=== PATIENT | female | born 1950 | race Caucasian/White ===

== ENCOUNTER 2023-04-30 23:26 | Inpatient (IN) | payer OTHER, SELFPAY ==
[2023-04-30 20:51] VITALS: BP 175/92
[2023-04-30 20:55] VITALS: BP 175/92
--- NOTE | 2023-04-30 20:57 | ED.GENMED ---
History of Present Illness
General
Chief Complaint: Musculo-Skeletal Complaint
Source: patient
Exam Limitations: none
Time Seen by Provider: 04/30/23 20:55
History of Present Illness
History of Present Illness:
72-year-old female presents via EMS from home with right hip pain after fall. No anticoagulants. Patient is confused at baseline. She points to her right hip however as location of pain. She denies headache. No other complaints at this time
Past History
Past History
ED Past Medical History: HTN, Hypercholesterolemia and Other (Intracerebral bleed); Negative Asthma or NIDDM
ED Past Surgical History: Orthopedic
Social History
Tobacco: Former smoker
Alcohol: Daily
Personal:
Living: with family
Phy Exam
Physical Exam
Physical Exam:
General: Slightly cachectic appearing female no acute distress
HEENT: Normocephalic atraumatic heart: Regular rate and rhythm no murmurs
Lungs: Clear to auscultation bilaterally no wheezing
Musculoskeletal exam: Right hip tender anteriorly patient is flexed and an attempt to straighten the leg reproduces her pain. The spine is nontender vascular: 2+ dorsalis pedis pulse bilateral feet
Course
Orders/Labs/Results
Orders:
Orders
04/30/23 20:55
CR Hip - RT w/wo Pel 2-3 Vw* Urgent
Comment: fall
Reason For Exam: fall
Include a pelvis x-ray?: Yes
04/30/23 21:00
Complete Blood Count/With Diff Urgent
Comprehensive Metabolic Panel Urgent
04/30/23 22:45
Add On- LAB Urgent
Tests Added?: serum osmolality
Urine Sodium Urgent
Morphine Sulfate 2 mg IV NOW STA
Ondansetron Injectable [Zofran] 4 mg IV NOW STA
04/30/23 22:46
Osmolality, Random Urine Urgent
Abnormal Lab Results
04/30/23
21:00
Hct 36.1 L %
(37.0-47.0)
MCV 80.2 L fL
(81.0-99.0)
Lymphocytes % 18.2 L %
(20.5-51.1)
Sodium 126 L mmol/L
(135-145)
Chloride 93 L mmol/L
(98-107)
Creatinine 0.4 L mg/dL
(0.6-1.0)
Glucose 141 H mg/dl
(70-99)
Alkaline Phosphatase 128 H U/L
(38-126)
04/30/23 21:00
04/30/23 21:00
Vital Signs
Initial and Last Documented VS:
Initial Vital Signs
Temp Pulse Resp BP Pulse Ox
97.8 F 91 16 175/92 100
04/30/23 20:51 04/30/23 20:51 04/30/23 20:51 04/30/23 20:51 04/30/23 20:51
Last Documented Vital Signs
Temp Pulse Resp BP Pulse Ox
97.8 F 91 16 175/92 99
04/30/23 20:51 04/30/23 20:51 04/30/23 20:51 04/30/23 20:51 04/30/23 21:05
MDM/Problems Addressed
Differential Diagnosis Includes:
Right hip pain after fall. Consider fracture versus dislocation versus strain. X-rays pending. Will check labs.
*Critical Care Note
Total Time (30-74mins, 75-104mins- exclusive of procedures): Not Applicable
Update Note
Update Note:
Labs reviewed. Patient noted to have sodium of 126. I personally visualized x-rays of the right hip which demonstrate intertrochanteric hip fracture of the right femur. Patient treated for pain with 2 mg of morphine and 4 mg Zofran for nausea.
Will admit for further evaluation
ED Attending Note
-
Portions of this chart may have been created with voice recognition software.� Occasional wrong word or��sound alike� substitutions may have occurred due to the inherent limitations of voice recognition software.
Discharge Plan
Departure
Patient Disposition: Admit
Date of Disposition: 04/30/23
Time of Disposition: 22:48
Admit to: Med/Surg
Presentation/result/management discussed w/ accepting MD/DO: Hospitalist
Discharge Problem:
Closed fracture of right hip, Acute hyponatremia
Prescriptions:
No Action
losartan 50 mg tablet
50 mg PO BID
atorvastatin 80 mg tablet
80 mg PO DAILY
labetalol 200 mg tablet
400 mg PO BID
risperidone 0.5 MG tablet
0.5 mg PO HS
furosemide 20 MG tablet
20 mg PO DAILY Qty: 30 0RF
Interventions
Interventions:
*Risk Screen - Suicide Last Done: 04/30/23 20:51
*General Assessment Last Done: 04/30/23 20:51
*Neglect/Abuse Screening Last Done: 04/30/23 20:51
ED- Fall Risk Assessment Last Done: 04/30/23 21:05
*ED COVID-19 Vaccine History Last Done: 04/30/23 20:51
ED-Musculoskeletal Assessment Last Done: 04/30/23 21:05
[2023-04-30 21:09] LABS: % Basophils 0.6 % (0-2); % Eosinophils 0.8 % (0-6); % Immature Granulocytes 0.3 % (0-0.5); % Lymphocytes 18.2 % (20.5-51.1); % Monocytes 5.4 % (1.7-9.3); % Neutrophils 74.7 % (42.2-75.2); Absolute Eosinophils 0.1 10^3/uL (0-0.7); Absolute Lymphocytes 1.3 10^3/uL (1.2-3.4); Absolute Monocytes 0.4 10^3/uL (0.1-0.6); Absolute Neutrophils 5.3 10^3/uL (1.4-6.5); Hematocrit 36.1 % (37.0-47.0); Hemoglobin 13.1 g/dL (12.0-16.0); Mean Corp Hgb Conc. 36.3 g/dL (33.0-37.0); Mean Corpuscular Hgb 29.1 pg (27.0-31.0); Mean Corpuscular Volume 80.2 fL (81.0-99.0); Mean Platelet Volume 8.2 fL (7.4-10.4); Nucleated Red Blood Cells % 0 %; Platelet Count 339 10^3/uL (130-400); Red Cell Dist. Width 13.2 % (11.5-14.5); White Blood Cell Count 7.1 10^3/uL (4.8-10.8)
[2023-04-30 21:34] LABS: ALT (SGPT) < 10 U/L (0-35); AST (SGOT) 32 U/L (14-36); Albumin 4.2 g/dl (3.5-5.0); Alkaline Phosphatase 128 U/L (38-126); Blood Urea Nitrogen 15 mg/dl (7-17); Calcium 9.1 mg/dl (8.4-10.2); Carbon Dioxide 28 mmol/L (22-30); Chloride 93 mmol/L (98-107); Glucose 141 mg/dl (70-99); Sodium 126 mmol/L (135-145); Total Bilirubin 0.7 mg/dl (0.2-1.3); Total Protein 6.5 g/dl (6.3-8.2); eGFR > 60.00
[2023-04-30 22:00] VITALS: BP 174/103
[2023-04-30] MEDS: ZOFRAN 4 MG IV (22:49)
[2023-04-30] MEDS: MORPHINE SULFATE 2 MG IV (22:49)
[2023-04-30 23:00] VITALS: BP 149/97
--- NOTE | 2023-04-30 23:02 | HPS.HSE ---
Family Physician
-
Family Physician: Milad Zaragoza
Chief Complaint
-
S/P Fall with Right hip pain
History of Present Illness
72yo F with PMH PMH Parkinsons/Vascular Dementia, CVA (2012), HTN/HLD, Hyponatremia presents to ER s/p Fall with Right Hip Fx.� at bedside aiding in HPI. At baseline pt is AAOx1-2 (knows name, , ambulates without any walking aids, 'more
because she is stubborn'). was cooking food. Pt got up from chair and tried to walk over to him but had an unwitnessed fall landing on right hip. Pt denies headstrike or LOC. +right hip pain 10/10, now improved to 7/10. Denies frequent falls
or previous orthopedic surgeries. She is incidentally to see an orthopedic surgeon at [place] in near future for scoliosis. Denies fever, chills, dizziness/LH, CP, Palps, SOB, Cough, abd pain, n/v/d/c, dysuria, calf or leg pain.
Medical History
Past Medical History
Past Medical History: Reports Other ( Parkinsons/Vascular Dementia, CVA, HTN/HLD presents to ER s/p Fall with Right Hip Fx)
Past Surgical History: Reports Other (Right Ankle Sx)
Social History
Unable to obtain full social history at this time due to: Dementia
Tobacco: Former Smoker
Alcohol: Daily (1g wine daily)
Drug: None
Personal:
Living: With Family
Family History
Family History: Other (unknown)
Allergies / Home Medications
Allergies reflects when Allergies were last updated in [id number].
Home Medications with original date entered in [id number]
Allergy/Medication List:
Allergies
Allergy/AdvReac Type Severity Reaction Status Date / Time
No Known Allergies Allergy Verified 04/30/23 20:58
Home Medications
furosemide 20 mg tablet 20 mg PO DAILY #30 tabs 11/12/12
atorvastatin 80 mg tablet 80 mg PO DAILY High Cholesterol 10/08/22
losartan 50 mg tablet 50 mg PO BID Blood Pressure 10/08/22
carbidopa 25 mg-levodopa 100 mg tablet 1 tab PO TID@1000,1400,1800 04/30/23
Review of Systems
-
A 12 point ROS was completed and negative except as noted: Yes
Physical Exam
Vital Signs
Vital Signs
Temp Pulse Resp BP Pulse Ox
97.8 F 94 18 174/103 100
04/30/23 20:51 04/30/23 22:50 04/30/23 22:00 04/30/23 22:00 04/30/23 22:00
Physical Exam
General: Well Developed, Well Nourished, No Apparent Distress and Appears Chronically Ill
HEENT: NormoCephalic, Moist mucous membranes and Atraumatic
Respiratory: Clear; No Wheezes, Rales or Rhonchi
Cardiac: S1/S2 and Regular Rhythm; No Murmur or Rub
GI: Soft, Non Tender, Non Distended and Normal Bowel Sounds; No Organomegaly
Rectal: Deferred by Provider
Genito-urinary: No costovertebral tender; No Stanton
Musculoskeletal: No Clubbing, No Cyanosis and No Edema
Skin: No Rash
Neuro: No Sensory Deficits (Awake and alert. AAOx1-2 (baseline). UE MSK 5/5. RLE abducted, externally rotated, shortened. +TTP right hip. )
Hematologic/Lymphatic: No Lymphadenopathy
Laboratory Results
-
04/30/23 21:00
04/30/23 21:00
Laboratory Results
Total Bilirubin 0.7 mg/dl (0.2-1.3) 04/30/23 21:00
AST 32 U/L (14-36) 04/30/23 21:00
ALT < 10 U/L (0-35) 04/30/23 21:00
Alkaline Phosphatase 128 U/L (38-126) H 04/30/23 21:00
Data Reviewed
-
Diagnostic Radiology: Image Personally Visualized and interpreted
Lab Data: Labs Reviewed by me
Impression/Plan
-
Right Hip Fracture s/p Fall / Chronic Ambulatory Dysfunction
- XR reviewed. No evidence of pre-syncope
- NPO. IVF. Prn Tylenol/Morphine for analgesia.
- Orthopedics / PT consult consult.
- Pt should likely have Na improved to ~128 prior to being deemed appropriate for surgical intervention. Will ultimately defer to nephrology
- RCRI 1. 6% 30day risk of morbidity mortality. Pt is acceptable risk to proceed with surgery after sodium improved.
Hyponatremia
- Na 126 on admission. Considerations include dehydration in setting of poor po intake reported by and lasix use vs beerpotomania effect
- Check osm, urine sodium/osm. Consult nephrology
- Will start 80cc/hr NS x 1L. Trend serial BMPs. Pt NPO without fluids at this time, Consider for fluid restriction once diet advanced.
Alcohol Use
- reports her drinking 1g of wine daily, occasionally 2-3 but more infrequently
- Monitor for s/s withdrawal. Consider CIWA monitoring/Thiamine/Folate as needed
HTN/HLD
- BP 174/103 on admission. Likely exacerbated by pain. Trend wtih appropriate analgesia. Resume home losartan. Home lasix on hold 2/2 hyponatremia. Consider prn antihypertensives
- Continue home statin
Vascular Dementia / Hx CVA (2013) - Hx noted. Continue home statin. Not on aspirin therapy.
Parkinsons Disease - Chronic/stable on home sinemet
Code Status - Full Code. Would not want prolonged ventilator support.
Diet - NPO
PPx - Lovenox
[2023-04-30 23:52] LABS: Osmolality Serum 272 mOsm/kg (275-300)
[2023-05-01] VITALS (17 sets, daily range): BP systolic 99–178; BP diastolic 56–92; BMI 16.4
[2023-05-01] MEDS: NSS 1000 IV ×2 (01:46→15:19)
[2023-05-01] MEDS: TYLENOL 650 MG PO ×2 (01:51→09:25)
[2023-05-01 06:31] LABS: Hematocrit 32.1 % (37.0-47.0); Hemoglobin 11.5 g/dL (12.0-16.0); Mean Corp Hgb Conc. 35.8 g/dL (33.0-37.0); Mean Corpuscular Hgb 29.1 pg (27.0-31.0); Mean Corpuscular Volume 81.3 fL (81.0-99.0); Mean Platelet Volume 8.6 fL (7.4-10.4); Platelet Count 326 10^3/uL (130-400); Red Blood Cell Count 3.95 10^6/uL (4.20-5.40); Red Cell Dist. Width 13.1 % (11.5-14.5); White Blood Cell Count 9.3 10^3/uL (4.8-10.8)
[2023-05-01 07:02] LABS: Blood Urea Nitrogen 14 mg/dl (7-17); Calcium 8.9 mg/dl (8.4-10.2); Carbon Dioxide 24 mmol/L (22-30); Chloride 93 mmol/L (98-107); Estimated Creatinine Clearance 58 ml/min; Glucose 142 mg/dl (70-99); Potassium 3.6 mmol/L (3.5-5.1); Sodium 127 mmol/L (135-145); eGFR > 60.00
[2023-05-01 07:28] LABS: TSH 1.41 uIU/ml (0.47-4.68)
[2023-05-01 07:45] LABS: Hepatitis C Antibody Negative (Negative)
--- NOTE | 2023-05-01 08:45 | W.PN.HOSP.TC ---
Today's Communication/Plan
-
NPO
OR today
post OP order/care per orthopedic
Assessment / Plan
Assessment / Plan
General: Well Developed, Well Nourished, No Apparent Distress and Appears Chronically Ill
HEENT: NormoCephalic, Moist mucous membranes and Atraumatic
Respiratory: Clear; No Wheezes, Rales or Rhonchi
Cardiac: S1/S2 and Regular Rhythm; No Murmur or Rub
GI: Soft, Non Tender, Non Distended and Normal Bowel Sounds; No Organomegaly
Rectal: Deferred by Provider
Genito-urinary: No costovertebral tender; No Stanton
Musculoskeletal: No Clubbing, No Cyanosis and No Edema
Skin: No Rash
Neuro: No Sensory Deficits (Awake and alert. AAOx1-2 (baseline). UE MSK 5/5. RLE abducted, externally rotated, shortened. +TTP right hip. )
Hematologic/Lymphatic: No Lymphadenopathy
Right Hip Fracture s/p Fall / Chronic Ambulatory Dysfunction
- XR reviewed. No evidence of pre-syncope
- NPO. IVF. Prn Tylenol/Morphine for analgesia.
- Orthopedics [facility] consulted.
- RCRI 1. 6% 30day risk of morbidity mortality. Pt is acceptable risk to proceed with surgery. This is a medically necessary surgery and risk outweighs benefit.
Hyponatremia
- Na 126 on admission. Considerations include dehydration in setting of poor po intake reported by and lasix use vs beerpotomania effect
- Check osm, urine sodium/osm.
- Na improving.
Alcohol Use
- reports her drinking 1g of wine daily, occasionally 2-3 but more infrequently
- Monitor for s/s withdrawal. Consider CIWA monitoring/Thiamine/Folate as needed
HTN Primary
- BP 174/103 on admission. Likely exacerbated by pain. Trend wtih appropriate analgesia. Resume home losartan. Home lasix on hold 2/2 hyponatremia. Consider prn antihypertensives
-Cont losartan 50mg BID. If BP elevated post OP will adjust meds and add prn.
HLD
- Continue home statin
Vascular Dementia / Hx CVA (2012) - Hx noted. Continue home statin. Not on aspirin therapy.
Parkinsons Disease - Chronic/stable on home sinemet
Code Status - Full Code. Would not want prolonged ventilator support.
Diet - NPO
d/w with orthopedic
d/w with spouse and son over the phone.
Anticipated Discharge: > 48 hours
Subjective/Interval History
-
Date of Service: May 01, 2023
Currently denies any pain
resting in bed comfortably
Objective Data
-
Labs:
Laboratory Results
04/30/23 05/01/23 05/01/23
21:00 04:44 12:00
WBC 7.1 9.3
Hgb 13.1 11.5 L
Hct 36.1 L 32.1 L
Plt Count 339 326
Sodium 126 L 127 L Pending
Potassium 4.0 3.6 Pending
Chloride 93 L 93 L Pending
Carbon Dioxide 28 24 Pending
BUN 15 14 Pending
Creatinine 0.4 L 0.5 L Pending
Glucose 141 H 142 H Pending
Calcium 9.1 8.9 Pending
Total Bilirubin 0.7
AST 32
ALT < 10
Alkaline Phosphatase 128 H
05/01/23
18:00
WBC
Hgb
Hct
Plt Count
Sodium Pending
Potassium Pending
Chloride Pending
Carbon Dioxide Pending
BUN Pending
Creatinine Pending
Glucose Pending
Calcium Pending
Total Bilirubin
AST
ALT
Alkaline Phosphatase
Vital Signs:
Vital Signs
Temp Pulse Resp BP Pulse Ox
97.5 F 78 18 148/73 98
05/01/23 07:55 05/01/23 07:55 05/01/23 07:55 05/01/23 07:55 05/01/23 07:55
I&O
04/30/23 05/01/23 05/02/23
06:59 06:59 06:59
Intake Total 400 / 400
Balance 400 / 400
Data Reviewed
-
Total Time Spent with Patient (in minutes): 55
[2023-05-01] MEDS: LIPITOR 80 MG PO (09:23)
[2023-05-01] MEDS: COZAAR 50 MG PO (09:23)
[2023-05-01] MEDS: SINEMET 25-100 1 TABLET PO ×2 (09:25→18:05)
--- NOTE | 2023-05-01 10:34 | CON.ORTHO ---
Consultation
-
Date/Time Consultation Requested: 730 AM
Date/Time Consultation Performed: 930 AM
Requesting Provider: Primary
Performing Provider: Facundo
Reason for Consultation: Right hip fracture
Consultation - Orthopedics
History
HPI: 72-year-old female history of Parkinson's, vascular dementia CVA presented to the [facility] emergency department status post witnessed mechanical fall with complaints of right hip pain. She was subsequently diagnosed with a right intertrochanteric
femur fracture admitted to the hospital service for amatory function. He is consulted for further evaluation treatment. Patient's is at bedside this morning reports that patient attempted to get out of her chair medication to help him with
dinner and sustained a fall. He reports that she very occasionally uses a walker for ambulatory assistance but typically does not use any aids. Denies any anticoagulation. Does note history of degenerative scoliosis with recent falls. Does state
that she is complaining of some right hip pain leading up to the fall.
Allergies / Home Medications
Past medical history: Parkinson's, vascular dementia, CVA, hypertension
Past surgical history: Ankle surgery
Family history: Not pertinent
Social history: Lives at home with , occasional wine, former smoker
Allergy/AdvReac Type Severity Reaction Status Date / Time
No Known Allergies Allergy Verified 04/30/23 20:58
Medication Instructions Recorded
furosemide 20 mg tablet 20 mg PO DAILY #30 tabs 11/12/12
atorvastatin 80 mg tablet 80 mg PO DAILY High Cholesterol 10/08/22
losartan 50 mg tablet 50 mg PO BID Blood Pressure 10/08/22
carbidopa 25 mg-levodopa 100 mg 1 tab PO TID@1000,1400,1800 04/30/23
tablet
Vital Signs / Lab Results
Temp Pulse Resp BP Pulse Ox
97.5 F 78 18 148/73 98
05/01/23 07:55 05/01/23 07:55 05/01/23 07:55 05/01/23 07:55 05/01/23 07:55
05/01/23 04:44
10 point review systems reviewed and negative unless otherwise stated
General: No acute distress, interactive
Musculoskeletal right lower extremity
Extremity short externally rotated
Skin intact, no erythema, no ecchymotic staining
Tenderness palpation over groin
No ipsilateral palpable knee effusion
Positive EHL, FHL, ankle dorsiflexion, plantarflexion
Brisk cap refill distally
No other areas of bony tenderness palpation crepitation of long bones and joints on tertiary examination
Diagnostic studies
X-rays right hip reviewed that do show minimally displaced right intertrochanteric femur fracture
Assessment / Plan
72-year-old female history of Parkinson's vascular dementia CVA with right intertrochanteric femur fracture. They have a long discussion the patient and her regarding diagnosis and treatment options. Discussed both surgical and nonsurgical
options. Was my recommendation proceed with surgical intervention in the form of cephalomedullary nail fixation right intertrochanteric femur fracture. We discussed risks benefits and alternatives to surgery. We discussed the usual expected
perioperative postoperative course to include postoperative anticoagulation. Patient's is her medical POA and I did obtain written informed consent after discussion. Patient does have evidence of hyponatremia on admission. She has been
evaluated by nephrology. I discussed this both with the weapons electrical engineering officer as well as primary care physician stated that she was cleared for the OR from their standpoint.
Nonweightbearing right lower extremity
N.p.o.
DVT prophylaxis: Hold in preparation for OR
PT/OT: Hold until postoperative setting
Medical management per primary team
Plan: 2 OR today for operative fixation right intertrochanteric femur fracture pending medical clearance and OR availability
[2023-05-01] MEDS: ANCEF 10 IV (13:00)
--- NOTE | 2023-05-01 13:50 | W.CON.NEPH ---
Consultation
-
Date/Time Consultation Requested: 04/30 23:53
Date/Time Consultation Performed: 13:51
Requesting Provider: Aarti Maher
Performing Provider: Nicole Booker
Reason for Consultation: hyponatremia
Medical History
Past Medical History
Ms. Walton is a 72 YOF with PMH of Parkinson's/ Vascular dementia, stroke 2012, HTN/DLD, chronic hyponatremia (baseline around 130) who presents to the hospital after a fall with R hip fracture. Patient's is at bedside who provides history.
States that patient has significant dementia, usually AOx1-2. The patient fell because she got up from her chair and tried to walk over to her and had an unwitnessed fall landing on the right hip. The patient is planned for an orthopedic
procedure today.
Nephrology is consulted regarding her hyponatremia.Reviewing her sodium trends, her sodium has typically arranged in the low 130s. When she initially presented her sodium was 126. It did improve to 127 this morning. states that she eats very
little at home. Typically she has a yogurt in the morning and then about 5 to 8 ounces of food in the evening. She has a normal water intake. She is also noted to be on Lasix at home.
Past Medical History: HTN, Hypercholesterolemia and Other
Past Surgical History: Orthopedic
Social History
Tobacco: Former Smoker
Alcohol: Daily
Drug: None
Personal:
Living: With Family
Employment: Not Employed
Family History
Family History: Not Pertinent
Allergies / Home Medications
Allergy/AdvReac Type Severity Reaction Status Date / Time
No Known Allergies Allergy Verified 04/30/23 20:58
Medication Instructions Recorded Confirmed Type
furosemide 20 mg tablet 20 mg PO DAILY #30 tabs 11/12/12 04/30/23 Rx
atorvastatin 80 mg tablet 80 mg PO DAILY High Cholesterol 10/08/22 04/30/23 History
losartan 50 mg tablet 50 mg PO BID Blood Pressure 10/08/22 04/30/23 History
carbidopa 25 mg-levodopa 100 mg 1 tab PO TID@1000,1400,1800 04/30/23 04/30/23 History
tablet
Review of Systems
-
Unable to obtain full review of systems at this time due to: Dementia
History Source: Family
All other systems: Negative unless noted
Constitutional: Weight Loss
EENT: No Symptoms
Respiratory: No Symptoms
Cardiac: No Symptoms
Abdomen/GI: No Symptoms
: No Symptoms
Musculoskeletal: Joint Pain
Skin: No Symptoms
Neurological: No Symptoms
Endocrine: No Symptoms
Hematologic/Lymphatic: No Symptoms
Physical Exam
Vital Signs
Vital Signs
Temp Pulse Resp BP Pulse Ox
97.7 F 75 18 141/71 96
05/01/23 11:30 05/01/23 11:30 05/01/23 11:30 05/01/23 11:30 05/01/23 11:30
Lab Results
WBC 9.3 10^3/uL (4.8-10.8) 05/01/23 04:44
RBC 3.95 10^6/uL (4.20-5.40) L 05/01/23 04:44
Hgb 11.5 g/dL (12.0-16.0) L 05/01/23 04:44
Hct 32.1 % (37.0-47.0) L 05/01/23 04:44
Plt Count 326 10^3/uL (130-400) 05/01/23 04:44
eGFR > 60.00 05/01/23 04:44
Albumin 4.2 g/dl (3.5-5.0) 04/30/23 21:00
Physical Exam
General: Awake and Alert
HEENT: PERRL and EOMI
Respiratory: Clear
Cardiac: S1/S2 and Regular Rate/Rhythm
Breast: Deferred by me
Abdomen: Soft, Nontender and Nondistended
Rectal: Deferred by Provider
Genito-urinary: Other (no fley)
Musculoskeletal: No Edema
Skin: No Rash, Warm and Dry
Neuro: Other (dementia)
Hematologic/Lymphatic: Other
Psych: Mood/afflect pleasant
Assessment/Plan
-
Assessment:
hyponatremia
R hip fracture 2/2 to fall
Alcohol usage (wine)
HTN
DLD
Vascular dementia
Parkinson's disease
Plan:
- obtain urine osm, urine Na to better assist us in management of her hyponatremia
- likely with some component of tea/toast diet and SIADH from pain
- Na improving organically, CTM for now
- blood pressures elevated on initial presentation, likely 2/2 to pain
- hold losartan prior to surgery
- if patient needs antihypertensive in the immediate post op period, would prefer hydralazine PO for fast on/off mechanism of action
--- NOTE | 2023-05-01 14:00 | CM ---
Reviewed the chart notes. Patient to OR for hip fracture repair. The patient resides with her spouse in a two story home. The patient has a rolling walker. The patient's discharge plans will most likely be SNF/rehab prior to transitioning home.
CM continues to be available to patient/family and is monitoring medical plan for needs at discharge.
Plan: Discharge to SNF/rehab when medically stable and bed found. Precert will be required.
--- NOTE | 2023-05-01 14:17 | OR.RPT ---
Operative Report
Operative Report
Anesthesia Type:
Spinal
Operative Indications:
Right intertrochanteric femur fracture
Operative Findings :
Same with some subtrochanteric extension
Complications:
None
Implants:
Sharon gamma nail 360 mm x 10 mm x 125 degrees, 80 mm cephalomedullary screw, 42.5 mm and 47.5 mm distal interlocking bolts
Procedure and Technique:
Insertion right cephalomedullary nail for intertrochanteric femur fracture
INDICATIONS FOR PROCEDURE:
72-year-old female history of vascular dementia, Parkinson's CVA presented status post fall. She admitted to the hospital service. She was found to have a right intertrochanteric femur fracture. Discussed treatment options with patient as well as
her 's medical POA. Was my recommendation to proceed with cephalomedullary nail fixation. Discussed risks benefits alternatives of surgery. Discussed usual expected perioperative postoperative course after discussion, written informed
consent was obtained.
OPERATIVE PROCEDURE:
Patient was seen identified the preoperative holding area. Operative extremity was marked. All questions were addressed. She was taken to the operating room where spinal anesthesia was administered. He was placed supine on fracture table.
Contralateral leg was placed well-padded and secured to the central post. Operative extremity was then placed in a well-padded fracture boot. Provisional reduction was performed utilizing axial traction, adduction and slight internal rotation.
Orthogonal fluoroscopic images revealed appropriate reduction of right intertrochanteric femur fracture. There was noted to be some subtrochanteric extension however on these intraoperative fluoroscopic views. Operative extremity was prepped and
draped in a normal sterile fashion. Timeout was performed again identifying the correct operative extremity. Preoperative antibiotics were addressed. Proximally 5 cm incision was made just proximal to the tip of the greater trochanter. Sharp
dissection was carried through skin subcutaneous tissues deep fascial layer. Guidewire was then advanced the tip of the greater trochanteric according to technique guide to the level of the lesser trochanter. Opening reamer was utilized.
Ball-tipped guidewire was then advanced to the level of the proximal pole of the patella. This was measured to be 360 mm. Stepwise reaming was performed to 11.5 mm. Decision was made to insert a 10 mm x 360 mm long gamma nail. This was inserted
to appropriate depth. Trocar was then inserted through the aiming guide and additional incision was made. Guidewire was advanced through the femoral neck and femoral head to appropriate depth. This was confirmed on orthogonal fluoroscopic
intraoperative imaging. Attention was paid to minimize tip apex distance. An 80 mm cephalomedullary screw was then inserted to appropriate depth. Attention was then turned to distal interlocking screws. This was performed via perfect [place]
technique. Additional stab incisions were made and distal interlocking screws of appropriate length were then inserted. Final orthogonal views confirmed proper reduction and placement of implant. Satisfied with extent of surgery, wounds were
copiously irrigated normal saline solution. Wounds were then closed in layered fashion utilizing 0 Vicryl for deep fascial layer, 2-0 Vicryl for subcutaneous tissues and kayleen for skin. Aquacel dressings were applied. Anesthesia was reversed
and patient was taken to PACU in stable condition. Postoperative plans will include weightbearing to the patient's tolerance operative extremity. Will recommend DVT prophylaxis to consist of 28 days of renally dosed Lovenox. Plan to see patient
back in the office in 2 weeks postop for repeat evaluation with planned removal of kayleen.
Disposition:
PACU stable condition
[2023-05-01] MEDS: TYLENOL 325 MG PO (18:05)
[2023-05-01] MEDS: SINEMET 25-100 PO (18:05)
[2023-05-01 18:37] LABS: Blood Urea Nitrogen 8 mg/dl (7-17); Calcium 8.9 mg/dl (8.4-10.2); Carbon Dioxide 25 mmol/L (22-30); Chloride 100 mmol/L (98-107); Estimated Creatinine Clearance 58 ml/min; Glucose 112 mg/dl (70-99); Potassium 3.8 mmol/L (3.5-5.1); Sodium 130 mmol/L (135-145); eGFR > 60.00
[2023-05-01 18:57] LABS: Urine Albumin Negative (Neg - Trace); Urine Bilirubin Negative (Negative); Urine Character Clear (Clear); Urine Color Yellow; Urine Glucose Negative (Negative); Urine Ketone Negative (Negative); Urine Leukocyte 2+ (Negative); Urine Nitrite Negative (Negative); Urine Occult Blood Negative (Negative); Urine Urobilinogen Negative (Neg - 1+); Urine pH 6.5 (5.0-9.0)
[2023-05-01 19:02] LABS: Osmolality Urine 299 mOsm/kg (300-900)
[2023-05-01 19:19] LABS: Urine Sodium 19 mmol/L (30-90)
[2023-05-01 19:25] LABS: Urine Red Blood Cell None Seen /HPF (0-2)
[2023-05-01] MEDS: APRESOLINE 10 MG IV (20:30)
[2023-05-01] MEDS: COLACE 100 MG PO (20:51)
[2023-05-01] MEDS: ANCEF 5 IV (21:03)
[2023-05-01] MEDS: ROXICODONE 5 MG PO (21:48)
[2023-05-02] VITALS (10 sets, daily range): BP systolic 108–177; BP diastolic 54–102; PULSE 95
[2023-05-02] MEDS: APRESOLINE 10 MG IV ×3 (00:35→08:57)
[2023-05-02] MEDS: NSS 1000 IV (02:24)
[2023-05-02] MEDS: ANCEF 5 IV (04:49)
--- NOTE | 2023-05-02 05:09 | PTCARENOTE ---
patient's HR noted to be sustaining in 140's to 150's on tele monitor. House Provider Kristy Swanson SEASONAL CUSTOMER SERVICE ASSOCIATE on unit and ordered IV lopressor which was then administered. Patient asymptomatic the entire time, lying in bed, resting. Patient's son at
bedside updated. will cont to closely monitor.
[2023-05-02] MEDS: LOPRESSOR 5 MG IV (05:16)
[2023-05-02] MEDS: COLACE 100 MG PO ×2 (08:18→20:04)
[2023-05-02] MEDS: LIPITOR 80 MG PO (08:18)
[2023-05-02] MEDS: ROXICODONE 5 MG PO ×2 (08:18→23:24)
[2023-05-02] MEDS: SINEMET 25-100 1 TABLET PO ×3 (08:18→17:28)
[2023-05-02] MEDS: LOVENOX 30 MG SC (08:19)
[2023-05-02 09:14] LABS: % Basophils 0.3 % (0-2); % Eosinophils 0.2 % (0-6); % Immature Granulocytes 0.2 % (0-0.5); % Lymphocytes 8.5 % (20.5-51.1); % Monocytes 7.1 % (1.7-9.3); % Neutrophils 83.7 % (42.2-75.2); Absolute Lymphocytes 0.8 10^3/uL (1.2-3.4); Absolute Monocytes 0.6 10^3/uL (0.1-0.6); Absolute Neutrophils 7.4 10^3/uL (1.4-6.5); Hematocrit 31.4 % (37.0-47.0); Hemoglobin 11.3 g/dL (12.0-16.0); Mean Corpuscular Hgb 29.7 pg (27.0-31.0); Mean Corpuscular Volume 82.4 fL (81.0-99.0); Mean Platelet Volume 8.5 fL (7.4-10.4); Nucleated Red Blood Cells % 0 %; Platelet Count 299 10^3/uL (130-400); Red Blood Cell Count 3.81 10^6/uL (4.20-5.40); Red Cell Dist. Width 13.2 % (11.5-14.5); White Blood Cell Count 8.8 10^3/uL (4.8-10.8)
[2023-05-02 09:34] LABS: Blood Urea Nitrogen 5 mg/dl (7-17); Calcium 8.6 mg/dl (8.4-10.2); Carbon Dioxide 23 mmol/L (22-30); Chloride 104 mmol/L (98-107); Estimated Creatinine Clearance 58 ml/min; Glucose 113 mg/dl (70-99); Magnesium 1.8 mg/dl (1.6-2.3); Potassium 3.4 mmol/L (3.5-5.1); Sodium 130 mmol/L (135-145); eGFR > 60.00
[2023-05-02] MEDS: COZAAR 50 MG PO ×2 (09:40→20:04)
--- NOTE | 2023-05-02 09:53 | W.PN.NEPH.PH ---
Today's Communication / Plan
-
- continue to monitor sodium
- encourage PO intake
Assessment/Plan
-
Assessment:
hyponatremia
R hip fracture 2/2 to fall
Alcohol usage (wine)
HTN
DLD
Vascular dementia
Parkinson's disease
Plan:
- Uosm 299 Mal 19
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
- Na improving organically, CTM for now
- blood pressures elevated on initial presentation, likely 2/2 to pain
- losartan resumed after surgery
- if patient needs antihypertensive in the immediate post op period, would prefer hydralazine PO for fast on/off mechanism of action
-
-
Date of Service: May 02, 2023
CC / HPI / ROS
-
Chief Complaint:
hyponatremia
History of Present Illness:
Na improved to 130 this AM
very minimal PO intake
Review of Systems:
+ pain of hip
Labs
-
Labs:
WBC 8.8 10^3/uL (4.8-10.8) 05/02/23 08:44
RBC 3.81 10^6/uL (4.20-5.40) L 05/02/23 08:44
Hgb 11.3 g/dL (12.0-16.0) L 05/02/23 08:44
Hct 31.4 % (37.0-47.0) L 05/02/23 08:44
Plt Count 299 10^3/uL (130-400) 05/02/23 08:44
Sodium 130 mmol/L (135-145) L 05/02/23 08:44
Potassium 3.4 mmol/L (3.5-5.1) L 05/02/23 08:44
Chloride 104 mmol/L (98-107) 05/02/23 08:44
Carbon Dioxide 23 mmol/L (22-30) 05/02/23 08:44
BUN 5 mg/dl (7-17) L 05/02/23 08:44
Creatinine 0.4 mg/dL (0.6-1.0) L 05/02/23 08:44
eGFR > 60.00 05/02/23 08:44
Glucose 113 mg/dl (70-99) H 05/02/23 08:44
Calcium 8.6 mg/dl (8.4-10.2) 05/02/23 08:44
Albumin 4.2 g/dl (3.5-5.0) 04/30/23 21:00
Physical Exam
-
Vital Signs:
Vital Signs
Temp Pulse Resp BP Pulse Ox
99.2 F 137 20 133/70 99
05/02/23 08:15 05/02/23 09:46 05/02/23 08:15 05/02/23 09:46 05/02/23 08:15
Cardiovascular:: Regular rate and rhythm
Respiratory:: Bilateral: CTA
Lung Excursion:: Normal
Abdomen:: Nontender and Soft
Bowel Sounds:: Decreased
Extremity Edema:: None: Bilateral:
Stanton Catheter: No
[2023-05-02] MEDS: KCL 20 MEQ PO (11:57)
[2023-05-02] MEDS: LOPRESSOR 12.5 MG PO ×2 (11:57→20:01)
--- NOTE | 2023-05-02 12:08 | W.PN.ORTHO ---
Today's Communication / Plan
-
72 yo F ho vascular dementia POD 1 s/p R Long CMN right peritrochanteric femur fracture
WBAT RLE
DVT ppx: lovenox X 28 days
PT/OT
Pain control
Medical management per primary team
Follow up in 2 weeks outpatient for repeat eval with planned removal of kayleen
Subjective
.
.:
Patient comfortable upon evaluation. Son at bedside. Reportedly patient was having quite a bit of pain earlier and there was some concern from the son that she was affected cognitively by the narcotic pain medication. They do report she is more
alert currently however.
Vital Signs and Labs
.
Vital Signs and Labs:
Lab Results
05/02/23 08:44
05/02/23 08:44
Temp Pulse Resp BP Pulse Ox
99.2 F 137 20 133/70 99
05/02/23 08:15 05/02/23 09:46 05/02/23 08:15 05/02/23 09:46 05/02/23 08:15
Physical Exam
-
MSK RLE
Dressing without blood drainage
Patient with difficulty following commands but is moving toes and ankle spontaneously
BCR Distally
--- NOTE | 2023-05-02 12:22 | W.PN.HOSP.TC ---
Today's Communication/Plan
-
PT/OT
Reduce pain meds
Monitor BP
EKG
Adjusted bp meds
Assessment / Plan
Assessment / Plan
Right Hip Fracture s/p Fall / Chronic Ambulatory Dysfunction
-s/p right cephalomedullary nail for intertrochanteric femur fracture
-Pain control-avoid excessive narcs.
-PT/OT
-Lovenox for DVT ppx-
-Ortho recs
Hyponatremia likely 2/2 SIADH vs. dehydration in setting of poor po intake reported by and lasix use
- Na 126 on admission to 130 now.
- Na improving.
- Nephro recs
Alcohol Use
- reports her drinking of wine daily, occasionally 2-3 but more infrequently
- Monitor for s/s withdrawal. Consider CIWA monitoring/Thiamine/Folate as needed
HTN Primary
-Cont losartan 50mg BID.
-BP elevated with sinus tachycardia-started lopressor.
Tachycardia likely 2/2 sinus currently dehydration and pain
-Check EKG
-Started on Lopressor.
-DC hydralazine in setting of tachycardia
HLD
- Continue home statin
Hypokalemia-replete
Vascular Dementia / Hx CVA (2012) - Hx noted. Continue home statin. Not on aspirin therapy.
Parkinsons Disease - Chronic/stable on home sinemet
Code Status - Full Code. Would not want prolonged ventilator support.
d/w with spouse and son.
Anticipated Discharge: > 48 hours
Subjective/Interval History
-
Date of Service: May 02, 2023
per son, pt received pain meds and due to it more tired
Pt bp elevated and HR also elevated.
Objective Data
-
Labs:
Laboratory Results
05/02/23
08:44
WBC 8.8
Hgb 11.3 L
Hct 31.4 L
Plt Count 299
Sodium 130 L
Potassium 3.4 L
Chloride 104
Carbon Dioxide 23
BUN 5 L
Creatinine 0.4 L
Glucose 113 H
Calcium 8.6
Vital Signs:
Vital Signs
Temp Pulse Resp BP Pulse Ox
99.2 F 137 20 133/70 99
05/02/23 08:15 05/02/23 09:46 05/02/23 08:15 05/02/23 09:46 05/02/23 08:15
I&O
05/01/23 05/02/23 05/03/23
06:59 06:59 06:59
Intake Total 400 / 400 1275 / 1275
Output Total 575 / 575
Balance 400 / 400 700 / 700
Physical Exam
-
General: Well Developed and No Apparent Distress
HEENT: Normocephalic, Atraumatic and Moist Mucous Membranes
Respiratory: Clear to Auscultation
Cardiac: Regular Rhythm, S1/S2 and Tachycardic; Negative Murmur, Rub or Gallop
GI: Soft, Nontender, Nondistended and Normal Bowel Sounds; Negative Organomegaly
Rectal: Deferred by Provider
Musculoskeletal: No Clubbing, No Cyanosis, No Edema and Other (RLE aquacell dressing noted. no swelling. )
Skin: Negative Rash
Neuro: Awake and Nonfocal/Grossly Intact
Psych: Apparent Dementia
Data Reviewed
-
Total Time Spent with Patient (in minutes): 55
[2023-05-03 03:10] VITALS: BP 163/80
[2023-05-03 07:40] VITALS: BP 168/89
[2023-05-03 08:14] LABS: % Basophils 0.6 % (0-2); % Immature Granulocytes 0.3 % (0-0.5); % Lymphocytes 19.7 % (20.5-51.1); % Monocytes 9.8 % (1.7-9.3); % Neutrophils 68.6 % (42.2-75.2); Absolute Basophils 0.1 10^3/uL (0-0.2); Absolute Eosinophils 0.1 10^3/uL (0-0.7); Absolute Lymphocytes 1.6 10^3/uL (1.2-3.4); Absolute Monocytes 0.8 10^3/uL (0.1-0.6); Absolute Neutrophils 5.4 10^3/uL (1.4-6.5); Hematocrit 29.3 % (37.0-47.0); Hemoglobin 10.8 g/dL (12.0-16.0); Mean Corp Hgb Conc. 36.9 g/dL (33.0-37.0); Mean Corpuscular Hgb 30.2 pg (27.0-31.0); Mean Corpuscular Volume 81.8 fL (81.0-99.0); Mean Platelet Volume 8.5 fL (7.4-10.4); Nucleated Red Blood Cells % 0 %; Platelet Count 267 10^3/uL (130-400); Red Blood Cell Count 3.58 10^6/uL (4.20-5.40); Red Cell Dist. Width 13.2 % (11.5-14.5); White Blood Cell Count 7.9 10^3/uL (4.8-10.8)
[2023-05-03 08:46] LABS: Blood Urea Nitrogen 9 mg/dl (7-17); Calcium 8.4 mg/dl (8.4-10.2); Carbon Dioxide 21 mmol/L (22-30); Chloride 101 mmol/L (98-107); Estimated Creatinine Clearance 58 ml/min; Glucose 104 mg/dl (70-99); Potassium 3.7 mmol/L (3.5-5.1); Sodium 128 mmol/L (135-145); eGFR > 60.00
[2023-05-03] MEDS: ULTRAM 25 MG PO ×2 (08:49→21:10)
[2023-05-03] MEDS: LOVENOX 30 MG SC (08:50)
[2023-05-03] MEDS: COZAAR 50 MG PO ×2 (08:51→21:09)
[2023-05-03] MEDS: SINEMET 25-100 1 TABLET PO ×3 (08:53→17:41)
[2023-05-03] MEDS: COLACE 100 MG PO ×2 (08:53→21:09)
[2023-05-03] MEDS: LIPITOR 80 MG PO (08:54)
[2023-05-03] MEDS: LOPRESSOR 12.5 MG PO (10:03)
[2023-05-03] MEDS: LOPRESSOR PO (10:03)
[2023-05-03 10:55] VITALS: BP 154/88; PULSE 93
[2023-05-03 11:30] VITALS: BP 124/74
--- NOTE | 2023-05-03 11:47 | W.PN.NEPH.PH ---
Today's Communication / Plan
-
- monitor Na
- uosm and [place] tomorrow AM
Assessment/Plan
-
Assessment:
hyponatremia
R hip fracture 2/2 to fall
Alcohol usage (wine)
HTN
DLD
Vascular dementia
Parkinson's disease
Plan:
- Uosm 299 [place] 19
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
- Na stabilzing around 128 this AM. patient noted to have significantly improved PO intake
- continue to monitor Na. If lower again tomorrow, would plan for tolvaptan. repeat Uosm and [place] ordered to help guide therapy
- blood pressures elevated on initial presentation, likely 2/2 to pain
- losartan resumed after surgery
- if patient needs antihypertensive in the immediate post op period, would prefer hydralazine PO for fast on/off mechanism of action
-
-
Date of Service: May 03, 2023
CC / HPI / ROS
-
Chief Complaint:
hyponatremia
History of Present Illness:
Na improved to 128 this AM
very minimal PO intake
Review of Systems:
+ pain of hip
improved PO intake this AM
Labs
-
Labs:
WBC 7.9 10^3/uL (4.8-10.8) 05/03/23 07:52
RBC 3.58 10^6/uL (4.20-5.40) L 05/03/23 07:52
Hgb 10.8 g/dL (12.0-16.0) L 05/03/23 07:52
Hct 29.3 % (37.0-47.0) L 05/03/23 07:52
Plt Count 267 10^3/uL (130-400) 05/03/23 07:52
Sodium 128 mmol/L (135-145) L 05/03/23 07:52
Potassium 3.7 mmol/L (3.5-5.1) 05/03/23 07:52
Chloride 101 mmol/L (98-107) 05/03/23 07:52
Carbon Dioxide 21 mmol/L (22-30) L 05/03/23 07:52
BUN 9 mg/dl (7-17) 05/03/23 07:52
Creatinine 0.4 mg/dL (0.6-1.0) L 05/03/23 07:52
eGFR > 60.00 05/03/23 07:52
Glucose 104 mg/dl (70-99) H 05/03/23 07:52
Calcium 8.4 mg/dl (8.4-10.2) 05/03/23 07:52
Albumin 4.2 g/dl (3.5-5.0) 04/30/23 21:00
Physical Exam
-
Vital Signs:
Vital Signs
Temp Pulse Resp BP Pulse Ox
97.9 F 87 16 124/74 97
05/03/23 11:30 05/03/23 11:30 05/03/23 11:30 05/03/23 11:30 05/03/23 11:30
Cardiovascular:: Regular rate and rhythm
Respiratory:: Bilateral: CTA
Lung Excursion:: Normal
Abdomen:: Nontender and Soft
Bowel Sounds:: Normal
Extremity Edema:: None: Bilateral:
Stanton Catheter: No
--- NOTE | 2023-05-03 12:27 | W.PN.HOSP.TC ---
Today's Communication/Plan
-
Increase Lopressor
Blood pressure improving
Pain control
PT OT SNF
Start disposition process
Trend sodium
Assessment / Plan
Assessment / Plan
Right Hip Fracture s/p Fall / Chronic Ambulatory Dysfunction
-s/p right cephalomedullary nail for intertrochanteric femur fracture
-Pain control-avoid excessive narcs.
-PT/OT-SNF.
-Lovenox for DVT ppx-
-Ortho recs
Acute blood loss anemia Secondary to surgery.
Trend hemoglobin. Transfuse as needed for hemoglobin less than 7.
Hyponatremia likely 2/2 SIADH vs. dehydration in setting of poor po intake reported by and lasix use
- Na 126 on admission to 128 now.
- repeat urine studies per nephro.
- Nephro recs
Alcohol Use
- reports her drinking of wine daily, occasionally 2-3 but more infrequently
- Monitor for s/s withdrawal. Consider CIWA monitoring/Thiamine/Folate as needed
HTN Primary
-Cont losartan 50mg BID.
-BP elevated with sinus tachycardia-started lopressor and dose increased to 25mg BID.
-Of note. Per spouse patient used to be on high-dose of multiple medication per cardiology which was adjusted due to hypotension (losartan, high-dose labetalol 200 mg twice daily and Lasix)
-BP improving.
Tachycardia likely 2/2 sinus currently dehydration and pain
-Check EKG NSR
-Started on Lopressor.
-DC hydralazine in setting of tachycardia
HLD
- Continue home statin
Hypokalemia-replete
Vascular Dementia / Hx CVA (2013) - Hx noted. Continue home statin. Not on aspirin therapy.
Parkinsons Disease - Chronic/stable on home sinemet
Code Status - Full Code. Would not want prolonged ventilator support.
d/w with spouse at bedside.
PT/OT-SNF. CM Aware.
Anticipated Discharge: > 48 hours
Subjective/Interval History
-
Date of Service: May 03, 2023
Per spouse patient more awake
Tolerating diet
Denies any cough
Denies any diarrhea
Denies dysuria
Objective Data
-
Labs:
Laboratory Results
05/03/23
07:52
WBC 7.9
Hgb 10.8 L
Hct 29.3 L
Plt Count 267
Sodium 128 L
Potassium 3.7
Chloride 101
Carbon Dioxide 21 L
BUN 9
Creatinine 0.4 L
Glucose 104 H
Calcium 8.4
Vital Signs:
Vital Signs
Temp Pulse Resp BP Pulse Ox
97.9 F 87 16 124/74 97
05/03/23 11:30 05/03/23 11:30 05/03/23 11:30 05/03/23 11:30 05/03/23 11:30
I&O
05/02/23 05/03/23 05/04/23
06:59 06:59 06:59
Intake Total 1275 / 1275 1560 / 1560
Output Total 575 / 575
Balance 700 / 700 1560 / 1560
Physical Exam
-
General: Well Developed and No Apparent Distress
HEENT: Normocephalic, Atraumatic and Moist Mucous Membranes
Respiratory: Clear to Auscultation
Cardiac: Regular Rhythm, S1/S2 and Tachycardic; Negative Murmur, Rub or Gallop
GI: Soft, Nontender, Nondistended and Normal Bowel Sounds; Negative Organomegaly
Rectal: Deferred by Provider
Musculoskeletal: No Clubbing, No Cyanosis, No Edema and Other (RLE aquacell dressing noted. no swelling. )
Skin: Negative Rash
Neuro: Awake and Nonfocal/Grossly Intact
Psych: Apparent Dementia
Data Reviewed
-
Total Time Spent with Patient (in minutes): 55
--- NOTE | 2023-05-03 13:09 | CM ---
ARCENIO huitron re: discharge planning.
reviewed pt's chart, met with pt. pt's and pt's son at bedside.
PT and OT evaluations noted - SNF level of care recommended. Discussed it with pt and her family and they expressed their agreement. A list of SNFs provided to pt and her family. Following SNFs preferred: [facility] home [facility]F, [facility] and [facility].
A referral to preferred SNF made.
D/C plan: preferred SNF.
CM will follow to assist pt with discharge to a preferred SNF.
[2023-05-03 15:10] VITALS: BP 117/74
[2023-05-03] MEDS: LOPRESSOR 25 MG PO (21:09)
[2023-05-04 00:10] VITALS: BP 146/83
[2023-05-04 06:32] LABS: % Basophils 0.8 % (0-2); % Eosinophils 1.6 % (0-6); % Immature Granulocytes 0.4 % (0-0.5); % Lymphocytes 20.9 % (20.5-51.1); % Monocytes 8.9 % (1.7-9.3); % Neutrophils 67.4 % (42.2-75.2); Absolute Basophils 0.1 10^3/uL (0-0.2); Absolute Eosinophils 0.1 10^3/uL (0-0.7); Absolute Lymphocytes 1.7 10^3/uL (1.2-3.4); Absolute Monocytes 0.7 10^3/uL (0.1-0.6); Absolute Neutrophils 5.3 10^3/uL (1.4-6.5); Hematocrit 28.8 % (37.0-47.0); Hemoglobin 10.3 g/dL (12.0-16.0); Mean Corp Hgb Conc. 35.8 g/dL (33.0-37.0); Mean Corpuscular Hgb 29.5 pg (27.0-31.0); Mean Corpuscular Volume 82.5 fL (81.0-99.0); Mean Platelet Volume 8.8 fL (7.4-10.4); Nucleated Red Blood Cells % 0 %; Platelet Count 303 10^3/uL (130-400); Red Blood Cell Count 3.49 10^6/uL (4.20-5.40); Red Cell Dist. Width 13.3 % (11.5-14.5); White Blood Cell Count 7.9 10^3/uL (4.8-10.8)
[2023-05-04 06:47] LABS: Blood Urea Nitrogen 14 mg/dl (7-17); Calcium 8.4 mg/dl (8.4-10.2); Carbon Dioxide 22 mmol/L (22-30); Chloride 99 mmol/L (98-107); Estimated Creatinine Clearance 58 ml/min; Glucose 112 mg/dl (70-99); Potassium 3.8 mmol/L (3.5-5.1); Sodium 128 mmol/L (135-145); eGFR > 60.00
[2023-05-04 07:01] VITALS: BP 173/95
[2023-05-04] MEDS: COZAAR 50 MG PO ×2 (08:09→20:53)
[2023-05-04] MEDS: LOPRESSOR 25 MG PO ×2 (08:09→20:54)
[2023-05-04] MEDS: COLACE 100 MG PO ×2 (08:09→20:54)
[2023-05-04] MEDS: LIPITOR 80 MG PO (08:09)
[2023-05-04] MEDS: LOVENOX 30 MG SC (08:10)
--- NOTE | 2023-05-04 08:34 | W.PN.HOSP.TC ---
Addendum entered and electronically signed by Alex Jensen MD 05/04/23 16:15:
Severe Protein Calorie Malnutrition
Original Note:
Today's Communication/Plan
-
see bold
Assessment / Plan
Assessment / Plan
Gen: NAD, AAOx3.
Eyes: EOMI, PERRLA, no scleral icterus.
Neck: supple.
CV: RRR, +S1/S2, no m/r/g.
Resp: CTAB, no rales, wheezes, or rhonchi.
Abd: +BS, soft, NT, ND
Skin: No rashes.
Neuro: CN 2-12 intact, non-focal.
Psych: Normal mood and affect.
Right Hip Fracture s/p Fall:
-chronic Ambulatory Dysfunction
-s/p right cephalomedullary nail for intertrochanteric femur fracture
-Pain control, avoid excessive narcotics
-PT/OT, for SNF.
-acute blood loss anemia due to surgery, Hb currently stable
Hyponatremia:
-UOsm 299, Mal 19
-likely due to SIADH vs. dehydration due to poor PO intake reported by and Lasix use
-Na 126 on admission to 128 now
-renal following
Alcohol Use:
-start thiamine/folate
-no evidence of W/D
Essential HTN:
-cont Losartan
-BP was elevated with sinus tachycardia, Lopressor started
-start Norvasc 2.5mg
Tachycardia:
-ECG 05/02/23 Sinus tachy @ 130
-likely due to dehydration and pain
-Lopressor started as above
Other problems:
HLD: cont statin
Hypokalemia, resolved
Vascular Dementia
h/o CVA (2012): Continue home statin. Not on ASA.
Parkinson's Disease: cont sinemet
FULL/Lovenox
Anticipated Discharge: Within 24 hours
Subjective/Interval History
-
Date of Service: May 04, 2023
Objective Data
-
Labs:
Laboratory Results
05/04/23
05:11
WBC 7.9
Hgb 10.3 L
Hct 28.8 L
Plt Count 303
Sodium 128 L
Potassium 3.8
Chloride 99
Carbon Dioxide 22
BUN 14
Creatinine 0.4 L
Glucose 112 H
Calcium 8.4
Vital Signs:
Vital Signs
Temp Pulse Resp BP Pulse Ox
98.4 F 78 17 173/95 99
05/04/23 07:01 05/04/23 08:09 05/04/23 07:01 05/04/23 07:01 05/04/23 07:01
I&O
05/03/23 05/04/23 05/05/23
06:59 06:59 06:59
Intake Total 1560 / 1560 840 / 840
Balance 1560 / 1560 840 / 840
[2023-05-04] MEDS: SINEMET 25-100 1 TABLET PO ×3 (09:08→17:33)
[2023-05-04] MEDS: FOLVITE 1 MG PO (09:08)
[2023-05-04] MEDS: NORVASC 2.5 MG PO (09:09)
[2023-05-04] MEDS: VITAMIN B1 100 MG PO (09:09)
[2023-05-04] MEDS: ULTRAM 25 MG PO (09:15)
[2023-05-04 11:48] VITALS: BP 124/71; PULSE 79; O2SAT 98
[2023-05-04 12:06] VITALS: BP 124/71; PULSE 81; O2SAT 97
--- NOTE | 2023-05-04 14:06 | W.PN.NEPH.PH ---
Today's Communication / Plan
-
samsca
Assessment/Plan
-
Assessment:
hyponatremia
R hip fracture 2/2 to fall
Alcohol usage (wine)
HTN
DLD
Vascular dementia
Parkinson's disease
h/o hemorrhagic CVA
Plan:
- Uosm 299 Mal 19
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
- Na stabilzing around 128 this AM.
Samsca today and encourage solute intake, maintain FR
may need to resume lasix at d/c
Bp are increasing trend, meds adjusted per primary -Amlodipine added, cotn losartan
d/w in detail
-
-
Date of Service: May 04, 2023
CC / HPI / ROS
-
Chief Complaint:
hyponatremia
History of Present Illness:
Na stable at 128 this AM
had good breakfast per ,
no fever, quita increasing
Review of Systems:
+ pain of hip
improved PO intake this AM
Labs
-
Labs:
WBC 7.9 10^3/uL (4.8-10.8) 05/04/23 05:11
RBC 3.49 10^6/uL (4.20-5.40) L 05/04/23 05:11
Hgb 10.3 g/dL (12.0-16.0) L 05/04/23 05:11
Hct 28.8 % (37.0-47.0) L 05/04/23 05:11
Plt Count 303 10^3/uL (130-400) 05/04/23 05:11
Sodium 128 mmol/L (135-145) L 05/04/23 05:11
Potassium 3.8 mmol/L (3.5-5.1) 05/04/23 05:11
Chloride 99 mmol/L (98-107) 05/04/23 05:11
Carbon Dioxide 22 mmol/L (22-30) 05/04/23 05:11
BUN 14 mg/dl (7-17) 05/04/23 05:11
Creatinine 0.4 mg/dL (0.6-1.0) L 05/04/23 05:11
eGFR > 60.00 05/04/23 05:11
Glucose 112 mg/dl (70-99) H 05/04/23 05:11
Calcium 8.4 mg/dl (8.4-10.2) 05/04/23 05:11
Albumin 4.2 g/dl (3.5-5.0) 04/30/23 21:00
Physical Exam
-
Vital Signs:
Vital Signs
Temp Pulse Resp BP Pulse Ox
98.4 F 78 17 173/95 99
05/04/23 07:01 05/04/23 08:09 05/04/23 07:01 05/04/23 07:01 05/04/23 07:01
Cardiovascular:: Regular rate and rhythm
Respiratory:: Bilateral: CTA (decreased)
Lung Excursion:: Normal
Abdomen:: Nontender and Soft
Extremity Edema:: None: Bilateral:
Stanton Catheter: No
Other Findings::
trace right edema
[2023-05-04] MEDS: SAMSCA 15 MG PO (14:37)
--- NOTE | 2023-05-04 15:23 | PN.CDI ---
CDI
- -
CDI:
Physician Documentation Request
Admit Date: 04/30/23 23:26
Dear Doctor Mikey,
Please review the following and provide your response in the progress notes.
Clinical Indicators:
Pt admitted with right intertrochanteric femur fracture/ SIADH /HX of vascular Dementia
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 Suspect pt with at least <75% intakes.CBW: 95 lb 3.2 oz BMI 16.3 underweight range 05/01; 109 lb 2.061 oz 01/18; 107 lb 5 oz 10/08. Significant 12.8% weight
loss x 3 months.NFPE: muscle loss of temples, buccals, and clavicles observed...Per ASPEN/AND guidelines, pt meets for severe malnutrition in the context of chronic illness as evidenced by <75% intake est needs x > 1 month, 12.8% weight loss x 3
months, muscle loss.'
Based on the information, which of the following most accurately represents the patient's nutritional status?
Severe Protein Calorie Malnutrition
Other (please specify)
Unable to determine
Compton Criteria (ACP Hospitalist 2017)
2 or more criteria must be present for either
non severe or severe malnutrition
Note that the criteria differs related to the
presence of an acute or chronic illness
Acute Illness Chronic Illness
Energy Intake Non Severe: <75% for >7 days Non Severe: <75% for >1 month
Severe: <50% for >5 days Severe: <75% for >1 month
Weight Loss Non Severe: 1-2% over 1 week Non Severe: 5% over 1 month
5% over 1 month 7.5% over 3 months
7.5% over 3 months 10% over 6 months
1 year N/A 20% over 1 year
Severe: >2% over 1 week Severe: >5% over 1 month
>5% over 1 month >7.5% over 3 months
>7.5% over 3 months >10% over 6 months
1 year N/A >20% over 1 year
Body Fat Non Severe: Mild Decrease Non Severe: Mild Loss
Severe: Moderate Decrease Severe: Severe Loss
Muscle Mass Non Severe: Mild Decrease Non Severe: Mild Loss
Severe: Moderate Decrease Severe: Severe Loss
Fluid Accumulation Non Severe: Mild Accumulation Non Severe: Mild Accumulation
Severe: Moderate to severe Severe: Moderate to severe
accumulation accumulation
Reduced Legal Coordinator Strength Non Severe: N/A Non Severe: N/A
Severe: Measurably reduced Severe: Measurably reduced
Use of terms such as suspected, likely, concern for, or probable (associated with a specific diagnosis that is being evaluated, monitored, or treated as if it exists) are acceptable and can be coded in the inpatient setting, when documented at the
time of discharge.
Thank you,
Eloisa Alamo RN
CDI Specialist
[place] [facility]
Please use your independent medical judgment in providing your response.
[2023-05-04 15:45] VITALS: BP 146/82
--- NOTE | 2023-05-04 15:53 | CM ---
Reviewed the chart notes and spoke with the patient and her spouse at the bedside. Referrals were sent to SNFs, no responses. IMM signed and placed on chart. Tangdigm patient, precert will be required.
Plan: Discharge to SNF/rehab when medically stable and bed found. Percert will be required.
[2023-05-04 17:33] LABS: Osmolality Urine 439 mOsm/kg (300-900)
[2023-05-04 17:43] LABS: Urine Sodium 35 mmol/L (30-90)
[2023-05-04] MEDS: MIRALAX 17 GRAMS PO (20:56)
[2023-05-04 23:30] VITALS: BP 144/83
[2023-05-05 06:08] LABS: Blood Urea Nitrogen 14 mg/dl (7-17); Calcium 8.6 mg/dl (8.4-10.2); Carbon Dioxide 27 mmol/L (22-30); Chloride 103 mmol/L (98-107); Estimated Creatinine Clearance 58 ml/min; Glucose 104 mg/dl (70-99); Potassium 3.7 mmol/L (3.5-5.1); Sodium 134 mmol/L (135-145); eGFR > 60.00
--- NOTE | 2023-05-05 08:17 | W.PN.HOSP.TC ---
Addendum entered and electronically signed by Alex Jensen MD 05/05/23 10:25:
Total time spent on d/c = 31 min. This included today's physical exam, progress note, review of laboratory and diagnostic data, preparation of discharge documents and prescriptions, and discussions about the pt's hospital course and discharge plan
with the patient and other medical associate involved in the patient's care.
Original Note:
Today's Communication/Plan
-
d/c
Assessment / Plan
Assessment / Plan
Gen: NAD, awake and alert
Eyes: EOMI, PERRLA, no scleral icterus.
Neck: supple.
CV: Remains RRR, +S1/S2, no m/r/g.
Resp: Remains CTAB, no rales, wheezes, or rhonchi.
Abd: +BS, soft, NT, ND
Skin: No rashes.
Neuro: CN 2-12 intact, non-focal.
Psych: Normal mood and affect.
Right Hip Fracture s/p Fall:
-chronic Ambulatory Dysfunction
-s/p right cephalomedullary nail for intertrochanteric femur fracture
-Pain control, avoid excessive narcotics
-PT/OT, for SNF.
-acute blood loss anemia due to surgery, Hb currently stable
Hyponatremia:
-UOsm 299, Mal 19 initially, repeat UOsm 439, Mal 35
-likely due to SIADH vs. dehydration due to poor PO intake reported by and Lasix use
-Na 126 on admission to 134 after Samsca on 05/04/23
-renal following
Alcohol Use:
-cont thiamine/folate
-no evidence of W/D
Essential HTN:
-cont Losartan/Norvasc
-BP was elevated with sinus tachycardia, Lopressor started
Tachycardia:
-ECG 05/02/23 Sinus tachy @ 130
-likely due to dehydration and pain
-Lopressor started as above
Other problems:
HLD: cont statin
Hypokalemia, resolved
Vascular Dementia
h/o CVA (2012): Continue home statin. Not on ASA.
Parkinson's Disease: cont sinemet
FULL/Lovenox
Medically cleared for discharge. Case management aware.
Anticipated Discharge: Today
Subjective/Interval History
-
Date of Service: May 05, 2023
Patient does not offer acute complaints.
Objective Data
-
Labs:
Laboratory Results
05/05/23
05:23
Sodium 134 L
Potassium 3.7
Chloride 103
Carbon Dioxide 27
BUN 14
Creatinine 0.5 L
Glucose 104 H
Calcium 8.6
Vital Signs:
Vital Signs
Temp Pulse Resp BP Pulse Ox
98.6 F 82 18 144/83 99
05/04/23 23:30 05/04/23 23:30 05/04/23 23:30 05/04/23 23:30 05/04/23 23:30
I&O
05/04/23 05/05/23 05/06/23
06:59 06:59 06:59
Intake Total 840 / 840 600 / 600
Output Total 200 / 200
Balance 840 / 840 400 / 400
[2023-05-05 08:32] VITALS: BP 184/101
[2023-05-05] MEDS: FOLVITE 1 MG PO (08:35)
[2023-05-05] MEDS: LIPITOR 80 MG PO (08:35)
[2023-05-05] MEDS: VITAMIN B1 100 MG PO (08:35)
[2023-05-05] MEDS: NORVASC 2.5 MG PO (08:36)
[2023-05-05] MEDS: LOVENOX 30 MG SC (08:36)
[2023-05-05] MEDS: COZAAR 50 MG PO (08:36)
[2023-05-05] MEDS: LOPRESSOR 25 MG PO (08:37)
[2023-05-05] MEDS: COLACE 100 MG PO (08:37)
[2023-05-05 09:53] LABS: Hematocrit 29.7 % (37.0-47.0); Hemoglobin 10.6 g/dL (12.0-16.0); Mean Corp Hgb Conc. 35.7 g/dL (33.0-37.0); Mean Corpuscular Hgb 29.9 pg (27.0-31.0); Mean Corpuscular Volume 83.7 fL (81.0-99.0); Mean Platelet Volume 8.5 fL (7.4-10.4); Platelet Count 335 10^3/uL (130-400); Red Blood Cell Count 3.55 10^6/uL (4.20-5.40); Red Cell Dist. Width 13.2 % (11.5-14.5); White Blood Cell Count 6.8 10^3/uL (4.8-10.8)
--- NOTE | 2023-05-05 10:42 | CM ---
Addendum entered by Yesy Schultz RN 05/05/23 11:11:
[facility] willing to accept. Call placed to [facility], auth changed to [facility].
Plan: Discharge to [facility]
Call report to: [phone]
Fax report to: [phone]
Medical and transport forms on chart.
Original Note:
Reviewed chart notes and explained to the patient's spouse that [facility] and [facility] had no beds available for the patient. Spouse wanted [facility]. [facility] accepted patient. Auth obtained for 05/05-05/11; NRD 05/11; fax clinicals to ([phone]); Auth #
[id number]; Ambulance Auth# [id number] (Acute Care). After receiving auth patient's spouse refuses for patient to go to [facility] and wants her to go to [facility]. Per spouse, he called [facility] and they have beds. Referral sent with
clinicals to [facility].
[2023-05-05] MEDS: SINEMET 25-100 1 TABLET PO ×3 (10:55→17:45)
--- NOTE | 2023-05-05 11:25 | W.PN.NEPH.PH ---
Today's Communication / Plan
-
ok for d/c
Assessment/Plan
-
Assessment:
hyponatremia
R hip fracture 2/2 to fall
Alcohol usage (wine)
HTN
DLD
Vascular dementia
Parkinson's disease
h/o hemorrhagic CVA
Plan:
Hyponatremia improving post samsca
suspect SIADH and poor solute intake
encourage solute intake, maintain FR 48ounces/day
resume lasix at d/c
Bp are increasing trend, meds adjusted per primary -Amlodipine added , BB added today, cotn losartan
d/w in detail
BMP in 1week post d/c with PCP
-
-
Date of Service: May 05, 2023
CC / HPI / ROS
-
Chief Complaint:
hyponatremia
History of Present Illness:
Na stable at 134 this AM
no fever, BP are increasing trend
U osmo 439
Review of Systems:
no pain
more awake today off all narcs
no sob
Labs
-
Labs:
WBC 6.8 10^3/uL (4.8-10.8) 05/05/23 09:02
RBC 3.55 10^6/uL (4.20-5.40) L 05/05/23 09:02
Hgb 10.6 g/dL (12.0-16.0) L 05/05/23 09:02
Hct 29.7 % (37.0-47.0) L 05/05/23 09:02
Plt Count 335 10^3/uL (130-400) 05/05/23 09:02
Sodium 134 mmol/L (135-145) L 05/05/23 05:23
Potassium 3.7 mmol/L (3.5-5.1) 05/05/23 05:23
Chloride 103 mmol/L (98-107) 05/05/23 05:23
Carbon Dioxide 27 mmol/L (22-30) 05/05/23 05:23
BUN 14 mg/dl (7-17) 05/05/23 05:23
Creatinine 0.5 mg/dL (0.6-1.0) L 05/05/23 05:23
eGFR > 60.00 05/05/23 05:23
Glucose 104 mg/dl (70-99) H 05/05/23 05:23
Calcium 8.6 mg/dl (8.4-10.2) 05/05/23 05:23
Albumin 4.2 g/dl (3.5-5.0) 04/30/23 21:00
Physical Exam
-
Vital Signs:
Vital Signs
Temp Pulse Resp BP Pulse Ox
98.2 F 92 18 184/101 98
05/05/23 08:32 05/05/23 08:37 05/05/23 08:32 05/05/23 08:37 05/05/23 08:32
Cardiovascular:: Regular rate and rhythm
Respiratory:: Bilateral: CTA
Lung Excursion:: Normal
Abdomen:: Nontender and Soft
Extremity Edema:: None: Bilateral:
Stanton Catheter: No
[2023-05-05 11:37] VITALS: BP 150/79
[2023-05-05] MEDS: DULCOLAX 10 MG RECTAL (13:32)
--- NOTE | 2023-05-05 15:02 | W.DCSUMMARY ---
Discharge Summary
Discharge Data
Date of Admission: 04/30/23
Date of Discharge: 05/05/23
-
Pending Results: No
Hospital Course
Primary diagnoses:
Right Hip Fracture s/p right cephalomedullary nail
Acute blood loss anemia due to surgery
Hyponatremia
Sinus tachycardia
Secondary diagnoses:
Alcohol use
Essential hypertension
Hyperlipidemia
Hypokalemia
Vascular Dementia
h/o cerebrovascular accident
Parkinson's Disease
Consultants:
Orthopedics
Nephrology
Imaging:
R hip Xray: Minimally displaced proximal right femur intertrochanteric fracture. No intra-articular extension or dislocation. Diffuse demineralization. Mild degenerative changes of both hips. Mild degenerative changes of the pubis symphysis,
bilateral sacroiliac joints and partially visualized lower lumbar spine.
Right Hip Fracture s/p Fall: Imaging above. The patient underwent�right cephalomedullary nail for intertrochanteric femur fracture and tolerated the procedure well. She had acute blood loss anemia due to surgery and her hemoglobin was stable at
the time of discharge.
Hyponatremia: UOsm 299, Mal 19 initially, repeat UOsm 439, Mal 35. The patient's hyponatremia was likely due to SIADH vs. dehydration due to poor PO intake reported by and Lasix use. Na was 126 on admission and improved to 134 after Samsca
on 05/04/23.
-renal following
Sinus tachycardia: ECG 05/02/23 showed sinus tachycardia @ 130. This was likely due to dehydration and pain. Lopressor was started.
Discharge Plan
-
Patient Disposition: Senior Living/SNF
Discharge Diagnosis/Procedures: Right Hip Fracture s/p right cephalomedullary nail, hyponatremia, sinus tachycardia
Condition: Good
Diet: Other diet
Additional Diets: Heart healthy
Activity: With assistance
Driving Restrictions: No driving
Blood Work: CBC and BMP in 1 week, prescription from PCP
Referrals:
Milad Zaragoza MD [Family Provider] -
Prescriptions:
New
acetaminophen 325 mg Tablet
325 mg PO Q4HPRN PRN (Reason: headache, temp >101F) Qty: 0 0RF
polyethylene glycol 3350 [HealthyLax] 17 gram Powder In Packet
17 g PO DAILYPRN PRN (Reason: constipation) Qty: 0 0RF
thiamine HCl (vitamin B1) 100 mg Tablet
100 mg PO DAILY Qty: 0 0RF
amlodipine 2.5 mg Tablet
2.5 mg PO DAILY Qty: 0 0RF
docusate sodium 100 mg Capsule
100 mg PO BID Qty: 0 0RF
folic acid 1 mg Tablet
1 mg PO DAILY Qty: 0 0RF
metoprolol tartrate 25 mg Tablet
25 mg PO BID Qty: 0 0RF
Continued
losartan 50 mg tablet
50 mg PO BID
atorvastatin 80 mg tablet
80 mg PO DAILY
carbidopa-levodopa 25-100 mg tablet
1 tab PO TID@1000,1400,1800
furosemide 20 MG tablet
20 mg PO DAILY Qty: 30 0RF
Discharge Orders:
Discharge Patient (As Directed); Ordered 05/05/23
Ordered By: Alex Jensen
[2023-05-05 15:04] VITALS: BP 154/81
== END 2023-05-05 19:01 | DRG 480 ==
LOC: 2 SOUTH 23:26
PROVIDERS: Hospitalist; Physician Assistant; Registered Nurse; ADMITTING PHYSICIAN Internal Medicine; ATTENDING PHYSICIAN Internal Medicine; EMERGENCY PHYSICIAN Emergency Medicine; FAMILY PHYSICIAN Internal Medicine; OTHER PHYSICIAN Orthopaedic Surgery; OTHER PHYSICIAN Student in an Organized Health Care Education/Training Program
PROC: 0QS606Z Reposition Right Upper Femur with Intramedullary Internal Fixation Device, Open Approach (ICD-10-PCS; 2023-05-01)
DX: S72.141A Displaced intertrochanteric fracture of right femur, initial encounter for closed fracture (principal); E43 Unspecified severe protein-calorie malnutrition; D62 Acute posthemorrhagic anemia; E22.2 Syndrome of inappropriate secretion of antidiuretic hormone; Z68.1 Body mass index [BMI] 19.9 or less, adult; E78.00 Pure hypercholesterolemia, unspecified; I10 Essential (primary) hypertension; G20.A1 Parkinson's disease without dyskinesia, without mention of fluctuations; F01.50 Vascular dementia, unspecified severity, without behavioral disturbance, psychotic disturbance, mood disturbance, and anxiety; F10.90 Alcohol use, unspecified, uncomplicated; R29.6 Repeated falls; R00.0 Tachycardia, unspecified; E87.6 Hypokalemia; E86.0 Dehydration; M41.50 Other secondary scoliosis, site unspecified; W01.0XXA Fall on same level from slipping, tripping and stumbling without subsequent striking against object, initial encounter; Y93.01 Activity, walking, marching and hiking; Y92.009 Unspecified place in unspecified non-institutional (private) residence as the place of occurrence of the external cause; Z86.73 Personal history of transient ischemic attack (TIA), and cerebral infarction without residual deficits; Z87.891 Personal history of nicotine dependence
CPT/HCPCS: 73502; 73552; 76000; 80048; 80053; 81003; 81015; 83735; 83930; 83935; 84300; 84443; 85025; 85027; 86803; 87086; 93005; 96374; 96375; 97110; 97116; 97163; 97167; 97530; 99285; C1713; C1769

== ENCOUNTER 2023-07-29 14:49 | Emergency (ER) | payer OTHER, SELFPAY ==
[2023-07-29 14:49] VITALS: BMI 16.6
[2023-07-29 14:54] VITALS: BP 104/68
[2023-07-29 16:28] VITALS: BP 146/75
--- NOTE | 2023-07-29 16:40 | ED.GENMED ---
History of Present Illness
General
Chief Complaint: Change in Mental Status
Source: patient and spouse
Exam Limitations: none
Time Seen by Provider: 07/29/23 15:58
Nursing documentation reviewed up to this point in time: agreed with
Travel History
Have you had any contact with someone who has COVID-19?: No
Do you have any symptoms of coronavirus? Fever > 100 degrees, chills, cough, shortness of breath, sore throat, loss of taste or smell, muscle aches, or headache?: No
History of Present Illness
History of Present Illness:
72-year-old female with history of brain hemorrhage/CVA, pontine stroke, vascular Parkinson's, HTN, hyponatremia, UTI, anxiety presents with her from her Neurologist's office for routine follow up for her vascular Parkinsonism, for change in
mental state.
Patient fractured her right hip in April, went to rehab, was home by 05/28 receiving home PT. They got to her to a point where she could stand and use a rollator however in the past 6 days states she cannot even stand to use a rollator,
she has no strength in her legs, she has general weakness, she is not speaking as much and seems to have a cognitive decline.
Pt denies pain.
Neurologist told pt should have a brain MRI if labs are normal
Past History
Past History
ED Past Medical History: CVA, HTN, Hypercholesterolemia and Other (Intracerebral bleed/CVA, Vascular Parkinsonism); Negative Asthma or NIDDM
ED Past Surgical History: Orthopedic
Social History
Tobacco: Former smoker
Alcohol: Former
Personal:
Living: with family
Review of Systems
Review of Systems
Allergies reviewed?: Yes
All Other Systems: ROS reviewed and negative except as documented in HPI and ROS
Constitutional: Denies fever
Respiratory: Denies trouble breathing
Cardiac: Denies chest pain
ABD/GI: Denies abdominal pain, nausea, vomiting, diarrhea or constipated
: Denies dysuria, difficulty voiding or urgency
Musculoskeletal: Reports other (weakness in legs recently, unable to stand); Denies edema
Skin: Reports no symptoms
Neurological: Reports weakness and other (recent worsening of cognitive decline)
Phy Exam
Physical Exam
Physical Exam:
GENERAL: No acute distress. Alert.
CONSTITUTIONAL: Afebrile.
EYES: PERRL, conjunctivae normal
Neck: Supple
ENMT: moist mucus membranes
RESPIRATORY: Regular respirations, nonlabored, lungs clear.
CARDIOVASCULAR: Regular rate and rhythm, no murmurs, no rubs.
GI: Soft, nontender, normal BS
MUSCULOSKELETAL: Well perfused. No edema
SKIN: Warm, dry, pink
PSYCH: Depressed mood and affect. Well kept.
NEUROLOGIC: Awake, alert. Non verbal other than 'no' answers when since. Generalized weakness. No focal neurological deficits
Course
Orders/Labs/Results
Orders:
Orders
07/29/23 16:30
Complete Blood Count/With Diff Urgent
Comprehensive Metabolic Panel Urgent
07/29/23 17:15
Urinalysis Reflex To Culture Urgent
Date Specimen was Collected: 07/29/23
Time Specimen was Collected: 16:29
Urine Microscopic Reflex Cult Urgent
Urine Culture Urgent
CAIT Source: U
Specimen Description:
Date Specimen was Collected: 07/29/23
Time Specimen was Collected: 16:29
07/29/23 17:46
0.9% Sodium Chloride 500 ml [Nss] 500 ml IV BOLUS
07/29/23 18:15
CT Head W/o Iv Contrast Urgent
Comment:
Reason For Exam: change in mental state
07/29/23 18:16
Fosfomycin [Monurol] 3 gm PO ONCE ONE
Abnormal Lab Results
07/29/23 07/29/23
16:30 17:15
MCV 80.3 L fL
(81.0-99.0)
Absolute Neuts (auto) 6.6 H 10^3/uL
(1.4-6.5)
Absolute Monos (auto) 0.7 H 10^3/uL
(0.1-0.6)
Lymphocytes % 18.6 L %
(20.5-51.1)
BUN 26 H mg/dl
(7-17)
Glucose 105 H mg/dl
(70-99)
Total Protein 5.9 L g/dl
(6.3-8.2)
Ur Occult Blood Reflex 1+ A
(Negative)
Leukocyte Esterase Rfl 2+ A
(Negative)
Urine WBC (Reflex) 11-15 A /HPF
(0-5)
Urine Bacteria (Reflex) Moderate A
(Negative)
07/29/23 16:30
07/29/23 16:30
Vital Signs
Initial and Last Documented VS:
Initial Vital Signs
Temp Pulse Resp BP Pulse Ox
97.8 F 67 20 104/68 98
07/29/23 14:54 07/29/23 14:54 07/29/23 14:54 07/29/23 14:54 07/29/23 14:54
Last Documented Vital Signs
Temp Pulse Resp BP Pulse Ox
97.8 F 71 20 127/72 97
07/29/23 14:54 07/29/23 20:16 07/29/23 20:16 07/29/23 20:16 07/29/23 20:16
MDM/Problems Addressed
Differential Diagnosis Includes:
dehydration, UTI, metabolic abnormality
MDM/Problems Addressed:
72-year-old female with history of brain hemorrhage/CVA, pontine stroke, vascular Parkinson's, HTN, hyponatremia, UTI, anxiety presents with her from her Neurologist's office for routine follow up for her vascular Parkinsonism, for change in
mental state.
Patient fractured her right hip in April, went to rehab, was home by 05/28 receiving home PT. They got to her to a point where she could stand and use a rollator however in the past 6 days states she cannot even stand to use a rollator,
she has no strength in her legs, she has general weakness, she is not speaking as much and seems to have a cognitive decline.
Pt denies pain.
Neurologist told pt should have a brain MRI if labs are normal
5:45 PM
CBC normal
CMP BUN 26, IV fluids ordered for mild dehydration otherwise normal
6:11 PM
UA: +1 blood, negative nitrites, 2+ leukocyte Estrace, WBCs 11-15, moderate bacteria very nice
Will treat for UTI, urine culture pending
For 's ease (primary caregiver) will give on dose Monurol. He will f/u with PCP in 7-10 day for repeat U/A
Head CT shows nothing acute
will touch base with Neurologists tomorrow and if MRI is requested he will get order from her.
Chronic conditions affecting care: HTN, Neurological disorder (vascular Parkinson's with mental decline, hemorrhagic CVA) and Other (History of hyponatremia, hypokalemia)
*Critical Care Note
Total Time (30-74mins, 75-104mins- exclusive of procedures): Not Applicable
ED Attending Note
-
Portions of this chart may have been created with voice recognition software.� Occasional wrong word or��sound alike� substitutions may have occurred due to the inherent limitations of voice recognition software.
Discharge Plan
Departure
Patient Disposition: Home (Routine Discharge)
Date of Disposition: 07/29/23
Time of Disposition: 20:02
Patient with high blood pressure during this ER visit?: No
Condition: Fair
Discharge Problem:
Acute urinary tract infection, Change in mental state, Acute dehydration
Instructions: Altered Mental Status (DC), Dehydration, Adult ED, Urinary Tract Infection, Adult ED
Prescriptions:
No Action
losartan 50 mg tablet
50 mg PO BID
atorvastatin 80 mg tablet
80 mg PO DAILY
carbidopa-levodopa 25-100 mg tablet
1 tab PO TID@1000,1400,1800
thiamine HCl (vitamin B1) 100 mg Tablet
100 mg PO DAILY Qty: 0 0RF
amlodipine 2.5 mg Tablet
2.5 mg PO DAILY Qty: 0 0RF
folic acid 1 mg Tablet
1 mg PO DAILY Qty: 0 0RF
metoprolol tartrate 25 mg Tablet
25 mg PO BID Qty: 0 0RF
celecoxib 200 mg capsule
200 mg PO DAILY
donepezil 5 mg tablet
5 mg PO HS
psyllium husk [Metamucil] 0.4 gram Capsule
0.4 g PO BID
furosemide 20 MG tablet
20 mg PO DAILY Qty: 30 0RF
Referrals:
Your, Neurologist [Other] - Tomorrow
Milad Zaragoza MD [Family Provider] - Follow up in 10 days
Activity Restrictions/Additional Instructions:
As we discussed, head CT shows nothing acute or worrisome.
Follow up with your primary doctor in 7-10 days for repeat urinalysis.
Encourage fluid/water intake
Contact your Neurologist tomorrow and discuss today's visit.
Interventions
Interventions:
*Risk Screen - Suicide Last Done: 07/29/23 14:54
*General Assessment Last Done: 07/29/23 14:54
*Neglect/Abuse Screening Last Done: 07/29/23 14:54
ED- Fall Risk Assessment Last Done: 07/29/23 17:57
*ED COVID-19 Vaccine History Last Done: 07/29/23 20:17
*Nursing Disposition Last Done: 07/29/23 20:17
ED- Pulmonary Assessment Last Done: 07/29/23 17:57
ED-Psychological Assessment Last Done: 07/29/23 20:17
ED- Neurological Assessment Last Done: 07/29/23 17:57
ED- Cardiac Assessment Last Done: 07/29/23 17:57
ED Swallowing Screen Last Done: 07/29/23 19:15
Discharge Date and Time
Discharge Date/Time: 07/29/23 20:17
Print Language: CHADIAN
[2023-07-29 16:42] LABS: % Basophils 0.8 % (0-2); % Eosinophils 1.3 % (0-6); % Immature Granulocytes 0.4 % (0-0.5); % Lymphocytes 18.6 % (20.5-51.1); % Neutrophils 70.9 % (42.2-75.2); Absolute Basophils 0.1 10^3/uL (0-0.2); Absolute Eosinophils 0.1 10^3/uL (0-0.7); Absolute Lymphocytes 1.7 10^3/uL (1.2-3.4); Absolute Monocytes 0.7 10^3/uL (0.1-0.6); Absolute Neutrophils 6.6 10^3/uL (1.4-6.5); Hematocrit 37.4 % (37.0-47.0); Mean Corp Hgb Conc. 34.8 g/dL (33.0-37.0); Mean Corpuscular Hgb 27.9 pg (27.0-31.0); Mean Corpuscular Volume 80.3 fL (81.0-99.0); Mean Platelet Volume 8.6 fL (7.4-10.4); Nucleated Red Blood Cells % 0 %; Platelet Count 348 10^3/uL (130-400); Red Blood Cell Count 4.66 10^6/uL (4.20-5.40); Red Cell Dist. Width 14.3 % (11.5-14.5); White Blood Cell Count 9.3 10^3/uL (4.8-10.8)
[2023-07-29 16:50] LABS: ALT (SGPT) < 10 U/L (0-35); AST (SGOT) 25 U/L (14-36); Albumin 3.7 g/dl (3.5-5.0); Alkaline Phosphatase 78 U/L (38-126); Blood Urea Nitrogen 26 mg/dl (7-17); Calcium 9.6 mg/dl (8.4-10.2); Carbon Dioxide 27 mmol/L (22-30); Chloride 102 mmol/L (98-107); Glucose 105 mg/dl (70-99); Potassium 3.7 mmol/L (3.5-5.1); Sodium 136 mmol/L (135-145); Total Bilirubin 0.6 mg/dl (0.2-1.3); Total Protein 5.9 g/dl (6.3-8.2); eGFR > 60.00
[2023-07-29 17:00] VITALS: BP 156/70
[2023-07-29 17:32] LABS: Urine Albumin Negative (Neg - Trace); Urine Bilirubin Negative (Negative); Urine Character Clear (Clear); Urine Color Yellow; Urine Glucose Negative (Negative); Urine Ketone Negative (Negative); Urine Leukocyte 2+ (Negative); Urine Nitrite Negative (Negative); Urine Occult Blood 1+ (Negative); Urine Urobilinogen Negative (Neg - 1+)
[2023-07-29 17:46] LABS: Urine Red Blood Cell 0-2 /HPF (0-2); Urine Squamous Cell 0-2 /LPF (Few)
[2023-07-29 17:48] LABS: Urine Bacteria Moderate (Negative)
[2023-07-29] MEDS: NSS 500 IV (18:06)
[2023-07-29] MEDS: MONUROL 3 GM PO (19:19)
[2023-07-29 20:16] VITALS: BP 127/72
== END 2023-07-29 20:17 | disposition home or self-care (01) ==
LOC: EMR 14:49
PROVIDERS: Registered Nurse; EMERGENCY PHYSICIAN Emergency Medicine; FAMILY PHYSICIAN Internal Medicine
DX: N39.0 Urinary tract infection, site not specified (principal); R41.82 Altered mental status, unspecified; E86.0 Dehydration
CPT/HCPCS: 99284; 70450; 80053; 81003; 81015; 85025; 87086

== ENCOUNTER 2023-08-04 03:54 | Inpatient (IN) | payer OTHER, SELFPAY ==
[2023-08-03 16:13] VITALS: BP 119/66
[2023-08-03 16:46] LABS: % Basophils 0.7 % (0-2); % Eosinophils 1.1 % (0-6); % Immature Granulocytes 0.4 % (0-0.5); % Lymphocytes 16.1 % (20.5-51.1); % Monocytes 8.6 % (1.7-9.3); % Neutrophils 73.1 % (42.2-75.2); Absolute Basophils 0.1 10^3/uL (0-0.2); Absolute Eosinophils 0.1 10^3/uL (0-0.7); Absolute Lymphocytes 1.7 10^3/uL (1.2-3.4); Absolute Monocytes 0.9 10^3/uL (0.1-0.6); Absolute Neutrophils 7.7 10^3/uL (1.4-6.5); Hematocrit 37.1 % (37.0-47.0); Hemoglobin 12.7 g/dL (12.0-16.0); Mean Corp Hgb Conc. 34.2 g/dL (33.0-37.0); Mean Corpuscular Hgb 27.7 pg (27.0-31.0); Mean Platelet Volume 8.4 fL (7.4-10.4); Nucleated Red Blood Cells % 0 %; Platelet Count 379 10^3/uL (130-400); Red Blood Cell Count 4.58 10^6/uL (4.20-5.40); Red Cell Dist. Width 14.5 % (11.5-14.5); White Blood Cell Count 10.6 10^3/uL (4.8-10.8)
[2023-08-03 16:57] LABS: ALT (SGPT) 12 U/L (0-35); AST (SGOT) 21 U/L (14-36); Albumin 3.6 g/dl (3.5-5.0); Alkaline Phosphatase 77 U/L (38-126); Blood Urea Nitrogen 25 mg/dl (7-17); Calcium 9.6 mg/dl (8.4-10.2); Carbon Dioxide 27 mmol/L (22-30); Chloride 100 mmol/L (98-107); Glucose 107 mg/dl (70-99); Sodium 136 mmol/L (135-145); Total Bilirubin 0.6 mg/dl (0.2-1.3); Total Protein 5.9 g/dl (6.3-8.2); eGFR > 60.00
--- NOTE | 2023-08-03 19:17 | ED.GENMED ---
History of Present Illness
General
Chief Complaint: Change in Mental Status
Source: patient
Exam Limitations: none
Time Seen by Provider: 08/03/23 19:03
Nursing documentation reviewed up to this point in time: agreed with
Travel History
Have you had any contact with someone who has COVID-19?: No
Do you have any symptoms of coronavirus? Fever > 100 degrees, chills, cough, shortness of breath, sore throat, loss of taste or smell, muscle aches, or headache?: No
History of Present Illness
History of Present Illness:
Patient with history of ' vascular parkinsonism', presents to ED secondary to 1 week history of worsening speech impairment along with generalized weakness. Patient was evaluated in ED for similar complaint 4 days ago, during which time patient was
diagnosed with probable UTI as well as dehydration. Patient was given 1 dose of Monurol and discharged home. Since then, per spouse, patient has been eating per her symptoms have not improved. Patient was recommended to come to ED for evaluation
by her neurologist at [facility], for possible MRI, with her declining symptoms. Patient herself has no complaints. Denies pain. Denies headache. Denies dizziness. Denies coughing. Denies vomiting. Denies diarrhea.
Denies recent change in medications or diet. Per spouse, patient has had intermittent episodes of speech difficulty in the past, but has significant worsened over the past 1 week.
Past History
Past History
ED Past Medical History: CVA, HTN, Hypercholesterolemia and Other (Intracerebral bleed/CVA, Vascular Parkinsonism); Negative Asthma or NIDDM
ED Past Surgical History: Orthopedic
Social History
Tobacco: Former smoker
Alcohol: Former
Personal:
Living: with family
Review of Systems
Review of Systems
Allergies reviewed?: Yes
All Other Systems: ROS reviewed and negative except as documented in HPI and ROS
Constitutional: Reports no symptoms
EENT: Reports no symptoms
Respiratory: Reports no symptoms
Cardiac: Reports no symptoms
ABD/GI: Reports no symptoms
: Reports no symptoms
Musculoskeletal: Reports no symptoms
Skin: Reports no symptoms
Neurological: Reports weakness and other (speech impairment)
Phy Exam
Physical Exam
Physical Exam:
Physical Exam
General: no apparent distress, not acutely ill. afebrile.
Head: nc/at. eomi
Neck: supple. normal range of motion.
Heart: s1/s2 regular rate and rhythm, no murmur. equal radial pulses.
Lungs: no acute respiratory distress. clear bilaterally
Abdomen: normal bowel sounds. not tender.
Neuro: alert and oriented. no focal sensory deficit. LE b/l motor weakness, chronic. slowed and pause with speech, but not slurred.
Skin: no rash
Psychiatric: well kept. interactive and cooperative
Extremities: no edema. no calf tenderness.
Course
Orders/Labs/Results
Orders:
Orders
08/03/23 16:35
Complete Blood Count/With Diff Urgent
Comprehensive Metabolic Panel Urgent
TSH Reflex To Free T4 Urgent
Comment: ADD ON
08/03/23 19:16
Add On- LAB Urgent
Tests Added?: magnesium, TSH to reflex Free T4
Straight cath- Treatment ONCE
0.9% Sodium Chloride 500 ml [Nss] 500 ml IV BOLUS
08/03/23 19:50
Urinalysis Reflex To Culture Urgent
Date Specimen was Collected: 08/03/23
Time Specimen was Collected: 19:30
08/03/23 22:00
0.9% Sodium Chloride 500 ml [Nss] 500 ml IV 100 mls/hr
08/03/23 22:35
Aspirin 325 mg PO NOW STA
08/03/23 22:40
Admit/Transfer Patient As Directed
Co-Sign Provider:
Level of Care: Inpatient admission
Assign to:: Telemetry
Physician / Group: [email or web address]
Diagnosis: TIA/cva
Reason for Telemetry: CVA/TIA
Date to Stop Telemetry: 08/06/23
Time to Stop Telemetry: 11:00
Reason for Hospitalization: TIA/cva
Expected length of stay greater than two midnights?: Yes
ELOS- Estimated Length of Stay in days: 3
I certify the patient meets the requirements for IP care: Yes
08/03/23 22:43
Code Status As Directed
Resuscitation Status: Do not resuscitate
Reached after discussion with pt or family/Healthcare POA: Yes
08/03/23 22:44
DNR Bracelet Application ONCE
08/03/23 23:00
Flush (0.9% Sodium Chloride) [Flush (Nss)] See Dose Instructions IV PER PROTOCOL
08/03/23 23:41
Acetaminophen [Tylenol/Feverall] 650 mg RECTAL Q4HPRN PRN
Acetaminophen [Tylenol] 650 mg PO Q4HPRN PRN
08/03/23 23:41
Case Management Consult ONCE
Case Management Consult: Discharge Planning
Comment: stroke/tia
Consult Notification Routine
Specialty to Notify: Neurology
DIETARY CONSULT Routine
Reason for Consult: stroke/TIA
NEUROLOGY CONSULT Urgent
Consulting Provider: Jet Mendoza
Was physician already notified: No
Reason for consult: TIA
Radio Station Audio Engineer Urgent
MR Brain Without Contrast Routine
Comment:
Reason For Exam: stroke/TIA
Recent pill cam endoscopy?: No
Activity As Directed
Activity Level: As Tolerated
NIH Stroke Scale As Directed
Directions: Per protocol
Comment: every shift and with any change in condition or mental status
Neurological Checks As Directed
Frequency: q4h
Additional Instructions:: q4h x 24h upon admission to the floor, then qshift & with any change in condition
and mental status
Patient Education As Directed
Type: Stroke education packet
Comment: provide to patient and family
Pneumatic Compression Sleeves As Directed
Type: Thigh high
Swallow Screening CVA/TIA ONLY As Directed
Comment: NPO until swallowing screening completed
If patient FAILS swallow screening:: NPO, Speech Therapy consult, Aspiration Precautions
If patient PASSES swallow screening, diet:: Cholesterol Lowering
Vital Signs As Directed
Frequency: Per unit guidelines
Ot Eval And Treat Routine
Pt Eval And Treat Routine
Activity Level: As Tolerated
Speech Therapy Eval & Treat Routine
DX Deep Vein Thrombosis Video Routine
08/04/23 06:00
Basic Metabolic Panel IN AM
Cardiovascular Evaluation IN AM
Complete Blood Count/No Diff IN AM
Glycohemoglobin (HgbA1c) Routine
08/04/23 08:00
Amlodipine [Norvasc] 2.5 mg PO DAILY
Atorvastatin [Lipitor] 80 mg PO DAILY
FOLic ACID [Folvite] 1 mg PO DAILY
Furosemide [Lasix] 20 mg PO DAILY
Losartan [Cozaar] 50 mg PO BID
Metoprolol [Lopressor] 25 mg PO BID
Psyllium [Metamucil, Konsyl] 1 packet PO BID
08/04/23 10:00
Carbidopa/Levodopa [Sinemet 25-100] 1 tablet PO TID@1000,1400,1800
08/05/23 06:00
Basic Metabolic Panel IN AM
Complete Blood Count/No Diff IN AM
08/06/23 06:00
Basic Metabolic Panel IN AM
Complete Blood Count/No Diff IN AM
08/06/23 11:00
DC Protocol for Telemetry ONCE
08/07/23 06:00
Basic Metabolic Panel IN AM
Complete Blood Count/No Diff IN AM
08/08/23 06:00
Basic Metabolic Panel IN AM
Complete Blood Count/No Diff IN AM
Abnormal Lab Results
08/03/23 08/03/23
16:35 19:50
Absolute Neuts (auto) 7.7 H 10^3/uL
(1.4-6.5)
Absolute Monos (auto) 0.9 H 10^3/uL
(0.1-0.6)
Lymphocytes % 16.1 L %
(20.5-51.1)
BUN 25 H mg/dl
(7-17)
Glucose 107 H mg/dl
(70-99)
Total Protein 5.9 L g/dl
(6.3-8.2)
Urine Ketones Trace A
(Negative)
Vital Signs
Initial and Last Documented VS:
Initial Vital Signs
Temp Pulse Resp BP Pulse Ox
97.9 F 74 16 119/66 99
08/03/23 16:13 08/03/23 16:13 08/03/23 16:13 08/03/23 16:13 08/03/23 16:13
Last Documented Vital Signs
Temp Pulse Resp BP Pulse Ox
97.9 F 74 13 128/70 98
08/03/23 16:13 08/04/23 00:00 08/04/23 00:00 08/04/23 00:00 08/04/23 00:00
MDM/Problems Addressed
MDM/Problems Addressed:
Persistent intermittent pause/difficulty with speech noted during observation. Urinalysis without any acute infection noted. Elevated BUN/creatinine ratio suggestive of potential dehydration, as etiology behind her symptoms. However, difficult to
exclude potential TIA versus CVA. Will admit for further evaluation and treatment, including potential MRI as an inpatient.
*Critical Care Note
Total Time (30-74mins, 75-104mins- exclusive of procedures): Not Applicable
ED Attending Note
-
Portions of this chart may have been created with voice recognition software.� Occasional wrong word or��sound alike� substitutions may have occurred due to the inherent limitations of voice recognition software.
Discharge Plan
Departure
Patient Disposition: Admit
Date of Disposition: 08/03/23
Time of Disposition: 21:59
Presentation/result/management discussed w/ accepting MD/DO: Hospitalist
Discharge Problem:
Weakness, Expressive aphasia
Prescriptions:
No Action
losartan 50 mg tablet
50 mg PO BID
atorvastatin 80 mg tablet
80 mg PO DAILY
carbidopa-levodopa 25-100 mg tablet
1 tab PO TID@1000,1400,1800
amlodipine 2.5 mg Tablet
2.5 mg PO DAILY Qty: 0 0RF
folic acid 1 mg Tablet
1 mg PO DAILY Qty: 0 0RF
metoprolol tartrate 25 mg Tablet
25 mg PO BID Qty: 0 0RF
celecoxib 200 mg capsule
200 mg PO DAILY PRN (Reason: mild pain)
psyllium husk [Metamucil] 0.4 gram Capsule
0.4 g PO BID
Theragen Tablet
1 tab PO NOON
furosemide 20 MG tablet
20 mg PO DAILY Qty: 30 0RF
Referrals:
Milad Zaragoza MD [Family Provider] -
Interventions
Interventions:
*Risk Screen - Suicide Last Done: 08/03/23 16:13
*General Assessment Last Done: 08/03/23 16:13
*Neglect/Abuse Screening Last Done: 08/03/23 16:13
ED- Fall Risk Assessment Last Done: 08/03/23 19:20
*ED COVID-19 Vaccine History Last Done: 08/03/23 19:21
ED- Neurological Assessment Last Done: 08/03/23 19:19
ED Swallowing Screen Last Done: 08/03/23 22:36
Discharge Date and Time
Print Language: OCCITAN
[2023-08-03 19:22] VITALS: BP 152/71
[2023-08-03] MEDS: NSS 500 IV ×2 (19:48→22:11)
[2023-08-03 19:57] LABS: Urine Albumin Negative (Neg - Trace); Urine Bilirubin Negative (Negative); Urine Character Clear (Clear); Urine Color Yellow; Urine Glucose Negative (Negative); Urine Ketone Trace (Negative); Urine Leukocyte Negative (Negative); Urine Nitrite Negative (Negative); Urine Occult Blood Negative (Negative); Urine Specific Gravity 1.015 (<1.030); Urine Urobilinogen Negative (Neg - 1+)
[2023-08-03 20:00] VITALS: BP 165/74
[2023-08-03 20:22] LABS: TSH Reflex To Free T4 2.53 uIU/ml (0.47-4.68)
[2023-08-03 21:00] VITALS: BP 154/66
[2023-08-03 22:00] VITALS: BP 141/63
--- NOTE | 2023-08-03 22:07 | HPS.HSE ---
Family Physician
-
Family Physician: Milad Zaragoza
Chief Complaint
-
slurred speech
generalized weakness
History of Present Illness
72 year old with PMH for vascular dementia, CVA,HTN, HLD, Parkinson presented to us with slurred speech, expressing herself and at times she won't respond for one week. patient sleeping more than usual. stated, she is not standing at all.
she was complaining of right knee pain. she was evaluated by orthopedics and got a steroid injection as outpatient. she was here last week with the same symptoms and noted to have UTI, received a dose of Monurol. as per , she is incontinence
of bowel and bladder since yesterday, which is not usual for her. patient denied LUCERO,dizzy or syncopal episode. denied fever, chills, chest pain, sob. denied abdominal pain, n,v,d. denied dysuria or hematuria.
Medical History
Past Medical History
Past Medical History: Reports Other
Additional Past Medical History:
CVA
HTN
Parkinson
vascular dementia
hxt of brain shunt
hemorrhagic CVA
HLD
Past Surgical History: Reports Other
Additional Past Surgical History:
right hip replacement
brain shunt
Social History
Tobacco: Former Smoker
Alcohol: Daily (1 glass of wine)
Drug: None
Personal:
Living: With Family
Family History
Family History: Not pertinent
Allergies / Home Medications
Allergies reflects when Allergies were last updated in [employer].
Home Medications with original date entered in [employer]
Allergy/Medication List:
Allergies
Allergy/AdvReac Type Severity Reaction Status Date / Time
No Known Allergies Allergy Verified 08/03/23 16:17
Home Medications
furosemide 20 mg tablet 20 mg PO DAILY #30 tabs 11/12/12
atorvastatin 80 mg tablet 80 mg PO DAILY High Cholesterol 10/08/22
losartan 50 mg tablet 50 mg PO BID Blood Pressure 10/08/22
carbidopa 25 mg-levodopa 100 mg tablet 1 tab PO TID@1000,1400,1800 04/30/23
amlodipine 2.5 mg tablet 2.5 mg PO DAILY #0 tabs 05/05/23
folic acid 1 mg tablet 1 mg PO DAILY #0 tabs 05/05/23
metoprolol tartrate 25 mg tablet 25 mg PO BID #0 tabs 05/05/23
celecoxib 200 mg capsule 200 mg PO DAILY PRN mild pain 07/29/23
psyllium husk 0.4 gram capsule (Metamucil) 0.4 g PO BID 07/29/23
therapeutic multivitamin 1 tab PO NOON 08/03/23
Review of Systems
-
Constitutional: Reports Fatigue
EENT: Reports No Symptoms
Respiratory: Reports No Symptoms
Cardiac: Reports No Symptoms
Abdomen/GI: Reports No Symptoms
: Reports No Symptoms
Musculoskeletal: Reports No Symptoms
Skin: Reports No Symptoms
Neurological: Reports Weakness and Other (slurred speech, expressing herself)
Endocrine: Reports No Symptoms
Hematologic/Lymphatic: Reports No Symptoms
Psych: Reports No Symptoms
Physical Exam
Vital Signs
Vital Signs
Temp Pulse Resp BP Pulse Ox
97.9 F 76 15 154/66 99
08/03/23 16:13 08/03/23 21:30 08/03/23 21:30 08/03/23 21:00 08/03/23 20:15
Physical Exam
General: Well Developed, Well Nourished, No Apparent Distress and Slurred Speech
HEENT: NormoCephalic, Moist mucous membranes and Atraumatic
Respiratory: Clear
Cardiac: S1/S2 and Regular Rhythm; No Murmur or Rub
GI: Soft, Non Tender, Non Distended and Normal Bowel Sounds; No Organomegaly
Rectal: Deferred by Provider
Musculoskeletal: No Clubbing, No Cyanosis and No Edema
Skin: No Rash
Neuro: Nonfocal/grossly intact
Psych: Calm
Laboratory Results
-
08/03/23 16:35
08/03/23 16:35
Laboratory Results
Total Bilirubin 0.6 mg/dl (0.2-1.3) 08/03/23 16:35
AST 21 U/L (14-36) 08/03/23 16:35
ALT 12 U/L (0-35) 08/03/23 16:35
Alkaline Phosphatase 77 U/L (38-126) 08/03/23 16:35
Data Reviewed
-
CT Scan: Report Reviewed by me
Lab Data: Labs Reviewed by me
Impression/Plan
-
#generalized weakness/aphasia r/o acute CVA
-CT head No acute intracranial abnormality noted
-obtain MRI
-obtain a1c,lipid profile
-statin
- refusing asa, due to the hxt of hemorrhagic CVA in the past.
-neuro consult
#Essential HTN:
-cont Losartan/Norvasc, furosemide
-metoprolol continued
#HLD: cont statin
#Vascular Dementia/Parkinson
-carbidopa continued
#h/o CVA (2012): Continue home statin.
#DVT prophylaxis
-scd
#CODE status
-DNR
--- NOTE | 2023-08-03 22:49 | W.PN.UPDATE ---
Update Note
Progress Note Update
This is an addendum to the H&P written by OTILIO La on 08/03/2023.
Patient seen and examined independently with [employer].� 72-year-old female past medical history vascular dementia, Parkinson disease, urine incontinence hemorrhagic CVA in 2012, hypertension, recent right hip fracture status post cephalomedullary nail in
April, hyperlipidemia, presenting with slurred speech for the past week.� She came to the emergency room 5 days ago and was diagnosed with UTI and treated with fosfomycin.� Symptoms not improved.
Patient has had declining functional status since right hip fracture status post nail in April.� She has mostly bedbound due to generalized weakness, right knee pain status post steroid injection last week.
No other neurological symptoms.� However there is right facial droop on examination.� Urinalysis negative.� Concern for CVA in the setting of progressive vascular dementia/Parkinson's disease.� Son refusing Aspirin.��Check MRI brain.� Neurology
consulted.
[2023-08-03 22:50] VITALS: BMI 16.5
[2023-08-03 23:00] VITALS: BP 154/82
[2023-08-03 23:54] VITALS: BMI 16.5
[2023-08-04] VITALS (12 sets, daily range): BP systolic 128–165; BP diastolic 58–112; PULSE 72–81; BMI 16.5; BMI 16.2
[2023-08-04 05:20] LABS: Hematocrit 31.2 % (37.0-47.0); Hemoglobin 11.1 g/dL (12.0-16.0); Mean Corp Hgb Conc. 35.6 g/dL (33.0-37.0); Mean Corpuscular Volume 78.8 fL (81.0-99.0); Mean Platelet Volume 8.4 fL (7.4-10.4); Platelet Count 302 10^3/uL (130-400); Red Blood Cell Count 3.96 10^6/uL (4.20-5.40); Red Cell Dist. Width 14.2 % (11.5-14.5); White Blood Cell Count 6.5 10^3/uL (4.8-10.8)
[2023-08-04 05:40] LABS: Blood Urea Nitrogen 17 mg/dl (7-17); Calcium 8.9 mg/dl (8.4-10.2); Carbon Dioxide 26 mmol/L (22-30); Chloride 105 mmol/L (98-107); Estimated Creatinine Clearance 58 ml/min; Glucose 98 mg/dl (70-99); HDL Cholesterol 59 mg/dl; LDL Cholesterol, Calculated 71 mg/dl; Potassium 3.6 mmol/L (3.5-5.1); Sodium 135 mmol/L (135-145); Total Cholesterol 142 mg/dl (50-199); Triglyceride 63 mg/dl (10-149); Very Low Density Lipoprotein 12 mg/dl (0-30); eGFR > 60.00
--- NOTE | 2023-08-04 08:57 | W.PN.HOSP.TC ---
Today's Communication/Plan
-
MRI brain with acute strokes
Echocardiogram
Will consider cardiology consultation
Continue telemetry monitoring
Aspirin given strokes
Continue home PO meds
DVT Prophylaxis with Lovenox
Appreciate neurology
Assessment / Plan
Assessment / Plan
Physical Exam
General: Not in acute distress
HEENT: Normocephalic
Respiratory: Clear
Cardiac: S1/S2 and Regular Rhythm
GI: Soft, Non Tender, Non Distended and Normal Bowel Sounds
Musculoskeletal: No Cyanosis and No Edema
Skin: Warm. Dry.
Neuro: Somnolent. Minimal speech output, otherwise cranial nerves appear grossly intact. Good strength in the upper extremities, although not able to move lower extremities on command.
Psych: Calm

MRI Brain (as per radiologist's report)
IMPRESSION:
There is an acute/subacute 5 mm right carol infarct, nonhemorrhagic.
Probable tiny acute infarct in the left pratt radiata and posterior right parietal region, nonhemorrhagic.
Moderate diffuse volume loss. Severe leukoaraiosis.
Minimal chronic sinus disease.

Assessment/Plan
72 y/o female who recent saw her outpatient neurologist Dr. Anita Chavez on July 29, 2023 because of significant worsening of her functional status. Around end of June 2023 and beginning of July 2023, she was having knee pain which hindered her
ambulation, and received injections, still able to do 1 lap around the house, but around the first to second week of July 2023, mainly wheelchair-bound and could only walk small amounts with walker, together with fatigue and confusion, and a fall
(with no head trauma) not answering questions. She had low blood pressure in the neurology office. She also had right arm jerking. Dr. Chavez recommended evaluation in the emergency for possibly low sodium as well as possible infection.
#History of Fall (with hip fracture) and Hyponatremia in April 2023
#History of Right Hip Fracture s/p right cephalomedullary nail
#Generalized weakness/aphasia
#Multiple Acute/Subacute Strokes
-After fall in April 2023, patient eventually did better and could walk 10 laps around the house with Rollator but then declined with fever laps, after knee pain
-CT head No acute intracranial abnormality noted
-MRI results above with acute/subacute strokes
-Aspirin started given strokes on MRI --> neurology has ordered Aspirin, appreciate it
-Check A1c
-Check Lipid Profile
-Continue statin
-Echocardiogram
-Will consider cardiology consult
-Neurology consulted, recommendations appreciated
[facility] inappropriate for PO intake at this time due to lethargy > AMS. Multiple swallows, weak inconsistent cough w/ thin via straw. Consider non-oral means of medications. Hold aspiration risk hydration protocol. Will follow up as DELL
improves.
#History of Acute blood loss anemia due to surgery
#History of Hyponatremia
#History of Hypokalemia
#History of Sinus Tachycardia
#Essential HTN:
-cont Losartan/Norvasc, furosemide
-metoprolol continued
-Monitor blood pressure closely
#HLD: cont statin
#Vascular Dementia/Parkinson Disease
-carbidopa continued
#History of hemorrhagic CVA in 2012
#Urine incontinence
#Hypertension
#Recent right hip fracture status post cephalomedullary nail in April
#Hyperlipidemia
-Continue home statin.
#History of Alcohol use
Vascular Dementia
h/o cerebrovascular accident
#DVT prophylaxis
-Lovenox
Diet: IDDSI 4 Diet -- spoke on August 04, 2023 with patient's about this -- and he is okay with/and would prefer patient getting diet and medications
#CODE status
-DNR
I spoke with patient, patient's Jason and patient's son Jason on August 04, 2023. All questions and concerns were answered to satisfaction.
Total time spent today on seeing and examining the patient, speaking with patient's and patient's son, discussing case with neurology, reviewing orders, and documentation was 70 minutes.
Anticipated Discharge: 24 - 48 hours
Subjective/Interval History
-
Date of Service: August 04, 2023
Patient was seen and examined. Her was present in her room. No new symptoms/complaints reported after admission.
Objective Data
-
Labs:
Laboratory Results
08/04/23
05:11
WBC 6.5
Hgb 11.1 L
Hct 31.2 L
Plt Count 302 D
Sodium 135
Potassium 3.6
Chloride 105
Carbon Dioxide 26
BUN 17
Creatinine 0.4 L
Glucose 98
Calcium 8.9
Vital Signs:
Vital Signs
Temp Pulse Resp BP Pulse Ox
98.4 F 61 11 142/66 98
08/04/23 08:00 08/04/23 08:15 08/04/23 08:15 08/04/23 08:00 08/04/23 08:15
--- NOTE | 2023-08-04 09:11 | PTOTSP ---
Dysphagia Evaluation
Patient is at an acute elevated risk for dysphagia/ aspiration given lethargy and AMS. Limited dysphagia evaluation completed with signs concerning for oral/pharyngeal dysphagia and inconsistent signs of aspiration (weak throat clear) with sparing
amounts of thin liquids.
Recommend:
1. NPO
2. Medications non-oral
3. Hold aspiration risk hydration protcol while lethargic
4. Will re-evaluate swallowing as able/appropriate. Will complete speech/language/cognitive evaluation pending MRI of Brain results.
[2023-08-04] MEDS: COZAAR PO (09:15)
--- NOTE | 2023-08-04 09:15 | CON.NEURO4 ---
Addendum entered and electronically signed by Jet Mendoza MD 08/04/23 16:15:
Studies reviewed.
I have personally examined the patient. I reviewed and agree with the [employer]'s Note.
My addenda:
Awake, not alert, intermittently interactive. No acute distress.
Speech minimal output with very short phrases.
Follows 1-step requests w/ difficulty. No tremor.
Extra-ocular movements grossly intact.
Facial movements full and symmetric. Hearing intact to normal conversational volume.
Normal UE movements bilaterally.
Neck: full ROM.
Chest: no dyspnea
Heart: no JVD
Ext: (-) Clubbing, (-) Cyanosis, (-) Edema
IMPRESSIONS/RECOMMENDATIONS:
Abrupt onset of worsening encephalopathy
In a patient with prior history of intracranial hemorrhage involving the left thalamus and CATTLE FARMER shunt placement and removal
There is the possibility of cerebral amyloid angiopathy producing symptomatology
Check MRI of brain, if presence of acute ischemic strokes, initiate aspirin and atorvastatin
Check EEG for the possibility of seizures producing symptomatology
Patient should be considered for vascular neurology evaluation as outpatient if abnormal MRI of brain
Okay to consider continuing carbidopa levodopa, may reconsider
Will continue to follow patient.
Original Note:
Documented by User: Genevieve Cristobal NP 08/04/23 13:50
Consultation - Neurology 4
-
CONSULTING PHYSICIAN: Jet Mendoza MD
REFERRING PHYSICIAN: Hospitalists/
DICTATED BY: LINO Rodriguez
DATE/TIME OF REQUEST: 08/03/23
DATE/TIME OF CONSULTATION: 08/04/23
Reason for Consultation: Change in mental status
History of Present Illness:
This is a 72-year-old female with a PMH of L thalamic ICH/IVH secondary to HTN requiring CATTLE FARMER shunt s/p removal, vascular parkinsonism, early dementia, and ambulatory dysfunction who has presented to the hospital on 08/03/23 with report of confusion,
lethargy, and and weakness starting about one week ago. This history is obtained by her at bedside and outpatient [facility] notes. Patient has an extensive neurological history and is followed by Dr. Anita Chavez as an outpatient.
She has also been evaluated by our inpatient Neurology service in the past.
From previous evaluation by Dr. Ferrari on 10/09/22:
'This is a 71-year-old woman with a past medical history of left-sided thalamic hemorrhage with IVH requiring CATTLE FARMER shunt, reported additional pontine hemorrhagic stroke, hypertension presenting to hospital because of multiple falls, confusion and has
been found to have UTI is felt needs placement as no longer to be cared for adequately at home.
Patient's son and report that the patient had a severe stroke in 2012 she eventually did have a good recovery and was able to walk and talk without prominent deficits.
They note since around [id number] she has been having more difficulty with ambulation and around the past year has been having short-term memory issues. They also note chronic ambulatory difficulties since around 20 19-20 20 but worse over the past
couple of months to describe some shuffling and not picking up her feet very much.
We had seen a neurologist around 3 to 4 months ago who had indicated that the patient had had a pontine stroke on brain imaging this was in addition to the previous left-sided thalamic hemorrhage.
Patient not having any hallucinations but has had some occasional speech difficulty the family interpreted as aphasia while at restaurants or going out.
She has 1 most days of the week but they deny heavy alcohol use in the past.'
Patient fell in April 2023 and sustained a left hip fracture, she was hyponatremic at that time. She didn't return quite to her baseline after that event but was back to walking 10 laps around their house with her rollator. About one week ago,
patient's reports that she became severely weak and has been wheelchair bound since then. She has also been lethargic, confused, had speech difficulty, and episodes of starring off into space. he also notes that her right arm has had mild
jerking, and in general she has had some body jerking starting in May 2023. She was evaluated by Dr. Chavez on 07/29/23 who referred her to ER for further workup. CT head was obtained on 07/29/23 and was negative for any acute abnormalities. She
was noted to be dehydrated and UA was concerning for UTI. She was given IVF and one dose of fosfomycin and discharged home. Her reports that initially she was doing slightly better but then two days ago on 08/02/23 her symptoms seemed to
worsen again and she was excessively incontinent of urine which was unusual for her. yesterday she lost control of her bowels which is extremely unusual. She was instructed by Dr. Chavez to return to the ER for evaluation due to concern of
persistent symptoms. Patient is currently lethargic and minimally cooperative with examination/questioning.
Past Medical History: Multiple hemorrhagic strokes including left thalamic ICH in 2012 requiring CATTLE FARMER shunt for hydrocephalus, parafalcine meningioma left frontoparietal convexity, vascular parkinsonism, amyloid angiopathy, dementia, HTN, HLD,
chronic hyponatremia, anxiety, depression, dementia, ambulatory dysfunction
Surgical History: Ankle surgery, CATTLE FARMER shunt s/p removal
Family History: Reviewed and noncontributory.
Social History: One drink daily. Former smoker. No illicit drug use.
Allergies: No known allergies.
Home Medications: See below.
Review of Symptoms:
Unable to obtain a complete review of systems due to lethargy/aphasia.
�Per the HPI.�All systems are reviewed negative except above.
Physical Exam:
The patient is afebrile, abdomen is nondistended, breathing is unlabored, skin is warm and dry, no edema.
NIH Stroke Scale:
I performed the NIH stroke scale on the patient on 08/04/23 at 0920. The patient scored 11 points on the NIH stroke scale assessment, which were assigned as follows: See below.
Neurologic Examination:
The patient is lethargic. She opens eyes to loud voice/pain. She is oriented to person only. She is able to follow some one-step commands and answer some simple questions appropriately. There is mild aphasia/reduced output. No dysarthria. On
cranial nerve assessment, pupils are 3 mm bilateral, round and reactive to light and accommodation. +Arcus senilis. DM visual baltazar and EOMs but no apparent gaze deviation. There is no facial asymmetry. Hearing is intact bilaterally to normal
conversation volume. Tongue palate and uvula are midline. Motor strengths are 4/5 bilateral upper and 1/5 bilateral lower extremities on medical research [place] scale. There is slight drift in the RUE. No involuntary movement noted. Deep tendon
reflexes are 2+ bilateral upper and lower extremities and Babinski is absent on the left, great toe seems frozen upward on the right. DM sensation. Coordination is intact by finger to nose bilaterally. DM DBS. Some right-sided inattention.
Lab Results: See below.
Neuro Imaging:
1. CT Head 07/29/23: No acute intracranial abnormality noted.
2. MRI brain 08/03/23: There is an acute/subacute 5 mm right carol infarct, nonhemorrhagic. Probable tiny acute infarct in the left pratt radiata and posterior right parietal region, nonhemorrhagic. Moderate diffuse volume loss. Severe leukoaraiosis.
Minimal chronic sinus disease.
Differentials for the patient's presentation include:
1. Acute/subacute right pontine and left pratt radiata/right parietal ischemic infarcts.
2. History of ICH/IVH.
3. Vascular parkinsonism.
4. Cognitive impairment.
Patient has the following risk factors for their symptoms:
IV Tenecteplase/IAT candidacy: She is not a candidate due to outside of time window, hx of ICH.
Recommendations:
-CTA head/neck w/ and w/o contrast pending.
-Provide aspirin 300mg rectal daily until cleared by speech for oral intake, at that time can switch this to aspirin 81mg PO daily.
-Goal normotension.
-LDL goal <70. LDL is 71. Continue atorvastatin 80mg daily.
-Goal normoglycemia, hbA1c is 5.9.
-NIHSS and neurological checks per unit guidelines.
-Provide patient with a stroke education packet.
-PT/OT/ST Evaluations.
-DVT prophylaxis.
Discussed patient care with: Dr. Mendoza, the patient, patient's spouse
Vital Signs and Labs
-
Vital Signs and Labs:
Vital Signs
Temp Pulse Resp BP Pulse Ox
98.4 F 71 12 161/82 98
08/04/23 08:00 08/04/23 10:50 08/04/23 10:41 08/04/23 10:50 08/04/23 10:41
Lab Results
08/04/23 05:11
08/04/23 05:11
Sodium 135 mmol/L (135-145) 08/04/23 05:11
Potassium 3.6 mmol/L (3.5-5.1) 08/04/23 05:11
BUN 17 mg/dl (7-17) 08/04/23 05:11
Glucose 98 mg/dl (70-99) 08/04/23 05:11
Calcium 8.9 mg/dl (8.4-10.2) 08/04/23 05:11
LDL Cholesterol, Calc 71 mg/dl 08/04/23 05:11
Medications
-
Active Medications
Generic Name Dose Route Start Last Admin
Trade Name Freq PRN Reason Stop Dose Admin
Acetaminophen 650 mg 08/03/23 23:41
Acetaminophen 650 Mg Rectal Suppository RECTAL 08/31/23 23:40
Q4HPRN PRN
LUCERO, mild pain, or temp >100.4F
Acetaminophen 650 mg 08/03/23 23:41
Acetaminophen 325 Mg Tablet PO 08/31/23 23:40
Q4HPRN PRN
LUCERO, mild pain, or temp >100.4F
Amlodipine Besylate 2.5 mg 08/04/23 08:00 08/04/23 10:49
Amlodipine 2.5 Mg Tablet PO 09/01/23 07:59 2.5 mg
DAILY KAROLINA Administration
Atorvastatin Calcium 80 mg 08/04/23 08:00 08/04/23 10:51
Atorvastatin (Lipitor) 80 Mg Tablet PO 09/01/23 07:59 80 mg
DAILY KAROLINA Administration
Carbidopa/Levodopa 1 tablet 08/04/23 10:00 08/04/23 10:46
Carbidopa (25 Mg)/Levodopa (100 Mg) Regular Release Tablet PO 09/01/23 09:59 1 tablet
TID@1000,1400,1800 KAROLINA Administration
Enoxaparin Sodium 40 mg 08/04/23 18:00
Enoxaparin Sodium 40 Mg/0.4 Ml Syringe SC 09/01/23 17:59
QPM KAROLINA
Folic Acid 1 mg 08/04/23 08:00 08/04/23 10:51
Folic Acid 1 Mg Tablet PO 09/01/23 07:59 1 mg
DAILY KAROLINA Administration
Furosemide 20 mg 08/04/23 08:00 08/04/23 10:48
Furosemide 20 Mg Tablet PO 09/01/23 07:59 20 mg
DAILY KAROLINA Administration
Losartan Potassium 50 mg 08/04/23 08:00 08/04/23 10:50
Losartan 50 Mg Tablet PO 09/01/23 07:59 50 mg
BID KAROLINA Administration
Metoprolol Tartrate 25 mg 08/04/23 08:00 08/04/23 10:50
Metoprolol 25 Mg Regular Release Tablet PO 09/01/23 07:59 25 mg
BID KAROLINA Administration
Psyllium Hydrophilic Mucilloid 1 packet 08/04/23 08:00 08/04/23 09:17
Psyllium Packet PO 09/01/23 07:59 Not Given
BID KAROLINA
Sodium Chloride 0 flush 08/03/23 23:00
Sodium Chloride 0.9% (Flush) Syringe IV 08/31/23 22:59
PER PROTOCOL KAROLINA
Home Medications
�Medication �Instructions �Recorded
furosemide 20 mg tablet 20 mg PO DAILY #30 tabs 11/12/12
atorvastatin 80 mg tablet 80 mg PO DAILY High Cholesterol 10/08/22
losartan 50 mg tablet 50 mg PO BID Blood Pressure 10/08/22
carbidopa 25 mg-levodopa 100 mg 1 tab PO TID@1000,1400,1800 04/30/23
tablet Neurological Condition
amlodipine 2.5 mg tablet 2.5 mg PO DAILY #0 tabs 05/05/23
folic acid 1 mg tablet 1 mg PO DAILY #0 tabs 05/05/23
metoprolol tartrate 25 mg tablet 25 mg PO BID #0 tabs 05/05/23
celecoxib 200 mg capsule 200 mg PO DAILY PRN mild pain 07/29/23
psyllium husk 0.4 gram capsule 0.4 g PO BID Gastrointestinal Issue 07/29/23
(Metamucil)
therapeutic multivitamin 1 tab PO NOON Supplement 08/03/23
NIH Stroke Score
Subsequent NIH Scale
Date of Subsequent NIH Scale: 08/04/23
Time of Subsequent NIH Scale: 09:20
NIH Stroke Score
Level of Consciousness: 1 - Arousable
LOC Questions: 2-Neither correct
LOC Commands: 0-Performs both correctly
Best Horizontal Gaze: 0-Normal
Visual Baltazar: 0=Normal, no visual loss
Facial Palsy: 0=Normal, symmetrical
Motor - Right Arm: 1=Drift < 10 seconds
Motor - Left Arm: 0=No drift 10 seconds
Motor - Right Le-None vs. gravity
Motor - Left Le-None vs. gravity
Limb Ataxia: 0-Absent
Sensation: 0-Normal
Best Language: 1-Mild aphasia
Dysarthria: 0-Normal
Extinction and Inattention: 0-No abnormality
Total Score:: 11
Modified [place] (mRS) Score
Modified [place] Scale (mRS): Moderately severe disability. Unable to attend to bodily needs/walk.
Score: 4
Alteplase Contraindication
Reasons for NON-Tx with Thrombolytics ABSOLUTE Exclusions: Greater than 4.5 hrs from onset of sxs and History of ICH

Documented by User: Jet Mendoza MD 08/04/23 15:59
NIH Stroke Score
NIH Stroke Score
Total Score:: 11
Modified [place] (mRS) Score
Score: 4
[2023-08-04] MEDS: LIPITOR PO (09:16)
[2023-08-04] MEDS: LASIX PO (09:16)
[2023-08-04] MEDS: FOLVITE PO (09:16)
[2023-08-04] MEDS: LOPRESSOR PO (09:16)
[2023-08-04] MEDS: METAMUCIL, KONSYL PO ×2 (09:17→21:47)
[2023-08-04] MEDS: NORVASC PO (09:17)
[2023-08-04 10:09] LABS: Glycohemoglobin (HgbA1c) 5.9 % (4.0-5.6)
[2023-08-04] MEDS: SINEMET 25-100 1 TABLET PO ×3 (10:46→18:02)
[2023-08-04] MEDS: LASIX 20 MG PO (10:48)
[2023-08-04] MEDS: NORVASC 2.5 MG PO (10:49)
[2023-08-04] MEDS: LOPRESSOR 25 MG PO ×2 (10:50→21:43)
[2023-08-04] MEDS: COZAAR 50 MG PO ×2 (10:50→21:42)
[2023-08-04] MEDS: LIPITOR 80 MG PO (10:51)
[2023-08-04] MEDS: FOLVITE 1 MG PO (10:51)
[2023-08-04 11:08] LABS: Erythrocyte Sed Rate 14 mm/hour (0-20)
[2023-08-04 13:51] LABS: Folate > 20.0 ng/ml (2.76-20); Vitamin B12 431 pg/ml (239-931)
--- NOTE | 2023-08-04 14:04 | EEG.RPT ---
Electroencephalogram Report
Recording
Type of EEG: Routine
Length of EEG recordin minutes
Done with Video Recording: Yes
Patient Status: Inpatient
Recording Conditions: Awake and Drowsy
Hyperventilation Performed: No
Photic Stimulation Performed: Yes
Report
LESS THAN 1 HOUR EEG REPORT
LESS THAN 1 HOUR EEG INTERPRETATION:
Mildly abnormal EEG for age in wakefulness through sleep due to mild diffuse bihemispheric slowing
CLINICAL CORRELATION:
This study was suggestive of mild diffuse cortical dysfunction without focal abnormality. No seizures were recorded.
Clinical correlation is advised.
METHODS:
A 21 channel digitized electroencephalogram (EEG) was performed at the bedside. The 10/20 international system of electrode placement was used with ECG and lateral/vertical eye movements recorded. The [employer] system was utilized.
QUALITY OF STUDY:
Fair
ELECTROENCEPHALOGRAPHER IMPRESSION(S):
Background
Amplitude: Unremarkable
Anterior-Posterior Organization: Fair, good at times
Maximum: Theta
Asymmetry: None
Sleep
Drowsiness present
Photic Stimulation
Failed to activate the record
ECG
Normal sinus rhythm
[2023-08-04] MEDS: ASPIR LOW (ENTERIC COATED) 81 MG PO (14:13)
[2023-08-04] MEDS: METAMUCIL, KONSYL 1 PACKET PO (14:16)
[2023-08-04] MEDS: LOVENOX 40 MG SC (18:02)
--- NOTE | 2023-08-04 18:54 | PTCARENOTE ---
report provided to ED RN Stanislaw. walking rounds preformed. pt remains ED hold at this time. spouse remains at bedside.
--- NOTE | 2023-08-04 21:10 | PTCARENOTE ---
Patient received from ED with at bedside. Pt. oriented to room, tele monitor placed, call caceres within reach. Admission to unit completed per protocol. inquiring about when pt. would be assessed to see if she is appropriate for rehab
placement at [facility] as she was admitted to [facility] following her previous CVA with positive results. VSS at this time. Will complete NIHSS per unit protocol. Pt. resting comfortably at this time. Bed alarm in place for pt. safety.
[2023-08-05] VITALS (8 sets, daily range): BP systolic 119–179; BP diastolic 65–98; PULSE 85–86; O2SAT 96–97
[2023-08-05 05:15] LABS: Hematocrit 34.7 % (37.0-47.0); Mean Corp Hgb Conc. 34.6 g/dL (33.0-37.0); Mean Corpuscular Volume 80.9 fL (81.0-99.0); Mean Platelet Volume 8.5 fL (7.4-10.4); Platelet Count 324 10^3/uL (130-400); Red Blood Cell Count 4.29 10^6/uL (4.20-5.40); Red Cell Dist. Width 14.1 % (11.5-14.5); White Blood Cell Count 6.8 10^3/uL (4.8-10.8)
[2023-08-05 05:46] LABS: Blood Urea Nitrogen 11 mg/dl (7-17); Calcium 9.3 mg/dl (8.4-10.2); Carbon Dioxide 26 mmol/L (22-30); Chloride 103 mmol/L (98-107); Estimated Creatinine Clearance 57 ml/min; Glucose 98 mg/dl (70-99); Potassium 3.6 mmol/L (3.5-5.1); Sodium 136 mmol/L (135-145); eGFR > 60.00
[2023-08-05 06:34] LABS: Hepatitis C Antibody Negative (Negative)
--- NOTE | 2023-08-05 08:55 | PTOTSP ---
Speech Language Pathology
Pt also seen this date for dysphagia tx. Pt awake and alert this date. Seen with P.O. trials of jello, regular solids, and thin liquids via straw (both single and consecutive sips). Also seen with med pass with meds 1 at a time whole with water.
Adequate mastication, bolus formation, and A-P transit noted with no oral residue noted. No overt signs of aspiration.
Pt is at increased risk for aspiration given hx of dementia and Parkinson's coupled with current infarcts, including carol. Discussed option of VSE to rule out silent aspiration. would like to hold off at this time and monitor pt's
tolerance of diet.
Recommend:
(1) Upgrade to regular solids/thin liquids
(2) Aspiration precautions: sit upright, slow rate, full supervision with assist as needed
(3) Meds 1 at a time with water
(4) [employer] to continue to follow for dysphagia tx only (see cognitive evaluation completed this date as well)
[2023-08-05] MEDS: LASIX 20 MG PO (09:02)
[2023-08-05] MEDS: ASPIR LOW (ENTERIC COATED) 81 MG PO (09:03)
[2023-08-05] MEDS: FOLVITE 1 MG PO (09:03)
[2023-08-05] MEDS: COZAAR 50 MG PO ×2 (09:03→21:53)
[2023-08-05] MEDS: NORVASC 2.5 MG PO (09:03)
[2023-08-05] MEDS: LOPRESSOR 25 MG PO ×3 (09:04→22:00)
[2023-08-05] MEDS: LIPITOR 80 MG PO (09:04)
[2023-08-05] MEDS: METAMUCIL, KONSYL 1 PACKET PO ×2 (09:04→21:56)
[2023-08-05] MEDS: VITAMIN B1 100 MG PO (09:05)
[2023-08-05] MEDS: SINEMET 25-100 1 TABLET PO ×3 (10:00→18:41)
--- NOTE | 2023-08-05 10:21 | W.PN.NEURO.1 ---
Today's Communication / Plan
-
Continue newly initiated aspirin 81mg PO daily.
Goal normotension.
Continue atorvastatin 80mg daily.
Initiated thiamine to ensure there is not a lack of this vitamin.
Rehabilitation evaluations
Neuro Assessment/Plan
Assessment
Neuro Imaging:
1. CT Head 07/29/23: No acute intracranial abnormality noted.
2. MRI brain 08/03/23: There is an acute/subacute 5 mm right pontine infarct, nonhemorrhagic. Probable tiny acute infarct in the left pratt radiata and posterior right parietal region, nonhemorrhagic. Moderate diffuse volume loss. Severe
leukoaraiosis. Minimal chronic sinus disease.
CTA head and neck failed to demonstrate a vascular etiology for the patient's symptomatology
Differentials for the patient's presentation include:
1. Acute/subacute right pontine and left pratt radiata/right parietal ischemic infarcts.
2. History of ICH/IVH.
3. Vascular parkinsonism.
4. Cognitive impairment.
Plan
Recommendations:
Continue newly initiated aspirin 81mg PO daily.
Goal normotension.
Continue atorvastatin 80mg daily.
Initiated thiamine to ensure there is not a lack of this vitamin.
Rehabilitation evaluations
Will follow as needed.
Subjective/Objective
Subjective Data
Date of Service: August 05, 2023
Patient unable to provide her own medical history.
Objective Data
Vital Signs
Temp Pulse Resp BP Pulse Ox
36.6 C 72 18 158/72 98
08/05/23 09:28 08/05/23 09:03 08/05/23 07:30 08/05/23 09:03 08/05/23 07:30
Lab Results
08/05/23 04:46
08/05/23 04:46
Sodium 136 mmol/L (135-145) 08/05/23 04:46
Potassium 3.6 mmol/L (3.5-5.1) 08/05/23 04:46
BUN 11 mg/dl (7-17) 08/05/23 04:46
Glucose 98 mg/dl (70-99) 08/05/23 04:46
Calcium 9.3 mg/dl (8.4-10.2) 08/05/23 04:46
LDL Cholesterol, Calc 71 mg/dl 08/04/23 05:11
Vitamin B12 431 pg/ml (239-931) 08/04/23 05:11
Patient Allergies
No Known Allergies Allergy (Verified 08/03/23 16:17)
Review of Systems
-
Unable to obtain full review of systems at this time due to: Dementia
History Source: Patient
All other systems: Reviewed and negative
Physical Exam
-
General: No Apparent Distress, Cachectic and Appears Stated Age
Eyes: Round OU, [place] Conjunctivae and No Ptosis
HEENT: Anicteric and Moist Mucous Membranes
Neck: Full Range of Motion
Respiratory: No Dyspnea
Cardiac: No JVD
GI: Non-distended
Skin: Unremarkable
Extremities: No Clubbing, No Cyanosis and No Edema
Psych: Negative Intact Judgement/Insight
Extended Neurological Exam
Mood & Affect: Mood Unremarkable and Affect Unremarkable
Attention Span & Concentration: Awake, Alert, Interactive and Unable to Perform 2 Step Request
Memory: Reduced (Unable to recall current month, year, location) and Unable to Recall Personal History
Tremor: Hand Tremor Absent and Head Tremor Absent
Speech: Quality Unremarkable and Moderately Reduced Output
Cranial Nerve II: Left Eye: Pupillary Size Unremarkable and Visual Baltazar Grossly Intact
Cranial Nerve II: Right Eye: Pupillary Size Unremarkable and Visual Baltazar Grossly Intact
Cranial Nerves III, IV, : Extraocular Movement: Grossly Intact
Cranial Nerve VII: Facial Symmetry: Normal Facial Symmetry
Cranial Nerve VIII: Hearing: Unremarkable Hearing to Normal Conversational Volume
Cranial Nerve XI: Shoulder Shrug: Unremarkable
Cranial Nerve XII: Tongue Protusion: Midline
Muscle Strength, Overall: Other (Reduced spontaneous movement of all extremities)
Muscle Bulk & Tone: Bulk Unremarkable and Increased Tone
Pronator Drift: Unable to Assess
Cold Sensation: Unable to Assess
Vibration Sensation: Unable to Assess
Coordination: Unable to Assess
Babinski Sign: Unable to Test
Gait & Station: Unable to Assess
Past History
Past History
ED Past Medical History: CVA (Intracerebral bleed/CVA; additional stroke July 2023), HTN, Hypercholesterolemia and Other (Vascular dementia); Negative Asthma or NIDDM
ED Past Surgical History: Orthopedic
Social History
Tobacco: Former smoker
Alcohol: Former
Personal:
Living: with family
Family History
Family History: Other (Reviewed and noncontributory)
Medications
-
Medications:
Generic Name Dose Route Start Last Admin
Trade Name Freq PRN Reason Stop Dose Admin
Acetaminophen 650 mg 08/03/23 23:41
Acetaminophen 650 Mg Rectal Suppository RECTAL 08/31/23 23:40
Q4HPRN PRN
LUCERO, mild pain, or temp >100.4F
Acetaminophen 650 mg 08/03/23 23:41
Acetaminophen 325 Mg Tablet PO 08/31/23 23:40
Q4HPRN PRN
LUCERO, mild pain, or temp >100.4F
Amlodipine Besylate 2.5 mg 08/04/23 08:00 08/05/23 09:03
Amlodipine 2.5 Mg Tablet PO 09/01/23 07:59 2.5 mg
DAILY KAROLINA Administration
Aspirin 81 mg 08/04/23 14:00 08/05/23 09:03
Aspirin 81 Mg (Enteric Coated) Tablet PO 09/01/23 13:59 81 mg
DAILY KAROLINA Administration
Atorvastatin Calcium 80 mg 08/04/23 08:00 08/05/23 09:04
Atorvastatin (Lipitor) 80 Mg Tablet PO 09/01/23 07:59 80 mg
DAILY KAROLINA Administration
Carbidopa/Levodopa 1 tablet 08/04/23 10:00 08/05/23 10:00
Carbidopa (25 Mg)/Levodopa (100 Mg) Regular Release Tablet PO 09/01/23 09:59 1 tablet
TID@1000,1400,1800 KAROLINA Administration
Enoxaparin Sodium 40 mg 08/04/23 18:00 08/04/23 18:02
Enoxaparin Sodium 40 Mg/0.4 Ml Syringe SC 09/01/23 17:59 40 mg
QPM KAROLINA Administration
Folic Acid 1 mg 08/04/23 08:00 08/05/23 09:03
Folic Acid 1 Mg Tablet PO 09/01/23 07:59 1 mg
DAILY KAROLINA Administration
Furosemide 20 mg 08/04/23 08:00 08/05/23 09:02
Furosemide 20 Mg Tablet PO 09/01/23 07:59 20 mg
DAILY KAROLINA Administration
Losartan Potassium 50 mg 08/04/23 08:00 08/05/23 09:03
Losartan 50 Mg Tablet PO 09/01/23 07:59 50 mg
BID KAROLINA Administration
Metoprolol Tartrate 25 mg 08/04/23 08:00 08/05/23 09:04
Metoprolol 25 Mg Regular Release Tablet PO 09/01/23 07:59 25 mg
BID KAROLINA Administration
Psyllium Hydrophilic Mucilloid 1 packet 08/04/23 08:00 08/05/23 09:04
Psyllium Packet PO 09/01/23 07:59 1 packet
BID KAROLINA Administration
Sodium Chloride 0 flush 08/03/23 23:00
Sodium Chloride 0.9% (Flush) Syringe IV 08/31/23 22:59
PER PROTOCOL KAROLINA
Thiamine HCl 100 mg 08/05/23 08:00 08/05/23 09:05
Thiamine 100 Mg Tablet PO 08/07/23 08:01 100 mg
DAILY KAROLINA Administration
--- NOTE | 2023-08-05 14:12 | CM ---
consulting practice manager reviewed patient's chart and met with patient and spouse at bedside, last April patient was admitted with hip fracture and was skilled. Patient also with Parkinson's and possible CVA. Patient lives with spouse in a multilevel home,
patient with w/c stair glide and walker in home, per spouse he discussed acute rehab with physician and would like a referral to [facility] [place], referral sent to [facility]. Case management reached out to physician for PM&R
evaluation and recommendations.
Plan; Await recommendations from PM&R, referral sent to [facility].
--- NOTE | 2023-08-05 16:10 | PTCARENOTE ---
Assumed care of pt from previous nurse, pt stoke scale is a 9. Pt oob to chair with at bedside. pt call caceres is within reach, pt does not ring per . bed alarm in place, will cont to monitor.
--- NOTE | 2023-08-05 17:26 | W.PN.HOSP.TC ---
Today's Communication/Plan
-
Doing better
[facility]iatry evaluation
Assessment / Plan
Assessment / Plan
Physical Exam
General: Not in acute distress
HEENT: Normocephalic
Respiratory: Clear
Cardiac: S1/S2 and Regular Rhythm
GI: Soft, Non Tender, Non Distended and Normal Bowel Sounds
Musculoskeletal: No Cyanosis and No Edema
Skin: Warm. Dry.
Neuro: Awake. Alert. Interactive. Reduced speech output, otherwise cranial nerves appear grossly intact. Reduced spontaneous movement of extremities. Unable to perform strength and sensation exam.
Psych: Calm

MRI Brain (as per radiologist's report)
IMPRESSION:
There is an acute/subacute 5 mm right carol infarct, nonhemorrhagic.
Probable tiny acute infarct in the left pratt radiata and posterior right parietal region, nonhemorrhagic.
Moderate diffuse volume loss. Severe leukoaraiosis.
Minimal chronic sinus disease.

Assessment/Plan
72 y/o female who recent saw her outpatient neurologist Dr. Anita Chavez on July 29, 2023 because of significant worsening of her functional status. Around end of June 2023 and beginning of July 2023, she was having knee pain which hindered her
ambulation, and received injections, still able to do 1 lap around the house, but around the first to second week of July 2023, mainly wheelchair-bound and could only walk small amounts with walker, together with fatigue and confusion, and a fall
(with no head trauma) not answering questions. She had low blood pressure in the neurology office. She also had right arm jerking. Dr. Chavez recommended evaluation in the emergency for possibly low sodium as well as possible infection.
#History of Fall (with hip fracture) and Hyponatremia in April 2023
#History of Right Hip Fracture s/p right cephalomedullary nail
#Generalized weakness/aphasia
#Multiple Acute/Subacute Strokes
-After fall in April 2023, patient eventually did better and could walk 10 laps around the house with Rollator but then declined with fever laps, after knee pain
-CT head No acute intracranial abnormality noted
-MRI results above with acute/subacute strokes
-Continue new medication Aspirin 81 mg daily
-HbA1c 5.9%
-Lipid Profile noted
-Continue Atorvastatin 80 mg daily
-Continue Thiamine
-Echocardiogram noted
-Patient should follow-up with outpatient waterproofing supervisor Dr. Sorto for environmental monitoring technician
-Neurology consulted, recommendations appreciated
-Consulted physiatry for [facility] placement
#History of Acute blood loss anemia due to surgery
#History of Hyponatremia
#History of Hypokalemia
#History of Sinus Tachycardia
#Essential HTN:
-cont Losartan/Norvasc, furosemide
-metoprolol continued
-Monitor blood pressure closely
#HLD: cont statin
#Vascular Dementia/Parkinson Disease
-carbidopa continued
#History of hemorrhagic CVA in 2012
#Urine incontinence
#Hypertension
#Recent right hip fracture status post cephalomedullary nail in April
#Hyperlipidemia
-Continue home statin.
#History of Alcohol use
Vascular Dementia
h/o cerebrovascular accident
#DVT prophylaxis
-Lovenox
Diet: IDDSI 4 Diet -- spoke on August 04, 2023 with patient's about this -- and he is okay with/and would prefer patient getting diet and medications
#CODE status
-DNR
I spoke with patient, patient's Jason and patient's son Jason on August 04, 2023. All questions and concerns were answered to satisfaction.
Updated patient's Jason today in patient's room.
Anticipated Discharge: 24 - 48 hours
Subjective/Interval History
-
Date of Service: August 05, 2023
Patient was seen and examined. She was more alert and interactive today.
Objective Data
-
Labs:
Laboratory Results
08/05/23
04:46
Sodium 136
Potassium 3.6
Chloride 103
Carbon Dioxide 26
BUN 11
Creatinine 0.5 L
Glucose 98
Calcium 9.3
Vital Signs:
Vital Signs
Temp Pulse Resp BP Pulse Ox
98.4 F 85 18 139/76 96
08/05/23 15:15 08/05/23 15:15 08/05/23 15:15 08/05/23 15:15 08/05/23 15:54
[2023-08-05] MEDS: LOVENOX 40 MG SC (18:42)
[2023-08-06 03:32] VITALS: BP 152/75
[2023-08-06 06:31] LABS: Hematocrit 35.6 % (37.0-47.0); Hemoglobin 12.6 g/dL (12.0-16.0); Mean Corp Hgb Conc. 35.4 g/dL (33.0-37.0); Mean Corpuscular Hgb 28.4 pg (27.0-31.0); Mean Corpuscular Volume 80.4 fL (81.0-99.0); Mean Platelet Volume 8.8 fL (7.4-10.4); Platelet Count 361 10^3/uL (130-400); Red Blood Cell Count 4.43 10^6/uL (4.20-5.40); Red Cell Dist. Width 14.2 % (11.5-14.5); White Blood Cell Count 7.8 10^3/uL (4.8-10.8)
[2023-08-06 07:00] LABS: Blood Urea Nitrogen 14 mg/dl (7-17); Calcium 9.4 mg/dl (8.4-10.2); Carbon Dioxide 27 mmol/L (22-30); Chloride 102 mmol/L (98-107); Estimated Creatinine Clearance 57 ml/min; Glucose 104 mg/dl (70-99); Potassium 3.8 mmol/L (3.5-5.1); Sodium 136 mmol/L (135-145); eGFR > 60.00
[2023-08-06 07:30] VITALS: BP 167/80
[2023-08-06] MEDS: METAMUCIL, KONSYL PO ×2 (09:19→10:01)
[2023-08-06] MEDS: NORVASC 2.5 MG PO (09:19)
[2023-08-06] MEDS: LASIX 20 MG PO (09:21)
[2023-08-06] MEDS: LIPITOR 80 MG PO (09:22)
[2023-08-06] MEDS: LOPRESSOR 25 MG PO (09:22)
[2023-08-06] MEDS: FOLVITE 1 MG PO (09:23)
[2023-08-06] MEDS: VITAMIN B1 100 MG PO (09:23)
[2023-08-06] MEDS: COZAAR 50 MG PO ×2 (09:23→22:00)
[2023-08-06 11:30] VITALS: BP 136/71
[2023-08-06] MEDS: ASPIR LOW (ENTERIC COATED) 81 MG PO (12:15)
[2023-08-06] MEDS: SINEMET 25-100 1 TABLET PO ×3 (12:15→18:44)
[2023-08-06] MEDS: FIBERCON 625 MG PO (12:18)
--- NOTE | 2023-08-06 12:33 | PN.CDI ---
CDI
- -
CDI:
Physician Documentation Request
Admit Date: 08/04/23 03:54
Dear Doctor Mimi,
Please review the following and provide your response in the progress notes.
Clinical Indicators:
Height: 5 ft 4 inches
Weight: 96
BMI:16.5
If possible, please provide an associated diagnosis related to the abnormal BMI, such as:
BMI < or = to 19
Underweight
Weight Loss
Cachectic
Anorexia
- BMI is not significant
- Other
- Unable to determine
Use of terms such as suspected, likely, concern for, or probable (associated with a specific diagnosis that is being evaluated, monitored, or treated as if it exists) are acceptable and can be coded in the inpatient setting, when documented at the
time of discharge.
Thank you,
Alejandra Miranda RN,BSN
CDI Specialist
tiger text
Please use your independent medical judgment in providing your response.
--- NOTE | 2023-08-06 15:31 | CM ---
client services account manager reviewed patient's chart and referral sent to [facility] to review chart.
Plan; Acute rehab, multiple strokes, recent fractured hip and Parkinson per chart.
[2023-08-06 15:39] VITALS: BP 105/68
--- NOTE | 2023-08-06 16:03 | W.PN.HOSP.TC ---
Today's Communication/Plan
-
Awaiting [facility] Placement
Assessment / Plan
Assessment / Plan
Physical Exam
General: Not in acute distress
HEENT: Normocephalic
Respiratory: Clear
Cardiac: S1/S2 and Regular Rhythm
GI: Soft, Non Tender, Non Distended and Normal Bowel Sounds
Musculoskeletal: No Cyanosis and No Edema
Skin: Warm. Dry.
Neuro: Awake. Alert. Interactive. Reduced speech output, otherwise cranial nerves appear grossly intact. Reduced spontaneous movement of extremities. Unable to perform strength and sensation exam.
Psych: Calm

MRI Brain (as per radiologist's report)
IMPRESSION:
There is an acute/subacute 5 mm right carol infarct, nonhemorrhagic.
Probable tiny acute infarct in the left pratt radiata and posterior right parietal region, nonhemorrhagic.
Moderate diffuse volume loss. Severe leukoaraiosis.
Minimal chronic sinus disease.

Assessment/Plan
72 y/o female who recent saw her outpatient neurologist Dr. Anita Chavez on July 29, 2023 because of significant worsening of her functional status. Around end of June 2023 and beginning of July 2023, she was having knee pain which hindered her
ambulation, and received injections, still able to do 1 lap around the house, but around the first to second week of July 2023, mainly wheelchair-bound and could only walk small amounts with walker, together with fatigue and confusion, and a fall
(with no head trauma) not answering questions. She had low blood pressure in the neurology office. She also had right arm jerking. Dr. Chavez recommended evaluation in the emergency for possibly low sodium as well as possible infection.
#History of Fall (with hip fracture) and Hyponatremia in April 2023
#History of Right Hip Fracture s/p right cephalomedullary nail
#Generalized weakness/aphasia
#Multiple Acute/Subacute Strokes
-After fall in April 2023, patient eventually did better and could walk 10 laps around the house with Rollator but then declined with fever laps, after knee pain
-CT head No acute intracranial abnormality noted
-MRI results above with acute/subacute strokes
-Continue new medication Aspirin 81 mg daily
-HbA1c 5.9%
-Lipid Profile noted
-Continue Atorvastatin 80 mg daily
-Continue Thiamine
-Echocardiogram noted
-Patient should follow-up with outpatient distance education coordinator Dr. Sorto for pvc monitor
-Neurology consulted, recommendations appreciated
-Consulted physiatry for [facility] placement
#History of Acute blood loss anemia due to surgery
#History of Hyponatremia
#History of Hypokalemia
#History of Sinus Tachycardia
#Essential HTN:
-cont Losartan/Norvasc, furosemide
-metoprolol continued
-Monitor blood pressure closely
#HLD: cont statin
#Vascular Dementia/Parkinson Disease
-carbidopa continued
#History of hemorrhagic CVA in 2012
#Urine incontinence
#Hypertension
#Recent right hip fracture status post cephalomedullary nail in April
#Hyperlipidemia
-Continue home statin.
#History of Alcohol use
#Vascular Dementia
#h/o cerebrovascular accident
#Underweight
#DVT prophylaxis
-Lovenox
Diet: IDDSI 4 Diet -- spoke on August 04, 2023 with patient's about this -- and he is okay with/and would prefer patient getting diet and medications
#CODE status
-DNR
I spoke with patient, patient's Jason and patient's son Jason on August 04, 2023. All questions and concerns were answered to satisfaction.
Updated patient's Jason on August 06, 2023 inside patient's room.
Anticipated Discharge: > 48 hours
Subjective/Interval History
-
Date of Service: August 06, 2023
Objective Data
-
Labs:
Laboratory Results
08/06/23
06:04
WBC 7.8
Hgb 12.6
Hct 35.6 L
Plt Count 361
Sodium 136
Potassium 3.8
Chloride 102
Carbon Dioxide 27
BUN 14
Creatinine 0.5 L
Glucose 104 H
Calcium 9.4
Vital Signs:
Vital Signs
Temp Pulse Resp BP Pulse Ox
97.9 F 88 20 105/68 98
08/06/23 15:39 08/06/23 15:39 08/06/23 15:39 08/06/23 15:39 08/06/23 15:39
I&O
08/05/23 08/06/23 08/07/23
06:59 06:59 06:59
Intake Total 720 / 720
Balance 720 / 720
[2023-08-06] MEDS: LOVENOX 40 MG SC (18:44)
[2023-08-06 23:05] VITALS: BP 142/71
[2023-08-07 05:17] LABS: Hematocrit 32.5 % (37.0-47.0); Hemoglobin 11.5 g/dL (12.0-16.0); Mean Corp Hgb Conc. 35.4 g/dL (33.0-37.0); Mean Corpuscular Volume 79.1 fL (81.0-99.0); Mean Platelet Volume 8.5 fL (7.4-10.4); Platelet Count 303 10^3/uL (130-400); Red Blood Cell Count 4.11 10^6/uL (4.20-5.40); Red Cell Dist. Width 14.2 % (11.5-14.5); White Blood Cell Count 7.2 10^3/uL (4.8-10.8)
[2023-08-07 05:42] LABS: Blood Urea Nitrogen 16 mg/dl (7-17); Calcium 9.3 mg/dl (8.4-10.2); Carbon Dioxide 24 mmol/L (22-30); Chloride 106 mmol/L (98-107); Estimated Creatinine Clearance 57 ml/min; Glucose 95 mg/dl (70-99); Potassium 3.9 mmol/L (3.5-5.1); Sodium 134 mmol/L (135-145); eGFR > 60.00
[2023-08-07 07:20] VITALS: BP 147/98
[2023-08-07] MEDS: FIBERCON 625 MG PO (08:26)
[2023-08-07] MEDS: LIPITOR 80 MG PO (08:26)
[2023-08-07] MEDS: LOPRESSOR 25 MG PO ×2 (08:26→21:59)
[2023-08-07] MEDS: VITAMIN B1 100 MG PO (08:26)
[2023-08-07] MEDS: COZAAR 50 MG PO ×2 (08:26→21:59)
[2023-08-07] MEDS: ASPIR LOW (ENTERIC COATED) 81 MG PO (08:26)
[2023-08-07] MEDS: FOLVITE 1 MG PO (08:26)
[2023-08-07] MEDS: NORVASC 2.5 MG PO (08:27)
[2023-08-07] MEDS: LASIX 20 MG PO (08:27)
[2023-08-07] MEDS: SINEMET 25-100 1 TABLET PO ×3 (10:09→17:19)
--- NOTE | 2023-08-07 10:33 | CM ---
Addendum entered by Sepideh Burdick 08/07/23 16:06:
Per Carmen, contact RN on-call # , option 5, tomorrow to submit Authorization request for Acute Rehab
Confirmed that they require PM&R consult note and updated PT/OT notes
Addendum entered by Sepideh Burdick 08/07/23 14:56:
Patient's and son declined [facility] referral acceptance
Per [facility] in [place] have a bed; and son are agreeable
Plan: Patient will discharge to [facility], on Thursday, 08/08
Report # [phone]

CM will submit insurance Authorization to [facility] tomorrow and [facility] @ [phone] with AUTH #
Addendum entered by Sepideh Burdick 08/07/23 14:27:
[facility] has accepted referral and has a bed available
Addendum entered by Sepideh Burdick 08/07/23 14:00:
[facility] does not have a bed available
Referrals sent to [facility] for Acute Rehab bed
PM&R consult pending
Addendum entered by Sepideh Burdick 08/07/23 13:53:
PT/OT re-evaluated and recommending Acute Rehab
Addendum entered by Sepideh Burdick 08/07/23 10:42:
Plan: Acute Rehab vs SNF pending [facility] Authorization and available bed
Original Note:
per Attending, patient is medically stable for discharge
Met with patient and her at the bedside to discuss discharge plan: Acute Rehab vs SNF
PM&R consult pending
Provided with SNF list in the event that Acute Rehab is not appropriate for patient
Contacted PT/OT and requested re-evaluation/updated notes today; once notes are available, CM will submit SNF referrals via [facility] to [facility] and [facility]
[2023-08-07 11:26] VITALS: BP 146/82; PULSE 81; O2SAT 98
[2023-08-07 11:27] VITALS: BP 146/82; PULSE 72; O2SAT 98
--- NOTE | 2023-08-07 14:27 | CON.MD ---
Consultation - Medical
-
Referring Provider: Dr. Eusebio Le
Chief Complaint: Stroke
History of Present Illness: 72-year-old female with PMH (as below) presented to [facility] on 08/03/2023 with slurred speech and generalized weakness. CT of the head with no acute intracranial abnormality. MRI of the brain with
acute/subacute right carol nonhemorrhagic infarct, probable tiny acute infarct in the left pratt radiata and posterior right parietal region. Recent UTI. Echocardiogram with EF 60 to 65% and no concerns for etiology of CVA. Seen by neurology and
started on aspirin 81 mg daily.
Past Medical History: vascular dementia, hemorrhagic CVA, HTN, HLD, Parkinson's
Procedure History: MOLDING PLASTERER shunt and removal, right hip replacement, right hip fracture with cephalomedullary nail April 2023
Family History: Denies
Social History:
Functional Level Premorbidly: Has been dependently transfers patient from bed to wheelchair and toilet the last few weeks independent for ADLs. Had been more mobile and ambulatory prior to hip fracture in April.
Functional Level Currently:�Mod assist bed mobility, mod assist transfers. Min assist grooming, dependent toileting and toilet transfer.
Tobacco: Former
Alcohol: Daily glass of wine
Drug use: Denies
Lives with: Spouse
24-hour assistance available: Yes
Number of floors: 2
# steps to enter: 3
# steps to second floor: Full flight
Potential First floor set up:
Driving: No
Occupation: Retired
Allergies:
Allergy/AdvReac Type Severity Reaction Status Date / Time
No Known Allergies Allergy Verified 08/03/23 16:17
Review of Systems: Denies any concerns. Poor memory.
Constitutional: (x) Normal _
Eye: (x) Normal _
Ear/Nose/Throat: (x) Normal _
Respiratory: (x) Normal _
Cardiovascular: (x) Normal _
Gastrointestinal: (x) Normal _
Genitourinary: (x) Normal _
Musculoskeletal: (x) Normal _
Integumentary: (x) Normal _
Neurologic: (x) Normal _
Psychiatric: (x) Normal _
Endocrine: (x) Normal _
Hematologic/Lymphatic: (x) Normal _
Allergic/Immunologic: (x) Normal _
Medications:
Active Current Visit Medication List
Category Date Time Status
Acetaminophen [Tylenol/Feverall] Med 08/03/23 23:41 Active
650 mg RECTAL Q4HPRN PRN
Acetaminophen [Tylenol] Med 08/03/23 23:41 Active
650 mg PO Q4HPRN PRN
Amlodipine [Norvasc] Med 08/04/23 08:00 Active
2.5 mg PO DAILY
Aspirin Low Dose EC [Aspir Low (Enteric Coated)] Med 08/04/23 14:00 Active
81 mg PO DAILY
Atorvastatin [Lipitor] Med 08/04/23 08:00 Active
80 mg PO DAILY
Calcium Polycarbophil [Fibercon] Med 08/06/23 11:00 Active
625 mg PO DAILY
Carbidopa/Levodopa [Sinemet 25-100] Med 08/04/23 10:00 Active
1 tablet PO TID@1000,1400,1800
Enoxaparin Sodium [Lovenox] Med 08/04/23 18:00 Active
40 mg SC QPM
FOLic ACID [Folvite] Med 08/04/23 08:00 Active
1 mg PO DAILY
Flush (0.9% Sodium Chloride) [Flush (Nss)] Med 08/03/23 23:00 Active
See Dose Instructions IV PER PROTOCOL
Furosemide [Lasix] Med 08/04/23 08:00 Active
20 mg PO DAILY
Losartan [Cozaar] Med 08/04/23 08:00 Active
50 mg PO BID
Metoprolol [Lopressor] Med 08/04/23 08:00 Active
25 mg PO BID
Psyllium [Metamucil, Konsyl] Med 08/04/23 08:00 Hold
1 packet PO BID
Vitals:
Temp Pulse Resp BP Pulse Ox
98.5 F 85 14 147/98 98
08/07/23 07:20 08/07/23 08:26 08/07/23 07:20 08/07/23 08:26 08/07/23 07:20
Height 5 ft 4 in
Actual Weight 42.779 kg
Body Mass Index (BMI) 16.2
Physical Exam:
General Appearance/Observation: Well-developed, thin female in no apparent distress.
Pain/Comfort Assessment: Denies
Mood/Affect: Appropriate
Integumentary/Operative Site: No lesions noted during course of exam.
Eyes: Conjunctiva/Lids: normal ��� Pupils: pupils equal round and reactive to light and Accommodation
Ears/Nose/Throat: oral mucosa moist,� throat clear.������������ Lips/Teeth/Gums: normal
Neck: No muscle spasm or tenderness
Cardiovascular: Heart: regular, no murmur
Pulses: dorsalis pedis 2+ bilaterally
Respiratory: Respiratory Effort/Chest Expansion: normal ������ Auscultation: Clear to auscultation bilaterally
Gastrointestinal: abdomen not tender, no distension, normal abdominal bowel sounds
Genitourinary: No Stanton
Extremities: Edema: None Cyanosis: None Trophic changes: None
Neurology Exam:
Orientation: Alert, Oriented to self only
Memory: Severely impaired
Repetition: Intact
Comprehension: Impaired
Two step command: Impaired
Naming: Intact for basic info
Cranial Nerves:
�� CNII: Pupillary light reflex: Intact��� Visual Field: unable to assess with command following.
�� CN III, IV, : Extraocular muscles: appears to be intact
�� CN V: Facial Sensation at Forehead: Intact, Maxilla: Intact, Mandible: Intact
�� CN VII: Facial movement: Symmetric
�� CN VIII: Hearing: Normal
�� CN IX/X: Speech & swallow: Normal, Position of Uvula: Midline
�� CN XI: Shoulder shrug: Symmetric
�� CN XII: Tongue protrusion: Midline
Sensory:
�� Light touch: notes decreased left arm and leg.
Reflexes:
�� Biceps: 2+ bilaterally
�� Brachioradialis: 2+ bilaterally
�� Triceps: 2+ bilaterally
�� Patellar: 2+ bilaterally
�� Achilles: 2+ bilaterally
�� Babinski: Down going bilaterally
�� Clonus: None
�� Mickey: Negative bilaterally
Cerebellar: Dysmetria/Ataxia: None
Musculoskeletal:Motor: (Manual muscle scale 0-5) 4/5 gross UE movement. Trouble moving legs harder on right vs left.
Tone: Normal in all extremities
Range of Motion: Passively within normal limits in all extremities
Lab Results
Laboratory Data
08/07/23 04:41
08/07/23 04:41
Total Bilirubin 0.6 mg/dl (0.2-1.3) 08/03/23 16:35
AST 21 U/L (14-36) 08/03/23 16:35
ALT 12 U/L (0-35) 08/03/23 16:35
Alkaline Phosphatase 77 U/L (38-126) 08/03/23 16:35
Total Protein 5.9 g/dl (6.3-8.2) L 08/03/23 16:35
Albumin 3.6 g/dl (3.5-5.0) 08/03/23 16:35
Diagnostic Results: as per HPI
Assessment
72-year-old right-handed F PMH (vascular dementia, hemorrhagic CVA, HTN, HLD, Parkinson's) with 08/03/2023 with slurred speech and generalized weakness from acute/subacute right carol nonhemorrhagic infarct, probable tiny acute infarct in the left
pratt radiata and posterior right parietal region with ADL, ambulatory, and speech dysfunction.
Plan
PM&R PT/OT to increase independence with ADLs, improve balance, coordination, endurance, strength, mobility, community reintegration, decreased burden of care on others and family education.
CVA: Secondary prophylaxis with aspirin, statin, and blood pressure control (SBP less than 180 and diastolic less than 100 to participate with therapy for ischemic stroke). Continue to monitor neurologic status.
Vascular dementia: significant cognitive dysfunction.
Parkinson's disease: Sinemet
Hip fracture April 2023: PT/OT maintain full ROM at hip and knee. Right leg appears weaker then left, could be from right hip surgery decline.
HTN: Amlodipine, losartan, metoprolol, Lasix, monitor closely
HLD: Statin������
Anemia: Likely multifactorial.� Continue to monitor.
FEN: Mild hyponatremia: Monitor.
Psych: Psychology consult.� Monitor mood, adjust medications as needed.
Skin: monitor for pressure sores/rashes/lesions.
Pain: acetaminophen as needed.
Bowel: Colace and Senna, PRN bisacodyl.
Bladder: Time void, PVRs, PRN straight cath.
DVT Prophylaxis: Mechanical and Lovenox.
Pulmonary: Incentive spirometry
Safety: Continue to reinforce assistance with all transfers.
Code Status:� DNR Per chart
Dispo (date/plan/equipment needs): Home with family care.
Discharge Destination: Acute inpatient rehabilitation
Functional and Medical Goals: Modified Independent with ADL�s, ambulation, transfers
Summary of recommendations:
- Discharge Destination: Acute inpatient rehabilitation
CVA: Secondary prophylaxis with aspirin, statin, and blood pressure control (SBP less than 180 and diastolic less than 100 to participate with therapy for ischemic stroke). Continue to monitor neurologic status.
Parkinson's disease: Sinemet
Hip fracture April 2023: PT/OT maintain full ROM at hip and knee. Right leg appears weaker then left, could be from right hip surgery decline.
HTN: Amlodipine, losartan, metoprolol, Lasix, monitor closely
Thank you for allowing me to care for your patient. Please contact me with any questions or concerns.
[2023-08-07 15:42] VITALS: BP 136/73
[2023-08-07] MEDS: LOVENOX 40 MG SC (17:19)
--- NOTE | 2023-08-07 20:03 | W.PN.HOSP.TC ---
Today's Communication/Plan
-
Evaluation by physiatry
Discussed with case management
Placement pending
Assessment / Plan
Assessment / Plan
Physical Exam
General: Not in acute distress
HEENT: Normocephalic
Respiratory: Clear
Cardiac: S1/S2 and Regular Rhythm
GI: Soft, Non Tender, Non Distended and Normal Bowel Sounds
Musculoskeletal: No Cyanosis and No Edema
Skin: Warm. Dry.
Neuro: Awake. Alert. Interactive. Reduced speech output, otherwise cranial nerves appear grossly intact. Reduced spontaneous movement of extremities. Unable to perform strength and sensation exam.
Psych: Calm

MRI Brain (as per radiologist's report)
IMPRESSION:
There is an acute/subacute 5 mm right carol infarct, nonhemorrhagic.
Probable tiny acute infarct in the left pratt radiata and posterior right parietal region, nonhemorrhagic.
Moderate diffuse volume loss. Severe leukoaraiosis.
Minimal chronic sinus disease.

Assessment/Plan
72 y/o female who recent saw her outpatient neurologist Dr. Anita Chavez on July 29, 2023 because of significant worsening of her functional status. Around end of June 2023 and beginning of July 2023, she was having knee pain which hindered her
ambulation, and received injections, still able to do 1 lap around the house, but around the first to second week of July 2023, mainly wheelchair-bound and could only walk small amounts with walker, together with fatigue and confusion, and a fall
(with no head trauma) not answering questions. She had low blood pressure in the neurology office. She also had right arm jerking. Dr. Chavez recommended evaluation in the emergency for possibly low sodium as well as possible infection.
#History of Fall (with hip fracture) and Hyponatremia in April 2023
#History of Right Hip Fracture s/p right cephalomedullary nail
#Generalized weakness/aphasia
#Multiple Acute/Subacute Strokes
-After fall in April 2023, patient eventually did better and could walk 10 laps around the house with Rollator but then declined with fever laps, after knee pain
-CT head No acute intracranial abnormality noted
-MRI results above with acute/subacute strokes
-Continue new medication Aspirin 81 mg daily
-HbA1c 5.9%
-Lipid Profile noted
-Continue Atorvastatin 80 mg daily
-Continue Thiamine
-Echocardiogram noted
-Patient should follow-up with outpatient pigment processor Dr. Sorto for correction officer [facility]
-Neurology consulted, recommendations appreciated
-Consulted physiatry for [facility] placement
#History of Acute blood loss anemia due to surgery
#History of Hyponatremia
#History of Hypokalemia
#History of Sinus Tachycardia
#Essential HTN:
-cont Losartan/Norvasc, furosemide
-metoprolol continued
-Monitor blood pressure closely
#HLD: cont statin
#Vascular Dementia/Parkinson Disease
-carbidopa continued
#History of hemorrhagic CVA in 2012
#Urine incontinence
#Hypertension
#Recent right hip fracture status post cephalomedullary nail in April
#Hyperlipidemia
-Continue home statin.
#History of Alcohol use
#Vascular Dementia
#h/o cerebrovascular accident
#Underweight
#DVT prophylaxis
-Lovenox
Diet: Cholesterol-Lowering Diet
#CODE status
-DNR
I spoke with patient, patient's Jason and patient's son aJson on August 04, 2023. All questions and concerns were answered to satisfaction.
Updated patient's Jason on August 06, 2023 inside patient's room.
Anticipated Discharge: > 48 hours
Subjective/Interval History
-
Date of Service: August 07, 2023
Patient was seen and examined. No new symptoms or complaints, per nurse patient had a bowel movement earlier.
Objective Data
-
Vital Signs:
Vital Signs
Temp Pulse Resp BP Pulse Ox
98.1 F 73 16 136/73 98
08/07/23 15:42 08/07/23 15:42 08/07/23 15:42 08/07/23 15:42 08/07/23 15:42
I&O
08/06/23 08/07/23 08/08/23
06:59 06:59 06:59
Intake Total 720 / 720 1080 / 1080 530 / 530
Balance 720 / 720 1080 / 1080 530 / 530
[2023-08-07 21:00] VITALS: BP 146/79
[2023-08-07 23:00] VITALS: BP 138/72
[2023-08-08 06:02] LABS: Hematocrit 33.5 % (37.0-47.0); Hemoglobin 11.5 g/dL (12.0-16.0); Mean Corp Hgb Conc. 34.3 g/dL (33.0-37.0); Mean Corpuscular Hgb 27.8 pg (27.0-31.0); Mean Corpuscular Volume 80.9 fL (81.0-99.0); Mean Platelet Volume 8.6 fL (7.4-10.4); Platelet Count 312 10^3/uL (130-400); Red Blood Cell Count 4.14 10^6/uL (4.20-5.40); Red Cell Dist. Width 14.1 % (11.5-14.5)
[2023-08-08 06:23] LABS: Blood Urea Nitrogen 16 mg/dl (7-17); Calcium 9.5 mg/dl (8.4-10.2); Carbon Dioxide 25 mmol/L (22-30); Chloride 103 mmol/L (98-107); Estimated Creatinine Clearance 57 ml/min; Glucose 94 mg/dl (70-99); Potassium 3.9 mmol/L (3.5-5.1); Sodium 134 mmol/L (135-145); eGFR > 60.00
[2023-08-08 07:30] VITALS: BP 205/102
[2023-08-08] MEDS: ASPIR LOW (ENTERIC COATED) 81 MG PO (07:40)
[2023-08-08] MEDS: FOLVITE 1 MG PO (07:40)
[2023-08-08] MEDS: COZAAR 50 MG PO ×2 (07:41→20:35)
[2023-08-08] MEDS: NORVASC 2.5 MG PO (07:41)
[2023-08-08] MEDS: FIBERCON 625 MG PO (07:41)
[2023-08-08] MEDS: LASIX 20 MG PO (07:41)
[2023-08-08] MEDS: LIPITOR 80 MG PO (07:41)
[2023-08-08] MEDS: LOPRESSOR 25 MG PO ×2 (07:41→20:35)
[2023-08-08 09:15] VITALS: BP 151/84
[2023-08-08] MEDS: SINEMET 25-100 1 TABLET PO ×3 (09:17→16:51)
--- NOTE | 2023-08-08 15:38 | CM ---
Patient has a bed at [facility] tomorrow, Auth for Acute rehab 5 days, ref # [id number], NRD 08/13/23, ambulance Auth [id number]
Plan; [facility] at [place] 08/09/23, patient has been approved and bed is available.
[2023-08-08] MEDS: LOVENOX 40 MG SC (16:50)
[2023-08-08 20:28] VITALS: BP 157/79
--- NOTE | 2023-08-08 20:53 | W.PN.HOSP.TC ---
Today's Communication/Plan
-
Placement pending
Treat constipation with bowel regimen: bisacodyl added
Monitor abdominal discomfort
Assessment / Plan
Assessment / Plan
Physical Exam
General: Not in acute distress
HEENT: Normocephalic
Respiratory: Clear
Cardiac: S1/S2 and Regular Rhythm
GI: Soft, Non Distended and Normal Bowel Sounds. Mild left-sided tenderness.
Musculoskeletal: No Cyanosis and No Edema
Skin: Warm. Dry.
Neuro: Awake. Alert. Interactive. Reduced speech output, otherwise cranial nerves appear grossly intact. Reduced spontaneous movement of extremities. Unable to perform strength and sensation exam.
Psych: Calm

MRI Brain (as per radiologist's report)
IMPRESSION:
There is an acute/subacute 5 mm right carol infarct, nonhemorrhagic.
Probable tiny acute infarct in the left pratt radiata and posterior right parietal region, nonhemorrhagic.
Moderate diffuse volume loss. Severe leukoaraiosis.
Minimal chronic sinus disease.

Assessment/Plan
72 y/o female who recent saw her outpatient neurologist Dr. Anita Chavez on July 29, 2023 because of significant worsening of her functional status. Around end of June 2023 and beginning of July 2023, she was having knee pain which hindered her
ambulation, and received injections, still able to do 1 lap around the house, but around the first to second week of July 2023, mainly wheelchair-bound and could only walk small amounts with walker, together with fatigue and confusion, and a fall
(with no head trauma) not answering questions. She had low blood pressure in the neurology office. She also had right arm jerking. Dr. Chavez recommended evaluation in the emergency for possibly low sodium as well as possible infection.
#History of Fall (with hip fracture) and Hyponatremia in April 2023
#History of Right Hip Fracture s/p right cephalomedullary nail
#Generalized weakness/aphasia
#Multiple Acute/Subacute Strokes
-After fall in April 2023, patient eventually did better and could walk 10 laps around the house with Rollator but then declined with fever laps, after knee pain
-CT head No acute intracranial abnormality noted
-MRI results above with acute/subacute strokes
-Continue new medication Aspirin 81 mg daily
-HbA1c 5.9%
-Lipid Profile noted
-Continue Atorvastatin 80 mg daily
-Continue Thiamine
-Echocardiogram noted
-Patient should follow-up with outpatient frame stripper and crusher Dr. Sorto for shelter monitor
-Neurology consulted, recommendations appreciated
-Consulted physiatry for [facility] placement
#Mild Left-Sided Abdominal Discomfort
-Abdominal x-ray on 08/08/23 showed small to moderate scattered colonic stool
-Added Bisacodyl suppository to patient's bowel regimen
-Monitor clinically
#History of Acute blood loss anemia due to surgery
#History of Hyponatremia
#History of Hypokalemia
#History of Sinus Tachycardia
#Essential HTN:
-cont Losartan/Norvasc, furosemide
-metoprolol continued
-Monitor blood pressure closely
#HLD: cont statin
#Vascular Dementia/Parkinson Disease
-carbidopa continued
#History of hemorrhagic CVA in 2012
#Urine incontinence
#Hypertension
#Recent right hip fracture status post cephalomedullary nail in April
#Hyperlipidemia
-Continue home statin.
#History of Alcohol use
#Vascular Dementia
#h/o cerebrovascular accident
#Underweight
#DVT prophylaxis
-Lovenox
Diet: Cholesterol-Lowering Diet
#CODE status
-DNR
I spoke with patient, patient's Jason and patient's son Jason on August 04, 2023. All questions and concerns were answered to satisfaction.
Updated patient's Jason on August 06, 2023 inside patient's room.
Anticipated Discharge: > 48 hours
Subjective/Interval History
-
Date of Service: August 08, 2023
Patient was seen and examined. She reported some mild left sided abdominal discomfort but otherwise denied any other significant complaints.
Objective Data
-
Vital Signs:
Vital Signs
Temp Pulse Resp BP Pulse Ox
98.3 F 85 18 157/79 98
08/08/23 20:28 08/08/23 20:35 08/08/23 20:28 08/08/23 20:35 08/08/23 20:28
I&O
08/07/23 08/08/23 08/09/23
06:59 06:59 06:59
Intake Total 1080 / 1080 650 / 650 480 / 480
Balance 1080 / 1080 650 / 650 480 / 480
[2023-08-08 23:38] VITALS: BP 154/70
[2023-08-09 08:00] VITALS: BP 174/92
[2023-08-09] MEDS: NORVASC 2.5 MG PO (09:01)
[2023-08-09] MEDS: LIPITOR 80 MG PO (09:01)
[2023-08-09] MEDS: LOPRESSOR 25 MG PO (09:01)
[2023-08-09] MEDS: ASPIR LOW (ENTERIC COATED) 81 MG PO (09:02)
[2023-08-09] MEDS: FIBERCON 625 MG PO (09:02)
[2023-08-09] MEDS: LASIX 20 MG PO (09:02)
[2023-08-09] MEDS: COZAAR 50 MG PO (09:02)
[2023-08-09] MEDS: FOLVITE 1 MG PO (09:02)
[2023-08-09] MEDS: SINEMET 25-100 1 TABLET PO ×2 (10:32→14:30)
[2023-08-09] MEDS: TYLENOL 650 MG PO ×2 (10:32→14:29)
--- NOTE | 2023-08-09 10:45 | CM ---
[facility] patient has a 3pm parts picker by acute care ambulance. Patient and spouse are aware of plan. consulting manager left message for Kelly in admissions at [facility], [phone]
[phone].
[facility]
Report [phone]
--- NOTE | 2023-08-09 13:23 | W.PN.HOSP.TC ---
Today's Communication/Plan
-
Discharge today
Assessment / Plan
Assessment / Plan
Physical Exam
General: Not in acute distress
HEENT: Normocephalic
Respiratory: Clear
Cardiac: S1/S2 and Regular Rhythm
GI: Soft, Non Distended, Nontender and Normal Bowel Sounds.
Musculoskeletal: No Cyanosis and No Edema
Skin: Warm. Dry.
Neuro: Awake. Alert. Interactive. Reduced speech output, otherwise cranial nerves appear grossly intact. Reduced spontaneous movement of extremities. Unable to perform strength and sensation exam.
Psych: Calm

MRI Brain (as per radiologist's report)
IMPRESSION:
There is an acute/subacute 5 mm right carol infarct, nonhemorrhagic.
Probable tiny acute infarct in the left pratt radiata and posterior right parietal region, nonhemorrhagic.
Moderate diffuse volume loss. Severe leukoaraiosis.
Minimal chronic sinus disease.

Assessment/Plan
72 y/o female who recent saw her outpatient neurologist Dr. Anita Chavez on July 29, 2023 because of significant worsening of her functional status. Around end of June 2023 and beginning of July 2023, she was having knee pain which hindered her
ambulation, and received injections, still able to do 1 lap around the house, but around the first to second week of July 2023, mainly wheelchair-bound and could only walk small amounts with walker, together with fatigue and confusion, and a fall
(with no head trauma) not answering questions. She had low blood pressure in the neurology office. She also had right arm jerking. Dr. Chavez recommended evaluation in the emergency for possibly low sodium as well as possible infection.
#History of Fall (with hip fracture) and Hyponatremia in April 2023
#History of Right Hip Fracture s/p right cephalomedullary nail
#Generalized weakness/aphasia
#Multiple Acute/Subacute Strokes
-After fall in April 2023, patient eventually did better and could walk 10 laps around the house with Rollator but then declined with fever laps, after knee pain
-CT head No acute intracranial abnormality noted
-MRI results above with acute/subacute strokes
-Continue new medication Aspirin 81 mg daily
-HbA1c 5.9%
-Lipid Profile noted
-Continue Atorvastatin 80 mg daily
-Continue Thiamine
-Echocardiogram noted
-Patient should follow-up with outpatient peoplesoft business analyst Dr. Sorto for phototypesetting equipment monitor
-Neurology consulted, recommendations appreciated
-Consulted physiatry for [facility] placement
#Mild Left-Sided Abdominal Discomfort - RESOLVED
-Patient had a bowel movement
-Abdominal discomfort subsequently resolved
#History of Acute blood loss anemia due to surgery
#History of Hyponatremia
#History of Hypokalemia
#History of Sinus Tachycardia
#Essential Hypertension
-cont Losartan/Norvasc, furosemide
-metoprolol continued
-Monitor blood pressure closely
#HLD: cont statin
#Vascular Dementia/Parkinson Disease
-carbidopa continued
#History of hemorrhagic CVA in 2012
#Urine incontinence
#Hypertension
#Recent right hip fracture status post cephalomedullary nail in April
#Hyperlipidemia
-Continue home statin.
#History of Alcohol use
#Vascular Dementia
#h/o cerebrovascular accident
#Underweight
#DVT prophylaxis
-Lovenox
Diet: Cholesterol-Lowering Diet
#CODE status
-DNR
I spoke with patient, patient's Jason and patient's son Jason on August 04, 2023. All questions and concerns were answered to satisfaction.
Updated patient's Jason on August 06, 2023 inside patient's room.
More than 30 minutes spent in discharge including
Final examination of the patient
Summarizing hospital stay
Instructions for continuing care to all relevant caregivers
Preparation of discharge records, prescriptions, and referral forms
Total time spent (in minutes): 39
Anticipated Discharge: Today
Subjective/Interval History
-
Date of Service: August 09, 2023
Patient was seen and examined. She reported no abdominal pain. Per nurse, she had a bowel movement.
Objective Data
-
Vital Signs:
Vital Signs
Temp Pulse Resp BP Pulse Ox
98.6 F 76 18 174/92 100
08/09/23 08:00 08/09/23 08:00 08/09/23 08:00 08/09/23 08:00 08/09/23 08:00
I&O
08/08/23 08/09/23 08/10/23
06:59 06:59 06:59
Intake Total 650 / 650 480 / 480
Balance 650 / 650 480 / 480
--- NOTE | 2023-08-09 14:09 | W.DS.TRANS ---
DC Summary - Community Association Manager
-
Discharge Instructions:
Discharge Diagnosis/Procedures #History of Fall (with hip fracture) and
Hyponatremia in April 2023
#History of Right Hip Fracture s/p right
cephalomedullary nail
#Generalized weakness/aphasia
#Multiple Acute/Subacute Strokes
#Mild Left-Sided Abdominal Discomfort - RESOLVED
#History of Acute blood loss anemia due to
surgery
#History of Hyponatremia
#History of Hypokalemia
#History of Sinus Tachycardia
#Essential Hypertension
#Hyperlipidemia
#Vascular Dementia/Parkinson Disease
#History of hemorrhagic cerebrovascular accident
in 2012
#Urinary incontinence
#Recent right hip fracture status post
cephalomedullary nail in April
#History of Alcohol use
#Vascular Dementia
#History of cerebrovascular accident
#Underweight
Diet Low Cholesterol,Other diet
Additional Diets Thin Liquid
Activity With assistance
Other Services PT,OT
Instructions:
Stand-Alone Forms:
Changes to Home Medications: Yes
Discharge Medications:
DC Medications w/original date entered in [employer]
furosemide 20 mg tablet 20 mg PO DAILY #30 tabs 11/12/12
atorvastatin 80 mg tablet 80 mg PO DAILY High Cholesterol 10/08/22
losartan 50 mg tablet 50 mg PO BID Blood Pressure 10/08/22
carbidopa 25 mg-levodopa 100 mg tablet 1 tab PO TID@1000,1400,1800 Neurological Condition 04/30/23
amlodipine 2.5 mg tablet 2.5 mg PO DAILY #0 tabs 05/05/23
folic acid 1 mg tablet 1 mg PO DAILY #0 tabs 05/05/23
metoprolol tartrate 25 mg tablet 25 mg PO BID #0 tabs 05/05/23
celecoxib 200 mg capsule 200 mg PO DAILY PRN mild pain 07/29/23
psyllium husk 0.4 gram capsule (Metamucil) 0.4 g PO BID Gastrointestinal Issue 07/29/23
therapeutic multivitamin 1 tab PO NOON Supplement 08/03/23
aspirin 81 mg tablet,delayed release 81 mg PO DAILY #30 tabs 08/09/23
calcium polycarbophil 625 mg tablet (Fiber-Tabs) 625 mg PO DAILY #30 tabs 08/09/23
Home Medication Changes
Aspirin and Fiber-Tabs are new medications.
Celecoxib and Metamucil are on hold.
Pending Results: No
Total time spent discharging patient (in min): 39
[2023-08-09 14:44] VITALS: BP 116/67
--- NOTE | 2023-08-12 11:53 | W.DCSUMMARY ---
Discharge Summary
Discharge Data
Date of Admission: 08/03/23
Date of Discharge: 08/09/23
Total time spent discharging patient (in min): 39
-
Pending Results: No
Hospital Course
72-year-old female past medical history vascular dementia, Parkinson disease, urine incontinence hemorrhagic CVA in 2012, hypertension, recent right hip fracture status post cephalomedullary nail in April, hyperlipidemia, presented with slurred
speech for the past week. She came to the emergency room 5 days ago and was diagnosed with UTI and treated with fosfomycin. Patient had overall declining functional status since right hip fracture status post nail in April 2023. Patient recently
had seen her outpatient neurologist Dr. Anita Chavez on July 29, 2023 because of significant worsening of her functional status. Around end of June 2023 and beginning of July 2023, she was having knee pain which hindered her ambulation, and
received injections, still able to do 1 lap around the house, but around the first to second week of July 2023, she was mainly wheelchair-bound and could only walk small amounts with walker, together with fatigue and confusion, and a fall (with no
head trauma) not answering questions. She had low blood pressure in the neurology office. She also had right arm jerking. Dr. Chavez recommended evaluation in the emergency for possibly low sodium as well as possible infection.
Patient had a Brain MRI performed which showed, as per radiologist's report: 'There is an acute/subacute 5 mm right carol infarct, nonhemorrhagic. Probable tiny acute infarct in the left pratt radiata and posterior right parietal region,
nonhemorrhagic. Moderate diffuse volume loss. Severe leukoaraiosis. Minimal chronic sinus disease.' CTA Head and Neck as per radiologist's report showed, 'No significant vascular occlusion, aneurysm or dissection.' Neurology recommended continuing
newly started Aspirin 81 mg daily and continuing Atorvastatin 80 mg daily.
Patient also had an echocardiogram, which showed, as per medical record retrieval specialist's report: 'Normal left ventricular systolic function. Left ventricular ejection fraction is 60-65%.
Mild aortic regurgitation. Mild tricuspid regurgitation. Estimated pulmonary artery pressure of 23 mmHg. No significant change since the prior study of 2010.'
Discharge Plan
-
Patient Disposition: Acute Rehab Facility
Discharge Diagnosis/Procedures: #History of Fall (with hip fracture) and Hyponatremia in April 2023
#History of Right Hip Fracture s/p right cephalomedullary nail
#Generalized weakness/aphasia
#Multiple Acute/Subacute Strokes
#Mild Left-Sided Abdominal Discomfort - RESOLVED
#History of Acute blood loss anemia due to surgery
#History of Hyponatremia
#History of Hypokalemia
#History of Sinus Tachycardia
#Essential Hypertension
#Hyperlipidemia
#Vascular Dementia/Parkinson Disease
#History of hemorrhagic cerebrovascular accident in 2012
#Urinary incontinence
#Recent right hip fracture status post cephalomedullary nail in April
#History of Alcohol use
#Vascular Dementia
#History of cerebrovascular accident
#Underweight
Condition: Fair
Diet: Low Cholesterol and Other diet
Additional Diets: Thin Liquid
Activity: With assistance
Other Services: PT and OT
Activity Restrictions/Additional Instructions:
Aspiration Precautions: sit right, slow rate, full supervision with assist as needed
Needs to be considered for vascular neurology evaluation as outpatient due to strokes on MRI Brain.
Referrals:
Milad Zaragoza MD [Family Provider] - in less than 1 week
Norman Quezada MD [Active] - in two to three weeks (Consider case monitor due to multiple acute brain strokes -- patient/family need to be contacted with an appointment)
Additional Discharge Medication Instructions: Aspirin and Fiber-Tabs are new medications.
Celecoxib and Metamucil are on hold.
Prescriptions:
New
aspirin 81 mg Tablet,Delayed Release (Dr/Ec)
81 mg PO DAILY Qty: 30 1RF
Fiber-Tabs 625 mg Tablet
625 mg PO DAILY Qty: 30 0RF
Continued
losartan 50 mg tablet
50 mg PO BID
atorvastatin 80 mg tablet
80 mg PO DAILY
carbidopa-levodopa 25-100 mg tablet
1 tab PO TID@1000,1400,1800
amlodipine 2.5 mg Tablet
2.5 mg PO DAILY Qty: 0 0RF
folic acid 1 mg Tablet
1 mg PO DAILY Qty: 0 0RF
metoprolol tartrate 25 mg Tablet
25 mg PO BID Qty: 0 0RF
therapeutic multivitamin Tablet
1 tab PO NOON
furosemide 20 MG tablet
20 mg PO DAILY Qty: 30 0RF
Held
celecoxib 200 mg capsule
200 mg PO DAILY PRN (Reason: mild pain)
Hold Instructions: Resume on 08/16/23. Resume outpatient if and only if okay to resume as per outpatient physicians.
psyllium husk [Metamucil] 0.4 gram Capsule
0.4 g PO BID
Hold Instructions: Resume on 08/19/23. Resume this if and only if okay to resume as per your outpatient physicians.
Discharge Orders:
Discharge Patient (As Directed); Ordered 08/09/23
Ordered By: Eusebio Le
Discharge Date and Time
Discharge Date/Time: 08/09/23 15:37
Print Language: TRINIDADIAN
== END 2023-08-09 15:37 | DRG 65 ==
LOC: 4 WEST ACU 03:54
PROVIDERS: Emergency Medicine; Registered Nurse; ADMITTING PHYSICIAN Hospitalist; ATTENDING PHYSICIAN Hospitalist; CONSULT PHYSICIAN Physical Medicine & Rehabilitation; CONSULT PHYSICIAN Psychiatry & Neurology Neurology; EMERGENCY PHYSICIAN Emergency Medicine; FAMILY PHYSICIAN Internal Medicine
DX: I63.29 Cerebral infarction due to unspecified occlusion or stenosis of other precerebral arteries (principal); Z68.1 Body mass index [BMI] 19.9 or less, adult; R47.01 Aphasia; G21.4 Vascular parkinsonism; E78.00 Pure hypercholesterolemia, unspecified; I11.9 Hypertensive heart disease without heart failure; F01.50 Vascular dementia, unspecified severity, without behavioral disturbance, psychotic disturbance, mood disturbance, and anxiety; G20.A1 Parkinson's disease without dyskinesia, without mention of fluctuations; K59.00 Constipation, unspecified; D64.9 Anemia, unspecified; R32 Unspecified urinary incontinence; R63.6 Underweight; Z66 Do not resuscitate; Z96.641 Presence of right artificial hip joint; Z86.73 Personal history of transient ischemic attack (TIA), and cerebral infarction without residual deficits; Z87.891 Personal history of nicotine dependence; Z87.440 Personal history of urinary (tract) infections; Z99.3 Dependence on wheelchair; Z91.81 History of falling
CPT/HCPCS: 51701; 70496; 70498; 70551; 71046; 74018; 80048; 80053; 80061; 81003; 82607; 82728; 82746; 83036; 84443; 85025; 85027; 85652; 86803; 92523; 92526; 92610; 93306; 95816; 96360; 96361; 97530; 97535; 99285; Q9967

== ENCOUNTER 2023-08-18 03:43 | Inpatient (IN) | payer OTHER, SELFPAY ==
[2023-08-17] VITALS (8 sets, daily range): BP systolic 93–121; BP diastolic 78–90
--- NOTE | 2023-08-17 21:05 | ED.GENMED ---
History of Present Illness
General
Chief Complaint: Heart Rate Problem
Source: patient
Exam Limitations: none
Time Seen by Provider: 08/17/23 20:45
Travel History
Have you had any contact with someone who has COVID-19?: No
Do you have any symptoms of coronavirus? Fever > 100 degrees, chills, cough, shortness of breath, sore throat, loss of taste or smell, muscle aches, or headache?: No
History of Present Illness
History of Present Illness:
72-year-old female presents from rehab facility with persistently elevated heart rate. She was diagnosed with atrial fibrillation 3 days ago and was placed on Eliquis. She is not on any rate control medicine otherwise. Her who speaks for
her states that she did seem off over the past 2 days. She seemed more weak to him. Patient has a history of stroke causing expressive aphasia. She cannot provide any history herself.
Past History
Past History
ED Past Medical History: CVA (Intracerebral bleed/CVA; additional stroke July 2023), HTN, Hypercholesterolemia and Other (Vascular dementia); Negative Asthma or NIDDM
ED Past Surgical History: Orthopedic
Social History
Tobacco: Former smoker
Alcohol: Former
Personal:
Living: with family
Family History
Family History: Other (Reviewed and noncontributory)
Phy Exam
Physical Exam
Physical Exam:
General: Overall well-appearing female no acute respiratory distress
HEENT: Normocephalic atraumatic
Heart: Tachycardic and irregular
Lungs: Clear no wheeze or extremities: No cyanosis
Skin warm no rash
Course
Orders/Labs/Results
Orders:
Orders
08/17/23 20:48
Electrocardiogram (*1) Urgent
Reason for Study: QTc Monitoring
08/17/23 20:49
EKG- Treatment ONCE
08/17/23 20:58
Complete Blood Count/With Diff Urgent
Comprehensive Metabolic Panel Urgent
TSH Reflex To Free T4 Urgent
08/17/23 22:03
Diltiazem HCl [Cardizem] 10 mg IV NOW STA
08/17/23 22:15
Diltiazem 125 mg/125 ml Nss [Cardizem] 125 mg in 125 ml IV PER PROTOCOL
Initial dose in mg/hr, then titrate:: 5
Titrate to keep:: Heart rate 80-100 bpm
Titrate by mg/hr:: 5 mg/hr
Frequency of titrations (minutes):: 15
Maximum dose in mg/hr:: 15
08/17/23 22:22
0.9% Sodium Chloride 500 ml [Nss] 500 ml IV BOLUS
08/17/23 22:31
Add On- LAB Urgent
Comments:: tsh
Tests Added?: TSH
Abnormal Lab Results
08/17/23
20:58
Hgb 11.9 L g/dL
(12.0-16.0)
Hct 33.3 L %
(37.0-47.0)
MCV 79.1 L fL
(81.0-99.0)
RDW 15.3 H %
(11.5-14.5)
Absolute Monos (auto) 0.7 H 10^3/uL
(0.1-0.6)
Sodium 133 L mmol/L
(135-145)
Carbon Dioxide 21 L mmol/L
(22-30)
BUN 31 H mg/dl
(7-17)
Creatinine 0.5 L mg/dL
(0.6-1.0)
Glucose 112 H mg/dl
(70-99)
Total Protein 5.6 L g/dl
(6.3-8.2)
Albumin 3.2 L g/dl
(3.5-5.0)
08/17/23 20:58
08/17/23 20:58
Vital Signs
Initial and Last Documented VS:
Initial Vital Signs
Pulse Resp BP Pulse Ox
112 24 117/80 99
08/17/23 20:44 08/17/23 20:44 08/17/23 20:44 08/17/23 20:44
Last Documented Vital Signs
Pulse Resp BP Pulse Ox
92 19 93/78 97
08/17/23 22:30 08/17/23 22:30 08/17/23 22:12 08/17/23 22:30
MDM/Problems Addressed
Differential Diagnosis Includes:
Patient presents from rehab with rapid atrial fibrillation. No respiratory distress
EKG shows atrial fibrillation with a rate of 110 however she is in the rate of 130s when I am in the room. Will check labs and TSH.
Blood pressure 117/80. Consider Cardizem help slow the rate down. Per , the physician at the rehab facility wanted her to be admitted for a ANNELISE and cardioversion.
*Critical Care Note
Total Time (30-74mins, 75-104mins- exclusive of procedures): Not Applicable
Update Note
Update Note:
Discussed findings with cardiology. They agree with rate control medications for now. They will see the patient in consultation and consider antiarrhythmics. Per cardiology unless patient becomes unstable ANNELISE cardioversion may not be performed
until 4 weeks after anticoagulant initiation. Notified hospitalist of admission
ED Attending Note
-
Portions of this chart may have been created with voice recognition software.� Occasional wrong word or��sound alike� substitutions may have occurred due to the inherent limitations of voice recognition software.
Discharge Plan
Departure
Patient Disposition: Admit
Date of Disposition: 08/17/23
Time of Disposition: 22:59
Admit to: Telemetry
Presentation/result/management discussed w/ accepting MD/DO: Hospitalist
Discharge Problem:
Atrial fibrillation
Prescriptions:
No Action
losartan 50 mg tablet
50 mg PO BID
atorvastatin 80 mg tablet
80 mg PO DAILY
carbidopa-levodopa 25-100 mg tablet
1 tab PO TID@1000,1400,1800
amlodipine 2.5 mg Tablet
2.5 mg PO DAILY Qty: 0 0RF
folic acid 1 mg Tablet
1 mg PO DAILY Qty: 0 0RF
metoprolol tartrate 25 mg Tablet
25 mg PO BID Qty: 0 0RF
celecoxib 200 mg capsule
200 mg PO DAILY PRN (Reason: mild pain)
Hold Instructions: Resume on 08/16/23. Resume outpatient if and only if okay to resume as per outpatient physicians.
psyllium husk [Metamucil] 0.4 gram Capsule
0.4 g PO BID
Hold Instructions: Resume on 08/19/23. Resume this if and only if okay to resume as per your outpatient physicians.
therapeutic multivitamin Tablet
1 tab PO NOON
aspirin 81 mg Tablet,Delayed Release (Dr/Ec)
81 mg PO DAILY Qty: 30 1RF
Fiber-Tabs 625 mg Tablet
625 mg PO DAILY Qty: 30 0RF
furosemide 20 MG tablet
20 mg PO DAILY Qty: 30 0RF
Referrals:
Magda Pagan DO [Family Provider] -
Interventions
Interventions:
*Risk Screen - Suicide Last Done: 08/17/23 20:44
*General Assessment Last Done: 08/17/23 21:13
*Neglect/Abuse Screening Last Done: 08/17/23 21:13
ED- Fall Risk Assessment Last Done: 08/17/23 21:30
ED- Cardiac Assessment Last Done: 08/17/23 21:30
ED- Pulmonary Assessment Last Done: 08/17/23 21:30
Discharge Date and Time
Print Language: FRENCH
[2023-08-17 21:07] LABS: % Basophils 0.6 % (0-2); % Eosinophils 0.7 % (0-6); % Immature Granulocytes 0.2 % (0-0.5); % Lymphocytes 24.8 % (20.5-51.1); % Monocytes 8.5 % (1.7-9.3); % Neutrophils 65.2 % (42.2-75.2); Absolute Basophils 0.1 10^3/uL (0-0.2); Absolute Eosinophils 0.1 10^3/uL (0-0.7); Absolute Lymphocytes 2.1 10^3/uL (1.2-3.4); Absolute Monocytes 0.7 10^3/uL (0.1-0.6); Absolute Neutrophils 5.6 10^3/uL (1.4-6.5); Hematocrit 33.3 % (37.0-47.0); Hemoglobin 11.9 g/dL (12.0-16.0); Mean Corp Hgb Conc. 35.7 g/dL (33.0-37.0); Mean Corpuscular Hgb 28.3 pg (27.0-31.0); Mean Corpuscular Volume 79.1 fL (81.0-99.0); Nucleated Red Blood Cells % 0 %; Platelet Count 396 10^3/uL (130-400); Red Blood Cell Count 4.21 10^6/uL (4.20-5.40); Red Cell Dist. Width 15.3 % (11.5-14.5); White Blood Cell Count 8.6 10^3/uL (4.8-10.8)
[2023-08-17 21:25] LABS: ALT (SGPT) 11 U/L (0-35); AST (SGOT) 36 U/L (14-36); Albumin 3.2 g/dl (3.5-5.0); Alkaline Phosphatase 72 U/L (38-126); Blood Urea Nitrogen 31 mg/dl (7-17); Calcium 9.3 mg/dl (8.4-10.2); Carbon Dioxide 21 mmol/L (22-30); Chloride 105 mmol/L (98-107); Glucose 112 mg/dl (70-99); Potassium 4.6 mmol/L (3.5-5.1); Sodium 133 mmol/L (135-145); Total Bilirubin 0.3 mg/dl (0.2-1.3); Total Protein 5.6 g/dl (6.3-8.2); eGFR > 60.00
[2023-08-17] MEDS: CARDIZEM 10 MG IV (22:12)
[2023-08-17] MEDS: CARDIZEM 125 IV (22:13)
[2023-08-17] MEDS: NSS 500 IV (22:26)
[2023-08-18] VITALS (15 sets, daily range): BP systolic 91–130; BP diastolic 53–91; PULSE 78; O2SAT 98
[2023-08-18 02:17] LABS: TSH Reflex To Free T4 2.34 uIU/ml (0.47-4.68)
--- NOTE | 2023-08-18 03:38 | HPS.HSE ---
Addendum entered and electronically signed by Moshe Crawford DO 08/18/23 05:53:
Records received from [facility] including updated med list.
According to this list, patient was initially started on Eliquis 2.5mg PO BID on 08/15/23.
Her metoprolol dose has been gradually adjusted - most recently to 75mg BID on 08/17/23.
Original Note:
Family Physician
-
Family Physician: Magda Pagan, DO
Chief Complaint
-
Rapid Heart Rate
History of Present Illness
Patient is a 72y F with PMH significant for vascular Parkinsonism, chronic aphasia and recent CVA who presents to ED for evaluation of rapid heart rates. History obtained primarily from at the bedside. Patient was recently admitted to
from 08/02 - 08/11 for dysarthria and found to have new acute strokes by imaging at the [facility]. Patient was started on ASA during that admission and was discharged to a SNF. About 2 days ago, patient was noted to have an
irregular heartbeat on exam and an EKG showed atrial fibrillation. She was reportedly started on Eliquis at that time - though I have no records / med list to confirm this.
Patient had worsening rate control with tachycardia and was sent to the ED this evening for further evaluation.
denies any specific new neurologic complications / findings.
Relevant history including major hemorrhagic CVA in 2012 requiring surgery for blood evacuation, etc.
notes that patient did very well in rehab following that event; however, she started to have neurologic / cognitive decline in 2019 that has progressed since and includes expressive aphasia and gait dysfunction.
She has been diagnosed with vascular Parkinsonism.
also states that she has been diagnosed with cerebral amyloid angiopathy - though I see no reference to that in her prior records here.
Medical History
Past Medical History
Past Medical History: Reports Other
Additional Past Medical History:
Hemorrhagic CVA (2012)
Hypertension
Expressive Aphasia
Chronic Gait Dysfunction
Vascular Parkinsonism
Past Surgical History: Reports Other
Additional Past Surgical History:
Right SHERRI
Hemorrhage Evacuation (2012)
Social History
Tobacco: Former Smoker (Quit smoking at age 32. Approx 10 pack years total use.)
Alcohol: Daily (1 glass of wine daily.)
Living: With Family (currently in [facility])
Family History
Family History: Not pertinent
Allergies / Home Medications
Allergies reflects when Allergies were last updated in [facility].
Home Medications with original date entered in [facility]
Allergy/Medication List:
Allergies
Allergy/AdvReac Type Severity Reaction Status Date / Time
No Known Allergies Allergy Verified 08/03/23 16:17
Home Medications
furosemide 20 mg tablet 20 mg PO DAILY #30 tabs 11/12/12
atorvastatin 80 mg tablet 80 mg PO DAILY High Cholesterol 10/08/22
losartan 50 mg tablet 50 mg PO BID Blood Pressure 10/08/22
carbidopa 25 mg-levodopa 100 mg tablet 1 tab PO TID@1000,1400,1800 Neurological Condition 04/30/23
amlodipine 2.5 mg tablet 2.5 mg PO DAILY #0 tabs 05/05/23
folic acid 1 mg tablet 1 mg PO DAILY #0 tabs 05/05/23
metoprolol tartrate 25 mg tablet 25 mg PO BID #0 tabs 05/05/23
celecoxib 200 mg capsule 200 mg PO DAILY PRN mild pain 07/29/23
psyllium husk 0.4 gram capsule (Metamucil) 0.4 g PO BID Gastrointestinal Issue 07/29/23
therapeutic multivitamin 1 tab PO NOON Supplement 08/03/23
aspirin 81 mg tablet,delayed release 81 mg PO DAILY #30 tabs 08/09/23
calcium polycarbophil 625 mg tablet (Fiber-Tabs) 625 mg PO DAILY #30 tabs 08/09/23
Review of Systems
-
History Source: Patient and Family
A 12 point ROS was completed and negative except as noted: Yes
Constitutional: Reports Fatigue; Denies Fever or Chills
Respiratory: Reports Trouble Breathing; Denies Cough
Cardiac: Reports Palpitations; Denies Chest Pain
Abdomen/GI: Denies Abdominal Pain, Nausea, Vomiting or Diarrhea
: Denies Dysuria or Frequency
Neurological: Reports Weakness; Denies Dizzy or Headache
Physical Exam
Vital Signs
Vital Signs
Pulse Resp BP Pulse Ox
89 19 91/54 95
08/18/23 01:15 08/18/23 01:15 08/18/23 01:15 08/17/23 23:00
Physical Exam
General: Other (Chronically ill-appearing 72y F in no acute distress.)
HEENT: Moist mucous membranes and PERRLA
Respiratory: Clear; No Wheezes, Rales or Rhonchi
Cardiac: S1/S2 and Irregular Rhythm; No Murmur
GI: Soft, Non Tender, Non Distended and Normal Bowel Sounds
Musculoskeletal: No Clubbing, No Cyanosis and Other (1+ pitting edema at ankles.)
Neuro: Awake, Alert and Other (Expressive aphasia. Global weakness without evident focal deficit in motor function.)
Laboratory Results
-
08/17/23 20:58
08/17/23 20:58
Laboratory Results
Total Bilirubin 0.3 mg/dl (0.2-1.3) 08/17/23 20:58
AST 36 U/L (14-36) 08/17/23 20:58
ALT 11 U/L (0-35) 08/17/23 20:58
Alkaline Phosphatase 72 U/L (38-126) 08/17/23 20:58
Impression/Plan
-
A/P: Patient is a 72y F with PMH significant for prior CVAs, hypertension and vascular Parkinsonism who presents to ED for evaluation of new A-Fib with uncontrolled rates.
Paroxysmal Atrial Fibrillation with Rapid Ventricular Response
- Admit for further evaluation and treatment.
- This was initially noted 2-3 days ago and patient was started on new medications at that time including Eliquis.
- Need to confirm / clarify current meds with [facility] as no med list is currently available for my review.
- Sent in today with persistent tachycardia despite PO meds at rehab.
- Started on IV diltiazem in the ED with rates now in the 90s.
- Cardiology evaluation for additional recommendations / options.
- Would hold on further Eliquis for now pending discussion with Neuro / Cardiology (see below).
- Echo was done last month and was unremarkable.
Recent CVA(s)
History of Hemorrhagic CVA (2012)
Cerebral Amyloid Angiopathy (per report)
- No new focal deficits from last admission.
- Has chronic gait dysfunction (non-ambulatory) and expressive aphasia.
- Continue ASA and statin therapy for now.
- ? risk / benefit profile of OAC given prior major hemorrhagic CVA - especially if CAA diagnosis is accurate / confirmed.
- Send to [facility] for records review.
- Neurology evaluation re: ? antiplatelet / OAC recommendations.
- Follow for any changes in neurologic exam.
Vascular Parkinsonism
- Stable. Continue Sinemet with no changes.
Benign Hypertension
- BP currently on the lower side after diltiazem initiation.
- Need to confirm current med with [facility] in the AM.
- Continue metoprolol with holding parameters.
- Hold Lasix / losartan / amlodipine for now.
- Follow BP and adjust regimen as needed for normotension.
DVT Prophylaxis: SCDs
Code Status: DNR
[2023-08-18 04:33] LABS: Hematocrit 31.8 % (37.0-47.0); Hemoglobin 10.9 g/dL (12.0-16.0); Mean Corp Hgb Conc. 34.3 g/dL (33.0-37.0); Mean Corpuscular Hgb 27.8 pg (27.0-31.0); Mean Corpuscular Volume 81.1 fL (81.0-99.0); Mean Platelet Volume 9.1 fL (7.4-10.4); Platelet Count 351 10^3/uL (130-400); Red Blood Cell Count 3.92 10^6/uL (4.20-5.40); Red Cell Dist. Width 15.2 % (11.5-14.5); White Blood Cell Count 9.3 10^3/uL (4.8-10.8)
[2023-08-18 04:58] LABS: Blood Urea Nitrogen 26 mg/dl (7-17); Carbon Dioxide 21 mmol/L (22-30); Chloride 107 mmol/L (98-107); Glucose 108 mg/dl (70-99); HDL Cholesterol 49 mg/dl; LDL Cholesterol, Calculated 72 mg/dl; Potassium 4.2 mmol/L (3.5-5.1); Sodium 136 mmol/L (135-145); Total Cholesterol 135 mg/dl (50-199); Triglyceride 72 mg/dl (10-149); Very Low Density Lipoprotein 14 mg/dl (0-30); eGFR > 60.00
[2023-08-18] MEDS: LOPRESSOR 25 MG PO ×2 (08:13→12:46)
[2023-08-18] MEDS: ASPIR LOW (ENTERIC COATED) 81 MG PO (08:13)
[2023-08-18] MEDS: LIPITOR 80 MG PO (08:13)
--- NOTE | 2023-08-18 08:39 | CON.NEURO4 ---
Addendum entered and electronically signed by Jet Mendoza MD 08/18/23 12:20:
Studies reviewed.
I have personally examined the patient. I reviewed and agree with the SYSTEMS TEST TECHNICIAN's Note.
My addenda:
Awake, inattentive, interactive. No acute distress.
Speech markedly reduced in output.
Follows 1-step requests w/ difficulty. No tremor.
Extra-ocular movements grossly intact.
Facial movements full and symmetric. Hearing intact to normal conversational volume.
Normal UE movements bilaterally.
Neck: full ROM.
Chest: no dyspnea
Heart: no JVD
Ext: (-) Clubbing, (-) Cyanosis, (-) Edema
IMPRESSIONS/RECOMMENDATIONS:
Persistent dementia and lower extremity weakness with recent (August 04, 2023) subacute right pontine and left pratt radiata, right parietal ischemic strokes
With possible cerebral amyloid angiopathy and prior history of intracerebral hemorrhage
Now found to have atrial fibrillation
Despite relatively high risks of recurrent intracerebral hemorrhage with possible cerebral amyloid angiopathy, patient requires anticoagulation at this time and neurologically should pursue same, especially in light of recent ischemic lesions
although it is unlikely that anticoagulation will reduce the likelihood of this issue significantly if CAA is present
Discontinue aspirin
Continue atorvastatin
Not clear patient will continue to benefit from the use of carbidopa/levodopa
Will continue to follow as needed.
Original Note:
Documented by User: Genevieve Cristobal NP 08/18/23 10:09
Consultation - Neurology 4
-
CONSULTING PHYSICIAN: Jet Mendoza MD
REFERRING PHYSICIAN: Hospitalists/Dr. Geiger
DICTATED BY: LINO Rodriguez
DATE/TIME OF REQUEST: 08/18/23
DATE/TIME OF CONSULTATION: 08/18/23
Reason for Consultation: New Afib
History of Present Illness:
This is a 72-year-old female who has presented to the hospital on 08/17/23 with report of uncontrolled Afib. Patient was recently hospitalized here from 5/20/24-08/09/23 for aphasia, confusion and weakness; MRI brain on 08/04/23 demonstrated
acute/subacute right pontine, left pratt radiata, and right parietal ischemic infarcts.
From my previous evaluation on 08/04/23:
'This is a 72-year-old female with a PMH of L thalamic ICH/IVH secondary to HTN requiring SWITCHBOARD AND CONTROL ROOM OPERATOR shunt s/p removal, vascular parkinsonism, early dementia, and ambulatory dysfunction who has presented to the hospital on 08/03/23 with report of confusion,
lethargy, and and weakness starting about one week ago. This history is obtained by her at bedside and outpatient [facility] notes. Patient has an extensive neurological history and is followed by Dr. Anita Chavez as an outpatient.
She has also been evaluated by our inpatient Neurology service in the past.
From previous evaluation by Dr. Ferrari on 10/09/22:
''This is a 71-year-old woman with a past medical history of left-sided thalamic hemorrhage with IVH requiring SWITCHBOARD AND CONTROL ROOM OPERATOR shunt, reported additional pontine hemorrhagic stroke, hypertension presenting to hospital because of multiple falls, confusion and has
been found to have UTI is felt needs placement as no longer to be cared for adequately at home.
Patient's son and report that the patient had a severe stroke in 2012 she eventually did have a good recovery and was able to walk and talk without prominent deficits.
They note since around [id number] she has been having more difficulty with ambulation and around the past year has been having short-term memory issues. They also note chronic ambulatory difficulties since around - but worse over the past
couple of months to describe some shuffling and not picking up her feet very much.
We had seen a neurologist around 3 to 4 months ago who had indicated that the patient had had a pontine stroke on brain imaging this was in addition to the previous left-sided thalamic hemorrhage.
Patient not having any hallucinations but has had some occasional speech difficulty the family interpreted as aphasia while at restaurants or going out.
She has 1 most days of the week but they deny heavy alcohol use in the past.''
Patient fell in April 2023 and sustained a left hip fracture, she was hyponatremic at that time. She didn't return quite to her baseline after that event but was back to walking 10 laps around their house with her rollator. About one week ago,
patient's reports that she became severely weak and has been wheelchair bound since then. She has also been lethargic, confused, had speech difficulty, and episodes of starring off into space. he also notes that her right arm has had mild
jerking, and in general she has had some body jerking starting in May 2023. She was evaluated by Dr. Chavez on 07/29/23 who referred her to ER for further workup. CT head was obtained on 07/29/23 and was negative for any acute abnormalities. She
was noted to be dehydrated and UA was concerning for UTI. She was given IVF and one dose of fosfomycin and discharged home. Her reports that initially she was doing slightly better but then two days ago on 08/02/23 her symptoms seemed to
worsen again and she was excessively incontinent of urine which was unusual for her. yesterday she lost control of her bowels which is extremely unusual. She was instructed by Dr. Chavez to return to the ER for evaluation due to concern of
persistent symptoms. Patient is currently lethargic and minimally cooperative with examination/questioning.
MRI brain on 08/04/23 demonstrated acute/subacute right pontine, left pratt radiata, and right parietal ischemic infarcts. Aspirin 81mg daily was initiated, DAPT was avoided due to her history of ICH and CAA. She was discharged to rehab on 08/09/23.
While at rehab she was noted to be newly in Afib and on 08/15/23 she was started on Eliquis and metoprolol and her Aspirin was stopped. Yesterday (08/17/23), she was significantly tachycardiac with poor rate control, and she was sent to the ER for
further Afib management. Neurology is consulted regarding safety of patient being on anticoagulation vs an antiplatelet. Patient currently reports some stomach queasiness but denies any headache, dizziness, vision changes, speech/swallowing
difficulty, numbness, weakness, chest pain, palpitations, and shortness of breath. Per her , she has been neurologically stable.
Past Medical History: multiple hemorrhagic strokes including left thalamic ICH in 2013 requiring SWITCHBOARD AND CONTROL ROOM OPERATOR shunt for hydrocephalus, parafalcine meningioma left frontoparietal convexity, vascular parkinsonism, cerebral amyloid angiopathy, dementia, HTN,
HLD, chronic hyponatremia, anxiety, depression, dementia, ambulatory dysfunction
Surgical History: Ankle surgery, SWITCHBOARD AND CONTROL ROOM OPERATOR shunt s/p removal
Family History: Reviewed and noncontributory.
Social History: One drink daily most days of the week. Former smoker. No illicit drug use.
Allergies: No known allergies.
Home Medications: See below.
Review of Symptoms:
Patient denies any fever, headache, chest pain, shortness of breath, or symptoms. She reports mild GI distress.
�Per the HPI.�All systems are reviewed negative except above.
Physical Exam:
The patient is afebrile, abdomen is nondistended, breathing is unlabored, skin is warm and dry, no edema.
NIH Stroke Scale:
I performed the NIH stroke scale on the patient on 08/18/23 at 0845. The patient scored 10 points on the NIH stroke scale assessment, which were assigned as follows: See below.
Neurologic Examination:
The patient is awake, alert and oriented to name only, not place, time, or situation. She is able to follow commands and answer some questions appropriately. There is no aphasia or dysarthria. On cranial nerve assessment, pupils are 3 mm bilateral,
round and reactive to light and accommodation. Visual baltazar are full. Extraocular movements are mostly intact, mild upgaze restriction. Facial sensations are intact and bilaterally symmetrical, there is no facial asymmetry. Hearing is intact
bilaterally to normal conversation volume. Tongue palate and uvula are midline. Sternocleidomastoid strengths are full bilaterally. Motor strengths are 4-/5 bilateral upper and 1/5 bilateral lower extremities on medical research [place] scale. There
is drift in BUE. No involuntary movement noted. Deep tendon reflexes are 2+ bilateral upper and lower extremities and Babinski is absent bilaterally. DM sensation and DBS. Coordination is intact by finger to nose bilaterally.
Lab Results: See below.
Neuro Imaging:
1. MRI Brain 08/04/23: There is an acute/subacute 5 mm right carol infarct, nonhemorrhagic. Probable tiny acute infarct in the left pratt radiata and posterior right parietal region, nonhemorrhagic. Moderate diffuse volume loss. Severe leukoaraiosis.
Minimal chronic sinus disease.
Differentials for the patient's presentation include:
1. Subacute right pontine, left pratt radiate, and right parietal ischemic infarcts.
2. History of ICH/IVH requiring VPS s/p reversal.
3. New Afib.
4. Cerebral amyloid angiopathy.
5. Vascular Parkinsonism.
6. Cognitive impairment.
Recommendations:
-From Neurology's perspective, risk of recurrent ischemic stroke in the setting of newly discovered Afib warrants initiation of anticoagulation despite increased risk of intracranial hemorrhage given history of ICH/IVH and amyloid.
-Would discontinue aspirin when Eliquis is initiated.
Discussed patient care with: Dr. Mendoza, Dr. Geiger, the patient
Vital Signs and Labs
-
Vital Signs and Labs:
Vital Signs
Temp Pulse Resp BP Pulse Ox
97.6 F 101 20 103/61 95
08/18/23 08:18 08/18/23 08:13 08/18/23 08:00 08/18/23 08:13 08/17/23 23:00
Lab Results
08/18/23 04:19
08/18/23 04:19
Sodium 136 mmol/L (135-145) 08/18/23 04:19
Potassium 4.2 mmol/L (3.5-5.1) 08/18/23 04:19
BUN 26 mg/dl (7-17) H 08/18/23 04:19
Glucose 108 mg/dl (70-99) H 08/18/23 04:19
Calcium 9.0 mg/dl (8.4-10.2) 08/18/23 04:19
LDL Cholesterol, Calc 72 mg/dl 08/18/23 04:19
Medications
-
Active Medications
Generic Name Dose Route Start Last Admin
Trade Name Freq PRN Reason Stop Dose Admin
Acetaminophen 650 mg 08/18/23 03:53
Acetaminophen 325 Mg Tablet PO 09/15/23 03:52
Q4HPRN PRN
Mild Pain / Temp > 101
Apixaban 5 mg 08/18/23 20:00
Apixaban (Eliquis) 5 Mg Tablet PO 09/15/23 19:59
BID KAROLINA
Atorvastatin Calcium 80 mg 08/18/23 08:00 08/18/23 08:13
Atorvastatin (Lipitor) 80 Mg Tablet PO 09/15/23 07:59 80 mg
DAILY KAROLINA Administration
Carbidopa/Levodopa 1 tablet 08/18/23 10:00
Carbidopa (25 Mg)/Levodopa (100 Mg) Regular Release Tablet PO 09/15/23 09:59
TID@1000,1400,1800 KAROLINA
Folic Acid 1 mg 08/18/23 08:00
Folic Acid 1 Mg Tablet PO 09/15/23 07:59
DAILY KAROLINA
Diltiazem HCl 125 mg in 125 mls @ 0 mls/hr 08/17/23 22:15 08/17/23 22:13
Cardizem IV 125 mls
PER PROTOCOL KAROLINA Administration
Protocol
Per Protocol
Metoprolol Tartrate 75 mg 08/18/23 20:00
Metoprolol 50 Mg Regular Release Tablet PO 09/15/23 19:59
BID KAROLINA
Polyethylene Glycol 17 grams 08/18/23 03:53
Polyethylene Glycol Powder 17 Grams Packet PO 09/15/23 03:52
DAILY PRN
Constipation
Sennosides 17.2 mg 08/18/23 22:00
Sennosides (Senokot) 8.6 Mg Tablet PO 09/15/23 21:59
HS KAROLINA
Sodium Chloride 0 flush 08/18/23 06:00
Sodium Chloride 0.9% (Flush) Syringe IV 09/15/23 05:59
PER PROTOCOL KAROLINA
Home Medications
�Medication �Instructions �Recorded
carbidopa 25 mg-levodopa 100 mg 1 tab PO TID@1000,1400,1800 04/30/23
tablet Neurological Condition
folic acid 1 mg tablet 1 mg PO DAILY #0 tabs 05/05/23
therapeutic multivitamin 1 tab PO NOON Supplement 08/03/23
aspirin 81 mg tablet,delayed 81 mg PO DAILY #30 tabs 08/09/23
release
acetaminophen 325 mg tablet 650 mg PO Q6H PRN mild pain 08/18/23
apixaban 2.5 mg tablet (Eliquis) 2.5 mg PO BID 08/18/23
atorvastatin 80 mg tablet 80 mg PO HS 08/18/23
bisacodyl 5 mg tablet,delayed 10 mg PO DAILYPRN PRN constipation 08/18/23
release (Dulcolax (bisacodyl))
melatonin 3 mg tablet 3 mg PO HS 08/18/23
metoprolol tartrate 75 mg tablet 75 mg PO BID 08/18/23
NIH Stroke Score
Subsequent NIH Scale
Date of Subsequent NIH Scale: 08/18/23
Time of Subsequent NIH Scale: 08:45
NIH Stroke Score
Level of Consciousness: 0 - Alert
LOC Questions: 2-Neither correct
LOC Commands: 0-Performs both correctly
Best Horizontal Gaze: 0-Normal
Visual Baltazar: 0=Normal, no visual loss
Facial Palsy: 0=Normal, symmetrical
Motor - Right Arm: 1=Drift < 10 seconds
Motor - Left Arm: 1=Drift < 10 seconds
Motor - Right Le-None vs. gravity
Motor - Left Le-None vs. gravity
Limb Ataxia: 0-Absent
Sensation: 0-Normal
Best Language: 0-No aphasia
Dysarthria: 0-Normal
Extinction and Inattention: 0-No abnormality
Total Score:: 10

Documented by User: Jet Mendoza MD 08/18/23 12:15
NIH Stroke Score
NIH Stroke Score
Total Score:: 10
--- NOTE | 2023-08-18 09:19 | W.PN.HOSP.TC ---
Today's Communication/Plan
-
See plan
Assessment / Plan
Assessment / Plan
Impression
Patient is a 72y F with PMH significant for prior CVAs, hypertension and vascular Parkinsonism who presents to ED for evaluation of new A-Fib with uncontrolled rates.
Paroxysmal atrial fibrillation without ventricular response.
Recent CVA
� History of hemorrhagic CVA requiring BONDERITE OPERATOR shunt in 2012
�Recent CVA manifested with dysarthria with imaging consistent with acute stroke in the right carol and left pratt radiata (admission 08/02 - 08/11)
Vascular dementia
Vascular parkinsonism
Cerebral amyloid angiopathy
Benign hypertension
Ambulatory dysfunction chronic.
Plan:
Paroxysmal atrial fibrillation with rapid ventricular response.
New diagnosis.
Recent echocardiogram unremarkable with preserved biventricular function and no significant valvular abnormalities
Initiated on IV Cardizem drip
Continued on Toprol
Attempt to wean off Cardizem drip with Toprol dose titration
Blood pressure soft. Monitor closely
Cardiology consultation
Anticoagulation: CHADSVASc 6 (hypertension, history of CVA, vascular disease, age, female) with risk 9.8% per year.
Will be initiated on anticoagulation Eliquis 5 mg twice daily
Recent CVA.
She has a history of hemorrhagic CVA requiring BONDERITE OPERATOR shunt in 2012
Patient with cerebral amyloid angiopathy.
Neuro examination without new neurologic deficits
Patient with chronic gait dysfunction nonambulatory with expressive aphasia
With no documented A-fib or prior admission she was discharged to rehab on aspirin
Currently in A-fib. With recent presumed and likely embolic stroke risk and benefits of anticoagulation in patient with amyloid angiopathy has been discussed with neurology as well as per patient . Given overwhelming risk for recurrent
cardioembolic event, decision is to initiate anticoagulation as above.
Discontinue aspirin.
Continue statin
Continue close neurologic monitoring
Continue physical therapy assessment
Vascular parkinsonism
Continue Sinemet
Benign hypertension BP is soft while on Cardizem/metoprolol
Titrate off Cardizem drip to beta-blockers
Hold other antihypertensive medications including Lasix/losartan/amlodipine
CODE STATUS DNR
Patient's updated over the phone on 08/17.
Anticipated Discharge: 24 - 48 hours
Subjective/Interval History
-
Date of Service: August 18, 2023
Objective Data
-
Labs:
Laboratory Results
08/17/23 08/18/23
20:58 04:19
WBC 9.3
Hgb 10.9 L
Hct 31.8 L
Plt Count 351
Sodium 133 L 136
Potassium 4.6 4.2
Chloride 105 107
Carbon Dioxide 21 L 21 L
BUN 31 H 26 H
Creatinine 0.5 L 0.4 L
Glucose 112 H 108 H
Calcium 9.3 9.0
Total Bilirubin 0.3
AST 36
ALT 11
Alkaline Phosphatase 72
Vital Signs:
Vital Signs
Temp Pulse Resp BP Pulse Ox
97.6 F 101 20 103/61 95
08/18/23 08:18 08/18/23 08:13 08/18/23 08:00 08/18/23 08:13 08/17/23 23:00
Physical Exam
-
General: Well Developed and No Apparent Distress
HEENT: Normocephalic, Atraumatic and Moist Mucous Membranes
Respiratory: Clear to Auscultation
Cardiac: Regular Rhythm and S1/S2; Negative Murmur, Rub or Gallop
GI: Soft, Nontender, Nondistended and Normal Bowel Sounds; Negative Organomegaly
Rectal: Deferred by Provider
Musculoskeletal: No Clubbing, No Cyanosis and No Edema
Skin: Negative Rash
Neuro: Awake, Alert, Oriented (To name only) and Other (No sensory deficit. Upper extremity decree strength 3 out of 5 bilaterally. Lower extremity with hyperreflexia strengths 1/2)
--- NOTE | 2023-08-18 09:31 | CON.CAR ---
Addendum entered and electronically signed by Maciej Joe MD 08/18/23 10:34:
Patient seen and examined in collaboration with PHOTO CHECKER AND ASSEMBLER; agree with below.
-72-year-old female with medical history outlined below, including recent CVA (primarily aphasic); now admitted with paroxysmal atrial fibrillation with RVR.
-Recommend changing from aspirin/Plavix to Eliquis if okay with Neurology.
-Will increase metoprolol tartrate; try to transition off of diltiazem drip.
Original Note:
Consultation
Consultation Request
Date/Time Consultation Requested: 08/18/2023 03:50
Date/Time Consultation Performed: 08/18/2023 09:00
Requesting Provider: Dr. Crawford
Performing Provider: LINO Soares for Dr. Joe
Reason for Consultation: Atrial fibrillation with rapid ventricular response
Medical History
-
Chief Complaint: Elevated heart rate
History of Present Illness:
Kaylie Walton is a 72-year-old female with vascular parkinsonism, chronic aphasia, gait dysfunction, hypertension, and recent admission with CVA with subsequent discharge 08/09/2023 from this facility who presented to the emergency department with a
chief complaint of elevated heart rate. She was started on aspirin during her last hospitalization and was discharged to SNF for rehabilitation. 2 days ago she was found to have an irregular heartbeat and EKG showed atrial fibrillation. She was
started on apixaban 2.5 mg twice daily at that time per verbal report. Her heart rate became persistently elevated she was referred to the emergency department. She was found to be in atrial fibrillation biventricular response. She was started on
diltiazem drip. Her apixaban is currently on hold as she has had a hemorrhagic stroke requiring evacuation in the past. She is unable to provide any of her medical history. She denies palpitations. She is having no chest pain.
Past Medical History
Past Medical History: CVA, HTN and Other (Vascular parkinsonism, expressive aphasia, gait dysfunction)
Past Surgical History: Brain and Orthopedic
Social History
Tobacco: Former Smoker
Alcohol: None
Drug: None
Personal:
Employment: Retired
Family History
Family History: Reviewed & Not Pertinent
Allergies / Home Medications
Allergy/AdvReac Type Severity Reaction Status Date / Time
No Known Allergies Allergy Verified 08/03/23 16:17
�Medication �Instructions �Recorded �Confirmed �Type
carbidopa 25 mg-levodopa 100 mg 1 tab PO TID@1000,1400,1800 04/30/23 08/18/23 History
tablet Neurological Condition
folic acid 1 mg tablet 1 mg PO DAILY #0 tabs 05/05/23 08/18/23 Rx
therapeutic multivitamin 1 tab PO NOON Supplement 08/03/23 08/18/23 History
aspirin 81 mg tablet,delayed 81 mg PO DAILY #30 tabs 08/09/23 08/18/23 Rx
release
acetaminophen 325 mg tablet 650 mg PO Q6H PRN mild pain 08/18/23 08/18/23 History
apixaban 2.5 mg tablet (Eliquis) 2.5 mg PO BID 08/18/23 08/18/23 History
atorvastatin 80 mg tablet 80 mg PO HS 08/18/23 08/18/23 History
bisacodyl 5 mg tablet,delayed 10 mg PO DAILYPRN PRN constipation 08/18/23 08/18/23 History
release (Dulcolax (bisacodyl))
melatonin 3 mg tablet 3 mg PO HS 08/18/23 08/18/23 History
metoprolol tartrate 75 mg tablet 75 mg PO BID 08/18/23 08/18/23 History
Review of Systems
-
Unable to obtain full review of systems at this time due to: Dementia
History Source: Patient
All other systems: Negative unless noted
Constitutional: No Symptoms
EENT: No Symptoms
Respiratory: No Symptoms
Cardiac: No Symptoms
Abdomen/GI: No Symptoms
: No Symptoms
Physical Exam
Vital Signs
Temp Pulse Resp BP Pulse Ox
97.6 F 101 20 103/61 95
08/18/23 08:18 08/18/23 08:13 08/18/23 08:00 08/18/23 08:13 08/17/23 23:00
Lab Results
08/18/23 04:19
08/18/23 04:19
Physical Exam
General: Well Developed, Well Nourished, No Apparent Distress and Comfortable
HEENT: Normocephalic, Anicteric and Moist Mucous Membranes
Respiratory: Clear and Non Labored Respirations
Cardiac: S1/S2 and Irregular Rhythm; Negative Peripheral Edema
Breast: Deferred by me
GI: Soft, Non Tender, Non Distended and Normal Bowel Sounds
Rectal: Deferred by Provider
Genito-urinary: No Costovertebral Tender
Musculoskeletal: No Clubbing, No Cyanosis and No Edema
Skin: Warm and Dry
Neuro: Awake, Alert and Oriented (To herself and place)
Hematologic/Lymphatic: No Lymphadenopathy
Psych: Calm
Impression / Plan
-
Atrial fibrillation with right ventricular response
-Plan is for rate control, currently on diltiazem at 10 mg/hr, transition to metoprolol tartrate
-Plan is for rate control
-Oral Anticoagulation: She was started on apixaban 2.5 mg twice daily, the appropriate dose for her age, renal function, and weight is 5 mg twice daily
-Await neurology recommendation prior to initiation of apixaban, can discontinue aspirin when apixaban is initiated
-[id number]: Score at least 5 (HTN, prior Stroke/TIA, age 65-74, female gender)
CVA
-Discharged 08/09/2023 after acute/subacute 5 mm right carol infarct (on hemorrhagic), and probable tiny acute infarct in left pratt radiata and posterior right parietal region
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
Hypertension
-Resume metoprolol tartrate and anticipate discontinuation of diltiazem drip
-She was discharged on losartan, furosemide, and amlodipine, hold to allow for rate control
Prediabetes, HgbA1c 5.9%
Mild aortic regurgitation
Mild tricuspid regurgitation
Vascular parkinsonism, on carbidopa�levodopa
Data Reviewed
-
Medical Tests (Nuc Med, Echo etc): Report Reviewed by me (Prior echocardiogram as above)
Labs: Labs Reviewed by me
Old Records: Reviewed
[2023-08-18] MEDS: FOLVITE PO (12:22)
[2023-08-18] MEDS: SINEMET 25-100 1 TABLET PO ×3 (12:46→18:31)
--- NOTE | 2023-08-18 16:50 | W.PN.UPDATE ---
Update Note
Progress Note Update
As per patient's discussion with primary neurologist Dr. Anita Chavez phone #[phone], given patient's history of amyloid angiopathy and prior history of hemorrhagic CVA, recommendation is against systemic anticoagulation. Will stop
Eliquis reordering low-dose of aspirin.
I will try to get in touch with Dr. Chavez for for additional discussion.
--- NOTE | 2023-08-18 18:15 | PTCARENOTE ---
pt admitted from ED AO x1, denies pain. LCTA B/L RA. abd soft, NT incont b&B skin CDI, weak PP. Residual CVA aphasia and weakness. at bedside, CB in reach
[2023-08-18] MEDS: LOPRESSOR 75 MG PO (20:48)
[2023-08-18] MEDS: SENOKOT 17.1999999999999993 MG PO (21:37)
[2023-08-19 03:38] VITALS: BP 152/80
[2023-08-19 06:00] VITALS: BMI 15.9
[2023-08-19 07:00] VITALS: BP 128/72
[2023-08-19 08:00] VITALS: BMI 15.9
--- NOTE | 2023-08-19 08:06 | W.PN.CD ---
Today's Communication / Plan
-
- Start Eliquis 2.5 mg BID when acceptable by Neurology
- Plan for Watchman consult as outpatient to discuss the procedure in detail.
Impression / Plan
-
Atrial fibrillation with right ventricular response
-Plan is for rate control, initially treated with IV diltiazem - now, transitioned to metoprolol tartrate
-Going in and out of AF.
-Plan is for rate control
-Oral Anticoagulation: She was started on apixaban 2.5 mg twice daily, the appropriate dose for her age, renal function, and weight. However with cerebral hemorrhage it was deemed high risk and has been held.
-Discussed the possibility of Watchman. Still need short term anticoagulation therapy. If neurology deemed anticoagulation is contraindicated even for a short perior (30 days prior and 6 weeks post implant) then alternative would be Amplatzer
Amulet device that can use dual anti-platelet regimen. We prefer Watchman if possible.
-Plan for watchman consult as outpatient.
-Await neurology recommendation prior to initiation of apixaban, can discontinue aspirin when apixaban is initiated
-[id number]: Score at least 5 (HTN, prior Stroke/TIA, age 65-74, female gender)
CVA
-Discharged 08/09/2023 after acute/subacute 5 mm right carol infarct (on hemorrhagic), and probable tiny acute infarct in left pratt radiata and posterior right parietal region
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
Hypertension
-Resume metoprolol tartrate and anticipate discontinuation of diltiazem drip
-She was discharged on losartan, furosemide, and amlodipine, hold to allow for rate control
Prediabetes, HgbA1c 5.9%
Mild aortic regurgitation
Mild tricuspid regurgitation
Vascular parkinsonism, on carbidopa�levodopa
Physical Exam
Vital Signs/Labs
Vital Signs
Temp Pulse Resp BP Pulse Ox
98.7 F 74 16 128/72 98
08/19/23 07:00 08/19/23 07:00 08/19/23 07:00 08/19/23 07:00 08/19/23 07:00
08/18/23 08/19/23 08/20/23
06:59 06:59 06:59
Actual Weight 47 kg 41.929 kg
08/18/23 04:19
08/18/23 04:19
Triglycerides 72 mg/dl (10-149) 08/18/23 04:19
LDL Cholesterol, Calc 72 mg/dl 08/18/23 04:19
VLDL Cholesterol, Calc 14 mg/dl (0-30) 08/18/23 04:19
HDL Cholesterol 49 mg/dl 08/18/23 04:19
Physical Exam
Constitutional: No acute distress and Comfortable
EENT: Anicteric and Moist mucous membranes
Cardiovascular: Rhythm & rate is regular, Pedal edema is absent and Systolic murmur present
Respiratory: Respiratory effort normal, Lungs clear to auscul. and Wheeze Absent
GI: Soft, Non tender and Normal bowel sounds
Neuro/Psych: Alert and Other (confused. )
Data Reviewed
-
Date of Service: August 19, 2023
Medical Decision Making: Reviewed Test Results, Test Interpretation and Review of Case with other Provider
EKG: Tracing Personally Visualized and interpreted
Echo: Report Reviewed by me
X-Ray/CT/US/MRI/NUC/PET: Image Personally Visualized and interpreted
Labs: Labs Reviewed by me
Old Records: Reviewed
[2023-08-19] MEDS: FOLVITE 1 MG PO (08:16)
[2023-08-19] MEDS: LOPRESSOR 75 MG PO ×2 (08:16→20:25)
[2023-08-19] MEDS: LIPITOR 80 MG PO (08:16)
[2023-08-19] MEDS: LOW STRENGTH ASPIRIN 81 MG PO (08:16)
[2023-08-19] MEDS: SINEMET 25-100 1 TABLET PO ×3 (10:13→17:25)
[2023-08-19 11:00] VITALS: BP 149/88
--- NOTE | 2023-08-19 13:15 | PN.CDI ---
CDI
- -
CDI:
Physician Documentation Request
Admit Date: 08/18/23 03:43
Dear Doctor Cade,
Please review the following and provide your response in the progress notes.
Clinical Indicators:
Height: 5'4
Weight: 92lbs
BMI: 15.9
If possible, please provide an associated diagnosis related to the abnormal BMI, such as:
Cachexia
Underweight
BMI is not significant
Other
Use of terms such as suspected, likely, concern for, or probable (associated with a specific diagnosis that is being evaluated, monitored, or treated as if it exists) are acceptable and can be coded in the inpatient setting, when documented at the
time of discharge.
Thank you,
Ernst Bean RN
CDI Specialist
Please use your independent medical judgment in providing your response.
[2023-08-19 15:00] VITALS: BP 110/67
[2023-08-19 15:01] VITALS: BMI 15.9
--- NOTE | 2023-08-19 15:35 | CM ---
Met with pt and her at bedside
Pt sleepy - answered questions
Pt transferred to from [facility] for a fib - prefers to return at d/c
Lives with her in a 2 story home with ramp access
Assist with adl's as needed
DME - Rollator, rolling walker, shower chair, elevated toilet seat, ramp, stair lift, wheel chair
SNF - has been to [facility] past; [facility]
HH - [facility] in past
PCP - [facility]
Pharm - [facility]
PT - recommend Acute inpatient rehab. Spoke with Braulio Conley - can accept when ready
Referral sent in [facility] for updates
Will need auth
Plan - acute inpatient rehab when medically stable
--- NOTE | 2023-08-19 17:29 | W.PN.HOSP.TC ---
Today's Communication/Plan
-
Eliquis.
Physical therapy.
Discharge planning
Assessment / Plan
Assessment / Plan
Impression
Patient is a 72y F with PMH significant for prior CVAs, hypertension and vascular Parkinsonism who presents to ED for evaluation of new A-Fib with uncontrolled rates.
Paroxysmal atrial fibrillation without ventricular response.
Recent CVA
� History of hemorrhagic CVA requiring POWERHOUSE MECHANIC HELPER shunt in 2012
�Recent CVA manifested with dysarthria with imaging consistent with acute stroke in the right carol and left pratt radiata (admission 08/02 - 08/11)
Vascular dementia
Vascular parkinsonism
Cerebral amyloid angiopathy
Benign hypertension
Ambulatory dysfunction chronic.
Plan:
Paroxysmal atrial fibrillation with rapid ventricular response.
New diagnosis.
Recent echocardiogram unremarkable with preserved biventricular function and no significant valvular abnormalities
Initiated on IV Cardizem drip and weaned off to oral beta-pamela
Continued on Toprol
Cardiology consultation
Anticoagulation: CHADSVASc 6 (hypertension, history of CVA, vascular disease, age, female) with risk 9.8% per year.
With ongoing discussion in regards to risk and benefits of anticoagulation with patient with known cerebral amyloid angiopathy also prior history of hemorrhagic CVA likely prior to former diagnosis.
Watchmaker device had been considered, although patient require systemic anticoagulation prior and short time after placement. Patient will be scheduled for outpatient watchmaker evaluation. Will resume anticoagulation with Eliquis at 5 mg twice
daily ( regular dose given age normal renal function, although decrease weight down to 41 kg)
Recent CVA.
She has a history of hemorrhagic CVA requiring POWERHOUSE MECHANIC HELPER shunt in 2012
Patient with cerebral amyloid angiopathy.
Neuro examination without new neurologic deficits
Patient with chronic gait dysfunction nonambulatory with expressive aphasia
With no documented A-fib or prior admission she was discharged to rehab on aspirin
Currently in A-fib. With recent presumed and likely embolic stroke risk and benefits of anticoagulation in patient with amyloid angiopathy has been discussed with neurology as well as per patient . Given overwhelming risk for recurrent
cardioembolic event, decision is to initiate anticoagulation as above.
Discontinue aspirin.
Continue statin
Continue close neurologic monitoring
Continue physical therapy assessment
Vascular parkinsonism
Continue Sinemet
Benign hypertension BP is soft while on Cardizem/metoprolol
Titrate off Cardizem drip to beta-blockers
Hold other antihypertensive medications including Lasix/losartan/amlodipine
CODE STATUS DNR
Patient's updated over the phone on 08/17.
Anticipated Discharge: 24 - 48 hours
Subjective/Interval History
-
Date of Service: August 19, 2023
Objective Data
-
Vital Signs:
Vital Signs
Temp Pulse Resp BP Pulse Ox
98.2 F 76 16 110/67 95
08/19/23 15:00 08/19/23 15:00 08/19/23 15:00 08/19/23 15:00 08/19/23 15:00
I&O
08/18/23 08/19/23 08/20/23
06:59 06:59 06:59
Intake Total 240 / 240
Balance 240 / 240
Physical Exam
-
General: Well Developed and No Apparent Distress
HEENT: Normocephalic, Atraumatic and Moist Mucous Membranes
Respiratory: Clear to Auscultation
Cardiac: Regular Rhythm and S1/S2; Negative Murmur, Rub or Gallop
GI: Soft, Nontender, Nondistended and Normal Bowel Sounds; Negative Organomegaly
Rectal: Deferred by Provider
Musculoskeletal: No Clubbing, No Cyanosis and No Edema
Skin: Negative Rash
Neuro: Nonfocal/Grossly Intact
[2023-08-19 19:51] VITALS: BP 136/77
[2023-08-19] MEDS: ELIQUIS 5 MG PO (20:25)
[2023-08-19] MEDS: MELATONIN 3 MG PO (21:23)
[2023-08-19] MEDS: SENOKOT 17.1999999999999993 MG PO (21:23)
[2023-08-19 23:29] VITALS: BP 142/72
[2023-08-20 03:21] VITALS: BP 116/61
[2023-08-20 06:00] VITALS: BMI 16.7
[2023-08-20] MEDS: ELIQUIS 5 MG PO (08:08)
[2023-08-20] MEDS: LOPRESSOR 75 MG PO (08:08)
[2023-08-20] MEDS: FOLVITE 1 MG PO (08:08)
[2023-08-20] MEDS: LIPITOR 80 MG PO (08:08)
[2023-08-20 08:17] VITALS: BP 156/81
[2023-08-20] MEDS: SINEMET 25-100 1 TABLET PO ×2 (10:43→14:40)
[2023-08-20 11:13] VITALS: BP 131/94
[2023-08-20 12:09] VITALS: BP 128/73; BP 156/96; PULSE 74; O2SAT 94
[2023-08-20 12:14] VITALS: BP 128/73; BP 156/96; PULSE 74; O2SAT 94
--- NOTE | 2023-08-20 14:05 | CM ---
Addendum entered by Shawanda Ram 08/20/23 16:05:
Transport for 5:30PM - facility and family aware
Original Note:
Pt ready for d/c to acute rehab - [facility]
Spoke with Nicky at
Approved for 7 days - from 08/19-08/25 - NRD 08/25
Auth # [id number]
Ambulance auth - approved for use 08/19-08/22
Auth # - [id number]
Plan - transfer to [facility] -
R - [phone]
F - [phone]
--- NOTE | 2023-08-20 14:17 | W.DS.TRANS ---
DC Summary - Ore Tester
-
Discharge Instructions:
Discharge Diagnosis/Procedures Paroxysmal atrial fibrillation without
ventricular response.
Recent CVA
� History of hemorrhagic CVA requiring ASSISTANT CREDIT MANAGER shunt
in 2012
�Recent CVA manifested with dysarthria with
imaging consistent with acute stroke in the
right carol and left pratt radiata (admission
- 08/11)
Vascular dementia
Vascular parkinsonism
Cerebral amyloid angiopathy
Benign hypertension
Ambulatory dysfunction chronic.
Diet Regular
Instructions:
Stand-Alone Forms:
Changes to Home Medications: Yes
Discharge Medications:
DC Medications w/original date entered in [employer]
carbidopa 25 mg-levodopa 100 mg tablet 1 tab PO TID@1000,1400,1800 Neurological Condition 04/30/23
folic acid 1 mg tablet 1 mg PO DAILY #0 tabs 05/05/23
therapeutic multivitamin 1 tab PO NOON Supplement 08/03/23
acetaminophen 325 mg tablet 650 mg PO Q6H PRN mild pain 08/18/23
atorvastatin 80 mg tablet 80 mg PO HS High Cholesterol 08/18/23
bisacodyl 5 mg tablet,delayed release (Dulcolax (bisacodyl)) 10 mg PO DAILYPRN PRN constipation 08/18/23
melatonin 3 mg tablet 3 mg PO HS Sleep 08/18/23
metoprolol tartrate 75 mg tablet 75 mg PO BID Blood Pressure 08/18/23
acetaminophen 325 mg tablet 650 mg (2 x 325 mg) PO Q4HPRN PRN Mild Pain / Temp > 101 #30 tabs 08/20/23
apixaban 5 mg tablet (Eliquis) 5 mg PO BID #60 tabs 08/20/23
atorvastatin 80 mg tablet 80 mg PO DAILY #30 tabs 08/20/23
polyethylene glycol 3350 17 gram oral powder packet (HealthyLax) 17 g PO DAILY PRN Constipation #15 ea 08/20/23
sennosides 8.6 mg tablet (Senna Laxative) 17.2 mg (2 x 8.6 mg) PO HS #10 tabs 08/20/23
Home Medication Changes
ASA stopped.
Eliquis initiated
Pending Results: No
[2023-08-20 16:24] VITALS: BP 127/71
== END 2023-08-20 18:25 | DRG 309 ==
LOC: 3 WEST ACU 03:43
PROVIDERS: Physician Assistant; ADMITTING PHYSICIAN Hospitalist; ATTENDING PHYSICIAN Internal Medicine; CONSULT PHYSICIAN Psychiatry & Neurology Neurology; EMERGENCY PHYSICIAN Emergency Medicine; FAMILY PHYSICIAN Physical Medicine & Rehabilitation Brain Injury Medicine; OTHER PHYSICIAN Internal Medicine
DX: I48.0 Paroxysmal atrial fibrillation (principal); E85.4 Organ-limited amyloidosis; R64 Cachexia; Z68.1 Body mass index [BMI] 19.9 or less, adult; I69.320 Aphasia following cerebral infarction; E78.00 Pure hypercholesterolemia, unspecified; F01.50 Vascular dementia, unspecified severity, without behavioral disturbance, psychotic disturbance, mood disturbance, and anxiety; I68.0 Cerebral amyloid angiopathy; I10 Essential (primary) hypertension; G21.4 Vascular parkinsonism; R26.2 Difficulty in walking, not elsewhere classified; R73.03 Prediabetes; I08.2 Rheumatic disorders of both aortic and tricuspid valves; Z66 Do not resuscitate; Z96.641 Presence of right artificial hip joint; Z79.82 Long term (current) use of aspirin; Z79.1 Long term (current) use of non-steroidal anti-inflammatories (NSAID); Z87.891 Personal history of nicotine dependence
CPT/HCPCS: 80048; 80053; 80061; 84443; 85025; 85027; 87070; 93005; 96361; 96374; 97167; 97530; 97535; 99285

== ENCOUNTER 2023-10-11 22:24 | Inpatient (IN) | payer OTHER, SELFPAY ==
[2023-10-11] VITALS (7 sets, daily range): BP systolic 104–150; BP diastolic 61–99; BMI 15.8
[2023-10-11 18:01] LABS: % Basophils 0.4 % (0-2); % Eosinophils 0.3 % (0-6); % Immature Granulocytes 0.3 % (0-0.5); % Lymphocytes 24.4 % (20.5-51.1); % Monocytes 7.3 % (1.7-9.3); % Neutrophils 67.3 % (42.2-75.2); Absolute Lymphocytes 2.2 10^3/uL (1.2-3.4); Absolute Monocytes 0.7 10^3/uL (0.1-0.6); Hematocrit 35.7 % (37.0-47.0); Hemoglobin 12.6 g/dL (12.0-16.0); Mean Corp Hgb Conc. 35.3 g/dL (33.0-37.0); Mean Corpuscular Hgb 28.3 pg (27.0-31.0); Mean Platelet Volume 8.2 fL (7.4-10.4); Nucleated Red Blood Cells % 0 %; Platelet Count 392 10^3/uL (130-400); Red Blood Cell Count 4.46 10^6/uL (4.20-5.40); Red Cell Dist. Width 15.2 % (11.5-14.5)
[2023-10-11 18:14] LABS: COVID-19 Antigen Negative (Negative)
[2023-10-11 18:16] LABS: ALT (SGPT) 16 U/L (0-35); AST (SGOT) 35 U/L (14-36); Albumin 3.7 g/dl (3.5-5.0); Alkaline Phosphatase 81 U/L (38-126); Blood Urea Nitrogen 17 mg/dl (7-17); Calcium 9.5 mg/dl (8.4-10.2); Carbon Dioxide 27 mmol/L (22-30); Chloride 99 mmol/L (98-107); Glucose 98 mg/dl (70-99); Magnesium 1.8 mg/dl (1.6-2.3); Potassium 3.7 mmol/L (3.5-5.1); Sodium 131 mmol/L (135-145); Total Bilirubin 0.5 mg/dl (0.2-1.3); Total Protein 5.8 g/dl (6.3-8.2); eGFR > 60.00
--- NOTE | 2023-10-11 18:23 | ED.GENMED ---
History of Present Illness
General
Chief Complaint: Weakness
Source: spouse
Exam Limitations: altered mental status
Time Seen by Provider: 10/11/23 18:03
History of Present Illness
History of Present Illness:
This is a 72 year old female that is brought in by EMS with c/o change in mental status. states that they were at home and yesterday she had a problem with bowel and bladder incont. State that this does happen sometimes. State that today
they got up and eat breakfast and then were just sitting around till 2:30pm. State that she went to the BR and urinated and then he put her in bed to put on her depends. States that she was very fatigued and he left her take a nap. States that he
when he went into check her later she was unresponsive. State that she would wake up when he yelled but she was looking in another direction when he talked to her. State that she couldn't really talk or say his Name. State that she as a little more
responsive when EMS arrived. States that she did finally say his name.Denies any fever, chills, chest pain, SOB, abd pain, nausea, vomiting, diarrhea, headache.
Past History
Past History
ED Past Medical History: Arrthythmia (Atrial fib), CVA (Intracerebral bleed/CVA; additional stroke July 2023), HTN, Hypercholesterolemia, Psychiatric (Anxiety) and Other (Vascular dementia, Brain hemorrhage, Vascular Parkinsons, UTI, Anemia, Cerebral
amyloid angiopathy); Negative Asthma or NIDDM
ED Past Surgical History: Orthopedic (Ankle repair, Right hip fracture ) and Other (Brain shunt with removal)
Social History
Tobacco: Former smoker
Alcohol: None
Personal:
Living: with family
Family History
Family History: Other (Reviewed and noncontributory)
Review of Systems
Review of Systems
Other source history: family
All Other Systems: ROS reviewed and negative except as documented in HPI and ROS
Constitutional: Reports fatigue; Denies fever or chills
EENT: Reports no symptoms
Respiratory: Reports no symptoms; Denies cough or trouble breathing
Cardiac: Reports no symptoms; Denies chest pain
ABD/GI: Reports no symptoms; Denies abdominal pain, nausea, vomiting or diarrhea
: Reports incontinence
Musculoskeletal: Reports no symptoms
Skin: Reports no symptoms
Neurological: Reports other (Change in mental status); Denies headache
Psychiatric: Reports no symptoms
Phy Exam
General Physical Exam
General Presentation: no apparent distress
General age: appears stated age
General Skin: warm and dry
General Habitus: elderly
General Mental: other (Patient has eyes open and able to answer some questions)
General Hydration: dry mucous membranes
ENT Exam
ENT Exam: TM's normal, pharynx normal and neck supple
Eye Exam
Eye Exam: EOMI
Cardiovascular Exam
Cardiovascular Exam: no edema, normal peripheral pulses and irregularly irregular
Pulmonary Exam
Pulmonary Exam: lungs clear, no respiratory distress, no rales, chest non tender, no crackles, no rhonchi, no wheezing and no cough
Gastrointestinal Exam
Gastrointestinal Exam: normal bowel sounds, non tender, soft, no organomegaly, no pulsatile mass and non distended
Musculoskeletal Exam
Musculoskeletal Exam: edema and other (Legs pulled up, )
Skin Exam
Skin Exam: normal color, warm/dry, no rash and no petechia
Psychiatric Exam
Psychiatric Exam: normal mood/affect
Course
Orders/Labs/Results
Orders:
Orders
10/11/23 17:44
ECG [Electrocardiogram (*1)] Urgent
Reason for Study: Tachycardia
10/11/23 17:45
EKG- Treatment ONCE
10/11/23 17:46
CT Head W/o Iv Contrast Urgent
Comment:
Reason For Exam: change in mental status
10/11/23 17:47
Complete Blood Count/With Diff Urgent
Comprehensive Metabolic Panel Urgent
Lactic Acid Urgent
Magnesium Urgent
Comment: ADD ON
Troponin I Urgent
10/11/23 17:53
COVID-19 Antigen Urgent
Source: Nasal Swab
10/11/23 17:58
Add On- LAB Urgent
Tests Added?: mag.
10/11/23 18:23
Straight cath- Treatment ONCE
0.9% Sodium Chloride 1000 ml [Nss] 1,000 ml IV BOLUS
CR Chest - 2 Views Urgent
Comment:
Reason For Exam: Fatigue, Change in mental status
10/11/23 20:14
Urinalysis Reflex To Culture Urgent
Date Specimen was Collected: 10/11/23
Time Specimen was Collected: 18:33
Urine Microscopic Reflex Cult Urgent
Urine Culture Urgent
CAIT Source: U
Specimen Description:
Date Specimen was Collected: 10/11/23
Time Specimen was Collected: 18:33
10/11/23 20:36
Lactic Acid Urgent
10/11/23 20:38
ECG [Electrocardiogram (*1)] Urgent
Reason for Study: Fatigue / Weakness
10/11/23 20:39
EKG- Treatment ONCE
10/11/23 20:50
Troponin I Urgent
Abnormal Lab Results
10/11/23 10/11/23
17:47 20:14
Hct 35.7 L %
(37.0-47.0)
MCV 80.0 L fL
(81.0-99.0)
RDW 15.2 H %
(11.5-14.5)
Absolute Monos (auto) 0.7 H 10^3/uL
(0.1-0.6)
Sodium 131 L mmol/L
(135-145)
Creatinine 0.5 L mg/dL
(0.6-1.0)
Troponin I 0.037 H* ng/ml
Total Protein 5.8 L g/dl
(6.3-8.2)
Leukocyte Esterase Rfl 2+ A
(Negative)
Urine WBC (Reflex) 16-20 A /HPF
(0-5)
Urine Bacteria (Reflex) Few A
(Negative)
10/11/23 17:47
10/11/23 17:47
Sodiums slightly low. Total protein low. Troponin 0.037, COVID Negative, URine positive for infection. Lactic acid 2.0,
Vital Signs
Initial and Last Documented VS:
Initial Vital Signs
Temp Pulse Resp Pulse Ox
97.9 F 106 20 96
10/11/23 17:37 10/11/23 17:37 10/11/23 17:37 10/11/23 17:37
Last Documented Vital Signs
Temp Pulse Resp BP Pulse Ox
97.9 F 140 16 106/64 98
10/11/23 17:37 10/11/23 20:15 10/11/23 20:15 10/11/23 19:00 10/11/23 20:00
MDM/Problems Addressed
Differential Diagnosis Includes:
Fatigue, UTI
MDM/Problems Addressed:
This is a 72 year old female that comes in with c/o change in mental status per . States that she was very fatigued and he put her in bed and then when he checked on her later she was no answering him.
Will get labs, Urine, CT head, Give IV fluids.
back into see patient and . Explained that her CT of the head was negative for any acute process. Patient dose have a UTI and has been also in atrial fib that is not controlled. states that she was place on Eliquis in preparation for
the watch man procedure. States that she was also taking Metoprolol. Patient at this time is 133 atrial fib. Will start on Cardizem and given IV antibiotic for UTI. Will admit. Hospitalist notified.
Chronic conditions affecting care:
UTi, vascular Parkinson's, Cerebral amyloid angiopathy.
Acute Exacerbation and/or Progression of Chronic Illness:
UTI,
*Radiology
Radiology exam reviewed: preliminary read by ED provider (Chest- Negative for active disease. ), radiology read reviewed (Chest-No radiographic evidence for Pneumonia, acute pulmonary edema, pleural effusion, or other acute cardiopulmonary disease.
CT head-NO CT evidence for acute intracranial hemorrhage or transcortical infarct. Very severe white matter leukoaraiosis in the frontal and parietal lobes. Small chronic ) and other (CT cont- transcortical infarct in the anterior left frontal
lobe. MIld diffuse cerebral and cerebellar volume loss. )
*Pulse Oximetry
Patient hypoxic: no
*EKG
Interpreted by ED Provider?: Yes
Heart Rate: 118
Rate: tachycardiac
Rhythm: a-fib
[place]: left axis deviation
QRS Pattern: normal QRS
Ischemia: non-specific ST changes (V5, V6)
*Staff Radiographer Interpretation
Rate: tachycardiac
Interpretation: abnormal
Heart Rate: 124
Rhythm: a-fib
*Critical Care Note
Total Time (30-74mins, 75-104mins- exclusive of procedures): Not Applicable
ED Attending Note
-
Portions of this chart may have been created with voice recognition software.� Occasional wrong word or��sound alike� substitutions may have occurred due to the inherent limitations of voice recognition software.
Discharge Plan
Departure
Patient Disposition: Admit
Date of Disposition: 10/11/23
Time of Disposition: 21:01
Admit to: Telemetry
Presentation/result/management discussed w/ accepting MD/DO: Hospitalist
Patient with high blood pressure during this ER visit?: No
Condition: Good
Covid-19: Negative COVID-19
Discharge Problem:
AMS (altered mental status), Acute UTI, Uncontrolled atrial fibrillation
Prescriptions:
No Action
folic acid 1 mg Tablet
1 mg PO DAILY Qty: 0 0RF
atorvastatin 80 mg Tablet
80 mg PO HS
acetaminophen 325 mg Tablet
650 mg PO BID
melatonin 3 mg Tablet
6 mg PO HS
Eliquis 5 mg Tablet
5 mg PO BID Qty: 60 0RF
Theragen Tablet
1 tab PO DAILY
amlodipine 2.5 mg Tablet
2.5 mg PO HS
carbidopa-levodopa 10-100 mg Tablet
1 tab PO TID@1000,1400,1800
Patient Comments:
10/11/23: patient's family is unaware of dosage change, despite most recent fill changing from 25-100mg tablets to 10-100mg tablets.
docusate sodium [Colace] 100 mg Capsule
100 mg PO BID
furosemide 20 mg Tablet
20 mg PO DAILY
memantine 5 mg Tablet
5 mg PO DAILY
metoprolol tartrate 25 mg Tablet
25 mg PO BID
psyllium husk 3.4 gram/6 gram Powder
3.4 g PO DAILY
Referrals:
UNKNOWN - PT NOT,INTERVIEWE [Family Provider] -
Interventions
Interventions:
*Risk Screen - Suicide Last Done: 10/11/23 17:37
*General Assessment Last Done: 10/11/23 17:37
*Neglect/Abuse Screening Last Done: 10/11/23 17:37
ED- Fall Risk Assessment Last Done: 10/11/23 17:57
ED- Cardiac Assessment Last Done: 10/11/23 17:57
ED- Neurological Assessment Last Done: 10/11/23 17:57
ED- Pulmonary Assessment Last Done: 10/11/23 17:57
Discharge Date and Time
Print Language: MONTSERRATIAN
[2023-10-11 18:25] LABS: Troponin I 0.037 ng/ml
[2023-10-11] MEDS: NSS 1000 IV (18:48)
[2023-10-11 20:23] LABS: Urine Albumin Negative (Neg - Trace); Urine Bilirubin Negative (Negative); Urine Character Clear (Clear); Urine Color Yellow; Urine Glucose Negative (Negative); Urine Ketone Negative (Negative); Urine Leukocyte 2+ (Negative); Urine Nitrite Negative (Negative); Urine Occult Blood Negative (Negative); Urine Urobilinogen Negative (Neg - 1+)
[2023-10-11 20:43] LABS: Urine Mucus Few
[2023-10-11 20:44] LABS: Urine Bacteria Few (Negative); Urine White Cell 16-20 /HPF (0-5)
[2023-10-11 21:03] LABS: Lactic Acid 1.8 mmol/L (0.7-2.0)
[2023-10-11] MEDS: CARDIZEM 5 MG IV (21:07)
[2023-10-11] MEDS: ROCEPHIN 1000 MG IV (21:07)
[2023-10-11] MEDS: CARDIZEM 125 IV (21:08)
[2023-10-11 21:16] LABS: Troponin I 0.026 ng/ml
--- NOTE | 2023-10-11 21:16 | HPS.HSE ---
Addendum entered and electronically signed by Moshe Crawford DO 10/11/23 22:45:
Patient seen and examined independently. Agree with findings and plan as set forth by LINO Madera.
Patient is a 72y F with PMH significant for A-Fib with multiple prior strokes, cerebral amyloid angiopathy and vascular Parkinsonism who presents to ED for evaluation of unresponsive episode. History obtained from at the bedside.
Patient with recent SDH and was hospitalized at [facility]. She was on prophylactic Keppra for about one week, but had no actual seizure activity. Family states that she was doing very well for the past 4 days or so. Today she seemed very tired and
took a nap this afternoon. went to check on her and was unable to wake her. She was initially unresponsive. Upon waking, she was staring into the distance and not tracking / focusing. Patient was brought to the ED for further evaluation.
In the ED, patient has gradually become more responsive and now appears at her recent baseline according to family.
Ass:
Unresponsive Episode - Suspected Seizure Activity
Cerebral Amyloid Angiopathy
Recent SDH secondary to fall.
Atrial Fibrillation with Rapid Ventricular Response
Multiple Prior CVAs
Vascular Parkinsonism
Benign Hypertension
Abnormal UA
Plan:
Admit for further evaluation and treatment.
Presenting symptoms / history and underlying medical issues seem most c/w seizure activity.
Re-start Keppra. Seizure precautions.
Neurology evaluation. EEG in AM.
Follow for any new / recurrent seizure activity.
Continue other outpatient medications for now - including Eliquis for A-Fib stroke risk reduction (see extensive conversations from last admission regarding this).
Continue Cardizem gtt and titrate as needed. Titrate off as able. Continue home meds.
Doubt UTI. Continue abx for now pending culture data.
Addendum entered and electronically signed by LINO Madera 10/11/23 22:35:
ASymptomatic pyuria
Will follow urine culture will continue IV Rocephin until urine culture back
Original Note:
Family Physician
-
Family Physician: INTERVIEWE UNKNOWN - PT NOT
Chief Complaint
-
Confusion with staring episode today, A-fib heart rate 120s recent subdural hematoma 2 weeks ago
History of Present Illness
72-year-old female from home by EMS with her who states that she has issues with bowel and bladder incontinence and he normally takes her to the bathroom or reminds her this been going on since early 2022 he reports she was very fatigued and
took a nap approximately 2:30 PM later in the evening.He went to check on her and he felt that she was unresponsive he was yelling at her she eventually opened her eyes but was staring off and opposite direction unable to talk or say his name. He
reports this lasted approximately 20 minutes. He states that she was a little more responsive when EMS arrived and did eventually say his name. He noted after this her heart rate was elevated in the 120s. He states approximately 2 weeks ago she
had a fall and was seen at [facility] for a left subdural hematoma. Her Eliquis was held for 1 week and she was placed on Keppra 500 mg x 1 week only. She was seen by [facility] [place] while there. He is unsure if she
had any EEG imaging. She does have history of dementia with vascular Parkinson's from prior ICH recent embolic stroke and recent diagnosis of cerebral amyloid angiopathy. The patient is oriented to first and last name, 's name but not
hospital or some of history SHe denies any fever, sore throat, chills, chest pain, shortness of breath, cough, abdominal pain, nausea, vomiting, diarrhea, sick contacts.
Patient had admission in July for acute/subacute 5 mm right carol infarct nonhemorrhagic and left pratt radiata/posterior right parietal infarct. She was sent to rehab on antiplatelet therapy while in rehab she developed rapid paroxysmal A-fib was
sent back to the hospital was admitted till . She was placed on oral Eliquis 5 mg twice daily along with Toprol for rate control. She has past medical history of ICH 2012, CAA, nonhemorrhagic right carol infarct, left pratt radiata right
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
vascular, HTN, HLD, insomnia, chronic bowel and bladder incontinence, chronic ambulatory dysfunction due to leg contractures
Medical History
Past Medical History
Past Medical History: Reports Other
Additional Past Medical History:
Left-sided subdural hematoma mid September 2023 [facility]
Paroxysmal A-fib August 18, 2023
acute/subacute 5 mm right carol infarct nonhemorrhagic and left pratt radiata/posterior right parietal infarct. July 2023
Cerebral amyloid angiopathy July 2023
Hemorrhagic CVA (2012)
Hypertension
Expressive Aphasia
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
Vascular Parkinsonism
Vascular dementia
Chronic urinary and bowel incontinence per
Past Surgical History: Reports Other
Additional Past Surgical History:
Right SHERRI April 2023
Hemorrhage Evacuation (2012)
Social History
Tobacco: Former Smoker (Quit smoking at age 32. Approx 10 pack years total use.)
Alcohol: Daily (1 glass of wine daily.)
Personal: ( Jason at bedside)
Living: With [facility] ([facility])
Family History
Family History: Not pertinent
Allergies / Home Medications
Allergies reflects when Allergies were last updated in [employer]
Home Medications with original date entered in [employer]
Allergy/Medication List:
Allergies
Allergy/AdvReac Type Severity Reaction Status Date / Time
No Known Allergies Allergy Verified 10/11/23 17:37
Home Medications
folic acid 1 mg tablet 1 mg PO DAILY #0 tabs 05/05/23
acetaminophen 325 mg tablet 650 mg PO BID 08/18/23
atorvastatin 80 mg tablet 80 mg PO HS High Cholesterol 08/18/23
melatonin 3 mg tablet 6 mg PO HS Sleep 08/18/23
apixaban 5 mg tablet (Eliquis) 5 mg PO BID #60 tabs 08/20/23
amlodipine 2.5 mg tablet 2.5 mg PO HS 10/11/23
carbidopa 10 mg-levodopa 100 mg tablet 1 tab PO TID@1000,1400,1800 10/11/23
docusate sodium 100 mg capsule (Colace) 100 mg PO BID 10/11/23
furosemide 20 mg tablet 20 mg PO DAILY 10/11/23
memantine 5 mg tablet 5 mg PO DAILY 10/11/23
metoprolol tartrate 25 mg tablet 25 mg PO BID 10/11/23
psyllium husk 3.4 gram/6 gram oral powder 3.4 g PO DAILY 10/11/23
therapeutic multivitamin 1 tab PO DAILY 10/11/23
Review of Systems
-
History Source: Patient and Family ( Jason at bedside)
A 12 point ROS was completed and negative except as noted: Yes
Constitutional: Reports Other (Confusion with staring off episode x 20 minutes today); Denies Fever or Chills
EENT: Reports Other (Resolving left upper forehead contusion with recent history of subdural hematoma 2 weeks ago); Denies Sore Throat or Runny Nose
Respiratory: Denies Cough or Trouble Breathing
Cardiac: Denies Chest Pain, Diaphoresis, Palpitations or Syncope
Abdomen/GI: Denies Abdominal Pain, Nausea, Vomiting, Diarrhea, Constipated, Bloody Stools or Black Stools
: Reports Incontinence (Chronic urinary and bowel wears depends); Denies Dysuria, Frequency or Flank Pain
Musculoskeletal: Reports Other (Chronic leg contractures 45 degrees bilateral legs); Denies Joint Pain or Edema
Skin: Denies Itching or Rash
Neurological: Denies Dizzy or Headache
Endocrine: Reports No Symptoms
Hematologic/Lymphatic: Reports No Symptoms
Psych: Reports Calm
Physical Exam
Vital Signs
Vital Signs
Temp Pulse Resp BP Pulse Ox
97.9 F 140 16 106/64 98
10/11/23 17:37 10/11/23 20:15 10/11/23 20:15 10/11/23 19:00 10/11/23 20:00
Physical Exam
General: Comfortable and Conversant; No Pain or Fever
HEENT: NormoCephalic, Anicteric, PERRLA, [place] Conjunctivae, No Ptosis, Neck Nontender and Other (Resolving left upper forehead contusion with recent history of subdural hematoma 2 weeks ago)
Respiratory: Clear; No Wheezes or Rales
Cardiac: S1/S2 and Irregular Rhythm (A-fib 110 bpm); No Murmur, Rub, Gallop or Peripheral Edema
Breast: Deferred by me
GI: Soft, Non Tender, Non Distended, Normal Bowel Sounds and No Hepatosplenomegaly
Rectal: Deferred by Provider
Genito-urinary: Deferred by me
Musculoskeletal: No Clubbing, No Cyanosis, No Edema and Other (Chronic contractures bilateral legs to 45 degrees status post right hip fracture repair April 2023)
Skin: Warm and Dry; No Rash
Neuro: Awake, Alert, Oriented (To first and last name, 's name but not year, month, president or current town), Nonfocal/grossly intact and No Sensory Deficits; No Slurred Speech, Facial Droop or Tremors
Psych: Calm
Laboratory Results
-
10/11/23 17:47
10/11/23 17:47
Laboratory Results
Lactic Acid 1.8 mmol/L (0.7-2.0) 10/11/23 20:37
Total Bilirubin 0.5 mg/dl (0.2-1.3) 10/11/23 17:47
AST 35 U/L (14-36) 10/11/23 17:47
ALT 16 U/L (0-35) 10/11/23 17:47
Alkaline Phosphatase 81 U/L (38-126) 10/11/23 17:47
Troponin I 0.037 ng/ml H* 10/11/23 17:47
Impression/Plan
-
Impression/plan:
Admit to telemetry
#Transient confusion concern for Seizure given recent subdural hematoma/CVA/cerebral amyloid angiopathy history of multiple microhemorrhages
#Hx mild-moderate vascular dementia
-COVID-negative
-Consult neurology
-Seizure precautions
-Neurochecks
-Consult neurology
-Load with Keppra 1000 mg now then start Keppra 500 mg twice daily to maintain lifelong per neurology Dr. Sp Gomez
-EEG in a.m.
-May continue Eliquis until evaluated for her Watchman device has appointment October [address] bruon
Speech swallow eval
-PT/OT/case management consult
CT head: 1. No CT evidence for acute intracranial hemorrhage or transcortical infarct.
2. VERY SEVERE WHITE MATTER LEUKOARAIOSIS in the frontal and parietal lobes.
3. SMALL CHRONIC INFARCTS in the thalami, left caudate nucleus, right putamen, and left middle cerebellar peduncle.
4. Small chronic transcortical infarct in the anterior left frontal lobe.
5. Mild diffuse cerebral and cerebellar volume loss.
#Recent subdural hematoma left-sided mid September
-Treated at [facility] Eliquis was held x 1 week patient was given 1 week dose of Keppra 500 mg twice daily
-Obtain records from [facility] visit was seen by [facility] [place] when there
# Rapid A-fib/Hx paroxysmal A-fib(new Dx 08/18/2023)
-Continue Eliquis 5 mg twice daily
-Continue metoprolol tartrate 25 mg twice daily
Heart rate was 120 on arrival patient was given IV Cardizem drip
-Consult cardiology
-Patient is awaiting evaluation for Watchman device October [address] bruno after short course of anticoagulation due to history of stroke
#CVA July 2023(right carol left pratt radiata manifest with dysarthria)-presumed embolic
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
-Continue atorvastatin 80 mg at bedtime
#Hx of cerebral amyloid angiopathy Dx 2022 with history of multiple microhemorrhages per MRI
#Right hip fracture repair April 2023, chronic leg contractures 45 degrees with chronic ambulatory dysfunction
-Patient has ongoing PT /OT at home
Is unable to stand and is transfer only to chairs
-PT/OT/case management consult
#Benign HTN
BP 150/70
Continue amlodipine 2.5 mg at bedtime, metoprolol tartrate 25 mg twice daily, furosemide 20 mg daily
#Parkinson's�vascular
Continue carbidopa levodopa
#Vascular dementia
Oriented to name and but not year month date or history
-Continue memantine 5 mg daily
#Insomnia
Continue melatonin 6 mg at bedtime
DNR per patient with present at bedside
[2023-10-11] MEDS: KEPPRA 1000 MG IV (22:42)
[2023-10-12] VITALS (20 sets, daily range): BP systolic 101–159; BP diastolic 68–127; PULSE 97; O2SAT 93–95; BMI 15.8
--- NOTE | 2023-10-12 00:22 | PTCARENOTE ---
Pt admit from ED at bed side. Cardizem gtt at 15mg/hr, HR 120, Afib tolerating well. Assessment care and vitals as charted.
[2023-10-12] MEDS: LOPRESSOR 25 MG PO ×2 (00:53→21:03)
[2023-10-12 05:21] LABS: % Basophils 0.7 % (0-2); % Eosinophils 0.7 % (0-6); % Immature Granulocytes 0.3 % (0-0.5); % Lymphocytes 29.1 % (20.5-51.1); % Monocytes 7.7 % (1.7-9.3); % Neutrophils 61.5 % (42.2-75.2); Absolute Basophils 0.1 10^3/uL (0-0.2); Absolute Eosinophils 0.1 10^3/uL (0-0.7); Absolute Lymphocytes 2.7 10^3/uL (1.2-3.4); Absolute Monocytes 0.7 10^3/uL (0.1-0.6); Absolute Neutrophils 5.6 10^3/uL (1.4-6.5); Hematocrit 31.8 % (37.0-47.0); Hemoglobin 10.9 g/dL (12.0-16.0); Mean Corp Hgb Conc. 34.3 g/dL (33.0-37.0); Mean Corpuscular Hgb 27.7 pg (27.0-31.0); Mean Corpuscular Volume 80.9 fL (81.0-99.0); Mean Platelet Volume 8.3 fL (7.4-10.4); Nucleated Red Blood Cells % 0 %; Platelet Count 344 10^3/uL (130-400); Red Blood Cell Count 3.93 10^6/uL (4.20-5.40); Red Cell Dist. Width 15.1 % (11.5-14.5); White Blood Cell Count 9.2 10^3/uL (4.8-10.8)
[2023-10-12 05:42] LABS: ALT (SGPT) 33 U/L (0-35); AST (SGOT) 30 U/L (14-36); Albumin 3.1 g/dl (3.5-5.0); Alkaline Phosphatase 69 U/L (38-126); Blood Urea Nitrogen 10 mg/dl (7-17); Calcium 9.2 mg/dl (8.4-10.2); Carbon Dioxide 24 mmol/L (22-30); Chloride 106 mmol/L (98-107); Estimated Creatinine Clearance 56 ml/min; Glucose 107 mg/dl (70-99); Potassium 3.4 mmol/L (3.5-5.1); Sodium 134 mmol/L (135-145); Total Bilirubin 0.3 mg/dl (0.2-1.3); Total Protein 5.2 g/dl (6.3-8.2); eGFR > 60.00
--- NOTE | 2023-10-12 06:39 | CON.NEURO4 ---
Consultation - Neurology 4
-
CONSULTING PHYSICIAN: Teddy Ferrari
REFERRING PHYSICIAN: Hospitalist
DICTATED BY: Teddy Ferrari
DATE/TIME OF REQUEST: 10/12/23
DATE/TIME OF CONSULTATION: 10/12/23
Reason for Consultation: Suspected seizure
History of Present Illness:
Patient is a 72-year-old woman with a past medical history of cerebral amyloid angiopathy, previous ICH and a recent subdural hematoma, atrial fibrillation, ischemic stroke in July of this year presented to hospital because of significant acute
alteration in mental status witnessed by her . This occurred in the afternoon yesterday where she was unable to be woken and then with waking seem to have a stare without any words, no overt convulsive activity was seen and gradually
improved mental status in the ER.
Patient this morning is drowsy but awakens and answers basic questions she denies any previous history of seizures or family history of seizures. Denies any significant alcohol use or alcohol withdrawal seizures.
Patient had a recent hospitalization for right-sided subdural hematoma with hospitalization and was placed on prophylactic levetiracetam for 1 week and then has been off of this medication she did not have any seizure activity associated with the
recent subdural hematoma.
Past Medical History: Left sided thalamic ICH requiring LEADITE WORKER shunt, cerebral amyloid angiopathy with associated dementia, ischemic stroke July 2023, hypertension, vascular Parkinsonism, subdural hematoma, chronic gait dysfunction, atrial fibrillation
Surgical History: Right SHERRI April 2023
Family History: Non-contributory
Social History: [facility], former smoker of around 10 pack years quit in her 30's, occasional 1 glass wine, and lives with
Allergies: No known drug allergies
Review of Symptoms:
Patient denies any fever, headache, chest pain, shortness of breath, GI or symptoms.
Physical Exam:
Elderly woman appears in no distress eyes are clear oropharynx is clear without tongue laceration heart rate regular breathing unlabored neck supple no masses, abdomen soft nontender no lower extremity edema or rash
Neurologic Examination:
Patient is drowsy and sleeping but awakens to voice appropriately. She is aware she is in the hospital does not know the exact dates she is able to name her 's name but not her children's name's. She will answer basic questions
appropriately but does show significant cognitive impairment and memory impairment. Will obey 1 and two-step commands but difficulty with complex commands and three-step commands. Difficulty reciting serial 7 subtraction or months of the year
backwards. No aphasia. On cranial nerve assessment, pupils are 3 mm bilateral, round and reactive to light and accommodation. Visual callejas are full. Extraocular movements are intact. Facial sensations are intact and bilaterally symmetrical, there
is no facial asymmetry. Hearing is intact bilaterally to normal conversation volume. Tongue palate and uvula are midline. Sternocleidomastoid strengths are full bilaterally. Motor strengths are 5/5 bilateral upper and lower extremities on medical
research [place] scale. There is no drift or involuntary movement noted. Deep tendon reflexes are 2+ bilateral upper and lower extremities and Babinski is absent bilaterally. Sensations of pain, touch, temperature and vibration are intact and
bilaterally symmetrical. There was no extinction noted on double simultaneous stimulation. Coordination is intact by finger to nose bilaterally.
Neuro Imaging: No acute hemorrhage seen, significant white matter hypointensities in both hemispheres, chronic left frontal lobe infarction, chronic infarcts of thalamus, left caudate, right putamen, left frontal lobe calcification seen
Impressions
1. Acute encephalopathy which appeared to be relatively short lasting and spontaneous improvement with time. Most likely possibilities are either a focal seizure (this could be due to recent subdural hematoma, amyloid angiopathy, and multiple
stroke insults in the past all of which could lead to seizure) or manifestation of dementia given patient has sustained significant pathology of the brain with multiple ischemic strokes, previous intracranial hemorrhage and recent subdural hematoma.
2. Amyloid angiopathy with associated dementia
3. History of SDH, ICH likely due to amyloid angiopathy
4. Vascular Parkinsonism, patient is on carbidopa/levodopa
5. Atrial fibrillation
6. History of ischemic stroke, multiterritorial right carol, left basal ganglia, right parietal regions in July 2023
Recommendations:
1. Would continue alf Levetiracetam 500 mg BID PO
2. Check routine EEG
3. Goal normotension
4. No current absolute contraindication to restarting Apixaban with SDH 2 weeks ago and no blood seen on CT head from 10/10, patient being considered for watchmen device which is reasonable
5. Minimize sedating medications
6. Neurologic checks monitor clinically for seizures
7. Will need to follow with neurology as outpatient given likely epilepsy and need for alf Levetiracetam
8. Follow urine culture data
Call with questions and concerns
--- NOTE | 2023-10-12 09:05 | EEG.RPT ---
Electroencephalogram Report
Recording
Date of EE10/12/23
Type of EEG: Routine
Length of EEG recordin minutes
Done with Video Recording: Yes
Patient Status: Inpatient
Recording Conditions: Awake and Drowsy
Hyperventilation Performed: No
Photic Stimulation Performed: Yes
Report
LESS THAN 1 HOUR REPORT
LESS THAN 1 HOUR EEG INTERPRETATION:
Mildly abnormal EEG for age mild diffuse bihemispheric slowing
CLINICAL CORRELATION:
This study was suggestive of mild diffuse cortical dysfunction without focal abnormality. No seizures were recorded. If concerns remain regarding seizures, consideration for prolonged EEG recording may be given.
Clinical correlation is advised.
METHODS:
A 21 channel digitized electroencephalogram (EEG) was performed in the Clinical Neurophysiology Laboratory. The 10/20 international system of electrode placement was used with ECG and lateral/vertical eye movements recorded. The [employer] quantitative
measurement system was utilized.
QUALITY OF STUDY:
Good
ELECTROENCEPHALOGRAPHER IMPRESSION(S):
Background
Medium amplitude fairly organized anterior-posterior voltage gradient of theta maximal activity
There were no significant asymmetries of background activity noted.
Sleep
Drowsiness present
Photic Stimulation
Failed to activate the record
Hyperventilation
Failed to activate the record
ECG
Normal sinus rhythm
--- NOTE | 2023-10-12 09:06 | CON.CAR ---
Addendum entered and electronically signed by Antonella Montgomery MD 10/12/23 12:57:
I saw and examined the patient.
The DRIVER LICENSE REVIEWING OFFICER or PA's note was reviewed and I agree with the note.
Comment: She is unable to provide reliable history but calm and cooperative, without complaint. She has irreg irreg rate and rhythm without significant murmur, lungs cta bl, no le edema. Telemetry shows atrial fibrillation with controlled
ventricular response. Will continue on diltiazem drip for today, once becomes more stable will transition to p.o. Patient typically on Eliquis 5 mg p.o. twice daily. There is no contraindication to this given neurology input. Will resume.
Watchman to be considered as an outpatient.
Original Note:
Consultation
Consultation Request
Date/Time Consultation Requested: 10/11/2023 22:00
Date/Time Consultation Performed: 10/12/2023 09:10
Requesting Provider: LINO Madera
Performing Provider: LINO Soares for Dr. Montgomery
Reason for Consultation: Atrial fibrillation ventricular response
Medical History
-
Chief Complaint: Elevated heart rate
History of Present Illness:
Kaylie Walton is a 72-year-old female with vascular parkinsonism, cerebral amyloid angiopathy, previous ICH, chronic aphasia, gait dysfunction, hypertension, CVA, paroxysmal atrial fibrillation (on apixaban), and recent fall with SDH ([facility]) who
presented with a chief complaint of significant acute alteration in mental status per her . Yesterday afternoon, she was unable to be woken and then seemed to have a stare/glare without verbal communication. On exam this morning, she is
very drowsy and difficult to arouse. She had a recent hospitalization at [facility] for a right sided subdural hematoma. Her apixaban was briefly on hold in the setting. She was placed on prophylactic Keppra for 1 week. No
seizure activity was seen.
Past Medical History
Past Medical History: Arrhythmias (Paroxysmal atrial fibrillation), CVA (Hemorrhagic, SDH [09/2023]), HTN and Other (Vascular parkinsonism, expressive aphasia, gait dysfunction, amyloid angiopathy)
Past Surgical History: Brain and Orthopedic
Social History
Tobacco: Former Smoker
Alcohol: None
Drug: None
Personal:
Employment: Retired
Family History
Family History: Reviewed & Not Pertinent
Allergies / Home Medications
Allergy/AdvReac Type Severity Reaction Status Date / Time
No Known Allergies Allergy Verified 10/11/23 17:37
�Medication �Instructions �Recorded �Confirmed �Type
folic acid 1 mg tablet 1 mg PO DAILY #0 tabs 05/05/23 10/11/23 Rx
acetaminophen 325 mg tablet 650 mg PO BID 08/18/23 10/11/23 History
atorvastatin 80 mg tablet 80 mg PO HS High Cholesterol 08/18/23 10/11/23 History
melatonin 3 mg tablet 6 mg PO HS Sleep 08/18/23 10/11/23 History
apixaban 5 mg tablet (Eliquis) 5 mg PO BID #60 tabs 08/20/23 10/11/23 Rx
amlodipine 2.5 mg tablet 2.5 mg PO HS 10/11/23 10/11/23 History
carbidopa 10 mg-levodopa 100 mg 1 tab PO TID@1000,1400,1800 10/11/23 10/11/23 History
tablet
docusate sodium 100 mg capsule 100 mg PO BID 10/11/23 10/11/23 History
(Colace)
furosemide 20 mg tablet 20 mg PO DAILY 10/11/23 10/11/23 History
memantine 5 mg tablet 5 mg PO DAILY 10/11/23 10/11/23 History
metoprolol tartrate 25 mg tablet 25 mg PO BID 10/11/23 10/11/23 History
psyllium husk 3.4 gram/6 gram oral 3.4 g PO DAILY 10/11/23 10/11/23 History
powder
therapeutic multivitamin 1 tab PO DAILY 10/11/23 10/11/23 History
Review of Systems
-
Unable to obtain full review of systems at this time due to: Dementia
Physical Exam
Vital Signs
Temp Pulse Resp BP Pulse Ox
98.5 F 92 12 106/81 97
10/12/23 07:57 10/12/23 07:57 10/12/23 07:57 10/12/23 06:00 10/12/23 07:57
Lab Results
10/12/23 04:55
10/12/23 04:55
Troponin I 0.026 ng/ml D 10/11/23 20:37
Physical Exam
General: Well Developed, Well Nourished, No Apparent Distress and Comfortable
HEENT: Normocephalic, Anicteric and Moist Mucous Membranes
Respiratory: Clear and Non Labored Respirations
Cardiac: S1/S2 and Irregular Rhythm; Negative Peripheral Edema
Breast: Deferred by me
GI: Soft, Non Tender, Non Distended and Normal Bowel Sounds
Rectal: Deferred by Provider
Genito-urinary: No Costovertebral Tender
Musculoskeletal: No Clubbing, No Cyanosis and No Edema
Skin: Warm and Dry
Neuro: Other (Drowsy)
Hematologic/Lymphatic: No Lymphadenopathy
Psych: Calm
Impression / Plan
-
Atrial fibrillation with rapid response
-Rate controlled on diltiazem drip, continue as she is not able to tolerate oral medication
-Oral Anticoagulation: Apixaban 5 mg twice daily, a few doses held during prior hospitalization with SDH, CT stable this admission, resume if okay with Neuro
-[id number]: Score at least 5 (HTN, prior Stroke/TIA, age 65-74, female gender)
Change in mental status, believed to be acute encephalopathy per neurology
BMI 15.7, she is at her lowest documented weight
Vascular parkinsonism, on carbidopa/levodopa
Amyloid angiopathy with ICH
Ischemic CVA (07/2023), on single agent apixaban
Fall with SDH as above
Data Reviewed
-
EKG: Report Reviewed by me (Atrial fibrillation with rapid ventricular response, septal infarct, lateral ST abnormality, rate 132)
Radiology: Report Reviewed by me (CXR: No radiographic evidence for pneumonia, acute pulmonary edema, pleural effusion, or other acute cardiopulmonary disease.)
CT Scan: Report Reviewed by me (Head: VERY SEVERE WHITE MATTER LEUKOARAIOSIS in the frontal and parietal lobes. SMALL CHRONIC INFARCTS in the thalami, left caudate nucleus, right putamen, and left middle cerebellar peduncle.)
Labs: Labs Reviewed by me
Old Records: Reviewed
[2023-10-12] MEDS: CARDIZEM 125 IV (09:20)
[2023-10-12] MEDS: COLACE PO (09:24)
[2023-10-12] MEDS: LOPRESSOR PO (09:24)
[2023-10-12] MEDS: FOLVITE PO (09:24)
[2023-10-12] MEDS: LASIX PO (09:24)
[2023-10-12] MEDS: NAMENDA PO (09:25)
[2023-10-12] MEDS: METAMUCIL, KONSYL PO (09:25)
[2023-10-12] MEDS: THERAGRAN PO (09:25)
--- NOTE | 2023-10-12 09:47 | PTCARENOTE ---
Addendum entered by Yulia Sears 10/12/23 13:17:
Pt's mentation waxing and waning with short periods of alertness. NPO at this time per speech rec. updated on plan of care.
Original Note:
Pt extremely lethargic this morning. Assessed with Dr. Landaverde at bedside, PO medications held at this time d/t mental status.
[2023-10-12] MEDS: SINEMET 10-100 PO (10:01)
[2023-10-12] MEDS: KEPPRA 500 MG IV (10:07)
--- NOTE | 2023-10-12 11:15 | PTOTSP ---
Pt is dependent for bed mobility/ transfers and has BLE contractures which is her baseline. No skilled PT needs. Will sign off.
--- NOTE | 2023-10-12 11:30 | PTOTSP ---
SPEECH THERAPY SWALLOW EVALUATION:
Patient exhibits clinical signs of oropharyngeal dysphagia, likely acutely related to encephalopathy, with chronic dysphagia risk factors including prior ICH, SDH, ischemic CVA, dementia, and vascular parkinsonism. Patient is at high risk for
aspiration and related complications given significant lethargy. Recommend strict NPO at this time. Non-oral medications/hydration/nutrition. Speech therapy to follow, re-assess in 24 hours, determine readiness for additional p.o. trials/textures,
and provide continued diagnostic swallow therapy as appropriate.
RECOMMEND:
1) strict NPO
2) Non-oral medications/hydration/nutrition
3) Speech therapy to follow, re-assess in 24 hours
--- NOTE | 2023-10-12 12:16 | CM ---
CM spoke with spouse on phone
Pt and spouse resides in a 2SH with ramp entrance
Pt recently discharged from [facility] and current with outpt therapy at [facility]
Pt is total care- chair bound and non ambulatory at this time
Spouse transfers patient to , does not have a matthias lift
Pt currently sleeping in regular bed on second floor, stair ride
Pt has a rollator, RW, shower chair, raised toilet seat, ramp, stair lift and WC
Pt has hx with [facility]
No financial insecurities
PCP- Milad Zaragoza
Rx- [facility]
Per spouse, [facility] outpt currently in process of setting of hospital bed for patient
Discussed VN vs continued outpatient therapy
Spouse notes he is pleased with [facility] and has a good system for transfers and transport for therapy office
He will reach out if assistance is needed with hospital bed arrangements
Discharge Disposition- home, likely no needs, [facility] outpt therapy
--- NOTE | 2023-10-12 14:01 | PTOTSP ---
Dysphagia Therapy
Patient has acute on chronic risk factors for dysphagia (i.e., encephalopathy, prior ICH, SDH, ischemic CVA, dementia, parkinsonism). DELL improved at time of re-evaluation. ( reported patient typically sleeps until 1 PM each day). Signs of
WFL-mild oral stage dysphagia noted with no signs/complaints of pharyngeal dysphagia.
Recommend:
1. Regular, Thin
2. Medications - as best tolerated
3. Strategies: upright for PO intake, full supervision, assist as needed, slow rate
4. Oral care 3x daily
5. Brief dysphagia therapy follow up at the acute care level.
[2023-10-12] MEDS: SINEMET 10-100 1 TABLET PO ×2 (14:32→17:24)
--- NOTE | 2023-10-12 15:43 | W.PN.HOSP.TC ---
Addendum entered and electronically signed by Zeinab Landaverde MD, Resident 10/13/23 09:12:
Mild malnutrition secondary to chronic illness.
BMI 15.7, albumin levels within normal limits.
Addendum entered and electronically signed by Brady Vallecillo MD 10/12/23 20:07:
Attending Addendum-
I saw and evaluated the patient. I reviewed the resident�s note and agree with findings and plan as documented in the resident�s note. Sub: patient tired but responsive. no complaints. Full 12 point ROS reviewed and negative except as documented
Exam: Vitals reviewed in chart GEN-nad heart irreg irreg lungs fine crackles at abses abd soft LE annie huma Plan:
# Unresponsive Episode likely Seizure
- restart keppra
- EEG - nonspecific findings
- appreciate neuro input
# Recent SDH secondary to fall.
- PT OT
- restart eliquis
# Abnormal UA
- cont Rocephin for now
- await cx results
# Atrial Fibrillation with Rapid Ventricular Response
- cards on board
- transition Cardizem gtt to PO
- cont metoprolol
- restart eliquis- ok with cards and neuro as high risk CVA, > 2 weeks from SDH
- watchman as OP
# H/O Multiple CVA-
- PT OT speech eval
- cont eliquis
# Hyponatremia-
- hypovolemic
- repeat bmp in am
# Hypokalemia-
- replete
- repeat BMP in an
# Nonischemic troponin elevation
- trend
# Vascular Parkinsonism
- cont Sinemet
# HFpEF
- cont lasix
# Benign Hypertension
- cont metoprolol and cardizem
- dc norvasc
# Dementia
- cont memantine
# Insomnia-
- cont melatonin
Time spent coordinating care, review of plan of care with resident, personally reviewed records in EMR, med rec, consults, notes, labs, radiology, d/w nursing and cards� 59 mins
Original Note:
Today's Communication/Plan
-
Diltiazem 60 oral twice a day,
Stop amlodipine,
Continue oral Keppra,
Resume Eliquis.
Assessment / Plan
Assessment / Plan
Assessment-
72-year-old female with PMHx significant for A-fib on long-term Eliquis, multiple prior CVAs, recent subdural hematoma x 2 weeks ago, cerebral amyloid angiopathy with microvascular hemorrhages, parkinsonism and vascular dementia who presents to
emergency room for evaluation of an unresponsive episode. Diagnosed with self resolving acute encephalopathy.
Plan -
Acute encephalopathy-self resolving and short lasting.
Altered mental status, in and off of drowsiness, patient responsive upon arousal, oriented to herself but not oriented to time place or person.
Likely in the setting of focal seizure versus recent subdural hematoma versus multiple prior CVAs versus cerebral amyloid angiopathy versus vascular dementia.
Neurology consulted-on board, appreciate inputs.
Patient restarted on Keppra oral twice daily.
EEG obtained - 10/12/23-mild diffuse by hemispheric slowing with cortical dysfunction without any focal abnormality. (Prolonged EEG recording will be considered if concern for seizures remaining).
Neurology recommended no current absolute contraindication for restarting apixaban with SDH 2 weeks ago, no hemorrhagic evidence on CT head from 10/10.
A-fib with RVR
Cardiology on board, patient on amlodipine, diltiazem drip, metoprolol
Switch patient to oral diltiazem and amlodipine discontinued.
[id number] score-5, continue oral anticoagulation.
Continue metoprolol.
Hypertension-
Amlodipine discontinued.
Continue metoprolol and Lasix.
Parkinson's-
Continue home meds carbidopa levodopa, memantine.
Constipation-
Docusate as needed as needed.
Diet-
Oral diet.
DVT prophylaxis-patient on Eliquis.
CODE STATUS-DNR.
Anticipated Discharge: 24 - 48 hours
Subjective/Interval History
-
Date of Service: October 12, 2023
Patient is in and out of drowsiness and sleep. She denies having any pain, shortness of breath, headaches, mental status changes. Overnight nurse reports that patient has been oriented to herself but only occasionally oriented to place and person.
Objective Data
-
Labs:
Laboratory Results
10/12/23
04:55
WBC 9.2
Hgb 10.9 L
Hct 31.8 L
Plt Count 344
Sodium 134 L
Potassium 3.4 L
Chloride 106
Carbon Dioxide 24
BUN 10
Creatinine 0.4 L
Glucose 107 H
Calcium 9.2
Total Bilirubin 0.3
AST 30
ALT 33
Alkaline Phosphatase 69
Vital Signs:
Vital Signs
Temp Pulse Resp BP Pulse Ox
98.0 F 93 18 131/81 100
10/12/23 11:30 10/12/23 12:00 10/12/23 12:00 10/12/23 12:00 10/12/23 12:00
I&O
10/11/23 10/12/23 10/13/23
06:59 06:59 06:59
Intake Total 160 / 160
Balance 160 / 160
Review of Systems
-
Unable to obtain full review of systems at this time due to: Patient Non-verbal
History Source: Patient
Constitutional: Reports No Symptoms
Respiratory: Reports No Symptoms
Cardiac: Reports No Symptoms
Abdomen/GI: Reports No Symptoms
Musculoskeletal: Reports No Symptoms
Skin: Reports No Symptoms
Neuro: Reports No Symptoms
Endocrine: Reports No Symptoms
Physical Exam
-
General: No Apparent Distress and Comfortable (on 2l nasal cannula,)
HEENT: Normocephalic, Atraumatic and Moist Mucous Membranes
Respiratory: Clear to Auscultation; Negative Wheezes, Rales or Rhonchi
Cardiac: Regular Rhythm and S1/S2; Negative Murmur or Rub
GI: Soft, Nontender, Nondistended and Normal Bowel Sounds
Musculoskeletal: No Clubbing, No Cyanosis and No Edema
Neuro: AO x 3
Psych: Calm
[2023-10-12] MEDS: CARDIZEM 30 MG PO ×2 (17:24→21:03)
--- NOTE | 2023-10-12 17:26 | PTCARENOTE ---
Pt cleared for diet by speech. PO Cardizem administered and gtt turned off, see intervention.
[2023-10-12] MEDS: ELIQUIS 5 MG PO (21:04)
[2023-10-12] MEDS: KEPPRA 500 MG PO (21:04)
[2023-10-12] MEDS: LIPITOR 80 MG PO (21:05)
[2023-10-12] MEDS: ROCEPHIN 1000 MG IV (21:07)
[2023-10-12] MEDS: COLACE 100 MG PO (21:07)
[2023-10-12] MEDS: STERILE WATER FOR INJECTION 10 ML IV (21:07)
--- NOTE | 2023-10-12 21:46 | PTCARENOTE ---
Addendum entered by Cally Hogan 10/12/23 22:26:
Order obtained for PRN lopressor. Given per MAY.
Original Note:
Pt oriented to self, alert, reports frustration with being in the hospital, repeatedly tells she wants to go home. Able to take pills whole in applesauce. Afib with elevated HR 120s,up to 140s, CIRCULAR KNITTER notified. Scheduled cardizem and lopressor
given PO per MAY. Pt denies complaints at this time. Hygiene care provided.
[2023-10-12] MEDS: LOPRESSOR 5 MG IV (22:20)
[2023-10-13] VITALS (12 sets, daily range): BP systolic 109–152; BP diastolic 73–96; BMI 15.8
[2023-10-13] MEDS: LOPRESSOR 5 MG IV (02:24)
--- NOTE | 2023-10-13 02:57 | PTCARENOTE ---
Pt remains in afib, HR sustaining 110s-120s. IV lopressor given without success. REWORK MACHINE OPERATOR notified and provided order to resume cardizem gtt.
[2023-10-13] MEDS: CARDIZEM 125 IV (03:59)
[2023-10-13 04:34] LABS: % Basophils 0.5 % (0-2); % Eosinophils 0.2 % (0-6); % Immature Granulocytes 0.4 % (0-0.5); % Lymphocytes 14.2 % (20.5-51.1); % Monocytes 5.8 % (1.7-9.3); % Neutrophils 78.9 % (42.2-75.2); Absolute Basophils 0.1 10^3/uL (0-0.2); Absolute Immature Granulocytes 0.1 10^3/uL (0-0.05); Absolute Lymphocytes 1.6 10^3/uL (1.2-3.4); Absolute Monocytes 0.7 10^3/uL (0.1-0.6); Absolute Neutrophils 9.1 10^3/uL (1.4-6.5); Hematocrit 34.5 % (37.0-47.0); Hemoglobin 12.3 g/dL (12.0-16.0); Mean Corp Hgb Conc. 35.7 g/dL (33.0-37.0); Mean Corpuscular Hgb 28.5 pg (27.0-31.0); Mean Platelet Volume 8.2 fL (7.4-10.4); Nucleated Red Blood Cells % 0 %; Platelet Count 410 10^3/uL (130-400); Red Blood Cell Count 4.31 10^6/uL (4.20-5.40); Red Cell Dist. Width 15.1 % (11.5-14.5); White Blood Cell Count 11.6 10^3/uL (4.8-10.8)
[2023-10-13 04:57] LABS: ALT (SGPT) 27 U/L (0-35); AST (SGOT) 33 U/L (14-36); Albumin 3.5 g/dl (3.5-5.0); Alkaline Phosphatase 80 U/L (38-126); Blood Urea Nitrogen 12 mg/dl (7-17); Calcium 9.7 mg/dl (8.4-10.2); Carbon Dioxide 26 mmol/L (22-30); Chloride 104 mmol/L (98-107); Estimated Creatinine Clearance 56 ml/min; Glucose 131 mg/dl (70-99); Potassium 3.8 mmol/L (3.5-5.1); Sodium 135 mmol/L (135-145); Total Bilirubin 0.6 mg/dl (0.2-1.3); eGFR > 60.00
[2023-10-13 05:07] LABS: Total Protein 5.6 g/dl (6.3-8.2)
--- NOTE | 2023-10-13 08:33 | PN.CDI ---
CDI
- -
CDI:
Physician Documentation Request
Admit Date: 10/11/23 22:24
Dear Doctor Akhil,
Clinical Indicators:
Patient admitted with unresponsive episode; PMH includes dementia.
BMI 15.7
10/11 note/assessment, 'Significant 6.6% wt loss x 1month, 16lb 17.6% wt loss x 1 year. Pt meets ASPEN criteria for severe protein calorie malnutrition of chronic illness with >5% wt loss x 1month, severe subcutaneous fat (tricep) and muscle
(temporal) loss.'
Based on the above information and your assessment, which of the following most accurately represents the patient's nutritional status?
Severe Protein Calorie Malnutrition
Moderate Protein Calorie Malnutrition
Other, please specify
[place] Criteria ([facility] Hospitalist 2017)
2 or more criteria must be present for either
non severe or severe malnutrition
Note that the criteria differs related to the
presence of an acute or chronic illness
Acute Illness Chronic Illness
Energy Intake Non Severe: <75% for >7 days Non Severe: <75% for >1 month
Severe: <50% for >5 days Severe: <75% for >1 month
Weight Loss Non Severe: 1-2% over 1 week Non Severe: 5% over 1 month
5% over 1 month 7.5% over 3 months
7.5% over 3 months 10% over 6 months
1 year N/A 20% over 1 year
Severe: >2% over 1 week Severe: >5% over 1 month
>5% over 1 month >7.5% over 3 months
>7.5% over 3 months >10% over 6 months
1 year N/A >20% over 1 year
Body Fat Non Severe: Mild Decrease Non Severe: Mild Loss
Severe: Moderate Decrease Severe: Severe Loss
Muscle Mass Non Severe: Mild Decrease Non Severe: Mild Loss
Severe: Moderate Decrease Severe: Severe Loss
Fluid Accumulation Non Severe: Mild Accumulation Non Severe: Mild Accumulation
Severe: Moderate to severe Severe: Moderate to severe
accumulation accumulation
Reduced Hoop Expander Strength Non Severe: N/A Non Severe: N/A
Severe: Measurably reduced Severe: Measurably reduced
Additional criteria that can be used to Determine if Mild or Moderate Malnutrition (Merck Manual 2018)
Mild Moderate Severe
Albumin gm/dl <3.0 gm/dl <2.5 gm/dl <2.0 gm/dl
Pre Albumin mg/dl <15 gm/dl <10 mg/dl <5.0 mg/dl
BMI <18.5 <17 <16
Use of terms such as suspected, likely, concern for, or probable (associated with a specific diagnosis that is being evaluated, monitored, or treated as if it exists) are acceptable and can be coded in the inpatient setting, when documented at the
time of discharge.
Thank you,
Carol Torres RN BSN
CDI Specialist
available via tiger text
Please use your independent medical judgment in providing your response.
[2023-10-13] MEDS: METAMUCIL, KONSYL 1 PACKET PO (08:46)
[2023-10-13] MEDS: THERAGRAN 1 TABLET PO (08:46)
[2023-10-13] MEDS: NAMENDA 5 MG PO (08:46)
[2023-10-13] MEDS: LASIX 20 MG PO (08:46)
[2023-10-13] MEDS: KEPPRA 500 MG PO ×2 (08:46→21:05)
[2023-10-13] MEDS: FOLVITE 1 MG PO (08:47)
[2023-10-13] MEDS: COLACE 100 MG PO ×2 (08:47→21:04)
[2023-10-13] MEDS: LOPRESSOR 25 MG PO (08:47)
[2023-10-13] MEDS: ELIQUIS 5 MG PO ×2 (08:47→21:04)
--- NOTE | 2023-10-13 09:04 | PN.CDI ---
CDI
- -
CDI:
Physician Documentation Request
Admit Date: 10/11/23 22:24
Dear Doctor Akhil,
Clinical Indicators:
Patient admitted with unresponsive episode; PMH includes dementia.
Atrial Fibrillation with Rapid Ventricular Response present on admission.
10/11, PN, 'Nonischemic troponin elevation- trend'
Troponin trend:
10/11/23 10/11/23
17:47 20:37
Troponin I 0.037 H* 0.026 D
Based on the above, could you clarify in the progress notes, the appropriate diagnosis, if significant, that supports the above abnormalities and additional evaluation, monitoring and/or treatment rendered:
Non ischemic myocardial injury
Non ischemic troponin elevation only
Other, please specify
Use of terms such as suspected, likely, concern for, or probable (associated with a specific diagnosis that is being evaluated, monitored, or treated as if it exists) are acceptable and can be coded in the inpatient setting, when documented at the
time of discharge.
Thank you,
Carol Torres RN BSN
CDI Specialist
available via tiger text
Please use your independent medical judgment in providing your response.
--- NOTE | 2023-10-13 09:09 | PN.CDI ---
CDI
- -
CDI:
Physician Documentation Request
Admit Date: 10/11/23 22:24
Dear Doctor Akhil,
Clinical Indicators:
Patient admitted with unresponsive episode; PMH includes dementia.
10/11 RN Skin/Wound assessment: Left Hip Stage I pressure injury, POA
Right Hip Stage I pressure injury, POA
Treatment: Silicone border foam dressings
Physician documentation of the type and location of wounds is required for compliant documentation. Based on the above clinical findings and your assessment, please provide the following in your progress note:
1. Location of the ulcer/wound, including laterality.
2. Type (etiology) of ulcer/wound:r
- Pressure (decubitus) ulcer
- Other, please specify
- Unable to determine
3. If a pressure ulcer, please also include the stage* of the ulcer:
- Stage 1 - Skin intact, non-blanchable redness
- Stage 2 - Partial thickness loss of dermis, includes intact or open blister
- Stage 3 - Full thickness tissue not including bone, tendon or muscle
- Stage 4 - Full thickness tissue loss, including exposed bone, tendon or muscle
- Unstageable - Full thickness loss in which the base of the ulcer is covered by slough (yellow, hopkins, deng, green or brown) and/or eschar (hopkins, brown or black) in the wound bed.
- Unable to determine
Use of terms such as suspected, likely, concern for, or probable (associated with a specific diagnosis that is being evaluated, monitored, or treated as if it exists) are acceptable and can be coded in the inpatient setting, when documented at the
time of discharge.
Thank you,
Carol Torres RN BSN
CDI Specialist
available via tiger text
Please use your independent medical judgment in providing your response.
*Source: National Pressure Ulcer Advisory Panel (NPUAP)
[2023-10-13] MEDS: CARDIZEM 60 MG PO (10:10)
[2023-10-13] MEDS: SINEMET 10-100 1 TABLET PO ×3 (10:10→18:04)
--- NOTE | 2023-10-13 12:14 | W.PN.CD ---
Addendum entered and electronically signed by Maciej Joe MD 10/13/23 13:56:
Patient seen and examined in collaboration with BLASTING CLAY MINER; agree with below.
-Increase metoprolol to tartrate to 50 mg twice daily.
-Change from short acting Cardizem to Cardizem CD 120 mg twice daily.
-Continue traffic monitor specialist; will reevaluate tomorrow.
Original Note:
Today's Communication / Plan
-
Transition to Cardizem CD
Increase metoprolol to tartrate
This plan was discussed with her at the bedside.
Impression / Plan
-
BACKGROUND: 72F with vascular parkinsonism, cerebral amyloid angiopathy, previous ICH, chronic aphasia, gait dysfunction, hypertension, CVA, paroxysmal atrial fibrillation (on apixaban), and recent fall with SDH ([facility]) who presented with a chief
complaint of significant acute alteration in mental status per her .
Atrial fibrillation with rapid response
-Rate control suboptimal, increase metoprolol to tartrate to 50 mg twice daily & discontinue short acting Cardizem and start Cardizem CD 120 twice daily
-Oral Anticoagulation: Apixaban 5 mg twice daily, a few doses held during prior hospitalization with SDH, CT stable this admission, resumed 10/12/23 PM
-[id number]: Score at least 5 (HTN, prior Stroke/TIA, age 65-74, female gender)
HTN, stop amlodipine to allow for more rate controlling agents
Change in mental status, believed to be acute encephalopathy per neurology
BMI 15.7, she is at her lowest documented weight
Vascular parkinsonism, on carbidopa/levodopa
Amyloid angiopathy with ICH
Ischemic CVA (07/2023), on single agent apixaban
Fall with SDH as above
SUBJECTIVE:
Asking to go home. Denies palpitations.
Physical Exam
Vital Signs/Labs
Vital Signs
Temp Pulse Resp BP Pulse Ox
98.2 F 108 23 136/82 94
10/13/23 07:10 10/13/23 10:00 10/13/23 10:00 10/13/23 10:00 10/13/23 08:00
10/12/23 10/13/23 10/14/23
06:59 06:59 06:59
Actual Weight 41.6 kg 41.6 kg
10/13/23 04:17
10/13/23 04:17
Magnesium 1.8 mg/dl (1.6-2.3) 10/11/23 17:47
LAB Results
10/11/23 10/11/23
17:47 20:37
Troponin I 0.037 H* 0.026 D
Physical Exam
Constitutional: No acute distress, Comfortable and Other (Cachexia)
EENT: Anicteric and Moist mucous membranes
Cardiovascular: Pedal edema is absent, Rhythm/rate is irregular and S1S2 is normal
Respiratory: Respiratory effort normal and Lungs clear to auscul.
GI: Soft, Distention absent, Flat and Non tender
Neuro/Psych: AO x 3
Other: Skin (Warm and dry)
Data Reviewed
-
Date of Service: October 13, 2023
Labs: Labs Reviewed by me
--- NOTE | 2023-10-13 13:07 | VATNOTE ---
Pt with swelling and redness at 18 gauge IV site in R arm, discontinued and heat applied. New IV started.
[2023-10-13] MEDS: CARDIZEM CD 120 MG PO ×2 (14:37→21:04)
--- NOTE | 2023-10-13 15:03 | PTCARENOTE ---
Pt presents as assessed. Aox1, drowsy, lethargic and other times restless. Assessment as documented. updated on plan of care. Q2T maintained. Bed alarm in place for safety.
--- NOTE | 2023-10-13 17:05 | WOUNDNOTE ---
WON RN NOTE: requesting wound nurse assess patient's pressure ulcers on hips and recommend type of mattress or overlay to use at home. Has tiny stage 1 PI's, non blanchable light red arnold on both hips, silicone foams in use. Patient is
currently on an air mattress easy to turn to sides. Recommend at home if has a hospital bed can apply air overlay with turning schedule. Can take air overlay home from hospital with portable pump found in [facility], *for hospital bed only. If wants
something more advanced, can rent an air mattress but would most likely have to pay out of pocket. CM can assist with bed rentals.
--- NOTE | 2023-10-13 19:21 | W.PN.HOSP.TC ---
Addendum entered and electronically signed by Brady Vallecillo MD 10/13/23 22:14:
Attending Addendum-
I saw and evaluated the patient. I reviewed the resident�s note and agree with findings and plan as documented in the resident�s note. Sub: patient placed back on cardizem gtt overnight due to uncontrolled rates. seen with POA/ present.
patient is alert but feels fatigued. answering questions appropriately. Full 12 point ROS reviewed and negative except as documented Exam: Vitals reviewed in chart GEN- nad heart irreg irreg lungs fine crackles at bases abd soft LE +1 b/l pitting
edema MSK- extremities contracted with significant resistance on straightening-Plan:
# Unresponsive Episode likely Seizure
- cont keppra
- EEG - nonspecific findings
- appreciate neuro input
# Recent SDH secondary to fall.
- PT OT
- cont eliquis
# Muscle contracture
- start baclofen BID and increase per response
# Abnormal UA
- cont Rocephin day 2
- await cx results
# Atrial Fibrillation with Rapid Ventricular Response
- cards on board and appreciate input
- transition cardizem gtt to PO
- increase metoprolol
- cont eliquis- ok with cards and neuro as high risk CVA, > 2 weeks from SDH
- watchman as OP
- transfer to tele
# H/O Multiple CVA-
- PT OT speech eval
- cont eliquis
# Hyponatremia-
- hypovolemic
- repeat bmp in am
# Hypokalemia-
- resolved
- repeat BMP in an
# Nonischemic troponin elevation
- trend
# Ambulatory Dysfunction/WC bound
- poor prognosis
- would like to take patient home and not SNF
# Vascular Parkinsonism
- cont Sinemet
# HFpEF
- cont lasix
- daily weights and fluid restrict
- repeat BMP in am
# Benign Hypertension
- cont metoprolol and cardizem PO at increased doses
- dc'd norvasc
# Dementia
- cont memantine
# Insomnia-
- cont melatonin
Dispo eventual DC home with POA and HC 24-48 hours - poa refusing SNF and LTC
Time spent coordinating care, review of plan of care with resident, personally reviewed records in EMR, med rec, consults, notes, labs, radiology, d/w nursing and POA� 54 mins
Original Note:
Today's Communication/Plan
-
Diltiazem and metoprolol dosing per cardiology.
Continue oral Keppra.
Level of care changed to telemetry.
PT and OT beginning tomorrow.
Skeletal muscle relaxants beginning tomorrow
Assessment / Plan
Assessment / Plan
Assessment-
72-year-old female with PMHx significant for A-fib on long-term Eliquis, multiple prior CVAs, recent subdural hematoma x 2 weeks ago, cerebral amyloid angiopathy with microvascular hemorrhages, parkinsonism and vascular dementia who presents to
emergency room for evaluation of an unresponsive episode. Diagnosed with self resolving acute encephalopathy.
Plan -
Acute encephalopathy-self resolving and short lasting.
Altered mental status, in and off of drowsiness, patient responsive upon arousal, oriented to herself but not oriented to time place or person.
Likely in the setting of focal seizure versus recent subdural hematoma versus multiple prior CVAs versus cerebral amyloid angiopathy versus vascular dementia.
Neurology consulted-on board, appreciate inputs.
Patient restarted on Keppra oral twice daily.
EEG obtained - 10/12/23-mild diffuse by hemispheric slowing with cortical dysfunction without any focal abnormality. (Prolonged EEG recording will be considered if concern for seizures remaining).
Neurology recommended no current absolute contraindication for restarting apixaban with SDH 2 weeks ago, no hemorrhagic evidence on CT head from 10/10.
A-fib with RVR
Cardiology on board, patient on metoprolol and diltiazem, dose bumped up
[id number] score-5, continue oral anticoagulation.
Hypertension-
-Per Cardiology
-Amlodipie discontinued.
Troponin Elevation-
0.036 upon admission resolving.
Likely secondary to A-fib versus acute encephalopathy.
Non-LA troponin elevation.
Chronically bedbound-
Left hip and right hip stage I pressure ulcers noted.
Severe contractures noted
PT and OT recommended staying in bed.
Consider skeletal muscle relaxants from a.m. tomorrow for contractures.
is adamant about discharge to home. (SNF not an option.)
Leukocytosis-
Unclear etiology, no fevers, no SIRS criteria
Likely reactive secondary to acute encephalopathy.
Hyponatremia-
Serum sodium-134 on 10/11, 135 on 10/12.
Resolved
Continue monitoring sodium levels.
Hypokalemia-
Serum potassium-3.4 on 10/11, potassium repletion done.
Repeat serum K-3.8 on 10/12.
Trend potassium levels on daily basis.
Parkinson's-
Continue home meds carbidopa levodopa, memantine.
Constipation-
Docusate as needed as needed.
Diet-
Oral diet.
DVT prophylaxis-patient on Eliquis.
CODE STATUS-DNR.
Anticipated Discharge: 24 - 48 hours
Subjective/Interval History
-
Date of Service: October 13, 2023
Patient reported no adverse events over night. Patient has been more alert and oriented than before.
Objective Data
-
Vital Signs:
Vital Signs
Temp Pulse Resp BP Pulse Ox
98.2 F 99 20 118/83 94
10/13/23 15:02 10/13/23 16:00 10/13/23 16:00 10/13/23 16:00 10/13/23 08:00
I&O
10/12/23 10/13/23 10/14/23
06:59 06:59 06:59
Intake Total 160 / 160
Output Total 275 / 275
Balance 160 / 160 -275 / -275
Review of Systems
-
History Source: Other (Patient has limited communication abilities)
Respiratory: Denies Cough
Cardiac: Denies Chest Pain
Physical Exam
-
General: No Apparent Distress and Comfortable
Respiratory: Clear to Auscultation and Non Labored Respirations
Cardiac: Regular Rhythm and S1/S2
Musculoskeletal: No Clubbing, No Cyanosis and No Edema
Skin: Warm and Dry
Neuro: Awake, Alert and Other (Does not communicate well)
Data Reviewed
-
Medical Tests (Nuc Med, Echo etc): Report Reviewed by me and Discussed with Physician
Labs: Labs Reviewed by me and Discussed with Physician
[2023-10-13] MEDS: LIPITOR 80 MG PO (21:04)
[2023-10-13] MEDS: STERILE WATER FOR INJECTION 10 ML IV (21:04)
[2023-10-13] MEDS: ROCEPHIN 1000 MG IV (21:04)
[2023-10-13] MEDS: LOPRESSOR 50 MG PO (21:05)
[2023-10-13] MEDS: LIORESAL 5 MG PO (23:31)
--- NOTE | 2023-10-13 23:45 | PTCARENOTE ---
Patient transferred from IMU. Patient AAO x1 (baseline) but alert, on RA, in no acute distress. Patient is resting comfortably in bed. Seizure precautions in place. Bed alarm is on.
[2023-10-14 03:10] VITALS: BP 131/81
[2023-10-14 07:35] VITALS: BP 153/93
[2023-10-14 08:04] LABS: % Basophils 0.2 % (0-2); % Eosinophils 0.3 % (0-6); % Immature Granulocytes 0.5 % (0-0.5); % Lymphocytes 19.3 % (20.5-51.1); % Monocytes 8.7 % (1.7-9.3); Absolute Lymphocytes 1.7 10^3/uL (1.2-3.4); Absolute Monocytes 0.8 10^3/uL (0.1-0.6); Absolute Neutrophils 6.3 10^3/uL (1.4-6.5); Hematocrit 31.9 % (37.0-47.0); Hemoglobin 11.4 g/dL (12.0-16.0); Mean Corp Hgb Conc. 35.7 g/dL (33.0-37.0); Mean Corpuscular Hgb 28.4 pg (27.0-31.0); Mean Corpuscular Volume 79.4 fL (81.0-99.0); Mean Platelet Volume 8.6 fL (7.4-10.4); Nucleated Red Blood Cells % 0 %; Platelet Count 352 10^3/uL (130-400); Red Blood Cell Count 4.02 10^6/uL (4.20-5.40); Red Cell Dist. Width 15.1 % (11.5-14.5); White Blood Cell Count 8.9 10^3/uL (4.8-10.8)
--- NOTE | 2023-10-14 08:07 | PN.CDI ---
CDI
- -
CDI:
Physician Documentation Request
Admit Date: 10/11/23 22:24
Dear Doctor Mariusz,
Clinical Indicators:
Patient admitted with unresponsive episode; PMH includes Vascular Parkinsonism.
10/11 PT note, 'Pt is dependent for bed mobility/ transfers and has BLE contractures which is her baseline'
10/11 OT assessment: Dependent for self care routines. (grooming, toileting, UE/LE self care); 'Baseline matthias and assist from her spouse for self care.'
10/12 PN,'Muscle contracture- start baclofen BID and increase per response...Ambulatory Dysfunction//WC bound...Chronically bedbound...Severe contractures noted.'
Which, if any, of the following is a likely etiology of the above abnormalities and treatment rendered:
- Functional quadriplegia (complete immobility due to severe physical disability or frailty)
- Age related weakness or frailty - without complete immobility
- Ambulatory Dysfunction only
- Other (please specify):
Use of terms such as suspected, likely, concern for, or probable (associated with a specific diagnosis that is being evaluated, monitored, or treated as if it exists) are acceptable and can be coded in the inpatient setting, when documented at the
time of discharge.
Thank you,
DEE King RN
CDI Specialist
available via tiger text
Please use your independent medical judgment in providing your response.
--- NOTE | 2023-10-14 08:17 | W.PN.HOSP.TC ---
Addendum entered and electronically signed by Brady Vallecillo MD 10/14/23 22:42:
Attending Addendum-
I saw and evaluated the patient. I reviewed the resident�s note and agree with findings and plan as documented in the resident�s note. Sub: back to sinus no complaints wants to go home. seen with Full 12 point ROS reviewed and negative
except as documented Exam: Vitals reviewed in chart GEN- nad heart RRR lungs fine crackles at bases abd soft LE +1 b/l pitting edema MSK- extremities looser less contracted-Plan:
# Unresponsive Episode likely Seizure
- cont keppra
- EEG - nonspecific findings
- appreciate neuro input
# Recent SDH secondary to fall.
- PT OT
- cont eliquis
# Functional Quadriplegia
- much improved
- cont baclofen BID and increase per response
# Abnormal UA
- DC abx
# Atrial Fibrillation with Rapid Ventricular Response
- cards on board and appreciate input
- transitioned cardizem gtt to PO
- cont increased metoprolol and cardizem
- cont eliquis- ok with cards and neuro as high risk CVA, > 2 weeks from SDH
- watchman as OP
- stable for dc
# H/O Multiple CVA-
- PT OT speech eval
- cont eliquis
# Hyponatremia-
- hypovolemic
- repeat bmp as op
# Hypokalemia-
- resolved
- repeat BMP as op
# Nonischemic troponin elevation
- trend
# Ambulatory Dysfunction/WC bound
- poor prognosis
- would like to take patient home and not SNF
# Vascular Parkinsonism
- cont Sinemet
# HFpEF
- cont lasix
- daily weights and fluid restrict
# Benign Hypertension
- cont metoprolol and cardizem PO at increased doses
# Dementia
- cont memantine
# Insomnia-
- cont melatonin
Dispo DC home with POA poa refusing SNF and LTC
Time spent coordinating care, DC planning, review of DC plan of care with resident, transition of care, review of records, med rec/scripts sent electronically, consults, notes, d/w consultants, nursing, family, and CM� 35 mins
Original Note:
Today's Communication/Plan
-
Patient will be discharged with new medications. Patient will be going home with her who will take care of her.
Assessment / Plan
Assessment / Plan
Assessment-
72-year-old female with PMHx significant for A-fib on long-term Eliquis, multiple prior CVAs, recent subdural hematoma x 2 weeks ago, cerebral amyloid angiopathy with microvascular hemorrhages, parkinsonism and vascular dementia who presents to
emergency room for evaluation of an unresponsive episode. Diagnosed with self resolving acute encephalopathy.
Plan -
Acute encephalopathy-self resolving and short lasting.
Altered mental status, in and off of drowsiness, patient responsive upon arousal, oriented to herself but not oriented to time place or person.
Likely in the setting of focal seizure versus recent subdural hematoma versus multiple prior CVAs versus cerebral amyloid angiopathy versus vascular dementia.
Neurology consulted-on board, appreciate inputs.
Patient restarted on Keppra oral twice daily.
EEG obtained - 10/12/23-mild diffuse by hemispheric slowing with cortical dysfunction without any focal abnormality. (Prolonged EEG recording will be considered if concern for seizures remaining).
Neurology recommended no current absolute contraindication for restarting apixaban with SDH 2 weeks ago, no hemorrhagic evidence on CT head from 10/10.
Continue Keppra
A-fib with RVR
Cardiology on board, patient on metoprolol and diltiazem, dose bumped up
[id number] score-5, continue oral anticoagulation.
- Continue Cardizam 120mg BID
- increase metoprolol 50mg BID
- cont eliquis- ok with cards and neuro as high risk CVA, > 2 weeks from SDH
- watchman as OP
-ECG showed Normal Sinus Rhythm (10/13)
Hypertension-
-Per Cardiology
-Amlodipie discontinued.
Troponin Elevation-
0.036 upon admission resolving.
Likely secondary to A-fib versus acute encephalopathy.
Non-[place] troponin elevation.
Chronically bedbound-
Left hip and right hip stage I pressure ulcers noted.
Severe contractures noted
PT and OT recommended staying in bed.
Consider skeletal muscle relaxants from a.m. tomorrow for contractures.
is adamant about discharge to home. (SNF not an option.)
# - Ambulatory Dysfunction only
- Muscle Contracture due to Parkinson's. Continue Baclofen, improved muscle contraction
# Abnormal UA
- Urine culture, probable contamination
Leukocytosis-
Unclear etiology, no fevers, no SIRS criteria
Likely reactive secondary to acute encephalopathy.
Hyponatremia-
Serum sodium-134 on 10/11, 135 on 10/12.
Resolved
Continue monitoring sodium levels.
Hypokalemia-
Serum potassium-3.4 on 10/11, potassium repletion done.
Repeat serum K-3.8 on 10/12.
Trend potassium levels on daily basis.
Parkinson's-
Cont Sinemet
Constipation-
Docusate as needed as needed.
Diet-
Oral diet.
DVT prophylaxis-patient on Eliquis.
CODE STATUS-DNR.
Anticipated Discharge: Today
Subjective/Interval History
-
Date of Service: October 14, 2023
Patient had no adverse events overnight. Patient was not very communicative this morning.
Objective Data
-
Labs:
Laboratory Results
10/14/23
07:40
WBC 8.9
Hgb 11.4 L
Hct 31.9 L
Plt Count 352
Sodium Pending
Potassium Pending
Chloride Pending
Carbon Dioxide Pending
BUN Pending
Creatinine Pending
Glucose Pending
Calcium Pending
Total Bilirubin Pending
AST Pending
ALT Pending
Alkaline Phosphatase Pending
Vital Signs:
Vital Signs
Temp Pulse Resp BP Pulse Ox
97.8 F 77 14 131/81 97
10/14/23 03:10 10/14/23 03:10 10/14/23 03:10 10/14/23 03:10 10/14/23 03:10
I&O
10/13/23 10/14/23 10/15/23
06:59 06:59 06:59
Intake Total 660 / 660
Output Total 275 / 275
Balance -275 / -275 660 / 660
Review of Systems
-
Unable to obtain full review of systems at this time due to: Other (Patient was drowsy and not very communicative)
History Source: Patient
Physical Exam
-
General: No Apparent Distress and Other (Very little communication)
Respiratory: Clear to Auscultation and Non Labored Respirations
Cardiac: Regular Rhythm and S1/S2
Musculoskeletal: Other (Patient prefers laying on right side in a curled position)
Neuro: Other (Drowsy and non-communicative)
Data Reviewed
-
Labs: Labs Reviewed by me and Discussed with Physician
[2023-10-14 08:33] LABS: ALT (SGPT) 35 U/L (0-35); AST (SGOT) 40 U/L (14-36); Albumin 3.1 g/dl (3.5-5.0); Alkaline Phosphatase 80 U/L (38-126); Blood Urea Nitrogen 13 mg/dl (7-17); Calcium 9.1 mg/dl (8.4-10.2); Carbon Dioxide 25 mmol/L (22-30); Chloride 102 mmol/L (98-107); Estimated Creatinine Clearance 56 ml/min; Glucose 114 mg/dl (70-99); Potassium 3.6 mmol/L (3.5-5.1); Sodium 131 mmol/L (135-145); Total Bilirubin 0.5 mg/dl (0.2-1.3); Total Protein 5.1 g/dl (6.3-8.2); eGFR > 60.00
--- NOTE | 2023-10-14 08:35 | W.PN.CD ---
Today's Communication / Plan
-
Cont current meds
ECG
She is back in SR, we will sign off and set up f/u appt. Please call back with questions/concerns.
Impression / Plan
-
BACKGROUND: 72F with vascular parkinsonism, cerebral amyloid angiopathy, previous ICH, chronic aphasia, gait dysfunction, hypertension, CVA, paroxysmal atrial fibrillation (on apixaban), and recent fall with SDH ([facility]) who presented with a chief
complaint of significant acute alteration in mental status per her .
Atrial fibrillation with rapid response
-Spontaneous CV to SR, ECG now, cont metoprolol tartrate to 50 mg twice daily & discontinue short acting Cardizem and start Cardizem CD 120 twice daily
-Oral Anticoagulation: Apixaban 5 mg twice daily, a few doses held during prior hospitalization with SDH, CT stable this admission, resumed 10/12/23 PM
-[id number]: Score at least 5 (HTN, prior Stroke/TIA, age 65-74, female gender)
HTN, stop amlodipine to allow for more rate controlling agents
Change in mental status, believed to be acute encephalopathy per neurology
BMI 15.7, she is at her lowest documented weight
Vascular parkinsonism, on carbidopa/levodopa
Amyloid angiopathy with ICH
Ischemic CVA (07/2023), on single agent apixaban
Fall with SDH as above
SUBJECTIVE:
Sleeping no new complaints
Physical Exam
Vital Signs/Labs
Vital Signs
Temp Pulse Resp BP Pulse Ox
99.2 F 82 18 153/93 95
10/14/23 07:35 10/14/23 07:35 10/14/23 07:35 10/14/23 07:35 10/14/23 07:35
10/13/23 10/14/23 10/15/23
06:59 06:59 06:59
Actual Weight 91 lb 11.397 oz
10/14/23 07:40
10/14/23 07:40
Magnesium 1.8 mg/dl (1.6-2.3) 10/11/23 17:47
LAB Results
10/11/23 10/11/23
17:47 20:37
Troponin I 0.037 H* 0.026 D
Physical Exam
Constitutional: No acute distress
EENT: Anicteric
Cardiovascular: Rhythm & rate is regular and Pedal edema is absent
Respiratory: Respiratory effort normal and Lungs clear to auscul.
GI: Soft
Neuro/Psych: Alert and Oriented
Data Reviewed
-
Date of Service: October 14, 2023
EKG: Tracing Personally Visualized and interpreted (sr)
Echo: Report Reviewed by me
Labs: Labs Reviewed by me
[2023-10-14] MEDS: THERAGRAN 1 TABLET PO (08:59)
[2023-10-14] MEDS: LIORESAL 5 MG PO (08:59)
[2023-10-14] MEDS: NAMENDA 5 MG PO (08:59)
[2023-10-14] MEDS: METAMUCIL, KONSYL 1 PACKET PO (08:59)
[2023-10-14] MEDS: COLACE 100 MG PO (08:59)
[2023-10-14] MEDS: LOPRESSOR 50 MG PO (08:59)
[2023-10-14] MEDS: LASIX 20 MG PO (08:59)
[2023-10-14] MEDS: ELIQUIS 5 MG PO (08:59)
[2023-10-14] MEDS: CARDIZEM CD 120 MG PO (08:59)
[2023-10-14] MEDS: FOLVITE 1 MG PO (08:59)
[2023-10-14] MEDS: KEPPRA 500 MG PO (09:38)
[2023-10-14] MEDS: SINEMET 10-100 1 TABLET PO ×2 (10:33→14:02)
[2023-10-14 11:15] VITALS: BP 118/72
--- NOTE | 2023-10-14 12:38 | CM ---
CM met with Kaylie and her at bedside. Her is hoping for discharge today and advised that there are no new needs for discharge to home.
Plan: Discharge to home with no needs.
PCP: None per .
Pharmacy: [facility] [place]
[2023-10-14 13:35] VITALS: BMI 18.0
[2023-10-14 15:20] VITALS: BP 121/65
--- NOTE | 2023-10-14 16:59 | W.DCSUMMARY ---
Addendum entered and electronically signed by Brady Vallecillo MD 10/14/23 22:42:
Read, reviewed, and agree. See same day progress note for additional details.
Esequiel Vallecillo MD
Original Note:
Documented by User: Thu Vee MD, Resident 10/14/23 17:13
Discharge Summary
Discharge Data
Date of Admission: 10/11/23
Date of Discharge: 10/14/23
-
Pending Results: No
Hospital Course
Patient presented to ED on 10/10 for evaluation of unresponsive episode. History was obtained from at the bedside. Patient with recent SDH and was hospitalized at [facility]. She was on prophylactic Keppra for about one week, but had no
actual seizure activity. Family states that she was doing very well for the past 4 days or so. Today she seemed very tired and took a nap this afternoon. went to check on her and was unable to wake her. She was initially unresponsive.
Upon waking, she was staring into the distance and not tracking / focusing. Patient was brought to the ED for further evaluation.
In the ED, patient has gradually become more responsive and now appears at her recent baseline according to family. Patient was admitted for further evaluation and treatment. Presenting symptoms / history and underlying medical issues seemed most
c/w seizure activity. Patient was restarted on Keppra. Seizure precautions were taken and Neurology evaluation was done along with EEG. Patient was followed for any new / recurrent seizure activity. Patient was given Cardizem gtt for her Afib.
On 10/11, she was unable to be woken and then seemed to have a stare/glare without verbal communication. On exam, she was very drowsy and difficult to arouse. She had a recent hospitalization at [facility] for a right sided
subdural hematoma. For her atrial fibrillation with rapid response she continued to be on rate controlled on diltiazem drip, continue as she is not able to tolerate oral medication.
On 10/12 Patient was more vocal and able to respond. Her metoprolol was increased to tartrate to 50 mg twice daily and changed from short acting Cardizem to Cardizem CD 120 mg twice daily. Patient was also started on Baclofen for her muscle
contractions.
On 10/13, Patient was evaluated to be back to her baseline and fit to go home with her . Patient was given prescriptions for her new medications including Diltiazem 120mg BID, metoprolol 50mg BID, and baclofen 5mg.
Discharge Plan
-
Patient Disposition: Home (Routine Discharge)
Discharge Diagnosis/Procedures: Atrial Fibrillation with Rapid Ventricular Response
Unresponsive Episode Likely Seizure
Condition: Fair
Diet: No restrictions and As tolerated
Activity: As tolerated
Driving Restrictions: As prior to admission
Bathing Restrictions: None
Blood Work: BMP in a week
Referrals:
Sergio Frank MD [Active] -
Milad Zaragoza MD [Active] -
Additional Discharge Medication Instructions: Start New Medication: Baclofen 5mg twice a day, Diltiazem 120mg twice a day, Levetiracetam 500mg twice a day, metoprolol 50mg twice a day.
Prescriptions:
New
diltiazem HCl 120 mg Capsule,Extended Release 24hr
120 mg PO BID Qty: 30 0RF
baclofen 5 mg Tablet
5 mg PO BID Qty: 30 0RF
levetiracetam 500 mg tablet
500 mg PO BID 30 Days Qty: 60 0RF
metoprolol tartrate 50 mg Tablet
50 mg PO BID Qty: 60 0RF
Continued
folic acid 1 mg Tablet
1 mg PO DAILY Qty: 0 0RF
atorvastatin 80 mg Tablet
80 mg PO HS
acetaminophen 325 mg Tablet
650 mg PO BID
melatonin 3 mg Tablet
6 mg PO HS
therapeutic multivitamin Tablet
1 tab PO DAILY
carbidopa-levodopa 10-100 mg Tablet
1 tab PO TID@1000,1400,1800
Patient Comments:
10/11/23: patient's family is unaware of dosage change, despite most recent fill changing from 25-100mg tablets to 10-100mg tablets.
docusate sodium [Colace] 100 mg Capsule
100 mg PO BID
furosemide 20 mg Tablet
20 mg PO DAILY
memantine 5 mg Tablet
5 mg PO DAILY
psyllium husk 3.4 gram/6 gram Powder
3.4 g PO DAILY
Eliquis 5 mg tablet
5 mg PO BID
Discontinued
amlodipine 2.5 mg Tablet
2.5 mg PO HS
metoprolol tartrate 25 mg Tablet
25 mg PO BID
Discharge Orders:
Discharge Patient (As Directed); Ordered 10/14/23
Ordered By: Thu Vee
Discharge Date and Time
Discharge Date/Time: 10/14/23 17:13
Print Language: LAO

Documented by User: Brady Vallecillo MD 10/14/23 22:38
Discharge Summary
Discharge Data
Date of Admission: 10/11/23
Date of Discharge: 10/14/23
Discharge Plan
-
Patient Disposition: Home (Routine Discharge)
Discharge Diagnosis/Procedures: Atrial Fibrillation with Rapid Ventricular Response
Unresponsive Episode Likely Seizure
Condition: Fair
Diet: No restrictions and As tolerated
Activity: As tolerated
Driving Restrictions: As prior to admission
Bathing Restrictions: None
Blood Work: BMP in a week
Referrals:
Sergio Frank MD [Active] -
Milad Zaragoza MD [Active] -
Additional Discharge Medication Instructions: Start New Medication: Baclofen 5mg twice a day, Diltiazem 120mg twice a day, Levetiracetam 500mg twice a day, metoprolol 50mg twice a day.
Prescriptions:
New
diltiazem HCl 120 mg Capsule,Extended Release 24hr
120 mg PO BID Qty: 30 0RF
baclofen 5 mg Tablet
5 mg PO BID Qty: 30 0RF
levetiracetam 500 mg tablet
500 mg PO BID 30 Days Qty: 60 0RF
metoprolol tartrate 50 mg Tablet
50 mg PO BID Qty: 60 0RF
Continued
folic acid 1 mg Tablet
1 mg PO DAILY Qty: 0 0RF
atorvastatin 80 mg Tablet
80 mg PO HS
acetaminophen 325 mg Tablet
650 mg PO BID
melatonin 3 mg Tablet
6 mg PO HS
therapeutic multivitamin Tablet
1 tab PO DAILY
carbidopa-levodopa 10-100 mg Tablet
1 tab PO TID@1000,1400,1800
Patient Comments:
10/11/23: patient's family is unaware of dosage change, despite most recent fill changing from 25-100mg tablets to 10-100mg tablets.
docusate sodium [Colace] 100 mg Capsule
100 mg PO BID
furosemide 20 mg Tablet
20 mg PO DAILY
memantine 5 mg Tablet
5 mg PO DAILY
psyllium husk 3.4 gram/6 gram Powder
3.4 g PO DAILY
Eliquis 5 mg tablet
5 mg PO BID
Discontinued
amlodipine 2.5 mg Tablet
2.5 mg PO HS
metoprolol tartrate 25 mg Tablet
25 mg PO BID
Discharge Orders:
Discharge Patient (As Directed); Ordered 10/14/23
Ordered By: Thu Vee
Discharge Date and Time
Discharge Date/Time: 10/14/23 17:13
Print Language: LAO
== END 2023-10-14 17:13 | disposition home or self-care (01) | DRG 100 ==
LOC: 4 EAST ACU 22:24
PROVIDERS: Clinical Nurse Specialist Family Health; Emergency Medicine; ADMITTING PHYSICIAN Hospitalist; ATTENDING PHYSICIAN Family Medicine; EMERGENCY PHYSICIAN Emergency Medicine; OTHER PHYSICIAN Internal Medicine Cardiovascular Disease; OTHER PHYSICIAN Student in an Organized Health Care Education/Training Program
DX: R56.9 Unspecified convulsions (principal); R53.2 Functional quadriplegia; E85.4 Organ-limited amyloidosis; F01.B18 Vascular dementia, moderate, with other behavioral disturbance; F01.B4 Vascular dementia, moderate, with anxiety; N39.0 Urinary tract infection, site not specified; R47.01 Aphasia; G93.40 Encephalopathy, unspecified; E44.1 Mild protein-calorie malnutrition; Z68.1 Body mass index [BMI] 19.9 or less, adult; E87.1 Hypo-osmolality and hyponatremia; R53.1 Weakness; R15.9 Full incontinence of feces; R32 Unspecified urinary incontinence; I48.0 Paroxysmal atrial fibrillation; E78.00 Pure hypercholesterolemia, unspecified; G47.00 Insomnia, unspecified; I10 Essential (primary) hypertension; I68.0 Cerebral amyloid angiopathy; G21.4 Vascular parkinsonism; E87.6 Hypokalemia; D72.829 Elevated white blood cell count, unspecified; L89.221 Pressure ulcer of left hip, stage 1; L89.211 Pressure ulcer of right hip, stage 1; R79.89 Other specified abnormal findings of blood chemistry; K59.00 Constipation, unspecified; E86.1 Hypovolemia; R26.2 Difficulty in walking, not elsewhere classified; Z66 Do not resuscitate; Z79.01 Long term (current) use of anticoagulants; Z86.73 Personal history of transient ischemic attack (TIA), and cerebral infarction without residual deficits; Z87.891 Personal history of nicotine dependence; Z91.81 History of falling; Z11.52 Encounter for screening for COVID-19; Z74.01 Bed confinement status
CPT/HCPCS: 70450; 71046; 80053; 81003; 81015; 83605; 83735; 84484; 85025; 87086; 87811; 92526; 92610; 93005; 95816; 96361; 96374; 96375; 97163; 97167; 99285

== ENCOUNTER → 2023-10-20 12:36 | Outpatient (REF) | payer OTHER, SELFPAY | LOC: WOUND 12:36 | PROVIDERS: ATTENDING PHYSICIAN Surgery; FAMILY PHYSICIAN Internal Medicine | DX: L89.216 Pressure-induced deep tissue damage of right hip (principal); Z86.73 Personal history of transient ischemic attack (TIA), and cerebral infarction without residual deficits; G20.B2 Parkinson's disease with dyskinesia, with fluctuations; R41.0 Disorientation, unspecified; I10 Essential (primary) hypertension | CPT/HCPCS: 99204 ==

== ENCOUNTER 2023-10-30 21:39 | Emergency (ER) | payer OTHER, SELFPAY ==
[2023-10-30 21:42] VITALS: BP 146/79
[2023-10-30 22:46] LABS: % Basophils 0.4 % (0-2); % Eosinophils 0.7 % (0-6); % Immature Granulocytes 0.5 % (0-0.5); % Lymphocytes 20.6 % (20.5-51.1); % Monocytes 7.4 % (1.7-9.3); % Neutrophils 70.4 % (42.2-75.2); Absolute Eosinophils 0.1 10^3/uL (0-0.7); Absolute Immature Granulocytes 0.1 10^3/uL (0-0.05); Absolute Lymphocytes 1.9 10^3/uL (1.2-3.4); Absolute Monocytes 0.7 10^3/uL (0.1-0.6); Absolute Neutrophils 6.5 10^3/uL (1.4-6.5); Hematocrit 32.5 % (37.0-47.0); Hemoglobin 11.5 g/dL (12.0-16.0); Mean Corp Hgb Conc. 35.4 g/dL (33.0-37.0); Mean Corpuscular Hgb 28.2 pg (27.0-31.0); Mean Corpuscular Volume 79.7 fL (81.0-99.0); Mean Platelet Volume 8.4 fL (7.4-10.4); Nucleated Red Blood Cells % 0 %; Platelet Count 398 10^3/uL (130-400); Red Blood Cell Count 4.08 10^6/uL (4.20-5.40); Red Cell Dist. Width 14.6 % (11.5-14.5); White Blood Cell Count 9.2 10^3/uL (4.8-10.8)
[2023-10-30 22:48] VITALS: BP 141/66
[2023-10-30 23:13] LABS: ALT (SGPT) 31 U/L (0-35); AST (SGOT) 32 U/L (14-36); Albumin 3.6 g/dl (3.5-5.0); Alkaline Phosphatase 86 U/L (38-126); Blood Urea Nitrogen 20 mg/dl (7-17); Calcium 9.3 mg/dl (8.4-10.2); Carbon Dioxide 26 mmol/L (22-30); Chloride 102 mmol/L (98-107); Glucose 102 mg/dl (70-99); Potassium 3.6 mmol/L (3.5-5.1); Sodium 135 mmol/L (135-145); Total Bilirubin 0.5 mg/dl (0.2-1.3); Total Protein 5.7 g/dl (6.3-8.2); eGFR > 60.00
--- NOTE | 2023-10-30 23:14 | ED.GENMED ---
History of Present Illness
<Melissa Hernandez NP - Last Filed: 11/02/23 16:00>
General
Chief Complaint: Urinary Symptoms
Source: spouse
Exam Limitations: none
Time Seen by Provider: 10/30/23 21:51
Nursing documentation reviewed up to this point in time: agreed with
History of Present Illness
History of Present Illness:
Spouse reports no urine output all day. He states she is incontinent of urine and stool. SHe has not had a wet depends all day. Denies fever/chills, n/v/d. Eating and drinking normally. No prior history of same
Past History
<Melissa Hernandez NP - Last Filed: 11/02/23 16:00>
Past History
ED Past Medical History: Arrthythmia (Atrial fib), CVA (Intracerebral bleed/CVA; additional stroke July 2023), HTN, Hypercholesterolemia, Psychiatric (Anxiety) and Other (Vascular dementia, Brain hemorrhage, Vascular Parkinsons, UTI, Anemia, Cerebral
amyloid angiopathy); Negative Asthma or NIDDM
ED Past Surgical History: Orthopedic (Ankle repair, Right hip fracture ) and Other (Brain shunt with removal)
Social History
Tobacco: Former smoker
Alcohol: None
Personal:
Living: with family
Family History
Family History: Other (Reviewed and noncontributory)
Review of Systems
<Melissa Hernandez NP - Last Filed: 11/02/23 16:00>
Review of Systems
Allergies reviewed?: Yes
All Other Systems: ROS reviewed and negative except as documented in HPI and ROS
Constitutional: Reports no symptoms
EENT: Reports no symptoms
Respiratory: Reports no symptoms
Cardiac: Reports no symptoms
ABD/GI: Reports no symptoms
: Reports difficulty voiding
Musculoskeletal: Reports no symptoms
Skin: Reports no symptoms
Neurological: Reports no symptoms
Psychiatric: Reports no symptoms
Phy Exam
<Melissa Hernandez NP - Last Filed: 11/02/23 16:00>
General Physical Exam
General Presentation: well appearing and no apparent distress
General age: appears stated age
General Skin: warm and dry
General Habitus: debilitated and frail
General Mental: alert
General Hydration: appears well hydrated
Cardiovascular Exam
Cardiovascular Exam: regular rate/rhythm and no edema
Gastrointestinal Exam
Gastrointestinal Exam: normal bowel sounds, non tender, soft, no organomegaly, non distended and no cva tenderness
Musculoskeletal Exam
Musculoskeletal Exam: full ROM and neuro vasc intact
Skin Exam
Skin Exam: normal color, warm/dry and no rash
Psychiatric Exam
Psychiatric Exam: normal mood/affect
Course
<Melissa Hernandez NP - Last Filed: 11/02/23 16:00>
Orders/Labs/Results
Orders:
Orders
10/30/23 21:57
Bladder Scan- Treatment ONCE
10/30/23 22:39
Complete Blood Count/With Diff Urgent
Comprehensive Metabolic Panel Urgent
10/30/23 22:54
Abdomen Xray - 1 View [CR Abdomen - 1 View] Urgent
Comment:
Reason For Exam: constipation
10/30/23 23:38
Urinalysis Reflex To Culture Urgent
Date Specimen was Collected: 10/30/23
Time Specimen was Collected: 23:36
Urine Microscopic Reflex Cult Urgent
Urine Culture Urgent
CAIT Source: U
Specimen Description:
Date Specimen was Collected: 10/30/23
Time Specimen was Collected: 23:36
10/31/23 00:57
Cephalexin Monohydrate [Keflex] 500 mg PO NOW STA
10/31/23 01:25
Cephalexin Monohydrate [Keflex] 500 mg .ROUTE .[facility]
Abnormal Lab Results
10/30/23 10/30/23
22:39 23:38
RBC 4.08 L 10^6/uL
(4.20-5.40)
Hgb 11.5 L g/dL
(12.0-16.0)
Hct 32.5 L %
(37.0-47.0)
MCV 79.7 L fL
(81.0-99.0)
RDW 14.6 H %
(11.5-14.5)
Abs Immat Gran (auto) 0.1 H 10^3/uL
(0-0.05)
Absolute Monos (auto) 0.7 H 10^3/uL
(0.1-0.6)
BUN 20 H mg/dl
(7-17)
Creatinine 0.5 L mg/dL
(0.6-1.0)
Glucose 102 H mg/dl
(70-99)
Total Protein 5.7 L g/dl
(6.3-8.2)
Leukocyte Esterase Rfl 2+ A
(Negative)
Urine RBC 3-6 A /HPF
(0-2)
Urine WBC (Reflex) >100 A /HPF
(0-5)
Urine Bacteria (Reflex) Many A
(Negative)
10/30/23 22:39
10/30/23 22:39
Vital Signs
Initial and Last Documented VS:
Initial Vital Signs
Temp Pulse Resp BP Pulse Ox
97.5 F 87 18 146/79 95
10/30/23 21:42 10/30/23 21:42 10/30/23 21:42 10/30/23 21:42 10/30/23 21:42
Last Documented Vital Signs
Temp Pulse Resp BP Pulse Ox
97.5 F 78 16 154/58 99
10/30/23 21:42 10/31/23 01:37 10/31/23 01:37 10/31/23 01:37 10/31/23 01:37
<Anjali Watts MD - Last Filed: 10/31/23 01:01>
Orders/Labs/Results
Orders:
Orders
10/30/23 21:57
Bladder Scan- Treatment ONCE
10/30/23 22:39
Complete Blood Count/With Diff Urgent
Comprehensive Metabolic Panel Urgent
10/30/23 22:54
Abdomen Xray - 1 View [CR Abdomen - 1 View] Urgent
Comment:
Reason For Exam: constipation
10/30/23 23:38
Urinalysis Reflex To Culture Urgent
Date Specimen was Collected: 10/30/23
Time Specimen was Collected: 23:36
Urine Microscopic Reflex Cult Urgent
Urine Culture Urgent
CAIT Source: U
Specimen Description:
Date Specimen was Collected: 10/30/23
Time Specimen was Collected: 23:36
10/31/23 00:57
Cephalexin Monohydrate [Keflex] 500 mg PO NOW STA
10/31/23 01:25
Cephalexin Monohydrate [Keflex] 500 mg .ROUTE .[facility]
Abnormal Lab Results
10/30/23 10/30/23
22:39 23:38
RBC 4.08 L 10^6/uL
(4.20-5.40)
Hgb 11.5 L g/dL
(12.0-16.0)
Hct 32.5 L %
(37.0-47.0)
MCV 79.7 L fL
(81.0-99.0)
RDW 14.6 H %
(11.5-14.5)
Abs Immat Gran (auto) 0.1 H 10^3/uL
(0-0.05)
Absolute Monos (auto) 0.7 H 10^3/uL
(0.1-0.6)
BUN 20 H mg/dl
(7-17)
Creatinine 0.5 L mg/dL
(0.6-1.0)
Glucose 102 H mg/dl
(70-99)
Total Protein 5.7 L g/dl
(6.3-8.2)
Leukocyte Esterase Rfl 2+ A
(Negative)
Urine RBC 3-6 A /HPF
(0-2)
Urine WBC (Reflex) >100 A /HPF
(0-5)
Urine Bacteria (Reflex) Many A
(Negative)
10/30/23 22:39
10/30/23 22:39
Vital Signs
Initial and Last Documented VS:
Initial Vital Signs
Temp Pulse Resp BP Pulse Ox
97.5 F 87 18 146/79 95
10/30/23 21:42 10/30/23 21:42 10/30/23 21:42 10/30/23 21:42 10/30/23 21:42
Last Documented Vital Signs
Temp Pulse Resp BP Pulse Ox
97.5 F 78 16 154/58 99
10/30/23 21:42 10/31/23 01:37 10/31/23 01:37 10/31/23 01:37 10/31/23 01:37
<Melissa Hernandez NP - Last Filed: 11/02/23 16:00>
*Critical Care Note
Total Time (30-74mins, 75-104mins- exclusive of procedures): Not Applicable
ED Attending Note
<Melissa Hernandez NP - Last Filed: 11/02/23 16:00>
-
Portions of this chart may have been created with voice recognition software.� Occasional wrong word or��sound alike� substitutions may have occurred due to the inherent limitations of voice recognition software.
<Anjali Watts MD - Last Filed: 10/31/23 01:01>
ED Attending Note
Patient seen and examined by attending physician: Yes
I performed the substantive portion of visit, reviewed & personally made and approve the management plan that is documented in note by myself or CORTNEY.: Yes
ED Attending Note:
73-year-old woman presenting to the emergency department with urinary incontinence and decreased urine output. Patient's spouse states that this happens when she has a UTI. Denies any fevers or chills. She has been more constipated than before
that she has been passing gas. Vitals here are unremarkable and exam does show a soft nondistended abdomen. Blood work is unremarkable. Urine does appear infected. Based on prior culture she is sensitive to Keflex. Will give first dose of
antibiotics here. Strict return precautions given.
Discharge Plan
Departure
Patient Disposition: Home (Routine Discharge)
Date of Disposition: 10/31/23
Time of Disposition: 00:58
Patient with high blood pressure during this ER visit?: No
Discharge Problem:
Acute UTI
Instructions: Urinary Tract Infection, Adult (DC)
Prescriptions:
New
cephalexin 500 mg capsule
500 mg PO BID 5 Days Qty: 10 0RF
No Action
folic acid 1 mg Tablet
1 mg PO DAILY Qty: 0 0RF
atorvastatin 80 mg Tablet
80 mg PO HS
acetaminophen 325 mg Tablet
650 mg PO BID
melatonin 3 mg Tablet
6 mg PO HS
therapeutic multivitamin Tablet
1 tab PO DAILY
carbidopa-levodopa 10-100 mg Tablet
1 tab PO TID@1000,1400,1800
Patient Comments:
10/11/23: patient's family is unaware of dosage change, despite most recent fill changing from 25-100mg tablets to 10-100mg tablets.
docusate sodium [Colace] 100 mg Capsule
100 mg PO BID
furosemide 20 mg Tablet
20 mg PO DAILY
memantine 5 mg Tablet
5 mg PO DAILY
psyllium husk 3.4 gram/6 gram Powder
3.4 g PO DAILY
Eliquis 5 mg tablet
5 mg PO BID
diltiazem HCl 120 mg Capsule,Extended Release 24hr
120 mg PO BID Qty: 30 0RF
baclofen 5 mg Tablet
5 mg PO BID Qty: 30 0RF
levetiracetam 500 mg tablet
500 mg PO BID 30 Days Qty: 60 0RF
metoprolol tartrate 50 mg Tablet
50 mg PO BID Qty: 60 0RF
Referrals:
Milad Zaragoza MD [Family Provider] -
Activity Restrictions/Additional Instructions:
You were seen in the Emergency Department today. While you were here you were found to have a urine infection. Please take the antibiotics as prescribed
We would like for you to follow up with your primary care physician for further evaluation. If you experience fever, worsening of your symptoms, or develop any other new or concerning symptoms, please return to the Emergency Department immediately.
Please see the attached sheet for additional information.
Interventions
Interventions:
*Risk Screen - Suicide Last Done: 10/30/23 21:42
*General Assessment Last Done: 10/30/23 21:42
*Neglect/Abuse Screening Last Done: 10/30/23 21:42
ED- Fall Risk Assessment Last Done: 10/31/23 01:38
*Nursing Disposition Last Done: 10/31/23 01:38
ED-Female Genitourinary Assessment Last Done: 10/30/23 22:48
Discharge Date and Time
Discharge Date/Time: 10/31/23 01:38
Print Language: URDU
[2023-10-30 23:49] LABS: Urine Albumin Negative (Neg - Trace); Urine Bilirubin Negative (Negative); Urine Character Slightly Cloudy (Clear); Urine Color Yellow; Urine Glucose Negative (Negative); Urine Ketone Negative (Negative); Urine Leukocyte 2+ (Negative); Urine Nitrite Negative (Negative); Urine Occult Blood Negative (Negative); Urine Urobilinogen Negative (Neg - 1+)
[2023-10-30 23:55] VITALS: BP 135/64
[2023-10-31 00:09] LABS: Urine Bacteria Many (Negative); Urine Squamous Cell >30 /LPF (Few); Urine Urothelial Cell >30 /LPF (FEW); Urine White Cell >100 /HPF (0-5)
[2023-10-31] MEDS: KEFLEX 500 MG PO (01:26)
[2023-10-31 01:37] VITALS: BP 154/58
== END 2023-10-31 01:38 | disposition home or self-care (01) ==
LOC: EMR 21:39
PROVIDERS: Nurse Practitioner; EMERGENCY PHYSICIAN Student in an Organized Health Care Education/Training Program; FAMILY PHYSICIAN Internal Medicine
DX: N39.0 Urinary tract infection, site not specified (principal); Z87.891 Personal history of nicotine dependence
CPT/HCPCS: 99284; 74018; 80053; 81003; 81015; 85025; 87086

== ENCOUNTER → 2023-11-03 14:11 | Outpatient (REF) | payer OTHER, SELFPAY ==
--- NOTE | 2023-11-10 10:45 | WATCHMAN ---
Watchman
Wathcman Procedure
Referred by:: Reggie
Date of Referral:: 10/21/23
[id number] Score
Age in Years (65=0, 65-74=1, >/=75=2): 65-74
Sex (Female=+1): Female
Congestive Heart Failure History (Yes=+1): No
Hypertension History (Yes=+1): Yes
Stroke/TIA/Thromboembolism History (Yes=+2): Yes
Vascular Disease History (Yes=+1): Yes
Diabetes Mellitus (Yes=+1): No
Score: 6
Anticoagulation Recommendations: Recommend anticoagulation (as validated in nonvalvular fib)
HASBLED Score
Hypertenstion (uncontrolled >160mmHG systolic): No
Renal disease (dialysis, transplant, Cr >2.26mg/dL or >200umol/L): No
Liver disease (cirrhosis or bilirubin >2x normal w/ AST/ALT/AP >3x normal: No
Stroke history: Yes
Prior major bleeding or predisposition to bleeding: Yes
Labile INR(unsable/high INRs,time in therapeutic range <60%): No
Age >65: Yes
Medication usage predisposing to bleeding(ASA, NSAIDS): No
Alcohol use (>/= 8 drinks/week): No
Score: 3
Risk: Alternatives to anticoagulation should be considered: Patient is at high risk for major bleeding
Physician Visits
Burning Machine Operator:: Reggie
Date of Visit:: 10/21/23
PCP:: Milad Zaraogza
Assessment
Assessment:: 10/21/2023: Consult visit for watchman with Dr. Paredes.
11/03/2023: CT Amrita completed.
== END ==
LOC: RAD 14:11
PROVIDERS: ATTENDING PHYSICIAN Internal Medicine Cardiovascular Disease; FAMILY PHYSICIAN Internal Medicine
DX: Z86.73 Personal history of transient ischemic attack (TIA), and cerebral infarction without residual deficits (principal)
CPT/HCPCS: 75572; Q9967

== ENCOUNTER 2023-11-20 16:47 | Emergency (ER) | payer OTHER, SELFPAY ==
[2023-11-20 16:50] VITALS: BP 140/75
[2023-11-20 17:04] LABS: % Basophils 0.6 % (0-2); % Eosinophils 0.2 % (0-6); % Immature Granulocytes 0.3 % (0-0.5); % Lymphocytes 11.8 % (20.5-51.1); % Monocytes 7.5 % (1.7-9.3); % Neutrophils 79.6 % (42.2-75.2); Absolute Basophils 0.1 10^3/uL (0-0.2); Absolute Monocytes 0.7 10^3/uL (0.1-0.6); Absolute Neutrophils 6.8 10^3/uL (1.4-6.5); Hematocrit 37.7 % (37.0-47.0); Hemoglobin 12.6 g/dL (12.0-16.0); Mean Corp Hgb Conc. 33.4 g/dL (33.0-37.0); Mean Corpuscular Hgb 27.4 pg (27.0-31.0); Mean Platelet Volume 8.4 fL (7.4-10.4); Nucleated Red Blood Cells % 0 %; Platelet Count 347 10^3/uL (130-400); Red Cell Dist. Width 14.7 % (11.5-14.5); White Blood Cell Count 8.6 10^3/uL (4.8-10.8)
[2023-11-20 17:19] LABS: ALT (SGPT) < 10 U/L (0-35); AST (SGOT) 28 U/L (14-36); Albumin 4.1 g/dl (3.5-5.0); Alkaline Phosphatase 89 U/L (38-126); Blood Urea Nitrogen 18 mg/dl (7-17); Calcium 9.9 mg/dl (8.4-10.2); Carbon Dioxide 27 mmol/L (22-30); Chloride 101 mmol/L (98-107); Glucose 103 mg/dl (70-99); Potassium 3.4 mmol/L (3.5-5.1); Sodium 142 mmol/L (135-145); Total Bilirubin 0.7 mg/dl (0.2-1.3); Total Protein 6.4 g/dl (6.3-8.2); eGFR > 60.00
--- NOTE | 2023-11-20 17:41 | ED.GENMED ---
Addendum entered and electronically signed by Alexa Flynn PA-C 11/24/23 15:46:
enterococcus urine culture
spoke with who is caregiver
doing well, better
no fever
no symptoms
but sh eis always tired from parkinsons meds, she maribel better than when here
he would prefer rather than to get antoher Ua, to treat with different abx
will do macrobid for now, hold levaquin since pt doesn't sound symptomatic
Original Note:
History of Present Illness
<Karo Joseph PA-C - Last Filed: 11/21/23 10:14>
General
Chief Complaint: Change in Mental Status
Source: spouse
Exam Limitations: dementia
Time Seen by Provider: 11/20/23 17:22
History of Present Illness
History of Present Illness:
73yoF with a history of multiple prior CVAs, vascular dementia, Parkinson's, atrial fibrillation, hypertension, and hyperlipidemia presenting with her for evaluation of generalized weakness. Patient was reportedly agitated this morning and
did not want to get ready for the day. states that she has seemed weaker than normal and patient requested to come to the hospital today which is very unusual for her. He denies any true confusion compared to baseline. also states
that patient did not eat today and that she may be dehydrated. also reports a history of frequent UTIs. No fevers, chills, vomiting, diarrhea. Of note, patient received a COVID vaccine yesterday but she has never had these side effects with
her prior vaccines. She is wheelchair bound at baseline.
Past History
<Karo Joseph PA-C - Last Filed: 11/21/23 10:14>
Past History
ED Past Medical History: Arrthythmia (Atrial fib), CVA (Intracerebral bleed/CVA; additional stroke July 2023), HTN, Hypercholesterolemia, Psychiatric (Anxiety) and Other (Vascular dementia, Brain hemorrhage, Vascular Parkinsons, UTI, Anemia, Cerebral
amyloid angiopathy); Negative Asthma or NIDDM
ED Past Surgical History: Orthopedic (Ankle repair, Right hip fracture ) and Other (Brain shunt with removal)
Social History
Tobacco: Former smoker
Alcohol: None
Personal:
Living: with family
Family History
Family History: Other (Reviewed and noncontributory)
Phy Exam
<Karo Joseph PA-C - Last Filed: 11/21/23 10:14>
General Physical Exam
General Presentation: well appearing and no apparent distress
General Skin: warm and dry
General Habitus: cachetic and elderly
Cardiovascular Exam
Cardiovascular Exam: regular rate/rhythm
Pulmonary Exam
Pulmonary Exam: lungs clear, no respiratory distress, no crackles and no wheezing
Gastrointestinal Exam
Gastrointestinal Exam: non tender, soft and non distended
Neurological Exam
Neurological Exam: alert and other (Oriented to person and place. Not oriented to time. )
Musculoskeletal Exam
Musculoskeletal Exam: other (Contractures of extremities)
Skin Exam
Skin Exam: normal color, warm/dry and other (Pressure wounds to bilateral greater tronchanter region with blanchable erythema. No open wound or signs of infection.)
Psychiatric Exam
Psychiatric Exam: normal mood/affect
Course
<Karo Joseph PA-C - Last Filed: 11/21/23 10:14>
Orders/Labs/Results
Orders:
Orders
11/20/23 16:56
Complete Blood Count/With Diff Urgent
Comprehensive Metabolic Panel Urgent
11/20/23 17:36
Electrocardiogram (*1) Urgent
Reason for Study: Fatigue / Weakness
CT Head W/o Iv Contrast Urgent
Comment:
Reason For Exam: AMS
Cardiac Monitoring- Treatment ONCE
EKG- Treatment ONCE
11/20/23 18:38
0.9% Sodium Chloride 500 ml [Nss] 500 ml IV BOLUS
11/20/23 18:39
Potassium Chloride 10% Elixir [KCl Elixir] 20 meq PO NOW STA
11/20/23 19:57
Urinalysis Reflex To Culture Urgent
Date Specimen was Collected: 11/20/23
Time Specimen was Collected: 19:54
Urine Microscopic Reflex Cult Urgent
Urine Culture Urgent
CAIT Source: U
Specimen Description:
Date Specimen was Collected: 11/20/23
Time Specimen was Collected: 19:54
11/20/23 21:19
Sulfamethox./Trimethoprim Ds [Bactrim Ds 800 mg/160 mg] 1 tablet PO NOW STA
Abnormal Lab Results
11/20/23 11/20/23
16:56 19:57
RDW 14.7 H %
(11.5-14.5)
Absolute Neuts (auto) 6.8 H 10^3/uL
(1.4-6.5)
Absolute Lymphs (auto) 1.0 L 10^3/uL
(1.2-3.4)
Absolute Monos (auto) 0.7 H 10^3/uL
(0.1-0.6)
Neutrophils % 79.6 H %
(42.2-75.2)
Lymphocytes % 11.8 L %
(20.5-51.1)
Potassium 3.4 L mmol/L
(3.5-5.1)
BUN 18 H mg/dl
(7-17)
Creatinine 0.5 L mg/dL
(0.6-1.0)
Glucose 103 H mg/dl
(70-99)
Ur Occult Blood Reflex 1+ A
(Negative)
Leukocyte Esterase Rfl 2+ A
(Negative)
Urine WBC (Reflex) >100 A /HPF
(0-5)
11/20/23 16:56
11/20/23 16:56
Vital Signs
Initial and Last Documented VS:
Initial Vital Signs
Temp Pulse Resp BP Pulse Ox
97.2 F 89 16 140/75 98
11/20/23 16:50 11/20/23 16:50 11/20/23 16:50 11/20/23 16:50 11/20/23 16:50
Last Documented Vital Signs
Temp Pulse Resp BP Pulse Ox
97.2 F 89 16 146/69 100
11/20/23 16:50 11/20/23 22:00 11/20/23 22:00 11/20/23 21:34 11/20/23 18:45
<Denita Pringle, DIRECTOR OF RESERVATIONS - Last Filed: 11/20/23 23:13>
Orders/Labs/Results
Orders:
Orders
11/20/23 16:56
Complete Blood Count/With Diff Urgent
Comprehensive Metabolic Panel Urgent
11/20/23 17:36
Electrocardiogram (*1) Urgent
Reason for Study: Fatigue / Weakness
CT Head W/o Iv Contrast Urgent
Comment:
Reason For Exam: AMS
Cardiac Monitoring- Treatment ONCE
EKG- Treatment ONCE
11/20/23 18:38
0.9% Sodium Chloride 500 ml [Nss] 500 ml IV BOLUS
11/20/23 18:39
Potassium Chloride 10% Elixir [KCl Elixir] 20 meq PO NOW STA
11/20/23 19:57
Urinalysis Reflex To Culture Urgent
Date Specimen was Collected: 11/20/23
Time Specimen was Collected: 19:54
Urine Microscopic Reflex Cult Urgent
Urine Culture Urgent
CAIT Source: U
Specimen Description:
Date Specimen was Collected: 11/20/23
Time Specimen was Collected: 19:54
11/20/23 21:19
Sulfamethox./Trimethoprim Ds [Bactrim Ds 800 mg/160 mg] 1 tablet PO NOW STA
Abnormal Lab Results
11/20/23 11/20/23
16:56 19:57
RDW 14.7 H %
(11.5-14.5)
Absolute Neuts (auto) 6.8 H 10^3/uL
(1.4-6.5)
Absolute Lymphs (auto) 1.0 L 10^3/uL
(1.2-3.4)
Absolute Monos (auto) 0.7 H 10^3/uL
(0.1-0.6)
Neutrophils % 79.6 H %
(42.2-75.2)
Lymphocytes % 11.8 L %
(20.5-51.1)
Potassium 3.4 L mmol/L
(3.5-5.1)
BUN 18 H mg/dl
(7-17)
Creatinine 0.5 L mg/dL
(0.6-1.0)
Glucose 103 H mg/dl
(70-99)
Ur Occult Blood Reflex 1+ A
(Negative)
Leukocyte Esterase Rfl 2+ A
(Negative)
Urine WBC (Reflex) >100 A /HPF
(0-5)
11/20/23 16:56
11/20/23 16:56
Vital Signs
Initial and Last Documented VS:
Initial Vital Signs
Temp Pulse Resp BP Pulse Ox
97.2 F 89 16 140/75 98
11/20/23 16:50 11/20/23 16:50 11/20/23 16:50 11/20/23 16:50 11/20/23 16:50
Last Documented Vital Signs
Temp Pulse Resp BP Pulse Ox
97.2 F 89 16 146/69 100
11/20/23 16:50 11/20/23 22:00 11/20/23 22:00 11/20/23 21:34 11/20/23 18:45
<Karo Joseph PA-C - Last Filed: 11/21/23 10:14>
MDM/Problems Addressed
Differential Diagnosis Includes:
73yoF here with malaise. Hx of dementia, Parkinson's, and multiple prior strokes. worried that she may be dehydrated or have a UTI. Of note, she received a COVID vaccine yesterday. She is afebrile and hemodynamically stable. She is non-toxic
appearing. She is oriented to person and place but not time which states is baseline. Differential diagnosis includes but is not limited to: vaccine side effect, UTI, dehydration, electrolyte abnormality
Initial ED plan: CBC and CMP obtained in triage. Labs overall unremarkable. Potassium 3.4 and replacement ordered. Will check EKG, UA, and CT head. IV fluid bolus.
<Denita Pringle NP - Last Filed: 11/20/23 23:13>
MDM/Problems Addressed
Differential Diagnosis Includes:
73yoF here with malaise. Hx of dementia, Parkinson's, and multiple prior strokes. worried that she may be dehydrated or have a UTI. Of note, she received a COVID vaccine yesterday. She is afebrile and hemodynamically stable. She is non-toxic
appearing. She is oriented to person and place but not time which states is baseline. Differential diagnosis includes but is not limited to: vaccine side effect, UTI, dehydration, electrolyte abnormality
Initial ED plan: CBC and CMP obtained in triage. Labs overall unremarkable. Potassium 3.4 and replacement ordered. Will check EKG, UA, and CT head. IV fluid bolus.
U/A showing >100 WBC, 2+leukocytes, neg nitrites. Pt last few urine cultures were neg
<Karo Joseph PA-C - Last Filed: 11/21/23 10:14>
*EKG
Interpreted by ED Provider?: Yes
EKG Intrepretation Date: 11/20/23
Heart Rate: 75
Rate: normal
Rhythm: sinus
[place]: left axis deviation
Interval: normal interval
Ischemia: non-specific ST changes
<Denita Pringle DIRECTOR OF RESERVATIONS - Last Filed: 11/20/23 23:13>
*Critical Care Note
Total Time (30-74mins, 75-104mins- exclusive of procedures): Not Applicable
ED Attending Note
<Karo Joseph PA-C - Last Filed: 11/21/23 10:14>
-
Portions of this chart may have been created with voice recognition software.� Occasional wrong word or��sound alike� substitutions may have occurred due to the inherent limitations of voice recognition software.
Discharge Plan
Departure
Patient Disposition: Home (Routine Discharge)
Date of Disposition: 11/20/23
Time of Disposition: 21:01
Patient with high blood pressure during this ER visit?: No
Condition: Fair
Discharge Problem:
Generalized weakness, Pyuria
Instructions: Fatigue (DC)
Prescriptions:
New
sulfamethoxazole-trimethoprim [Bactrim DS] 800-160 mg tablet
1 tab PO BID Qty: 10 0RF
No Action
folic acid 1 mg Tablet
1 mg PO DAILY Qty: 0 0RF
atorvastatin 80 mg Tablet
80 mg PO HS
acetaminophen 325 mg Tablet
650 mg PO BID
melatonin 3 mg Tablet
6 mg PO HS
therapeutic multivitamin Tablet
1 tab PO DAILY
carbidopa-levodopa 10-100 mg Tablet
1 tab PO TID@1000,1400,1800
Patient Comments:
10/11/23: patient's family is unaware of dosage change, despite most recent fill changing from 25-100mg tablets to 10-100mg tablets.
docusate sodium [Colace] 100 mg Capsule
100 mg PO BID
furosemide 20 mg Tablet
20 mg PO DAILY
memantine 5 mg Tablet
5 mg PO DAILY
psyllium husk 3.4 gram/6 gram Powder
3.4 g PO DAILY
Eliquis 5 mg tablet
5 mg PO BID
diltiazem HCl 120 mg Capsule,Extended Release 24hr
120 mg PO BID Qty: 30 0RF
baclofen 5 mg Tablet
5 mg PO BID Qty: 30 0RF
levetiracetam 500 mg tablet
500 mg PO BID 30 Days Qty: 60 0RF
metoprolol tartrate 50 mg Tablet
50 mg PO BID Qty: 60 0RF
cephalexin 500 mg capsule
500 mg PO BID 5 Days Qty: 10 0RF
Referrals:
Milad Zaragoza MD [Family Provider] -
Nolan Lovell MD [Active] - Call in 1-3 days for appt
Activity Restrictions/Additional Instructions:
As we discussed, you may have 'sterile pyuria' which means you have white blood cells in the urine but no treatable bacteria needing antibiotics.
Until the final urine culture comes back, we will treat for presumptive infection and we can stop it if the culture is negative.
Please see your primary doctor or your Urologist in the next 7-10 days to discuss.
I sent a prescription to your pharmacy for Bactrim antibiotic.
You may call me Thursday between 9 a.m and 3 p.m. if you haven't heard from us by then. ([phone]) and ask for Edwina Day.
Return here if you develop fever, chills, vomiting or feeling sicker in any way
Interventions
Interventions:
*Risk Screen - Suicide Last Done: 11/20/23 20:22
*General Assessment Last Done: 11/20/23 20:22
*Neglect/Abuse Screening Last Done: 11/20/23 20:22
ED- Fall Risk Assessment Last Done: 11/20/23 20:24
*ED COVID-19 Vaccine History Last Done: 11/20/23 20:22
*Nursing Disposition Last Done: 11/20/23 22:38
ED- Pulmonary Assessment Last Done: 11/20/23 20:24
ED- Neurological Assessment Last Done: 11/20/23 20:24
ED- Cardiac Assessment Last Done: 11/20/23 20:24
ED Swallowing Screen Last Done: 11/20/23 20:26
Discharge Date and Time
Discharge Date/Time: 11/20/23 22:39
Print Language: [place]
[2023-11-20 17:50] VITALS: BP 93/63
[2023-11-20 18:00] VITALS: BP 111/62
[2023-11-20 19:00] VITALS: BP 138/82
[2023-11-20] MEDS: KCL ELIXIR 20 MEQ PO (19:12)
[2023-11-20] MEDS: NSS 500 IV (19:12)
[2023-11-20 20:22] LABS: Urine Albumin Trace (Neg - Trace); Urine Bilirubin Negative (Negative); Urine Character Very Cloudy (Clear); Urine Color Yellow; Urine Glucose Negative (Negative); Urine Ketone Negative (Negative); Urine Leukocyte 2+ (Negative); Urine Nitrite Negative (Negative); Urine Occult Blood 1+ (Negative); Urine Urobilinogen Negative (Neg - 1+)
[2023-11-20 21:09] LABS: Urine Squamous Cell >30 /LPF (Few); Urine White Cell >100 /HPF (0-5)
[2023-11-20] MEDS: BACTRIM DS 800 MG/160 MG 1 TABLET PO (21:31)
[2023-11-20 21:34] VITALS: BP 146/69
== END 2023-11-20 22:39 | disposition home or self-care (01) ==
LOC: EMR 16:47
PROVIDERS: Physician Assistant; EMERGENCY PHYSICIAN Emergency Medicine; FAMILY PHYSICIAN Internal Medicine
DX: R53.1 Weakness (principal); E78.00 Pure hypercholesterolemia, unspecified; I10 Essential (primary) hypertension; F01.50 Vascular dementia, unspecified severity, without behavioral disturbance, psychotic disturbance, mood disturbance, and anxiety; G20.A1 Parkinson's disease without dyskinesia, without mention of fluctuations; I48.91 Unspecified atrial fibrillation; Z86.73 Personal history of transient ischemic attack (TIA), and cerebral infarction without residual deficits; Z87.440 Personal history of urinary (tract) infections; Z87.891 Personal history of nicotine dependence; Z99.3 Dependence on wheelchair
CPT/HCPCS: 99284; 70450; 80053; 81003; 81015; 85025; 87077; 87086; 87186; 93005

== ENCOUNTER → 2023-12-01 13:52 | Outpatient (REF) | payer OTHER, SELFPAY | LOC: WOUND 13:52 | PROVIDERS: ATTENDING PHYSICIAN Surgery; FAMILY PHYSICIAN Internal Medicine | DX: L89.213 Pressure ulcer of right hip, stage 3 (principal); G20.B2 Parkinson's disease with dyskinesia, with fluctuations; R41.0 Disorientation, unspecified; I10 Essential (primary) hypertension; Z86.73 Personal history of transient ischemic attack (TIA), and cerebral infarction without residual deficits | CPT/HCPCS: 99213 ==

== ENCOUNTER → 2023-12-08 14:06 | Outpatient (REF) | payer OTHER, SELFPAY | LOC: WOUND 14:06 | PROVIDERS: ATTENDING PHYSICIAN Surgery; FAMILY PHYSICIAN Internal Medicine | DX: L89.213 Pressure ulcer of right hip, stage 3 (principal); Z86.73 Personal history of transient ischemic attack (TIA), and cerebral infarction without residual deficits; G20.B2 Parkinson's disease with dyskinesia, with fluctuations; R41.0 Disorientation, unspecified; I10 Essential (primary) hypertension | CPT/HCPCS: 99212 ==

== ENCOUNTER 2023-12-12 22:34 | Inpatient (IN) | payer OTHER, SELFPAY ==
[2023-12-12] VITALS (7 sets, daily range): BP systolic 118–142; BP diastolic 54–71
[2023-12-12 17:07] LABS: % Basophils 0.8 % (0-2); % Eosinophils 1.2 % (0-6); % Immature Granulocytes 0.3 % (0-0.5); % Lymphocytes 26.9 % (20.5-51.1); % Monocytes 7.2 % (1.7-9.3); % Neutrophils 63.6 % (42.2-75.2); Absolute Basophils 0.1 10^3/uL (0-0.2); Absolute Eosinophils 0.1 10^3/uL (0-0.7); Absolute Lymphocytes 2.1 10^3/uL (1.2-3.4); Absolute Monocytes 0.6 10^3/uL (0.1-0.6); Absolute Neutrophils 4.9 10^3/uL (1.4-6.5); Hematocrit 35.7 % (37.0-47.0); Hemoglobin 12.1 g/dL (12.0-16.0); Mean Corp Hgb Conc. 33.9 g/dL (33.0-37.0); Mean Corpuscular Hgb 27.6 pg (27.0-31.0); Mean Corpuscular Volume 81.3 fL (81.0-99.0); Mean Platelet Volume 8.5 fL (7.4-10.4); Nucleated Red Blood Cells % 0 %; Platelet Count 379 10^3/uL (130-400); Red Blood Cell Count 4.39 10^6/uL (4.20-5.40); Red Cell Dist. Width 14.7 % (11.5-14.5); White Blood Cell Count 7.7 10^3/uL (4.8-10.8)
[2023-12-12 17:26] LABS: ALT (SGPT) 23 U/L (0-35); AST (SGOT) 20 U/L (14-36); Albumin 3.9 g/dl (3.5-5.0); Alkaline Phosphatase 72 U/L (38-126); Blood Urea Nitrogen 20 mg/dl (7-17); Calcium 9.8 mg/dl (8.4-10.2); Carbon Dioxide 27 mmol/L (22-30); Chloride 105 mmol/L (98-107); Glucose 97 mg/dl (70-99); Potassium 3.7 mmol/L (3.5-5.1); Sodium 142 mmol/L (135-145); Total Bilirubin 0.5 mg/dl (0.2-1.3); eGFR > 60.00
[2023-12-12 17:32] LABS: Troponin I < 0.012 ng/ml
[2023-12-12 19:20] LABS: Urine Albumin Negative (Neg - Trace); Urine Bilirubin Negative (Negative); Urine Character Clear (Clear); Urine Color Yellow; Urine Glucose Negative (Negative); Urine Ketone Negative (Negative); Urine Leukocyte Negative (Negative); Urine Nitrite Negative (Negative); Urine Occult Blood Negative (Negative); Urine Specific Gravity 1.015 (<1.030); Urine Urobilinogen Negative (Neg - 1+)
[2023-12-12 19:39] LABS: COVID-19 Antigen Negative (Negative)
[2023-12-12 19:44] LABS: NT-proBNP 516 pg/ml
--- NOTE | 2023-12-12 20:16 | ED.GENMED ---
History of Present Illness
<Alexa Flynn PA-C - Last Filed: 12/13/23 18:10>
General
Chief Complaint: Swelling
Source: patient and family
Exam Limitations: clinical condition
Time Seen by Provider: 12/12/23 18:05
Nursing documentation reviewed up to this point in time: agreed with
History of Present Illness
History of Present Illness:
73 y/o F with h/o previous stroke with some deficits but more changes after dx of vascular dementia/parkinsons
here with 2 complaints
1. edema noticed in ankles/feet and R hand and face within the apst 24 hours
has had some ankle edema before, is contracted, and thought to be positional but never had hadn puffinness or face puffiness
no chest pain, sob
2. lethargy x 1-2 days
sleeping a lot
will wake upwhen tries to feed her and she will eat
but then goes back to sleep
she does have sleepingess but no other symptoms
she doesn't seem more confused than bseline
no fever, chills, urine sypmtoms, vomiting, diarrhea,
Past History
<Alexa Flynn PA-C - Last Filed: 12/13/23 18:10>
Past History
ED Past Medical History: Arrthythmia (Atrial fib), CVA (Intracerebral bleed/CVA; additional stroke July 2023), HTN, Hypercholesterolemia, Psychiatric (Anxiety) and Other (Vascular dementia, Brain hemorrhage, Vascular Parkinsons, UTI, Anemia, Cerebral
amyloid angiopathy); Negative Asthma or NIDDM
ED Past Surgical History: Orthopedic (Ankle repair, Right hip fracture ) and Other (Brain shunt with removal)
Social History
Tobacco: Former smoker
Alcohol: None
Personal:
Living: with family
Family History
Family History: Other (Reviewed and noncontributory)
Review of Systems
<Alexa Flynn PA-C - Last Filed: 12/13/23 18:10>
Review of Systems
Allergies reviewed?: Yes
All Other Systems: Not applicable
Phy Exam
<EL Marshall Last Filed: 12/13/23 18:10>
Physical Exam
Physical Exam:
GENERAL: very sleepy
hard to arouse
was oriented to person an dplace but went back to sleep
EYE: pupils equal and reactive
NECK: Supple
ENT: o/p clr, .
dry mouth
CARDIAC:abigail, no edema
LUNGS: Clear breath sounds bilaterally, no acute respiratory distress, no wheezes/rales/rhonchi
ABDOMEN: Soft, without focal tenderness, no r/g, no cvat, normal bowel sounds
NEUROLOGICAL: sleeping, hard to arouse but does wake up and is oriented and following commands
moving both UE
contracted le
SKIN: Warm and dry, skin intact.
MUSCULOSKELETAL:puffy R hand, no erythema
b/l ankle/foot edema
nontender
face slightly puffy
PSYCH: Normal and appropriate interaction.
Scores
<EL Marshall Last Filed: 12/13/23 18:10>
Heart Failure Risk
Heart Failure Risk Score: Not Applicable
Course
<EL Marshall Last Filed: 12/13/23 18:10>
Orders/Labs/Results
Orders:
Orders
12/12/23 16:55
ECG [Electrocardiogram (*1)] Urgent
Reason for Study: TIA/Stroke
EKG- Treatment ONCE
12/12/23 17:02
Complete Blood Count/With Diff Urgent
Comprehensive Metabolic Panel Urgent
PTT Urgent
Troponin I Urgent
12/12/23 18:45
CT Head W/o Iv Contrast Urgent
Comment:
Reason For Exam: lethargy, slurred speech, h/o stroke
Straight cath- Treatment ONCE
CR Chest - 2 Views Urgent
Comment:
Reason For Exam: edema
12/12/23 19:03
COVID-19 Antigen Urgent
Source: Nasal Swab
NT-proBNP Urgent
12/12/23 19:09
Urinalysis Reflex To Culture Urgent
Date Specimen was Collected: 12/12/23
Time Specimen was Collected: 19:04
12/12/23 22:23
Admit/Transfer Patient As Directed
Co-Sign Provider:
Level of Care: Inpatient admission
Assign to:: Telemetry
Physician / Group: hospitalist
Diagnosis: somnolence
Reason for Telemetry: CVA/TIA
Date to Stop Telemetry: 12/15/23
Time to Stop Telemetry: 11:00
Reason for Hospitalization: altered mental state
Expected length of stay greater than two midnights?: Yes
ELOS- Estimated Length of Stay in days: 2
I certify the patient meets the requirements for IP care: Yes
12/12/23 22:24
PRN Pain Medication Management As Directed
May give lesser potent ordered pain med per pt: Yes
preference::
Protocol:: Medication orders for pain may be administered in a
manner that supports deferring to patient preference
when the pt is:
- Requesting an ordered lesser potent pain medication.
Least to most potent pain medications are defined
as: acetaminophen < NSAID < tramadol < opioids
(morphine, oxycodone, hydromorphone).
- Requesting a lesser dose of the same medication IF
ORDERED.
- Requesting a less intrusive route of administration
if both routes are prescribed by the provider (PO <
IV).
12/12/23 23:00
Flush (0.9% Sodium Chloride) [Flush (Nss)] See Dose Instructions IV PER PROTOCOL
12/13/23 08:00
Apixaban [Eliquis] 5 mg PO BID
Diltiazem Extended Release [Cardizem Cd] 120 mg PO BID
FOLic ACID [Folvite] 1 mg PO DAILY
Furosemide [Lasix] 20 mg PO DAILY
Memantine HCl [Namenda] 5 mg PO DAILY
Metoprolol [Lopressor] 50 mg PO BID
12/13/23 10:00
Carbidopa/Levodopa [Sinemet 10-100] 1 tablet PO TID@1000,1400,1800
12/13/23 22:00
Atorvastatin [Lipitor] 80 mg PO HS
12/15/23 11:00
DC Protocol for Telemetry ONCE
Abnormal Lab Results
12/12/23
17:02
Hct 35.7 L %
(37.0-47.0)
RDW 14.7 H %
(11.5-14.5)
BUN 20 H mg/dl
(7-17)
Creatinine 0.5 L mg/dL
(0.6-1.0)
Total Protein 6.0 L g/dl
(6.3-8.2)
12/12/23 17:02
12/12/23 17:02
Vital Signs
Initial and Last Documented VS:
Initial Vital Signs
Temp Pulse Resp BP Pulse Ox
98.2 F 66 18 138/69 93
12/12/23 16:52 12/12/23 16:52 12/12/23 16:52 12/12/23 16:52 12/12/23 16:52
Last Documented Vital Signs
Temp Pulse Resp BP Pulse Ox
98.6 F 67 18 132/67 95
12/13/23 16:19 12/13/23 16:19 12/13/23 16:19 12/13/23 16:19 12/13/23 16:19
<Anjali Watts MD - Last Filed: 12/12/23 21:40>
Orders/Labs/Results
Orders:
Orders
12/12/23 16:55
ECG [Electrocardiogram (*1)] Urgent
Reason for Study: TIA/Stroke
EKG- Treatment ONCE
12/12/23 17:02
Complete Blood Count/With Diff Urgent
Comprehensive Metabolic Panel Urgent
PTT Urgent
Troponin I Urgent
12/12/23 18:45
CT Head W/o Iv Contrast Urgent
Comment:
Reason For Exam: lethargy, slurred speech, h/o stroke
Straight cath- Treatment ONCE
CR Chest - 2 Views Urgent
Comment:
Reason For Exam: edema
12/12/23 19:03
COVID-19 Antigen Urgent
Source: Nasal Swab
NT-proBNP Urgent
12/12/23 19:09
Urinalysis Reflex To Culture Urgent
Date Specimen was Collected: 12/12/23
Time Specimen was Collected: 19:04
12/12/23 22:23
Admit/Transfer Patient As Directed
Co-Sign Provider:
Level of Care: Inpatient admission
Assign to:: Telemetry
Physician / Group: hospitalist
Diagnosis: somnolence
Reason for Telemetry: CVA/TIA
Date to Stop Telemetry: 12/15/23
Time to Stop Telemetry: 11:00
Reason for Hospitalization: altered mental state
Expected length of stay greater than two midnights?: Yes
ELOS- Estimated Length of Stay in days: 2
I certify the patient meets the requirements for IP care: Yes
12/12/23 22:24
PRN Pain Medication Management As Directed
May give lesser potent ordered pain med per pt: Yes
preference::
Protocol:: Medication orders for pain may be administered in a
manner that supports deferring to patient preference
when the pt is:
- Requesting an ordered lesser potent pain medication.
Least to most potent pain medications are defined
as: acetaminophen < NSAID < tramadol < opioids
(morphine, oxycodone, hydromorphone).
- Requesting a lesser dose of the same medication IF
ORDERED.
- Requesting a less intrusive route of administration
if both routes are prescribed by the provider (PO <
IV).
12/12/23 23:00
Flush (0.9% Sodium Chloride) [Flush (Nss)] See Dose Instructions IV PER PROTOCOL
12/13/23 08:00
Apixaban [Eliquis] 5 mg PO BID
Diltiazem Extended Release [Cardizem Cd] 120 mg PO BID
FOLic ACID [Folvite] 1 mg PO DAILY
Furosemide [Lasix] 20 mg PO DAILY
Memantine HCl [Namenda] 5 mg PO DAILY
Metoprolol [Lopressor] 50 mg PO BID
12/13/23 10:00
Carbidopa/Levodopa [Sinemet 10-100] 1 tablet PO TID@1000,1400,1800
12/13/23 22:00
Atorvastatin [Lipitor] 80 mg PO HS
12/15/23 11:00
DC Protocol for Telemetry ONCE
Abnormal Lab Results
12/12/23
17:02
Hct 35.7 L %
(37.0-47.0)
RDW 14.7 H %
(11.5-14.5)
BUN 20 H mg/dl
(7-17)
Creatinine 0.5 L mg/dL
(0.6-1.0)
Total Protein 6.0 L g/dl
(6.3-8.2)
12/12/23 17:02
12/12/23 17:02
Vital Signs
Initial and Last Documented VS:
Initial Vital Signs
Temp Pulse Resp BP Pulse Ox
98.2 F 66 18 138/69 93
12/12/23 16:52 12/12/23 16:52 12/12/23 16:52 12/12/23 16:52 12/12/23 16:52
Last Documented Vital Signs
Temp Pulse Resp BP Pulse Ox
98.6 F 67 18 132/67 95
12/13/23 16:19 12/13/23 16:19 12/13/23 16:19 12/13/23 16:19 12/13/23 16:19
<Alexa Flynn PA-C - Last Filed: 12/13/23 18:10>
MDM/Problems Addressed
Differential Diagnosis Includes:
uti, infection/covid, hyponatremia, cva, dehdyration, 3rd spacing, chf
MDM/Problems Addressed:
aston del rosario 73 y/o F
coming in with lethargy; sleeping all day, not usual for her
unclear cause
does have chronic vasc dementia/parkinsons
afib
prior large hem stroke
subdural 11/06
usually does have some slurred speech and confusion; nonambulatory; contracted; but says in 24 hours he has noticed her sleeping more and puffiness of her feet, R hand and face
unclear why - her lytes are ok (bun is a little elevated but cr normal, albumin 3.9; ua neg; bnp normal, cxr clear, head ct nothing acute
really unclear why she's drowsy; she will arouse briefly and goes right back to sleep; maybe medications; recently weening from [facility] and up on lamictal
will admit for further w/u
seen by ed attending who agreed
<Alexa Flynn PA-C - Last Filed: 12/13/23 18:10>
*Critical Care Note
Total Time (30-74mins, 75-104mins- exclusive of procedures): Not Applicable
ED Attending Note
<Alexa Flynn PA-C - Last Filed: 12/13/23 18:10>
-
Portions of this chart may have been created with voice recognition software.� Occasional wrong word or��sound alike� substitutions may have occurred due to the inherent limitations of voice recognition software.
<Anjali Watts MD - Last Filed: 12/12/23 21:40>
ED Attending Note
Patient seen and examined by attending physician: Yes
I performed the substantive portion of visit, reviewed & personally made and approve the management plan that is documented in note by myself or CORTNEY.: Yes
ED Attending Note:
Patient is a 73-year-old woman with history of prior stroke, vascular dementia, she is on Eliquis presenting to the emergency department with a change in her mental status drowsiness and worsening swelling. Patient has been is at bedside provides
most of the history. He states that he has noticed more swelling along her left eye, right hand and left leg. She does have lower extremity contractures and does note that she has pressure ulcers to the left lower leg. He does state that the
right leg is usually on top of the leg which could be causing some of the edema. However today he noticed the right hand and the left side being more swollen. No fevers or chills. No URI symptoms. No nausea or vomiting. She has been eating
less. Otherwise history is limited secondary to patient's mental status.
GENERAL: Sleepy but easily arousable
HEENT: normocephalic, extraocular movements intact, left-sided periorbital edema moist oral mucosa
NECK: normal inspection
RESPIRATORY: no respiratory distress, clear to auscultation bilaterally
CARDIOVASCULAR: regular rate and rhythm
ABDOMEN/: soft, non-distended, non-tender to palpation, no rebound or guarding
EXTREMITIES: non-tender, swelling to the entire right hand. Swelling to the left foot and somewhat of the ankle
NEUROLOGIC: awake and alert, moves all extremities
SKIN: warm
Patient is a 70-year-old woman with history of prior stroke, vascular dementia, currently on Eliquis presenting to the emergency department with swelling and change in her mental status. Vitals are unremarkable and exam shows a woman who is sleepy
but easily arousable. She does have some swelling to her face her right hand and her left foot. She is compliant with her Eliquis the less likely to be blood clot. The left extremity does appear to be more dependent edema secondary to the right
leg compressing the left leg. Unclear etiology of the facial and isolated right hand swelling. Will check blood work urine kidney function liver function. Given change in mental status also obtain CT scan of the head. Patient likely will benefit
from admission given the change in her mental status.
Discharge Plan
Departure
Patient Disposition: Admit
Date of Disposition: 12/12/23
Time of Disposition: 21:35
Admit to: Telemetry
Presentation/result/management discussed w/ accepting MD/DO: Hospitalist
Condition: Fair
Covid-19: Not Applicable
Discharge Problem:
Altered mental status
Interventions
Interventions:
*Risk Screen - Suicide Last Done: 12/12/23 18:45
*General Assessment Last Done: 12/12/23 16:52
*Neglect/Abuse Screening Last Done: 12/12/23 18:45
ED- Fall Risk Assessment Last Done: 12/12/23 18:45
*ED COVID-19 Vaccine History Last Done: 12/12/23 18:45
*Nursing Disposition Last Done: 12/12/23 23:54
ED-Skin Assessment Last Done: 12/12/23 19:12
ED-Peripheral Vascular Assessment Last Done: 12/12/23 19:13
ED- Pulmonary Assessment Last Done: 12/12/23 19:12
ED- Cardiac Assessment Last Done: 12/12/23 19:12
Discharge Date and Time
Discharge Date/Time: 12/12/23 23:55
--- NOTE | 2023-12-12 22:27 | HPS.HSE ---
Family Physician
-
Family Physician: Milad Zaragoza
Chief Complaint
-
somnolence and altered mental status
History of Present Illness
This is an 73-year-old female was past medical history of dementia, Parkinson's, prior large CVA with right-sided residual deficits, atrial fibrillation, patient is wheelchair dependent, has history of contractures, right subdural hematoma earlier
this year who was brought to the ED by spouse for increased sleepiness and right hand swelling.
According to spouse patient had been in usual state of health and activity up until today. She is usually sleepy and sleeps up to around 1 PM. Yesterday she slept after 1 PM. However today she was awoken at 2 PM as she was sleeping past her usual
time. She was able to get up and eat but appeared to be very fatigued and sleepy and goes to sleep immediately after eating. Spouse also noted swelling of the right hand. Patient herself was unable to provide any history due to her somnolent
state. Spouse denied any recent cough, fevers, chills, abdominal pain nausea or vomiting. He denies any recent changes in urinary habits. No foul-smelling urine. Has been no recent changes in her appetite. She had no recent falls. She had no
seizure-like activities.
Patient was admitted at the end of September with similar symptoms where she was somnolent and when awake stares off in the distance. She had MRI EEG and neuroconsult. There was a possibility of absence seizure. At that time the patient had been on a
week of prophylactic Keppra due to the subdural hematoma which was discontinued. Due to the possibility of absence seizure the patient was continued on the Keppra 500 mg twice daily and this is being tapered.
According to spouse the patient is followed by neurology. They noted that the Keppra has made her increasingly somnolent and they attempted to switch over to Lamictal. The patient is currently on a Keppra taper and had a last dose of 500 mg Keppra
yesterday. She takes Lamictal with the Keppra. She was also recently started on methenamine. Other than these 2 medications there is been no medication changes.
In the emergency department she was arousable but somnolent. Vital signs were stable. Temp 98.2, blood pressure 132/57, pulse of 56 and a respiratory of 10 noted 100% saturation on room air. ECG showed normal sinus rhythm with rate of [address]-T wave changes unchanged from prior. She had a chest x-ray which was clear. COVID test was negative. CBC shows no abnormalities. Chemistries were unremarkable. UA was clear. LFTs were within normal limits. The CT of the head
shows no acute intracranial process.
Medical History
Past Medical History
Past Medical History: Reports Arrhythmia (atrial fibrillation), HTN and Hypercholesterolemia
Additional Past Medical History:
subdural hematoma
Parkinson
Dementia
HFpEF
CVA w/ residaul right weakness
Past Surgical History: Reports Brain (hemorrhagic CVA) and Orthopedic
Social History
Tobacco: Non-smoker
Alcohol: None
Drug: None
Personal:
Living: With Family
Employment: Not Employed
Family History
Family History: Not pertinent
Allergies / Home Medications
Allergies reflects when Allergies were last updated in [facility] [facility].
Home Medications with original date entered in [facility]
Allergy/Medication List:
Allergies
Allergy/AdvReac Type Severity Reaction Status Date / Time
No Known Allergies Allergy Verified 12/12/23 16:52
Home Medications
Cartia XT 120 MG 1 capsule Orally twice a day for 90 days Active
Methenamine Hippurate 1 GM 1 tablet Orally Twice a day for 30 days Nov, Mar, Active
Melatonin 3 MG 1 tablet at bedtime as needed Orally Once a day Active
levETIRAcetam 750 MG 1 tablet Orally once a day Active
Furosemide 20 MG 1 tablet Orally Once a day for 90 days Active
Metoprolol Tartrate 50 MG 1 tablet with food Orally Twice a day for 90 days Please cancel all other Metoprolol Tartrate Rx's that came over in November. Active
Carbidopa 25 MG 1 tablet Orally Three times a day Active
Atorvastatin Calcium 80 MG 1 tablet Orally Once a day for 90 days Active
Zolpidem Tartrate ER 12.5 MG 1 tablet at bedtime as needed Orally Once a day for 30 days Nov, Dec, Active
Psyllium 3.4g Not-Taking/PRN
Bisacodyl 5 MG 1 tablet as needed Orally Once a day Active
Lidocaine 4 % 1 application as needed Externally Three times a day Unknown
amLODIPine Besylate 2.5 MG 1 tablet Orally Once a day for 30 days Active
Sinemet 10-100 MG 1 tablet Orally Three times a day for 30 days Not-Taking/PRN
Ellura 200 MG as directed Orally Once a Day Active
Folic Acid 1 MG 1 tablet Orally Once a day for 30 days Active
Memantine HCl 10 MG 1 tablet Orally Twice a day for 90 days will be upped to 3 10/25 Active
lamoTRIgine ER 25 MG 3 tablet Orally once a day Active
Eliquis 5 MG 1 tablet Orally Twice a day for 30 days Active
Review of Systems
-
History Source: Family
Constitutional: Reports Sleep Disturbance
EENT: Reports No Symptoms
Respiratory: Reports No Symptoms
Cardiac: Reports No Symptoms
Abdomen/GI: Reports No Symptoms
: Reports No Symptoms
Musculoskeletal: Reports Edema
Skin: Reports No Symptoms
Neurological: Reports Weakness
Endocrine: Reports No Symptoms
Hematologic/Lymphatic: Reports No Symptoms
Psych: Reports No Symptoms
Physical Exam
Vital Signs
Vital Signs
Temp Pulse Resp BP Pulse Ox
98.2 F 56 10 132/57 98
12/12/23 16:52 12/12/23 21:45 12/12/23 21:45 12/12/23 21:00 12/12/23 21:45
Physical Exam
General: No Apparent Distress and Other (somnolent, arousable to voice, has spontanous purposeful movements, follows simple commands except will not open eyes or mouth to voice commands.)
HEENT: NormoCephalic, Anicteric, Atraumatic and PERRLA
Respiratory: Clear
Cardiac: S1/S2, Regular Rhythm and Bradycardia
Breast: Deferred by me
GI: Soft, Non Tender, Non Distended and Normal Bowel Sounds
Rectal: Deferred by Provider
Genito-urinary: No costovertebral tender
Musculoskeletal: No Clubbing, No Cyanosis and Edema, Right Upper Extremity
Neuro: Slurred Speech, Facial Droop (chronic right facial droop) and Sedated
Hematologic/Lymphatic: No Lymphadenopathy
Psych: Other (somnolent)
Laboratory Results
-
12/12/23 17:02
12/12/23 17:02
Laboratory Results
APTT 32.0 Sec (23.4-35.0) 12/12/23 17:02
Total Bilirubin 0.5 mg/dl (0.2-1.3) 12/12/23 17:02
AST 20 U/L (14-36) 12/12/23 17:02
ALT 23 U/L (0-35) 12/12/23 17:02
Alkaline Phosphatase 72 U/L (38-126) 12/12/23 17:02
Troponin I < 0.012 ng/ml 12/12/23 17:02
Data Reviewed
-
Diagnostic Radiology: Image Personally Visualized and interpreted
CT Scan: Report Reviewed by me
Medical Tests (Nuc Med, Echo, EKG etc): Image Personally Visualized and interpreted
Lab Data: Labs Reviewed by me
Old Records: Reviewed
Impression/Plan
-
IMPRESSION:
Patient with history of Parkinson's disease, vascular dementia, prior hemorrhagic CVA with residual right-sided weakness, cerebral amyloid angiopathy, expressive aphasia, recent subdural hematoma, question of absence seizure who presents to the
emergency department with somnolence that is more persistent than usual for. She is still quite somnolent in the emergency department. She is arousable slightly to voice or painful stimulus then she goes back to sleep. She can follow simple
commands such as squeezing hands. She does have a possible spontaneous movement/covering self with blanket.
PLAN:
1. Somnolence/Seizure -she is somnolent but not obtunded. CBC, chemistries, LFTs, UA, COVID test, chest x-ray, CT of the head were all within normal limits and unchanged. Vital signs were stable. Patient is maintaining airways without any
difficulty. No gross neurological exam abnormalities seen on exam otherwise. This presentation is similar to her presentation in September of this year where she was thought to have an absence seizure. She was hospitalized for 3 days at that time.
She started waking up on the second and third days. She was diagnosed with absence seizure and placed on Keppra 500 mg twice daily. Family reports that that she has been more sleepy following initiation of Keppra. They are currently transitioning
from Keppra to Lamictal. Presentation does appear to be toxic metabolic encephalopathy versus postictal and less likely a CVA. Unlike last admission, she can focus and follow commands when aroused.
- admit to telemetry
- patient about to be tapered off keppra in 2 days, will d/c
- continue lamotrigine 150 daily, to increase to 200 in 2 days
- hold zolpidem, melatonin
- urine toxicology (denies opioids and benzos)
- mri in am
- neurology consult for possible eeg.
2. Hand swelling - Slight puffiness limited to the right hand. No tenderness, erythema, reduced joint range of motion to suggest inflammation. No external traumatic signs. Patient on eliquis so unlikely a DVT. No signs of total body overload.
BNP negative.
- Will check Xray of hand.
- U/S to rule out DVT
- elevate right hand (she sleeps on her left)
3. AFIB - Patient with afib and anticoagulated
- continue eliquis bid
- continue Cardizem XT 120 bid and Metoprolol tartrate 50 bid
- continue lasix 20 daily
4. Parkinson/dementai
- sinamet 10-100 bid, memantine 10 for now
5.CVA
- continue statin, eliquis
DVT PPX - on apixaban
Code Status - DNR
[2023-12-13] VITALS (7 sets, daily range): BP systolic 108–143; BP diastolic 54–86; BMI 15.5
--- NOTE | 2023-12-13 01:24 | PTCARENOTE ---
Pt is drowsy and oriented to self. pt has hx of hemorrhagic CVA w/ residual right sided weakness, right facial droop, aphasia, slurred speech, and b/l lower ext contracted legs. NIH=6. pt is very soft spoken, follows simple commends, and able to
read and describe pictures. pt has multiple blanchable, nonblanchable, and old pressure injuries scabbed over- foams applied, and woc consulted placed. pt is placed on bed alarm w/ call caceres in reach.
reached out to OTILIO Hernandez re: failed swallow eval - npo. speech eval already order. no new orders for meds at this time.
[2023-12-13 01:25] LABS: Amphetamines Negative (Negative); Barbiturates Negative (Negative); Benzodiazepines Negative (Negative); Buprenorphine Negative (Negative); Cocaine Negative (Negative); Marijuana Negative (Negative); Methadone Negative (Negative); Methamphetamines Negative (Negative); Opiates Negative (Negative); Phencyclidine Negative (Negative); Tricyclic Antidepressants Negative (Negative)
[2023-12-13 07:19] LABS: Hematocrit 30.4 % (37.0-47.0); Hemoglobin 10.5 g/dL (12.0-16.0); Mean Corp Hgb Conc. 34.5 g/dL (33.0-37.0); Mean Corpuscular Hgb 28.6 pg (27.0-31.0); Mean Corpuscular Volume 82.8 fL (81.0-99.0); Mean Platelet Volume 8.8 fL (7.4-10.4); Platelet Count 318 10^3/uL (130-400); Red Blood Cell Count 3.67 10^6/uL (4.20-5.40); Red Cell Dist. Width 14.6 % (11.5-14.5); White Blood Cell Count 5.8 10^3/uL (4.8-10.8)
[2023-12-13 08:00] LABS: Blood Urea Nitrogen 19 mg/dl (7-17); Calcium 9.2 mg/dl (8.4-10.2); Carbon Dioxide 23 mmol/L (22-30); Chloride 107 mmol/L (98-107); Estimated Creatinine Clearance 54 ml/min; Glucose 93 mg/dl (70-99); Potassium 3.7 mmol/L (3.5-5.1); Sodium 141 mmol/L (135-145); eGFR > 60.00
--- NOTE | 2023-12-13 09:24 | W.PN.HOSP.TC ---
Today's Communication/Plan
-
see bold
Assessment / Plan
Assessment / Plan
Gen: NAD, AAOx3, appears chronically ill and malnourished.
Eyes: EOMI, PERRLA, no scleral icterus.
Neck: supple.
CV: RRR, +S1/S2, no m/r/g.
Resp: CTAB, no rales, wheezes, or rhonchi.
Abd: +BS, soft, NT, ND
Skin: No rashes. mild R hand edema
Neuro: CN 2-12 intact, contracted LEs
Psych: Normal mood and affect.
CT brain: No evidence of acute intracranial abnormality.
CXR: No evidence of active cardiopulmonary disease.
Somnolence/Seizure:
-h/o cerebral amyloid angiopathy, expressive aphasia, recent subdural hematoma, hemorrhagic CVA with residual right-sided weakness
-somnolent but not obtunded on admission. VS stable and protecting airway.
-CBC/CMP/UA/COVID normal
-CXR/CT brain unremarkable as above
-This presentation is similar to her presentation in September of this year where she was thought to have an absence seizure. She was hospitalized for 3 days at that time. She started waking up on the second and third days. She was diagnosed with
absence seizure and placed on Keppra 500 mg twice daily. Family reports that that she has been more sleepy following initiation of Keppra. The pt is currently transitioning from Keppra to Lamictal.
-Presentation is likely due to toxic metabolic encephalopathy due to Keppra/Ambien/Melatonin versus postictal and less likely a CVA. Unlike last admission, she can focus and follow commands when aroused.
-UDS NEG
-Keppra stopped on admission, holding home Ambien/Melatonin
-continue lamotrigine 150 daily, to increase to 200 tomorrow
-check MRI brain
-c/s neuro
R hand swelling:
-RUE U/S without DVT
-check Xray R hand
-improving
Other problems:
PAF: cont Eliquis/Cardizem/BB
Parkinson's disease and vascular dementia: Cont Sinemet/Namenda
h/o hemorrhagic CVA with residual R-sided weakness: cont statin/Eliquis
DNR/Eliquis
Anticipated Discharge: Within 24 hours
Subjective/Interval History
-
Date of Service: December 13, 2023
No new complaints.
Objective Data
-
Labs:
Laboratory Results
12/13/23
05:14
WBC 5.8
Hgb 10.5 L
Hct 30.4 L
Plt Count 318
Sodium 141
Potassium 3.7
Chloride 107
Carbon Dioxide 23
BUN 19 H
Creatinine 0.4 L
Glucose 93
Calcium 9.2
Vital Signs:
Vital Signs
Temp Pulse Resp BP Pulse Ox
98.5 F 83 16 108/86 97
12/13/23 07:50 12/13/23 07:50 12/13/23 07:50 12/13/23 07:50 12/13/23 07:50
I&O
12/12/23 12/13/23 12/14/23
06:59 06:59 06:59
Intake Total 60 / 60
Balance 60 / 60
--- NOTE | 2023-12-13 09:49 | CON.NEURO ---
Consultation
Order
Date of Consultation: 12/13/23
Requesting Provider: Iesha Ramires MD
Reason for Consult: somnolence, h/o absence sz and AED changes
CC: none
HPI: This is a 73-year-old woman who presented to [facility] on December 12, 2023 for with lethargy.
Ms. Walton is unable to provide a history. She denied having a headache, new motor or sensory symptoms.
ER VS: 138/82, 93, 66, afebrile, saturating well on room air.
PDMP:Zolpidem Tart Er 12.5�30 tabs filled in on 12/09/2023, 10/31/2022.
Labs: Normal WBCs, hemoglobin 12.1�10.5, normal platelets, sodium, glucose, calcium, LFTs, urinalysis, COVID, urine tox.
CT head-bifrontal atrophy, left greater than right OBED/MCA territory hypodensities. Moderate diffuse atrophy is present with ventricular dilation, which also appears stable.
PMH:vascular Parkinsonism/dementia, probable cerebral amyloid angiopathy, h/o L thalamic ICH, R SDH, right pontine stroke(07/2023), AFib, insomnia,
PSH: INSIDE SALES RECRUITER shunt, R SHERRI
SH:; former smoker
FH:unknown
All:NKDA
ROS:limited due to encephalopathy
General: Well developed. In no acute distress.
Cardio: Regular rate and rhythm without murmur. Extremities are without cyanosis or edema.
Neuro:
Mental Status: Alert, oriented to name, place. Did not know her age ' I am in my 50s', . Nonfluent expressive>receptive aphasia. No hemineglect
Cranial Nerves: Pupils are equally round and reactive to light. Limited exam due to cooperation. BTT BL No facial weakness. Severe hypophonia
Motor: increased motor tone in UE/LE. R hemiparesis(leg>arm)
Reflexes: limited exam due to positioning. + grasp BL
Sensory: limited due to encephalopathy
Coordination: No tremors or myoclonic movements
Gait: unable
Assessment and Plan:
I. Multifactorial encephalopathy (vascular, toxic)
II. Probable cerebral amyloid angiopathy
III. H/o L thalamic ICH, R SDH, right pontine stroke
IV. AFib
V. Vascular Parkinsonism and dementia
-Follow up Lamictal level
-Limit LICENSING SPECIALIST suppressants(Zolpidem ) use
-Routine EEG
-Brain MRI wo maday
-Cardiology referral for Watchmen device evaluation given high risk of ICH in view of systemic anticoagulation if consistent with goals of care
I personally reviewed all radiology and labs along with past medical records pertinent to current medical problems. Total time spent in patient care is 60 minutes.
Thank you for allowing us to participate in the care of this patient. We will continue to follow. Please do not hesitate to contact us with any questions or concerns.
Subjective/Objective
Subjective Data
Date of Service: December 13, 2023
Objective Data
Vital Signs
Temp Pulse Resp BP Pulse Ox
36.9 C 83 16 108/86 97
12/13/23 07:50 12/13/23 07:50 12/13/23 07:50 12/13/23 07:50 12/13/23 07:50
Lab Results
12/13/23 05:14
12/13/23 05:14
APTT 32.0 Sec (23.4-35.0) 12/12/23 17:02
Sodium 141 mmol/L (135-145) 12/13/23 05:14
Potassium 3.7 mmol/L (3.5-5.1) 12/13/23 05:14
BUN 19 mg/dl (7-17) H 12/13/23 05:14
Glucose 93 mg/dl (70-99) 12/13/23 05:14
Calcium 9.2 mg/dl (8.4-10.2) 12/13/23 05:14
Rpa-J-Ylmczhygqmu Pept 516 pg/ml 12/12/23 19:03
Ur Buprenorphine Negative (Negative) 12/12/23 19:09
Patient Allergies
No Known Allergies Allergy (Verified 12/12/23 16:52)
Medications
-
Active Medications
Generic Name Dose Route Start Last Admin
Trade Name Freq PRN Reason Stop Dose Admin
Acetaminophen 650 mg 12/12/23 23:45
Acetaminophen 650 Mg Rectal Suppository RECTAL 01/09/24 23:44
Q4HPRN PRN
LUCERO, mild pain, or temp >100.4F
Acetaminophen 650 mg 12/12/23 23:45
Acetaminophen 325 Mg Tablet PO 01/09/24 23:44
Q4HPRN PRN
LUCERO, mild pain, or temp >100.4F
Apixaban 5 mg 12/13/23 08:00
Apixaban (Eliquis) 5 Mg Tablet PO 01/10/24 07:59
BID KAROLINA
Atorvastatin Calcium 80 mg 12/13/23 22:00
Atorvastatin (Lipitor) 80 Mg Tablet PO 01/10/24 21:59
HS KAROLINA
Carbidopa/Levodopa 1 tablet 12/13/23 08:00
Carbidopa (10 Mg)/Levodopa (100 Mg) Regular Release Tablet PO 01/10/24 07:59
BID KAROLINA
Diltiazem HCl 120 mg 12/13/23 08:00
Diltiazem 120 Mg Extended Release (24 H) Capsule PO 01/10/24 07:59
BID KAROLINA
Folic Acid 1 mg 12/13/23 08:00
Folic Acid 1 Mg Tablet PO 01/10/24 07:59
DAILY KAROLINA
Furosemide 20 mg 12/13/23 08:00
Furosemide 20 Mg Tablet PO 01/10/24 07:59
DAILY KAROLINA
Lamotrigine 75 mg 12/13/23 08:00
Lamotrigine 25 Mg Chewable Tablet PO 01/10/24 07:59
BID KAROLINA
Memantine 10 mg 12/13/23 08:00
Memantine 10 Mg Tablet PO 01/10/24 07:59
DAILY KAROLINA
Methenamine Hippurate 1 gram 12/13/23 08:00
Methenamine Hippurate 1 Gram Tablet PO
BID KAROLINA
Metoprolol Tartrate 50 mg 12/13/23 08:00
Metoprolol 50 Mg Regular Release Tablet PO 01/10/24 07:59
BID KAROILNA
Sodium Chloride 0 flush 12/12/23 23:00
Sodium Chloride 0.9% (Flush) Syringe IV 01/09/24 22:59
PER PROTOCOL KAROLINA
Home Medications
�Medication �Instructions �Recorded
folic acid 1 mg tablet 1 mg PO DAILY #0 tabs 05/05/23
acetaminophen 325 mg tablet 650 mg PO BID Pain 08/18/23
atorvastatin 80 mg tablet 80 mg PO HS High Cholesterol 08/18/23
melatonin 3 mg tablet 6 mg PO HS Sleep 08/18/23
carbidopa 10 mg-levodopa 100 mg 1 tab PO TID@1000,1400,1800 10/11/23
tablet Neurological Condition
docusate sodium 100 mg capsule 100 mg PO BID Constipation 10/11/23
(Colace)
furosemide 20 mg tablet 20 mg PO DAILY Fluid 10/11/23
Retention/Swelling
memantine 5 mg tablet 5 mg PO DAILY Neurological 10/11/23
Condition
psyllium husk 3.4 gram/6 gram oral 3.4 g PO DAILY Gastrointestinal 10/11/23
powder Issue
therapeutic multivitamin 1 tab PO DAILY Supplement 10/11/23
apixaban 5 mg tablet (Eliquis) 5 mg PO BID Blood Clot 10/12/23
Prevention/Tx
baclofen 5 mg tablet 5 mg PO BID #30 tabs 10/14/23
diltiazem HCl 120 mg 120 mg PO BID #30 caps 10/14/23
capsule,extended release 24 hr
levetiracetam 500 mg tablet 500 mg PO BID 30 days #60 tabs 10/14/23
metoprolol tartrate 50 mg tablet 50 mg PO BID #60 tabs 10/14/23
cephalexin 500 mg capsule 500 mg PO BID 5 days #10 caps 10/31/23
sulfamethoxazole 800 1 tab PO BID #10 tabs 11/20/23
mg-trimethoprim 160 mg tablet
(Bactrim DS)
nitrofurantoin macrocrystal 100 mg 100 mg PO BID 7 days #14 caps 11/24/23
capsule
Vital Signs and Labs
-
Vital Signs and Labs:
Vital Signs
Temp Pulse Resp BP Pulse Ox
36.9 C 83 16 108/86 97
12/13/23 07:50 12/13/23 07:50 12/13/23 07:50 12/13/23 07:50 12/13/23 07:50
Lab Results
12/13/23 05:14
12/13/23 05:14
APTT 32.0 Sec (23.4-35.0) 12/12/23 17:02
Sodium 141 mmol/L (135-145) 12/13/23 05:14
Potassium 3.7 mmol/L (3.5-5.1) 12/13/23 05:14
BUN 19 mg/dl (7-17) H 12/13/23 05:14
Glucose 93 mg/dl (70-99) 12/13/23 05:14
Calcium 9.2 mg/dl (8.4-10.2) 12/13/23 05:14
Dzd-H-Sdlbeawyodh Pept 516 pg/ml 12/12/23 19:03
Ur Buprenorphine Negative (Negative) 12/12/23 19:09
Medications
-
Medications:
Generic Name Dose Route Start Last Admin
Trade Name Freq PRN Reason Stop Dose Admin
Acetaminophen 650 mg 12/12/23 23:45
Acetaminophen 650 Mg Rectal Suppository RECTAL 01/09/24 23:44
Q4HPRN PRN
LUCERO, mild pain, or temp >100.4F
Acetaminophen 650 mg 12/12/23 23:45
Acetaminophen 325 Mg Tablet PO 01/09/24 23:44
Q4HPRN PRN
LUCERO, mild pain, or temp >100.4F
Apixaban 5 mg 12/13/23 08:00 12/13/23 10:02
Apixaban (Eliquis) 5 Mg Tablet PO 01/10/24 07:59 5 mg
BID KAROLINA Administration
Atorvastatin Calcium 80 mg 12/13/23 22:00
Atorvastatin (Lipitor) 80 Mg Tablet PO 01/10/24 21:59
HS KAROLINA
Carbidopa/Levodopa 1 tablet 12/13/23 08:00 12/13/23 10:01
Carbidopa (10 Mg)/Levodopa (100 Mg) Regular Release Tablet PO 01/10/24 07:59 1 tablet
BID KAROLINA Administration
Diltiazem HCl 120 mg 12/13/23 08:00 12/13/23 10:02
Diltiazem 120 Mg Extended Release (24 H) Capsule PO 01/10/24 07:59 120 mg
BID KAROLINA Administration
Folic Acid 1 mg 12/13/23 08:00 12/13/23 10:02
Folic Acid 1 Mg Tablet PO 01/10/24 07:59 1 mg
DAILY KAROLINA Administration
Furosemide 20 mg 12/13/23 08:00 12/13/23 10:02
Furosemide 20 Mg Tablet PO 01/10/24 07:59 20 mg
DAILY KAROLINA Administration
Lamotrigine 75 mg 12/13/23 08:00 12/13/23 10:02
Lamotrigine 25 Mg Chewable Tablet PO 01/10/24 07:59 75 mg
BID KAROLINA Administration
Memantine 10 mg 12/13/23 08:00 12/13/23 10:02
Memantine 10 Mg Tablet PO 01/10/24 07:59 10 mg
DAILY KAROLINA Administration
Methenamine Hippurate 1 gram 12/13/23 08:00 12/13/23 10:02
Methenamine Hippurate 1 Gram Tablet PO 1 gram
BID KAROLINA Administration
Metoprolol Tartrate 50 mg 12/13/23 08:00 12/13/23 10:02
Metoprolol 50 Mg Regular Release Tablet PO 01/10/24 07:59 50 mg
BID KAROLINA Administration
Sodium Chloride 0 flush 12/12/23 23:00
Sodium Chloride 0.9% (Flush) Syringe IV 01/09/24 22:59
PER PROTOCOL KAROLINA
Home Medications
-
Home Medications
folic acid 1 mg tablet 1 mg PO DAILY #0 tabs 05/05/23
acetaminophen 325 mg tablet 650 mg PO BID Pain 08/18/23
atorvastatin 80 mg tablet 80 mg PO HS High Cholesterol 08/18/23
melatonin 3 mg tablet 6 mg PO HS Sleep 08/18/23
carbidopa 10 mg-levodopa 100 mg tablet 1 tab PO TID@1000,1400,1800 Neurological Condition 10/11/23
docusate sodium 100 mg capsule (Colace) 100 mg PO BID Constipation 10/11/23
furosemide 20 mg tablet 20 mg PO DAILY Fluid Retention/Swelling 10/11/23
memantine 5 mg tablet 5 mg PO DAILY Neurological Condition 10/11/23
psyllium husk 3.4 gram/6 gram oral powder 3.4 g PO DAILY Gastrointestinal Issue 10/11/23
therapeutic multivitamin 1 tab PO DAILY Supplement 10/11/23
apixaban 5 mg tablet (Eliquis) 5 mg PO BID Blood Clot Prevention/Tx 10/12/23
baclofen 5 mg tablet 5 mg PO BID #30 tabs 10/14/23
diltiazem HCl 120 mg capsule,extended release 24 hr 120 mg PO BID #30 caps 10/14/23
levetiracetam 500 mg tablet 500 mg PO BID 30 days #60 tabs 10/14/23
metoprolol tartrate 50 mg tablet 50 mg PO BID #60 tabs 10/14/23
cephalexin 500 mg capsule 500 mg PO BID 5 days #10 caps 10/31/23
sulfamethoxazole 800 mg-trimethoprim 160 mg tablet (Bactrim DS) 1 tab PO BID #10 tabs 11/20/23
nitrofurantoin macrocrystal 100 mg capsule 100 mg PO BID 7 days #14 caps 11/24/23
[2023-12-13] MEDS: SINEMET 10-100 1 TABLET PO ×2 (10:01→19:55)
[2023-12-13] MEDS: CARDIZEM CD 120 MG PO ×2 (10:02→19:53)
[2023-12-13] MEDS: HIPREX 1 GRAM PO ×2 (10:02→19:53)
[2023-12-13] MEDS: NAMENDA 10 MG PO (10:02)
[2023-12-13] MEDS: LOPRESSOR 50 MG PO ×2 (10:02→19:54)
[2023-12-13] MEDS: LASIX 20 MG PO (10:02)
[2023-12-13] MEDS: FOLVITE 1 MG PO (10:02)
[2023-12-13] MEDS: ELIQUIS 5 MG PO ×2 (10:02→19:53)
[2023-12-13] MEDS: LAMICTAL 75 MG PO ×2 (10:02→19:53)
--- NOTE | 2023-12-13 10:12 | PTOTSP ---
ST Screening
Chart reviewed. Pt admitted for lethargy 1-2x days, sleeping more, and increased edema in lower extremities, R hand, and face. Per pt's , pt will wake up to eat and drink (with no difficulties), and then go back to sleep when she is done. Pt
was admitted for somnolence vs seizure as well as hand swelling. Pt with known hx of CVAs (multiple) with residual R sided deficits, dementia, Parkinsons, afib, cerebral amyloid angiopathy, and former smoker. Pt is currently afebrile and on room air
without leukocytosis. Pt reportedly failed nursing dysphagia screening because she was not awake/alert, so she could not participate in screening.
Would recommend re-attempt awakening pt to re-administer the nursing dysphagia screening. If pt is unable to participate due to insufficient alertness, would re-assess every 12 hours. If pt passes the water section, pt's baseline diet is reportedly
a chopped diet with regular thin liquids (i.e., soft bite sized solids (IDDSI 6), thin liquids (IDDSI 0)). If pt fails the water section, then consider ELECTRIC TRACK SWITCH MAINTAINER consultation.
At this time, skilled ELECTRIC TRACK SWITCH MAINTAINER services are not warranted.
--- NOTE | 2023-12-13 14:59 | CM ---
CM spoke with spouse on phone
Pt and spouse resides in a 2SH with ramp entrance
Pt is total care- chair bound and non ambulatory at this time
Spouse transfers patient to , does not have a matthias lift
Pt has a hospital bed
Pt has a rollator, RW, shower chair, raised toilet seat, ramp, stair lift and WC
Pt has hx with [facility], [facility] and hx with outpt therapy at [facility]
No financial insecurities
Pt is currently being seen by a home visiting nurse through [facility]
Noted [facility] in process of arranging PT/OT in the home
PCP- Milad Zaragoza
Rx- Trenton Daily
Discharge Disposition- home, likely no needs
[2023-12-13] MEDS: LIPITOR 80 MG PO (22:26)
[2023-12-14 03:39] VITALS: BP 133/78
[2023-12-14 05:39] VITALS: BMI 15.1
[2023-12-14 08:00] VITALS: BP 147/75
--- NOTE | 2023-12-14 09:32 | W.PN.HOSP.TC ---
Addendum entered and electronically signed by Alex Jensen MD 12/14/23 17:02:
Severe protein calorie malnutrition
Functional quadriplegia
left hip stage 3 PI, left hip has and unstageable PI covered with black eschar
left lateral foot has a DTI
sacrum/buttocks and heels with stage 1 PI
Original Note:
Today's Communication/Plan
-
see bold
Assessment / Plan
Assessment / Plan
Gen: NAD, AAOx3, appears chronically ill and malnourished.
Eyes: EOMI, PERRLA, no scleral icterus.
Neck: supple.
CV: remains RRR, +S1/S2, no m/r/g.
Resp: remains CTAB, no rales, wheezes, or rhonchi.
Abd: +BS, soft, NT, ND
Skin: No rashes.
Neuro: CN 2-12 intact, contracted LEs
Psych: Normal mood and affect.
CT brain: No evidence of acute intracranial abnormality.
CXR: No evidence of active cardiopulmonary disease.
Somnolence/Seizure:
-h/o cerebral amyloid angiopathy, expressive aphasia, recent subdural hematoma, hemorrhagic CVA with residual right-sided weakness
-somnolent but not obtunded on admission. VS stable and protecting airway.
-CBC/CMP/UA/COVID normal
-CXR/CT brain unremarkable as above
-This presentation is similar to her presentation in September of this year where she was thought to have an absence seizure. She was hospitalized for 3 days at that time. She started waking up on the second and third days. She was diagnosed with
absence seizure and placed on Keppra 500 mg twice daily. Family reports that that she has been more sleepy following initiation of Keppra. The pt is currently transitioning from Keppra to Lamictal.
-Presentation is likely due to toxic metabolic encephalopathy due to Keppra/Ambien/Melatonin versus postictal and less likely a CVA. Unlike last admission, she can focus and follow commands when aroused.
-UDS NEG
-Keppra stopped on admission, holding home Ambien/Melatonin
-increase lamotrigine to 100mg BID
-check MRI brain and EEG
-neuro following
R hand swelling:
-RUE U/S without DVT
-Xray R hand: Degenerative osteoarthritis at the carpometacarpal joint of the thumb with severe joint space narrowing, subchondral sclerosis and moderate degenerative spurring
Other problems:
PAF: cont Eliquis/Cardizem/BB
Parkinson's disease and vascular dementia: Cont Sinemet/Namenda
h/o hemorrhagic CVA with residual R-sided weakness: cont statin/Eliquis
DNR/Eliquis
Anticipated Discharge: 24 - 48 hours
Subjective/Interval History
-
Date of Service: December 14, 2023
No new complaints.
Objective Data
-
Vital Signs:
Vital Signs
Temp Pulse Resp BP Pulse Ox
98.4 F 66 18 147/75 98
12/14/23 08:00 12/14/23 08:00 12/14/23 08:00 12/14/23 08:00 12/14/23 08:00
I&O
12/13/23 12/14/23 12/15/23
06:59 06:59 06:59
Intake Total 60 / 60 360 / 360
Balance 60 / 60 360 / 360
--- NOTE | 2023-12-14 09:44 | WOUNDNOTE ---
[facility] RN NOTE: Reviewed chart and met with patient. Pictures of left and right hip reviewed from prior admission. Patient recently discharged from [facility] for left hip stage 3 PI. The area is intact and appears newly epithelized. The left hip has and
unstageable PI covered with black eschar. The left lateral foot as a DTI that is purple/red. This wound may continue to evolve. Her sacrum/buttocks and heels with stage 1 PI. The left lower extremity has an abrasion appearing wound. Waffle boots
placed on patient. All bony prominences on knees had been covered with foam prior to assessment. Patient positioned on right semi-side lying position with air cushion between knees. Static air overlay ordered for bed. ARCENIO Oakley TT and made aware that
patient needs air surface upon discharge to home or SNF. Patient has several comorbidities including dementia, BMI of 15, and bedbound status. Wounds may worsen and new wounds may develop even with optimal care. Will confirm orders with hospitalist.
RN Mary given update. Will follow as needed.
[2023-12-14 11:00] VITALS: BP 157/83
[2023-12-14] MEDS: NAMENDA 10 MG PO (11:07)
[2023-12-14] MEDS: ELIQUIS 5 MG PO ×2 (11:07→20:19)
[2023-12-14] MEDS: CARDIZEM CD 120 MG PO ×2 (11:07→20:21)
[2023-12-14] MEDS: LASIX 20 MG PO (11:07)
[2023-12-14] MEDS: FOLVITE 1 MG PO (11:07)
[2023-12-14] MEDS: LAMICTAL 100 MG PO ×2 (11:08→20:21)
[2023-12-14] MEDS: HIPREX 1 GRAM PO ×2 (11:08→20:21)
[2023-12-14] MEDS: LOPRESSOR 50 MG PO ×2 (11:15→20:18)
[2023-12-14] MEDS: SINEMET 10-100 1 TABLET PO ×2 (11:16→20:18)
--- NOTE | 2023-12-14 11:16 | W.PN.NEURO.1 ---
Documented by User: Genevieve Cristobal NP 12/14/23 13:18
Today's Communication / Plan
-
.
Neuro Assessment/Plan
Assessment
This is a 73-year-old female who presented to on December 12, 2023 for with lethargy.
ER VS: 138/82, 93, 66, afebrile, saturating well on room air.
PDMP:Zolpidem Tart Er 12.5�30 tabs filled in on 12/09/2023, 10/31/2022.
Labs: Normal WBCs, hemoglobin 12.1�10.5, normal platelets, sodium, glucose, calcium, LFTs, urinalysis, COVID, urine tox.
CT head-bifrontal atrophy, left greater than right OBED/MCA territory hypodensities. Moderate diffuse atrophy is present with ventricular dilation, which also appears stable.
I. Multifactorial encephalopathy (vascular, toxic, postictal)
II. Probable cerebral amyloid angiopathy
III. H/o L thalamic ICH, R SDH, right pontine stroke
IV. AFib (Eliquis)
V. Vascular Parkinsonism and dementia
. Episode of starring with left gaze in September 2023, Keppra initiated then, family reports excessive fatigue. Outpatient neurologist currently switching her from Keppra to lamictal.
Plan
-Lamictal level pending. Continue Lamictal 100mg BID. Keppra discontinued.
-Continue home Eliquis.
-Continue home Sinemet and Namenda.
-Limit WARP CLAMPER suppressants (Zolpidem) use.
-Neurological checks, NIHSS per unit guidelines. Provide patient with a stroke education packet.
-Brain MRI wo maday pending.
-Undergoing outpatient Cardiology evaluation for consideration of Watchmen device given high risk of ICH in view of systemic anticoagulation.
-Patient should follow-up with her outpatient Neurologist Dr. Chavez in 1-2 weeks.
Subjective/Objective
Subjective Data
Date of Service: December 14, 2023
No acute events overnight. Patient is confused, offers no complaints.
Objective Data
Vital Signs
Temp Pulse Resp BP Pulse Ox
98.4 F 66 18 147/75 98
12/14/23 08:00 12/14/23 08:00 12/14/23 08:00 12/14/23 08:00 12/14/23 08:00
Lab Results
12/13/23 05:14
12/13/23 05:14
APTT 32.0 Sec (23.4-35.0) 12/12/23 17:02
Sodium 141 mmol/L (135-145) 12/13/23 05:14
Potassium 3.7 mmol/L (3.5-5.1) 12/13/23 05:14
BUN 19 mg/dl (7-17) H 12/13/23 05:14
Glucose 93 mg/dl (70-99) 12/13/23 05:14
Calcium 9.2 mg/dl (8.4-10.2) 12/13/23 05:14
Qvq-J-Nawxwmwjagv Pept 516 pg/ml 12/12/23 19:03
Ur Buprenorphine Negative (Negative) 12/12/23 19:09
Patient Allergies
No Known Allergies Allergy (Verified 12/12/23 16:52)
Review of Systems
-
History Source: Patient
EENT: Negative Blurry Vision, Decreased Vision or Swallowing Difficulty
Respiratory: Negative Cough or Trouble Breathing
Cardiac: Negative Chest Pain or Palpitations
Abdomen/GI: Negative Nausea
Neuro: Weakness and Speech Problem; Negative Dizzy, Headache, Numbness, Ataxia or Tremors
Physical Exam
-
General: Appears Chronically Ill
Eyes: No Ptosis and PERRLA
HEENT: Normocephalic and Atraumatic
Neck: Full Range of Motion
GI: Non-distended
Extremities: No Clubbing, No Cyanosis and No Edema
Psych: Confused
Extended Neurological Exam
Mood & Affect: Mood Unremarkable and Affect Unremarkable
Attention Span & Concentration: Awake, Alert, Interactive and Unable to Perform 2 Step Request
Memory: Reduced (oriented to person only)
Tremor: Hand Tremor Absent and Head Tremor Absent
Involuntary Movement: None
Speech: Quality Unremarkable, Quantity Unremarkable and Rate of Production Unremarkable
Cranial Nerve II: Left Eye: Pupillary Reactivity Unremarkable, Pupillary Size Unremarkable and Unable to Assess Visual Baltazar
Cranial Nerve II: Right Eye: Pupillary Reactivity Unremarkable, Pupillary Size Unremarkable and Unable to Assess Visual Baltazar
Cranial Nerves III, IV, : Extraocular Movement: Extraocular Movement Full in all Directions
Cranial Nerve V: Facial Sensation: Intact to Light Touch
Cranial Nerve VII: Facial Symmetry: Normal Facial Symmetry
Cranial Nerve VIII: Hearing: Unremarkable Hearing to Normal Conversational Volume
Cranial Nerves IX, X: Palate Movement: Palate Elevation Symmetric
Cranial Nerve XI: Shoulder Shrug: Unremarkable
Cranial Nerve XII: Tongue Protusion: Midline
Muscle Strength, Overall: Other (BUE 5/5, BLE 1/5)
Muscle Bulk & Tone: Increased Tone (BLE spastic)
Pronator Drift: No Drift in Upper Extremities
Deep Tendon Reflexes: Other (Absent in BLE, 2+ BUE)
Coordination: Znacvl-oiss-qwixhl Testing Unremarkable
Babinski Sign: Absent Bilaterally
Modified Ramsey Score (MRS)
-
Modified Ramsey Scale (mRS): Moderately severe disability. Unable to attend to bodily needs/walk.
Score: 4
Data Reviewed
-
CT Head: Report Reviewed and Image Reviewed
Labs: Report Reviewed
Reviewed with: Physician and Patient
Medications
-
Active Medications
Generic Name Dose Route Start Last Admin
Trade Name Freq PRN Reason Stop Dose Admin
Acetaminophen 650 mg 12/12/23 23:45
Acetaminophen 650 Mg Rectal Suppository RECTAL 01/09/24 23:44
Q4HPRN PRN
LUCERO, mild pain, or temp >100.4F
Acetaminophen 650 mg 12/12/23 23:45
Acetaminophen 325 Mg Tablet PO 01/09/24 23:44
Q4HPRN PRN
LUCERO, mild pain, or temp >100.4F
Apixaban 5 mg 12/13/23 08:00 12/14/23 11:07
Apixaban (Eliquis) 5 Mg Tablet PO 01/10/24 07:59 5 mg
BID KAROLINA Administration
Atorvastatin Calcium 80 mg 12/13/23 22:00 12/13/23 22:26
Atorvastatin (Lipitor) 80 Mg Tablet PO 01/10/24 21:59 80 mg
HS KAROLINA Administration
Carbidopa/Levodopa 1 tablet 12/13/23 08:00 12/14/23 11:16
Carbidopa (10 Mg)/Levodopa (100 Mg) Regular Release Tablet PO 01/10/24 07:59 1 tablet
BID KAROLINA Administration
Diltiazem HCl 120 mg 12/13/23 08:00 12/14/23 11:07
Diltiazem 120 Mg Extended Release (24 H) Capsule PO 01/10/24 07:59 120 mg
BID KAROLINA Administration
Folic Acid 1 mg 12/13/23 08:00 12/14/23 11:07
Folic Acid 1 Mg Tablet PO 01/10/24 07:59 1 mg
DAILY KAROLINA Administration
Furosemide 20 mg 12/13/23 08:00 12/14/23 11:07
Furosemide 20 Mg Tablet PO 01/10/24 07:59 20 mg
DAILY KAROLINA Administration
Lamotrigine 100 mg 12/14/23 10:00 12/14/23 11:08
Lamotrigine 25 Mg Chewable Tablet PO 01/11/24 09:59 100 mg
BID KAROLINA Administration
Memantine 10 mg 12/13/23 08:00 12/14/23 11:07
Memantine 10 Mg Tablet PO 01/10/24 07:59 10 mg
DAILY KAROLINA Administration
Methenamine Hippurate 1 gram 12/13/23 08:00 12/14/23 11:08
Methenamine Hippurate 1 Gram Tablet PO 1 gram
BID KAROLINA Administration
Metoprolol Tartrate 50 mg 12/13/23 08:00 12/14/23 11:15
Metoprolol 50 Mg Regular Release Tablet PO 01/10/24 07:59 50 mg
BID KAROLINA Administration
Sodium Chloride 0 flush 12/12/23 23:00
Sodium Chloride 0.9% (Flush) Syringe IV 01/09/24 22:59
PER PROTOCOL KAROLINA
Home Medications
�Medication �Instructions �Recorded
folic acid 1 mg tablet 1 mg PO DAILY #0 tabs 05/05/23
acetaminophen 325 mg tablet 650 mg PO BID Pain 08/18/23
atorvastatin 80 mg tablet 80 mg PO HS High Cholesterol 08/18/23
melatonin 3 mg tablet 6 mg PO HS Sleep 08/18/23
carbidopa 10 mg-levodopa 100 mg 1 tab PO TID@1000,1400,1800 10/11/23
tablet Neurological Condition
docusate sodium 100 mg capsule 100 mg PO BID Constipation 10/11/23
(Colace)
furosemide 20 mg tablet 20 mg PO DAILY Fluid 10/11/23
Retention/Swelling
memantine 5 mg tablet 5 mg PO DAILY Neurological 10/11/23
Condition
psyllium husk 3.4 gram/6 gram oral 3.4 g PO DAILY Gastrointestinal 10/11/23
powder Issue
therapeutic multivitamin 1 tab PO DAILY Supplement 10/11/23
apixaban 5 mg tablet (Eliquis) 5 mg PO BID Blood Clot 10/12/23
Prevention/Tx
baclofen 5 mg tablet 5 mg PO BID #30 tabs 10/14/23
diltiazem HCl 120 mg 120 mg PO BID #30 caps 10/14/23
capsule,extended release 24 hr
levetiracetam 500 mg tablet 500 mg PO BID 30 days #60 tabs 10/14/23
metoprolol tartrate 50 mg tablet 50 mg PO BID #60 tabs 10/14/23
cephalexin 500 mg capsule 500 mg PO BID 5 days #10 caps 10/31/23
sulfamethoxazole 800 1 tab PO BID #10 tabs 11/20/23
mg-trimethoprim 160 mg tablet
(Bactrim DS)
nitrofurantoin macrocrystal 100 mg 100 mg PO BID 7 days #14 caps 11/24/23
capsule

Documented by User: Jaydon Gomez MD 12/14/23 20:28
Today's Communication / Plan
-
73 yr. old lady with h/o cerebral amyloid angiopathy, (L) thalamic ICH, (R) SDH, right pontine stroke,. Atr Fibrill (Eliquis), Vascular dementia and parkinsonism who was on Keppra for possible complex partial seizures, who was admitted with AMS and
lethargy. 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
PLAN:
1. Continue LAmictal 100 mg BID
2. Stop Keppra
3. MRI head
4. Decrease Lipitor
5. PT/OT
6. Pat mat be discharged when medically stable.
Modified Brady Score (MRS)
-
Score: 4
--- NOTE | 2023-12-14 12:01 | WOUNDNOTE ---
LEFT LOWER LEG ABRASION
--- NOTE | 2023-12-14 12:32 | CM ---
Chart reviewed and correctional counselor/case manager spoke with spouse plan is to home when stable, per spouse patient has a airflow mattress in home, patient and spouse are agreeable to visiting nurses and referral sent to [facility], patient will also be
followed by [facility] nurse.
Plan; Home with [facility]
[phone]
[2023-12-14] MEDS: LAMICTAL PO (12:34)
[2023-12-14 13:01] VITALS: BMI 15.1
[2023-12-14 15:00] VITALS: BP 142/70
--- NOTE | 2023-12-14 16:10 | PN.CDI ---
CDI
- -
CDI:
Physician Documentation Request
Admit Date: 12/12/23 22:34
Dear Doctor Mikey,
Please review the following and provide your response in the progress notes.
Clinical Indicators:
Industry Analyst, 12/13
# said 6 months ago she weighed 110 lbs.
#...Now she weighs 88 lbs. This is a 20% loss of body weight in 6 months.
#Current BW: (12/13) 88 lbs 3 oz BMI: 15.1 (underweight)
#Patient meets ASPEN criteria for severe protein calorie malnutrition
#...due to a loss of 20% of body weight in 6 months and
#...meeting less than 75% of nutrition needs for over 1 month.
Based on the above information and your assessment, which of the following most accurately represents the patient's nutritional status?
Severe protein calorie malnutrition
Other (please specify)
[place] Criteria ([facility] Hospitalist 2017)
2 or more criteria must be present for either
non severe or severe malnutrition
Note that the criteria differs related to the
presence of an acute or chronic illness
Acute Illness Chronic Illness
Energy Intake Non Severe: <75% for >7 days Non Severe: <75% for >1 month
Severe: <50% for >5 days Severe: <75% for >1 month
Weight Loss Non Severe: 1-2% over 1 week Non Severe: 5% over 1 month
5% over 1 month 7.5% over 3 months
7.5% over 3 months 10% over 6 months
1 year N/A 20% over 1 year
Severe: >2% over 1 week Severe: >5% over 1 month
>5% over 1 month >7.5% over 3 months
>7.5% over 3 months >10% over 6 months
1 year N/A >20% over 1 year
Body Fat Non Severe: Mild Decrease Non Severe: Mild Loss
Severe: Moderate Decrease Severe: Severe Loss
Muscle Mass Non Severe: Mild Decrease Non Severe: Mild Loss
Severe: Moderate Decrease Severe: Severe Loss
Additional criteria that can be used to Determine if Mild or Moderate Malnutrition (Merck Manual 2018)
Mild Moderate Severe
BMI <18.5 <17 <16
Use of terms such as suspected, likely, concern for, or probable (associated with a specific diagnosis that is being evaluated, monitored, or treated as if it exists) are acceptable and can be coded in the inpatient setting, when documented at the
time of discharge.
Thank you,
Kaylie Posadas RN BSN CCDS
CDI Specialist
please contact via tiger text
Please use your independent medical judgment in providing your response.
--- NOTE | 2023-12-14 16:16 | PN.CDI ---
CDI
- -
CDI:
Physician Documentation Request
Admit Date: 12/12/23 22:34
Dear Doctor Mikey,
Please review the following and provide your response in the progress notes.
Clinical Indicators:
12/14/23 09:44 - Wound Note
#...recently discharged from [facility] for left hip stage 3 PI.
#...The area is intact and appears newly epithelized.
#The left hip has and unstageable PI covered with black eschar.
#The left lateral foot as a DTI that is purple/red.
#...This wound may continue to evolve.
#Her sacrum/buttocks and heels with stage 1 PI.
Physician documentation of the type and location of wounds is required for compliant documentation. Based on the above clinical findings and your assessment, please provide the following in your progress note:
Yes, Sacrum/buttocks and bilateral heels stage 1 PI, POA
No, Sacrum/buttocks and bilateral heels stage 1
Other (please specify)
1. Location of the ulcer/wound, including laterality.
2. Type (etiology) of ulcer/wound:
- Diabetic ulcer
- Arterial (ischemic) ulcer
- Traumatic wound
- Venous stasis ulcer
- Pressure (decubitus) ulcer
3. If a pressure ulcer, please also include the stage* of the ulcer:
- Stage 1 - Skin intact, non-blanchable redness
- Stage 2 - Partial thickness loss of dermis, includes intact or open blister
- Stage 3 - Full thickness tissue not including bone, tendon or muscle
- Stage 4 - Full thickness tissue loss, including exposed bone, tendon or muscle
- Unstageable - Full thickness loss in which the base of the ulcer is covered by slough (yellow, hopkins, deng, green or brown) and/or eschar (hopkins, brown or black) in the wound bed.
Use of terms such as suspected, likely, concern for, or probable (associated with a specific diagnosis that is being evaluated, monitored, or treated as if it exists) are acceptable and can be coded in the inpatient setting, when documented at the
time of discharge.
Thank you,
Kaylie Posadas RN BSN CCDS
CDI Specialist
please contact via tiger text
Please use your independent medical judgment in providing your response.
*Source: National Pressure Ulcer Advisory Panel (NPUAP)
--- NOTE | 2023-12-14 16:30 | PN.CDI ---
CDI
- -
CDI:
Physician Documentation Request
Admit Date: 12/12/23 22:34
Dear Doctor Mikey,
Please review the following and provide your response in the progress notes.
Clinical Indicators:
Patient admitted with altered mental status, somnolence
PMH: Vascular dementia, parkinson
12/11 H+P
#...past medical history of dementia, Parkinson's, prior large CVA with right-sided residual deficits, atrial fibrillation, patient is wheelchair dependent, has history of contractures,
10/12/23 12:16 - Case Management Note
#Pt is total care- chair bound and non ambulatory at this time
#Spouse transfers patient to , does not have a matthias lift
#Pt currently sleeping in regular bed on second floor, stair ride
#Pt has a rollator, RW, shower chair, raised toilet seat, ramp, stair lift and WC
12/13/23 01:24 - Patient Care Note
#Pt is drowsy and oriented to self.
#pt has hx of hemorrhagic CVA w/ residual right sided weakness,
#...right facial droop, aphasia, slurred speech, and b/l lower ext contracted legs.
10/12/23 11:15 - PT/OT/SP Care Note
#Pt is dependent for bed mobility/ transfers and has BLE contractures which is her baseline.
Which, if any, of the following is a likely etiology of the above abnormalities and treatment rendered:
Functional quadriplegia (complete immobility due to severe physical disability or frailty)
Age related weakness or frailty - without complete immobility
Ambulatory Dysfunction only
Other (please specify):
Use of terms such as suspected, likely, concern for, or probable (associated with a specific diagnosis that is being evaluated, monitored, or treated as if it exists) are acceptable and can be coded in the inpatient setting, when documented at the
time of discharge.
Thank you,
Kaylie Posadas RN BSN CCDS
CDI Specialist
please contact via tiger text
Please use your independent medical judgment in providing your response.
[2023-12-14 19:25] VITALS: BP 156/76
[2023-12-14] MEDS: LIPITOR 80 MG PO (20:21)
[2023-12-14 23:46] VITALS: BP 136/68
[2023-12-15 02:49] VITALS: BP 150/61
[2023-12-15 07:10] VITALS: BP 136/71
[2023-12-15] MEDS: LAMICTAL 100 MG PO (08:33)
[2023-12-15] MEDS: NAMENDA 10 MG PO (08:33)
[2023-12-15] MEDS: CARDIZEM CD 120 MG PO (08:33)
[2023-12-15] MEDS: FOLVITE 1 MG PO (08:33)
[2023-12-15] MEDS: HIPREX 1 GRAM PO (08:33)
[2023-12-15] MEDS: LASIX 20 MG PO (08:34)
[2023-12-15] MEDS: ELIQUIS 5 MG PO (08:34)
[2023-12-15] MEDS: LOPRESSOR 50 MG PO (08:37)
[2023-12-15] MEDS: SINEMET 10-100 1 TABLET PO (08:37)
--- NOTE | 2023-12-15 09:43 | W.PN.HOSP.TC ---
Addendum entered and electronically signed by Alex Jensen MD 12/15/23 14:00:
Case discussed with Dr. Gomez. EEG has been read as normal. There is no seizure activity. Dr. Gomez has cleared the pt for discharge. Specifically we discussed discharge medications. He recommends continuing the patient's Eliquis and statin as well
as her new Lamictal dose. Also of note the patient is no longer on Keppra.
Case discussed with case management, VN is set up in the patient lives with her .
Total time spent on d/c = 49 min. This included today's physical exam, progress note, review of laboratory and diagnostic data, preparation of discharge documents and prescriptions, and discussions about the pt's hospital course and discharge plan
with the patient and other medical affairs leader involved in the patient's care.
Original Note:
Today's Communication/Plan
-
see bold
Assessment / Plan
Assessment / Plan
Gen: NAD, awake and alert, appears chronically ill and malnourished.
Eyes: EOMI, PERRLA, no scleral icterus.
Neck: supple.
CV: Continues to RRR, +S1/S2, no m/r/g.
Resp: Continues to remain CTAB, no rales, wheezes, or rhonchi.
Abd: +BS, soft, NT, ND
Skin: No rashes.
Neuro: CN 2-12 intact, contracted LEs
Psych: Normal mood and affect.
CT brain: No evidence of acute intracranial abnormality.
CXR: No evidence of active cardiopulmonary disease.
Somnolence/Seizure:
-h/o cerebral amyloid angiopathy, expressive aphasia, recent subdural hematoma, hemorrhagic CVA with residual right-sided weakness
-somnolent but not obtunded on admission. VS were stable and pt was protecting airway.
-CBC/CMP/UA/COVID normal
-CXR/CT brain unremarkable as above
-This presentation is similar to her presentation in September of this year where she was thought to have an absence seizure. She was hospitalized for 3 days at that time. She started waking up on the second and third days. She was diagnosed with
absence seizure and placed on Keppra 500 mg twice daily. Family reports that that she has been more sleepy following initiation of Keppra. The pt is currently transitioning from Keppra to Lamictal.
-Presentation is likely due to toxic metabolic encephalopathy due to Keppra/Ambien/Melatonin versus postictal and less likely a CVA. Unlike last admission, she can focus and follow commands when aroused.
-UDS NEG
-Keppra stopped on admission, holding home Ambien/Melatonin
-lamotrigine increased to 100mg BID
-MRI brain: Three small foci of signal alteration in the right frontal lobe white matter suspicious for subacute infarcts.
-unclear if these subacute infarcts are related to the patient's presenting symptoms. Personally I do not think they are.
-as per discussion with Dr. Gomez, EEG is not needed
-neuro following
R hand swelling:
-RUE U/S without DVT
-Xray R hand: Degenerative osteoarthritis at the carpometacarpal joint of the thumb with severe joint space narrowing, subchondral sclerosis and moderate degenerative spurring
Other problems:
PAF: cont Eliquis/Cardizem/BB
Parkinson's disease and vascular dementia: Cont Sinemet/Namenda
h/o hemorrhagic CVA with residual R-sided weakness: cont statin/Eliquis
Severe protein calorie malnutrition
Functional quadriplegia
left hip stage 3 PI, left hip has and unstageable PI covered with black eschar
left lateral foot has a DTI
sacrum/buttocks and heels with stage 1 PI
DNR/Eliquis
Anticipated Discharge: Within 24 hours
Subjective/Interval History
-
Date of Service: December 15, 2023
Patient does not offer new complaints.
Objective Data
-
Vital Signs:
Vital Signs
Temp Pulse Resp BP Pulse Ox
98.5 F 74 18 136/71 98
12/15/23 07:10 12/15/23 07:10 12/15/23 07:10 12/15/23 07:10 12/15/23 07:10
I&O
12/14/23 12/15/23 12/16/23
06:59 06:59 06:59
Intake Total 360 / 360 320 / 320
Balance 360 / 360 320 / 320
--- NOTE | 2023-12-15 11:07 | CM ---
Chart reviewed and plan is to home with [facility], referral sent to [facility]. Patient's spouse reports that they have all the equipment they need in home, including air overlay mattress for hospital bed.
Plan; Home with [facility]
[phone]
--- NOTE | 2023-12-15 11:10 | W.PN.NEURO.1 ---
Documented by User: Genevieve Cristobal NP 12/15/23 11:49
Today's Communication / Plan
-
.
Neuro Assessment/Plan
Assessment
This is a 73-year-old female who presented to on December 12, 2023 with report of lethargy.
ER VS: 138/82, 93, 66, afebrile, saturating well on room air.
PDMP:Zolpidem Tart Er 12.5�30 tabs filled in on 12/09/2023, 10/31/2022.
Labs: Normal WBCs, hemoglobin 12.1�10.5, normal platelets, sodium, glucose, calcium, LFTs, urinalysis, COVID, urine tox.
CT head-bifrontal atrophy, left greater than right OBED/MCA territory hypodensities. Moderate diffuse atrophy is present with ventricular dilation, which also appears stable.
I. Multifactorial encephalopathy (vascular, toxic, postictal). MRI brain is suggestive of subacute right frontal lobe ischemic infarcts per Radiology. Per Neurology Dr. Gomez, imaging quality is inconclusive to confirm this.
II. Probable cerebral amyloid angiopathy
III. H/o L thalamic ICH, R SDH, right pontine stroke
IV. AFib (Eliquis)
V. Vascular Parkinsonism and dementia
. Episode of starring with left gaze in September 2023, Keppra initiated then, family reports excessive fatigue. Outpatient neurologist currently switching her from Keppra to lamictal.
Plan
-Continue Lamictal 100mg BID.
-Keppra discontinued.
-Per Dr. Gomez, do not see a role for EEG monitoring at this point.
-Continue home Eliquis 5m BID.
-Continue home Sinemet and Namenda.
-Limit [employer] suppressants (Zolpidem) use.
-Neurological checks, NIHSS per unit guidelines. Provide patient with a stroke education packet.
-LDL goal <70. Lipid panel pending. Continue home atorvastatin 80mg daily.
-Goal normoglycemia, hbA1c is 5.9.
-Undergoing outpatient Cardiology evaluation for consideration of Watchmen device given high risk of ICH in view of systemic anticoagulation.
-Patient should follow-up with her outpatient Neurologist Dr. Chavez in 1-2 weeks.
Subjective/Objective
Subjective Data
Date of Service: December 15, 2023
No acute events overnight. Patient is drowsy this morning, challenging to assess.
Objective Data
Vital Signs
Temp Pulse Resp BP Pulse Ox
98.5 F 74 18 136/71 98
12/15/23 07:10 12/15/23 07:10 12/15/23 07:10 12/15/23 07:10 12/15/23 07:10
Lab Results
12/13/23 05:14
12/13/23 05:14
APTT 32.0 Sec (23.4-35.0) 12/12/23 17:02
Sodium 141 mmol/L (135-145) 12/13/23 05:14
Potassium 3.7 mmol/L (3.5-5.1) 12/13/23 05:14
BUN 19 mg/dl (7-17) H 12/13/23 05:14
Glucose 93 mg/dl (70-99) 12/13/23 05:14
Calcium 9.2 mg/dl (8.4-10.2) 12/13/23 05:14
Dvj-R-Vgmmwynurmx Pept 516 pg/ml 12/12/23 19:03
Ur Buprenorphine Negative (Negative) 12/12/23 19:09
Patient Allergies
No Known Allergies Allergy (Verified 12/12/23 16:52)
LDL Level: >70, statin ordered
Review of Systems
-
Unable to obtain full review of systems at this time due to: Lethargy
Physical Exam
-
General: No Apparent Distress
Eyes: No Ptosis and PERRLA
HEENT: Normocephalic and Atraumatic
Neck: Full Range of Motion
Respiratory: No Dyspnea
GI: Non-distended
Extremities: No Clubbing, No Cyanosis and No Edema
Psych: Confused
Extended Neurological Exam
Attention Span & Concentration: Lethargic and Closes Eyes after Stimulation
Memory: Reduced (Oriented to person only)
Tremor: Hand Tremor Absent and Head Tremor Absent
Involuntary Movement: None
Speech: Quality Unremarkable, Quantity Unremarkable and Rate of Production Unremarkable
Cranial Nerve II: Left Eye: Pupillary Reactivity Unremarkable, Pupillary Size Unremarkable and Unable to Assess Visual Baltazar
Cranial Nerve II: Right Eye: Pupillary Reactivity Unremarkable, Pupillary Size Unremarkable and Unable to Assess Visual Baltazar
Cranial Nerves III, IV, : Extraocular Movement: Unable to Assess
Cranial Nerve VII: Facial Symmetry: Normal Facial Symmetry
Cranial Nerve VIII: Hearing: Unremarkable Hearing to Normal Conversational Volume
Cranial Nerves IX, X: Palate Movement: Palate Elevation Symmetric
Cranial Nerve XII: Tongue Protusion: Midline
Muscle Strength, Overall: Reduced (LUE 5/5, RUE 5-/5, BLE contracted/trace)
Muscle Bulk & Tone: Increased Tone (BLE)
Pronator Drift: No Drift in Upper Extremities and Unable to Assess (BLE)
Touch Sensation: Unable to Assess
Coordination: Ltnbqb-jxhz-rveqkj Testing Unremarkable
Babinski Sign: Absent Bilaterally
Gait & Station: Unable to Assess
Modified Brady Score (MRS)
-
Modified [place] Scale (mRS): Moderately severe disability. Unable to attend to bodily needs/walk.
Score: 4
Data Reviewed
-
CT-A: Report Reviewed (from 08/04/23) and Image Reviewed (from 08/04/23)
CT Head: Report Reviewed and Image Reviewed
MRI Head: Report Reviewed and Image Reviewed
Labs: Report Reviewed
Lipid Profile: Report Reviewed
HgbA1C: Report Reviewed
Reviewed with: Physician and Patient
Medications
-
Active Medications
Generic Name Dose Route Start Last Admin
Trade Name Freq PRN Reason Stop Dose Admin
Acetaminophen 650 mg 12/12/23 23:45
Acetaminophen 650 Mg Rectal Suppository RECTAL 01/09/24 23:44
Q4HPRN PRN
LUCERO, mild pain, or temp >100.4F
Acetaminophen 650 mg 12/12/23 23:45
Acetaminophen 325 Mg Tablet PO 01/09/24 23:44
Q4HPRN PRN
LUCERO, mild pain, or temp >100.4F
Apixaban 5 mg 12/13/23 08:00 12/15/23 08:34
Apixaban (Eliquis) 5 Mg Tablet PO 01/10/24 07:59 5 mg
BID KAROLINA Administration
Atorvastatin Calcium 20 mg 12/15/23 18:00
Atorvastatin (Lipitor) 20 Mg Tablet PO 01/12/24 17:59
QPM KAROLINA
Carbidopa/Levodopa 1 tablet 12/13/23 08:00 12/15/23 08:37
Carbidopa (10 Mg)/Levodopa (100 Mg) Regular Release Tablet PO 01/10/24 07:59 1 tablet
BID KAROLINA Administration
Diltiazem HCl 120 mg 12/13/23 08:00 12/15/23 08:33
Diltiazem 120 Mg Extended Release (24 H) Capsule PO 01/10/24 07:59 120 mg
BID KAROLINA Administration
Folic Acid 1 mg 12/13/23 08:00 12/15/23 08:33
Folic Acid 1 Mg Tablet PO 01/10/24 07:59 1 mg
DAILY KAROLINA Administration
Furosemide 20 mg 12/13/23 08:00 12/15/23 08:34
Furosemide 20 Mg Tablet PO 01/10/24 07:59 20 mg
DAILY KAROLINA Administration
Lamotrigine 100 mg 12/14/23 10:00 12/15/23 08:33
Lamotrigine 25 Mg Chewable Tablet PO 01/11/24 09:59 100 mg
BID KAROLINA Administration
Memantine 10 mg 12/13/23 08:00 12/15/23 08:33
Memantine 10 Mg Tablet PO 01/10/24 07:59 10 mg
DAILY KAROLINA Administration
Methenamine Hippurate 1 gram 12/13/23 08:00 12/15/23 08:33
Methenamine Hippurate 1 Gram Tablet PO 1 gram
BID KAROLINA Administration
Metoprolol Tartrate 50 mg 12/13/23 08:00 12/15/23 08:37
Metoprolol 50 Mg Regular Release Tablet PO 01/10/24 07:59 50 mg
BID KAROLINA Administration
Sodium Chloride 0 flush 12/12/23 23:00
Sodium Chloride 0.9% (Flush) Syringe IV 01/09/24 22:59
PER PROTOCOL KAROLINA
Home Medications
�Medication �Instructions �Recorded
folic acid 1 mg tablet 1 mg PO DAILY #0 tabs 05/05/23
acetaminophen 325 mg tablet 650 mg PO BID Pain 08/18/23
atorvastatin 80 mg tablet 80 mg PO HS High Cholesterol 08/18/23
melatonin 3 mg tablet 6 mg PO HS Sleep 08/18/23
carbidopa 10 mg-levodopa 100 mg 1 tab PO TID@1000,1400,1800 10/11/23
tablet Neurological Condition
docusate sodium 100 mg capsule 100 mg PO BID Constipation 10/11/23
(Colace)
furosemide 20 mg tablet 20 mg PO DAILY Fluid 10/11/23
Retention/Swelling
memantine 5 mg tablet 5 mg PO DAILY Neurological 10/11/23
Condition
psyllium husk 3.4 gram/6 gram oral 3.4 g PO DAILY Gastrointestinal 10/11/23
powder Issue
therapeutic multivitamin 1 tab PO DAILY Supplement 10/11/23
apixaban 5 mg tablet (Eliquis) 5 mg PO BID Blood Clot 10/12/23
Prevention/Tx
baclofen 5 mg tablet 5 mg PO BID #30 tabs 10/14/23
diltiazem HCl 120 mg 120 mg PO BID #30 caps 10/14/23
capsule,extended release 24 hr
levetiracetam 500 mg tablet 500 mg PO BID 30 days #60 tabs 10/14/23
metoprolol tartrate 50 mg tablet 50 mg PO BID #60 tabs 10/14/23
cephalexin 500 mg capsule 500 mg PO BID 5 days #10 caps 10/31/23
sulfamethoxazole 800 1 tab PO BID #10 tabs 11/20/23
mg-trimethoprim 160 mg tablet
(Bactrim DS)
nitrofurantoin macrocrystal 100 mg 100 mg PO BID 7 days #14 caps 11/24/23
capsule
NIH Stroke Score
Subsequent NIH Scale
Date of Subsequent NIH Scale: 12/15/23
Time of Subsequent NIH Scale: 09:45
NIH Stroke Score
Level of Consciousness: 1 - Arousable
LOC Questions: 2-Neither correct
LOC Commands: 0-Performs both correctly
Best Horizontal Gaze: 0-Normal
Visual Baltazar: 0=Normal, no visual loss
Facial Palsy: 0=Normal, symmetrical
Motor - Right Arm: 0=No drift 10 seconds
Motor - Left Arm: 0=No drift 10 seconds
Motor - Right Le-None vs. gravity
Motor - Left Le-None vs. gravity
Limb Ataxia: 0-Absent
Sensation: 0-Normal
Best Language: 0-No aphasia
Dysarthria: 0-Normal
Extinction and Inattention: 0-No abnormality
Total Score:: 9
Modified Brady (mRS) Score
Modified [place] Scale (mRS): Moderately severe disability. Unable to attend to bodily needs/walk.
Score: 4
Alteplase Contraindication
Inclusion and Exclusion criteria reviewed: Yes
Reasons for NON-Tx with Thrombolytics ABSOLUTE Exclusions: Patient taking oral anticoagulant and last dose within 48 hours
IAT Contraindications: Baseline mRS greater than or equal to 3 by history

Documented by User: Jaydon Gomez MD 12/15/23 21:46
Today's Communication / Plan
-
73 yr. old lady with h/o chronic atrial fibrillation, cerebral amyloid angiopathy, extensive small vessel disease, leading to vascular dementia with deteriorating cognition.
PLAN: Continue Eliquis
Continue Lamictal
BP control
Continue Sinemet
Pat may need placement
Modified [place] Score (MRS)
-
Score: 4
NIH Stroke Score
NIH Stroke Score
Total Score:: 9
Modified [place] (mRS) Score
Score: 4
[2023-12-15 11:11] VITALS: BP 120/62
[2023-12-15 12:07] LABS: HDL Cholesterol 53 mg/dl; LDL Cholesterol, Calculated 119 mg/dl; Total Cholesterol 195 mg/dl (50-199); Triglyceride 117 mg/dl (10-149); Very Low Density Lipoprotein 23 mg/dl (0-30)
--- NOTE | 2023-12-15 14:30 | EEG.RPT ---
Electroencephalogram Report
Recording
Date of EE12/15/23
Type of EEG: Routine
Length of EEG recordin mins
Done with Video Recording: Yes
Patient Status: Inpatient
Recording Conditions: Awake
Hyperventilation Performed: No
Photic Stimulation Performed: Yes
Report
METHODS
A 21 channel digitized electroencephalogram was performed at [facility]. The 10/20 international system of electrode placement was used. In addition to EEG, the patient was monitored for EKG. The duration of the recording was minutes.
BACKGROUND
During the awake state, with the eyes closed, the background consisted of a normal amplitude, 10 Hertz posterior reactive rhythm that attenuated appropriately with eye opening. Beta activity was distributed diffusely with an anterior predominance.
There was a normal anterior-posterior voltage gradient. With eye opening the background activity changed to a low voltage mixture of alpha, beta, and occasional theta range frequencies. There were no significant asymmetries of background activity
noted.
PHOTIC STIMULATION
Photic stimulation using a step-muniz increase in photic frequency varying from 1-31 Hertz resulted in no driving responses but no appearance of abnormal activity.
ABNORMAL EEG ACTIVITY
None
CLINICAL EVENTS
None
INTERPRETATION AND CLINICAL CORRELATION
This EEG is normal during the awake state as well as during the activation procedure of photic stimulation. No seizures were noted during the recording. A normal EEG, in itself, does not rule out a diagnosis of epilepsy. If clinical suspicion for
seizure persists, a sleep-deprived and/or prolonged recording may be warranted.
[2023-12-15 15:33] VITALS: BP 110/53
[2023-12-15 15:49] VITALS: BP 111/54
== END 2023-12-15 16:37 | disposition home health service (06) | DRG 91 ==
LOC: 4 WEST ACU 22:34
PROVIDERS: Physician Assistant; ADMITTING PHYSICIAN Internal Medicine; ATTENDING PHYSICIAN Internal Medicine; CONSULT PHYSICIAN Psychiatry & Neurology Neurology; EMERGENCY PHYSICIAN Student in an Organized Health Care Education/Training Program; FAMILY PHYSICIAN Internal Medicine
DX: G92.8 Other toxic encephalopathy (principal); E43 Unspecified severe protein-calorie malnutrition; L89.223 Pressure ulcer of left hip, stage 3; R53.2 Functional quadriplegia; F02.84 Dementia in other diseases classified elsewhere, unspecified severity, with anxiety; F01.54 Vascular dementia, unspecified severity, with anxiety; E85.4 Organ-limited amyloidosis; I50.32 Chronic diastolic (congestive) heart failure; I69.251 Hemiplegia and hemiparesis following other nontraumatic intracranial hemorrhage affecting right dominant side; Z66 Do not resuscitate; I48.20 Chronic atrial fibrillation, unspecified; Z68.1 Body mass index [BMI] 19.9 or less, adult; G21.4 Vascular parkinsonism; I11.0 Hypertensive heart disease with heart failure; G40.A09 Absence epileptic syndrome, not intractable, without status epilepticus; D64.9 Anemia, unspecified; I69.320 Aphasia following cerebral infarction; G20.A1 Parkinson's disease without dyskinesia, without mention of fluctuations; L89.151 Pressure ulcer of sacral region, stage 1; T42.6X5A Adverse effect of other antiepileptic and sedative-hypnotic drugs, initial encounter; E78.00 Pure hypercholesterolemia, unspecified; I68.0 Cerebral amyloid angiopathy; G47.00 Insomnia, unspecified; M79.89 Other specified soft tissue disorders; Z99.3 Dependence on wheelchair; Z79.01 Long term (current) use of anticoagulants; Z79.899 Other long term (current) drug therapy; Z87.891 Personal history of nicotine dependence; Z87.81 Personal history of (healed) traumatic fracture
CPT/HCPCS: 51701; 70450; 70551; 71046; 73120; 80048; 80053; 80061; 80175; 80306; 81003; 83880; 84484; 85025; 85027; 85730; 87811; 93005; 93971; 95816; 99285

== ENCOUNTER 2023-12-23 18:14 | Emergency (ER) | payer OTHER, SELFPAY ==
[2023-12-23 18:17] VITALS: BP 134/83
[2023-12-23 18:39] LABS: % Basophils 0.9 % (0-2); % Eosinophils 1.4 % (0-6); % Immature Granulocytes 0.5 % (0-0.5); % Monocytes 7.5 % (1.7-9.3); % Neutrophils 70.7 % (42.2-75.2); Absolute Basophils 0.1 10^3/uL (0-0.2); Absolute Eosinophils 0.1 10^3/uL (0-0.7); Absolute Lymphocytes 1.6 10^3/uL (1.2-3.4); Absolute Monocytes 0.7 10^3/uL (0.1-0.6); Absolute Neutrophils 6.1 10^3/uL (1.4-6.5); Hematocrit 34.6 % (37.0-47.0); Mean Corp Hgb Conc. 34.7 g/dL (33.0-37.0); Mean Corpuscular Hgb 27.8 pg (27.0-31.0); Mean Corpuscular Volume 80.3 fL (81.0-99.0); Mean Platelet Volume 8.2 fL (7.4-10.4); Nucleated Red Blood Cells % 0 %; Platelet Count 396 10^3/uL (130-400); Red Blood Cell Count 4.31 10^6/uL (4.20-5.40); Red Cell Dist. Width 15.2 % (11.5-14.5); White Blood Cell Count 8.6 10^3/uL (4.8-10.8)
[2023-12-23 18:54] LABS: ALT (SGPT) 15 U/L (0-35); AST (SGOT) 18 U/L (14-36); Albumin 4.3 g/dl (3.5-5.0); Alkaline Phosphatase 106 U/L (38-126); Blood Urea Nitrogen 25 mg/dl (7-17); Carbon Dioxide 24 mmol/L (22-30); Chloride 102 mmol/L (98-107); Glucose 98 mg/dl (70-99); Potassium 3.9 mmol/L (3.5-5.1); Sodium 141 mmol/L (135-145); Total Bilirubin 0.5 mg/dl (0.2-1.3); Total Protein 6.5 g/dl (6.3-8.2); eGFR > 60.00
[2023-12-23 21:06] VITALS: BMI 15.5
[2023-12-23 22:00] VITALS: BP 108/52
--- NOTE | 2023-12-23 22:04 | ED.GENMED ---
History of Present Illness
General
Chief Complaint: Change in Mental Status
Source: spouse
Exam Limitations: none
Time Seen by Provider: 12/23/23 20:39
Nursing documentation reviewed up to this point in time: agreed with
History of Present Illness
History of Present Illness:
Patient to ED for eval of mental status changes. Spouse states for the past 2 days she has seemed more confused. Tonight she was having a conversation with brother who is . Spouse is concerned for UTI so he brought her to ED. States
while in waiting room she returned to baseline. Denies fever/chills, n/v/d. No other complaints
Past History
Past History
ED Past Medical History: Arrthythmia (Atrial fib), CVA (Intracerebral bleed/CVA; additional stroke July 2023), HTN, Hypercholesterolemia, Psychiatric (Anxiety) and Other (Vascular dementia, Brain hemorrhage, Vascular Parkinsons, UTI, Anemia, Cerebral
amyloid angiopathy); Negative Asthma or NIDDM
ED Past Surgical History: Orthopedic (Ankle repair, Right hip fracture ) and Other (Brain shunt with removal)
Social History
Tobacco: Former smoker
Alcohol: None
Personal:
Living: with family
Family History
Family History: Other (Reviewed and noncontributory)
Review of Systems
Review of Systems
Allergies reviewed?: Yes
All Other Systems: ROS reviewed and negative except as documented in HPI and ROS
Constitutional: Reports no symptoms
EENT: Reports no symptoms
Respiratory: Reports no symptoms
Cardiac: Reports no symptoms
ABD/GI: Reports no symptoms
: Reports no symptoms
Musculoskeletal: Reports no symptoms
Skin: Reports no symptoms
Neurological: Reports weakness
Psychiatric: Reports hallucinations
Phy Exam
General Physical Exam
General Presentation: no apparent distress
General age: appears stated age
General Skin: warm and dry
General Habitus: normal
Cardiovascular Exam
Cardiovascular Exam: regular rate/rhythm and no edema
Pulmonary Exam
Pulmonary Exam: lungs clear and no respiratory distress
Gastrointestinal Exam
Gastrointestinal Exam: normal bowel sounds and non tender
Musculoskeletal Exam
Musculoskeletal Exam: neuro vasc intact and other (contractures of lower extremities)
Skin Exam
Skin Exam: normal color, warm/dry and no rash
Psychiatric Exam
Psychiatric Exam: normal mood/affect
Course
Orders/Labs/Results
Orders:
Orders
12/23/23 18:26
CMP [Comprehensive Metabolic Panel] Urgent
Complete Blood Count/With Diff Urgent
12/23/23 22:21
Urinalysis Reflex To Culture Urgent
Date Specimen was Collected: 12/23/23
Time Specimen was Collected: 22:18
12/23/23 22:56
Speech Screening from Rebeca Routine
Abnormal Lab Results
12/23/23
18:26
Hct 34.6 L %
(37.0-47.0)
MCV 80.3 L fL
(81.0-99.0)
RDW 15.2 H %
(11.5-14.5)
Absolute Monos (auto) 0.7 H 10^3/uL
(0.1-0.6)
Lymphocytes % 19.0 L %
(20.5-51.1)
BUN 25 H mg/dl
(7-17)
Creatinine 0.5 L mg/dL
(0.6-1.0)
12/23/23 18:26
12/23/23 18:26
Vital Signs
Initial and Last Documented VS:
Initial Vital Signs
Temp Pulse Resp BP Pulse Ox
97.3 F 62 18 134/83 99
12/23/23 18:17 12/23/23 18:17 12/23/23 18:17 12/23/23 18:17 12/23/23 18:17
Last Documented Vital Signs
Temp Pulse Resp BP Pulse Ox
97.3 F 69 12 108/52 99
12/23/23 18:17 12/23/23 22:45 12/23/23 22:45 12/23/23 22:00 12/23/23 22:45
MDM/Problems Addressed
Differential Diagnosis Includes:
Patient to ED for eval of mental status changes. SHe has a hx of dementia, parkinsons. Spouse states she has been increasingly confused, now talking to brother. Labs reviewed. No findings to explain her symptoms. Spouse has declined
imaging for her. He states that while waiting in waiting room she returned to baseline. Will discharge home, followup with PCP in AM. Differential includes but not limited to infectious process/sepsis, CVA/TIA, medication reaction/oversedation.
*Pulse Oximetry
Patient hypoxic: no
*Critical Care Note
Total Time (30-74mins, 75-104mins- exclusive of procedures): Not Applicable
ED Attending Note
-
Portions of this chart may have been created with voice recognition software.� Occasional wrong word or��sound alike� substitutions may have occurred due to the inherent limitations of voice recognition software.
Discharge Plan
Departure
Patient Disposition: Home (Routine Discharge)
Date of Disposition: 12/23/23
Time of Disposition: 22:43
Patient with high blood pressure during this ER visit?: No
Condition: Good
Covid-19: Not Applicable
Discharge Problem:
Parkinson disease, Dementia
Instructions: Altered Mental Status (DC), Dementia (DC)
Prescriptions:
No Action
folic acid 1 mg Tablet
1 mg PO DAILY Qty: 0 0RF
atorvastatin 80 mg Tablet
80 mg PO HS
acetaminophen 325 mg Tablet
650 mg PO BID
melatonin 3 mg Tablet
6 mg PO HS
therapeutic multivitamin Tablet
1 tab PO DAILY
carbidopa-levodopa 10-100 mg Tablet
1 tab PO TID@1000,1400,1800
Patient Comments:
10/11/23: patient's family is unaware of dosage change, despite most recent fill changing from 25-100mg tablets to 10-100mg tablets.
docusate sodium [Colace] 100 mg Capsule
100 mg PO BID
furosemide 20 mg Tablet
20 mg PO DAILY
psyllium husk 3.4 gram/6 gram Powder
3.4 g PO DAILY
Eliquis 5 mg tablet
5 mg PO BID
diltiazem HCl 120 mg Capsule,Extended Release 24hr
120 mg PO BID Qty: 30 0RF
metoprolol tartrate 50 mg Tablet
50 mg PO BID Qty: 60 0RF
lamotrigine 25 mg Tablet, Chewable Dispersible
100 mg PO BID Qty: 240 0RF
methenamine hippurate 1 gram Tablet
1 g PO BID Qty: 60 0RF
memantine 10 mg Tablet
10 mg PO DAILY Qty: 30 0RF
Referrals:
Milad Zaragoza MD [Family Provider] - Follow up in 2-3 days
Interventions
Interventions:
*Risk Screen - Suicide Last Done: 12/23/23 21:07
*General Assessment Last Done: 12/23/23 18:17
*Neglect/Abuse Screening Last Done: 12/23/23 21:07
ED- Fall Risk Assessment Last Done: 12/23/23 21:08
*ED COVID-19 Vaccine History Last Done: 12/23/23 21:07
*Nursing Disposition Last Done: 12/23/23 22:55
ED- Pulmonary Assessment Last Done: 12/23/23 21:08
ED-Psychological Assessment Last Done: 12/23/23 22:55
ED- Neurological Assessment Last Done: 12/23/23 21:08
ED- Cardiac Assessment Last Done: 12/23/23 21:08
ED Swallowing Screen Last Done: 12/23/23 22:55
Discharge Date and Time
Discharge Date/Time: 12/23/23 22:56
Print Language: CZECH
[2023-12-23 22:29] LABS: Urine Albumin Negative (Neg - Trace); Urine Bilirubin Negative (Negative); Urine Character Clear (Clear); Urine Color Yellow; Urine Glucose Negative (Negative); Urine Ketone Negative (Negative); Urine Leukocyte Negative (Negative); Urine Nitrite Negative (Negative); Urine Occult Blood Negative (Negative); Urine Specific Gravity 1.015 (<1.030); Urine Urobilinogen Negative (Neg - 1+)
== END 2023-12-23 22:56 | disposition home or self-care (01) ==
LOC: EMR 18:14
PROVIDERS: Emergency Medicine; Nurse Practitioner; EMERGENCY PHYSICIAN Emergency Medicine; FAMILY PHYSICIAN Internal Medicine
DX: G20.A1 Parkinson's disease without dyskinesia, without mention of fluctuations (principal); F02.80 Dementia in other diseases classified elsewhere, unspecified severity, without behavioral disturbance, psychotic disturbance, mood disturbance, and anxiety; Z87.891 Personal history of nicotine dependence
CPT/HCPCS: 99283; 80053; 81003; 85025

== ENCOUNTER → 2024-02-01 14:20 | Outpatient (REF) | payer OTHER, SELFPAY | LOC: WOUND 14:20 | PROVIDERS: ATTENDING PHYSICIAN Surgery; FAMILY PHYSICIAN Internal Medicine | DX: L89.893 Pressure ulcer of other site, stage 3 (principal); G20.B2 Parkinson's disease with dyskinesia, with fluctuations; L89.320 Pressure ulcer of left buttock, unstageable; L89.319 Pressure ulcer of right buttock, unspecified stage; R41.0 Disorientation, unspecified; I10 Essential (primary) hypertension; I73.9 Peripheral vascular disease, unspecified; Z86.73 Personal history of transient ischemic attack (TIA), and cerebral infarction without residual deficits | CPT/HCPCS: 11042; 99213 ==

== ENCOUNTER → 2024-02-01 14:50 | Outpatient (REF) | payer OTHER, SELFPAY | LOC: RAD 14:50 | PROVIDERS: ATTENDING PHYSICIAN Surgery | DX: L89.893 Pressure ulcer of other site, stage 3 (principal) | CPT/HCPCS: 73630 ==

== ENCOUNTER → 2024-02-08 14:52 | Outpatient (REF) | payer OTHER, SELFPAY | LOC: WOUND 14:52 | PROVIDERS: ATTENDING PHYSICIAN Surgery; FAMILY PHYSICIAN Internal Medicine | DX: L89.893 Pressure ulcer of other site, stage 3 (principal); Z86.73 Personal history of transient ischemic attack (TIA), and cerebral infarction without residual deficits; G20.B2 Parkinson's disease with dyskinesia, with fluctuations; L89.320 Pressure ulcer of left buttock, unstageable; L89.319 Pressure ulcer of right buttock, unspecified stage; R41.0 Disorientation, unspecified; I10 Essential (primary) hypertension; I73.9 Peripheral vascular disease, unspecified | CPT/HCPCS: 11042 ==

== ENCOUNTER → 2024-02-22 14:17 | Outpatient (REF) | payer OTHER, SELFPAY | LOC: WOUND 14:17 | PROVIDERS: ATTENDING PHYSICIAN Surgery; FAMILY PHYSICIAN Internal Medicine | DX: L89.893 Pressure ulcer of other site, stage 3 (principal); G20.B2 Parkinson's disease with dyskinesia, with fluctuations; L89.320 Pressure ulcer of left buttock, unstageable; L89.319 Pressure ulcer of right buttock, unspecified stage; R41.0 Disorientation, unspecified; I10 Essential (primary) hypertension; I73.9 Peripheral vascular disease, unspecified; Z86.73 Personal history of transient ischemic attack (TIA), and cerebral infarction without residual deficits | CPT/HCPCS: 11042 ==

== ENCOUNTER → 2024-02-23 10:33 | Outpatient (REF) | payer OTHER, SELFPAY | LOC: RAD 10:33 | PROVIDERS: ATTENDING PHYSICIAN Surgery; FAMILY PHYSICIAN Internal Medicine | DX: L89.893 Pressure ulcer of other site, stage 3 (principal) | CPT/HCPCS: 93922 ==

== ENCOUNTER → 2024-03-07 14:15 | Outpatient (REF) | payer OTHER, SELFPAY | LOC: WOUND 14:15 | PROVIDERS: ATTENDING PHYSICIAN Surgery; FAMILY PHYSICIAN Internal Medicine | DX: L89.893 Pressure ulcer of other site, stage 3 (principal); G20.B2 Parkinson's disease with dyskinesia, with fluctuations; L89.320 Pressure ulcer of left buttock, unstageable; L89.319 Pressure ulcer of right buttock, unspecified stage; R41.0 Disorientation, unspecified; I10 Essential (primary) hypertension; I73.9 Peripheral vascular disease, unspecified; Z86.73 Personal history of transient ischemic attack (TIA), and cerebral infarction without residual deficits | CPT/HCPCS: 11042 ==

== ENCOUNTER → 2024-03-21 13:32 | Outpatient (REF) | payer OTHER, SELFPAY | LOC: WOUND 13:32 | PROVIDERS: ATTENDING PHYSICIAN Surgery; FAMILY PHYSICIAN Internal Medicine | DX: L89.893 Pressure ulcer of other site, stage 3 (principal); Z86.73 Personal history of transient ischemic attack (TIA), and cerebral infarction without residual deficits; G20.B2 Parkinson's disease with dyskinesia, with fluctuations; L89.320 Pressure ulcer of left buttock, unstageable; L89.319 Pressure ulcer of right buttock, unspecified stage; R41.0 Disorientation, unspecified; I10 Essential (primary) hypertension; I73.9 Peripheral vascular disease, unspecified | CPT/HCPCS: 99213 ==

== ENCOUNTER → 2024-04-11 14:36 | Outpatient (REF) | payer OTHER, SELFPAY | LOC: WOUND 14:36 | PROVIDERS: ATTENDING PHYSICIAN Surgery; FAMILY PHYSICIAN Internal Medicine | DX: L89.893 Pressure ulcer of other site, stage 3 (principal); Z86.73 Personal history of transient ischemic attack (TIA), and cerebral infarction without residual deficits; G20.B2 Parkinson's disease with dyskinesia, with fluctuations; L89.320 Pressure ulcer of left buttock, unstageable; L89.319 Pressure ulcer of right buttock, unspecified stage; R41.0 Disorientation, unspecified; I10 Essential (primary) hypertension; I73.9 Peripheral vascular disease, unspecified | CPT/HCPCS: 11042 ==

== ENCOUNTER → 2024-04-25 14:36 | Outpatient (REF) | payer OTHER, SELFPAY | LOC: WOUND 14:36 | PROVIDERS: ATTENDING PHYSICIAN Surgery; FAMILY PHYSICIAN Family Medicine | DX: L89.893 Pressure ulcer of other site, stage 3 (principal); G20.B2 Parkinson's disease with dyskinesia, with fluctuations; L89.320 Pressure ulcer of left buttock, unstageable; L89.319 Pressure ulcer of right buttock, unspecified stage; R41.0 Disorientation, unspecified; I10 Essential (primary) hypertension; I73.9 Peripheral vascular disease, unspecified | CPT/HCPCS: 11042 ==

== ENCOUNTER → 2024-05-16 14:46 | Outpatient (REF) | payer OTHER, SELFPAY | LOC: WOUND 14:46 | PROVIDERS: ATTENDING PHYSICIAN Surgery; FAMILY PHYSICIAN Internal Medicine | DX: L89.893 Pressure ulcer of other site, stage 3 (principal); G20.B2 Parkinson's disease with dyskinesia, with fluctuations; L89.320 Pressure ulcer of left buttock, unstageable; L89.319 Pressure ulcer of right buttock, unspecified stage; R41.0 Disorientation, unspecified; I10 Essential (primary) hypertension; I73.9 Peripheral vascular disease, unspecified | CPT/HCPCS: 99213 ==

== ENCOUNTER → 2024-06-06 14:36 | Outpatient (REF) | payer OTHER, SELFPAY | LOC: WOUND 14:36 | PROVIDERS: ATTENDING PHYSICIAN Surgery; FAMILY PHYSICIAN Internal Medicine | DX: L89.893 Pressure ulcer of other site, stage 3 (principal); G20.B2 Parkinson's disease with dyskinesia, with fluctuations; L89.320 Pressure ulcer of left buttock, unstageable; L89.319 Pressure ulcer of right buttock, unspecified stage; R41.0 Disorientation, unspecified; I10 Essential (primary) hypertension; I73.9 Peripheral vascular disease, unspecified | CPT/HCPCS: 99213 ==

== ENCOUNTER → 2024-06-20 14:50 | Outpatient (REF) | payer OTHER, SELFPAY | LOC: WOUND 14:50 | PROVIDERS: ATTENDING PHYSICIAN Surgery; FAMILY PHYSICIAN Internal Medicine | DX: L89.893 Pressure ulcer of other site, stage 3 (principal); Z86.73 Personal history of transient ischemic attack (TIA), and cerebral infarction without residual deficits; G20.B2 Parkinson's disease with dyskinesia, with fluctuations; L89.320 Pressure ulcer of left buttock, unstageable; L89.319 Pressure ulcer of right buttock, unspecified stage; R41.0 Disorientation, unspecified; I10 Essential (primary) hypertension; I73.9 Peripheral vascular disease, unspecified | CPT/HCPCS: 99213 ==

== ENCOUNTER → 2024-07-04 14:15 | Outpatient (REF) | payer OTHER, SELFPAY | LOC: WOUND 14:15 | PROVIDERS: ATTENDING PHYSICIAN Surgery; FAMILY PHYSICIAN Internal Medicine | DX: L89.893 Pressure ulcer of other site, stage 3 (principal); G20.B2 Parkinson's disease with dyskinesia, with fluctuations; L89.320 Pressure ulcer of left buttock, unstageable; L89.319 Pressure ulcer of right buttock, unspecified stage; R41.0 Disorientation, unspecified; I10 Essential (primary) hypertension; I73.9 Peripheral vascular disease, unspecified; Z86.73 Personal history of transient ischemic attack (TIA), and cerebral infarction without residual deficits | CPT/HCPCS: 99213 ==

== ENCOUNTER → 2024-07-19 14:08 | Outpatient (REF) | payer OTHER, SELFPAY | LOC: WOUND 14:08 | PROVIDERS: ATTENDING PHYSICIAN Surgery; FAMILY PHYSICIAN Internal Medicine | DX: L89.893 Pressure ulcer of other site, stage 3 (principal); G20.B2 Parkinson's disease with dyskinesia, with fluctuations; L89.320 Pressure ulcer of left buttock, unstageable; L89.319 Pressure ulcer of right buttock, unspecified stage; R41.0 Disorientation, unspecified; I10 Essential (primary) hypertension; I73.9 Peripheral vascular disease, unspecified | CPT/HCPCS: 99212 ==